=== PATIENT | male | born 1945 | race Caucasian/White ===

== ENCOUNTER → 2016-09-17 | Outpatient (CLI) | payer OTHER, BC ==
[~2016-09-17] MED LIST: LIDOCAINE 1% 30 ML SDV ONE; NA BICARBONATE 50 MEQ/50 ML VIAL ONE
--- NOTE | 2016-09-17 15:02 | US ---
Ultrasound-Guided right lower neck soft tissue Biopsy History: Right lower neck, upper back posterior soft tissue metabolically active mass measuring 3.1 x 1.6 x 0.9 cm. 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 Witnessed Consent: Witnessed informed consent was obtained after the risks, benefits, and alternativ es of ultrasound guided right lower neck upper back posterior mass biopsy were explained to the patie nt and all questions were answered. Procedure: Utilizing ultrasound guidance and sterile technique the right upper back was prepped with ChloraPrep solution. Lidocaine with bicarbonate was used as local anesthesia. A 18-gauge coaxial need le was passed with ultrasound guidance into the right upper back/lower neck posterior subcutaneous 3. 1 x 1.6 cm mass 4 times. Cytology was present and stated sufficient cells were located in specimen. Postprocedure imaging demonstrates no evidence of hematoma. Patient tolerated the procedure well with out immediate complications. Discharge instructions were given. EBL: NONE Impression: 1. Successful ultrasound guided biopsy of 3.1 cm lower neck/upper back posterior mass. 2. Please see pathology report which is pending. PQRS Cross-Cutting Measure: Tobacco use: no.
== END ==
LOC: FIMAGING 12:29
PROVIDERS: ATTEND Internal Medicine Hematology & Oncology
PROC: 0JB53ZX Excision of Left Neck Subcutaneous Tissue and Fascia, Percutaneous Approach, Diagnostic (ICD-10-PCS; principal; 2016-09-17)
DX: C79.89 Secondary malignant neoplasm of other specified sites (principal); Z85.828 Personal history of other malignant neoplasm of skin; Z85.118 Personal history of other malignant neoplasm of bronchus and lung

== ENCOUNTER 2016-12-01 10:45 | Emergency (ER) | payer OTHER, BC ==
[2016-12-01] MEDS ORDERED: NS 1,000 ML IV ONE (11:38)
--- NOTE | 2016-12-01 12:13 | EDPHY ---
H & P Time Seen by Provider: 12/01/16 12:13 HPI/ROS: CHIEF COMPLAINT: Altered mental status HISTORY OF PRESENT ILLNESS: History from paramedics as well as the patient. He has an insulin pump and a kidney transplant. He had radiation therapy for his squamous cell cancer on his skin last treatment was 5 days ago and he has been feeling a little bit ill and not eating or drinking normally over the past couple of days. Glucose was 50 and his insulin pump was off on arrival At time of my evaluation the patient is alert and normally conversant has no medical complaints. 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 PAST MEDICAL HISTORY: Includes kidney transplant, squamous cell skin cancer, diabetes, Clostridium difficile, reflux, blind in the right eye. Social history: General Appearance: Alert and conversant, cooperative. Eyes: Blind in the right eye. ENT, Mouth: Normal mucous membranes. Respiratory: Normal respiratory effort, breath sounds equal, lungs are clear to auscultation. Cardiovascular: Regular rate and rhythm. Gastrointestinal: Abdomen is soft and non tender. Neurological: Alert and oriented x3. Normally conversant. Face symmetric, normal movement and sensation in all extremities. Skin: Multiple areas of skin abrasions and squamous cell cancer but no areas of cellulitis. No erythema or lymphangitis or fluctuance. Musculoskeletal: Patient has amputations of all toes on the right foot and multiple toes in the left foot. No evidence of cellulitis. Psychiatric: Not agitated. Emergency Department course/MDM: 1230: Mental health hold vacated at this time is the whole documents grave disability secondary to hypoglycemia which the patient longer has. 1306: Patient ate in the emergency department and glucose was rechecked. I think it is likely that his hypoglycemia was due to decreased oral intake. Right now he has a normal mental status and wants to be discharged. Patient was seen by case management for social situation. Apparently we are able to arrange for 24 hour home care starting this afternoon which I think is a reasonable plan. Repeat glucose 157. Smoking Status: Former smoker Constitutional: Initial Vital Signs Temperature (C) 35.5 C L 12/01/16 10:57 Heart Rate 80 12/01/16 10:57 Respiratory Rate 16 12/01/16 10:57 Blood Pressure 176/59 H 12/01/16 10:57 O2 Sat (%) 90 L 12/01/16 10:57 O2 Delivery Mode Room Air Allergies/Adverse Reactions: Cephalosporins Allergy (Severe, Verified 08/06/16 12:23) Cleve Pravin Syndrome Penicillins Allergy (Intermediate, Verified 08/06/16 12:23) Hives Home Medications: Medication Instructions Recorded Esomeprazole Magnesium 02/29/16 GABAPENTIN 02/29/16 Metoprolol Tartrate 02/29/16 Oxycodone HCl 02/29/16 Prednisone 02/29/16 Sensipar 02/29/16 Tacrolimus 02/29/16 CALCITRIOL 08/06/16 Herbals/Supplements -Info Only 08/06/16 Insulin Pump, Patient Own 08/06/16 Nortriptyline HCl 08/06/16 Sodium Bicarbonate 08/06/16 Medical Decision Making Differential Diagnosis: Differential diagnosis considered for altered mental status including but not limited to hypoglycemia, infectious process, electrolyte abnormality, head injury and intoxicants. - Data Points Laboratory Results: Laboratory Results 12/01/16 11:25 12/01/16 13:15 12/01/16 12/01/16 12/01/16 13:15 11:25 11:25 WBC 3.57 10^3/uL L 10^3/uL (3.80-9.50) RBC 4.76 10^6/uL 10^6/uL (4.40-6.38) Hgb 14.8 g/dL g/dL (13.7-17.5) POC Hgb Hct 44.4 % % (40.0-51.0) POC Hct MCV 93.3 fL fL (81.5-99.8) MCH 31.1 pg pg (27.9-34.1) MCHC 33.3 g/dL g/dL (32.4-36.7) RDW 14.6 % % (11.5-15.2) Plt Count 182 10^3/uL 10^3/uL (150-400) MPV 10.3 fL fL (8.7-11.7) Neut % (Auto) 77.8 % H % (39.3-74.2) Lymph % (Auto) 9.0 % L % (15.0-45.0) Clark % (Auto) 12.3 % % (4.5-13.0) Eos % (Auto) 0.0 % L % (0.6-7.6) Baso % (Auto) 0.3 % % (0.3-1.7) Nucleat RBC Rel Count 0.0 % % (0.0-0.2) Absolute Neuts (auto) 2.78 10^3/uL 10^3/uL (1.70-6.50) Absolute Lymphs (auto) 0.32 10^3/uL L 10^3/uL (1.00-3.00) Absolute Monos (auto) 0.44 10^3/uL 10^3/uL (0.30-0.80) Absolute Eos (auto) 0.00 10^3/uL L 10^3/uL (0.03-0.40) Absolute Basos (auto) 0.01 10^3/uL L 10^3/uL (0.02-0.10) Absolute Nucleated RBC 0.00 10^3/uL 10^3/uL (0-0.01) Immature Gran % 0.6 % % (0.0-1.1) Immature Gran # 0.02 10^3/uL 10^3/uL (0.00-0.10) POC Sodium Sodium 137 mEq/L mEq/L (134-144) POC Potassium Potassium 4.4 mEq/L mEq/L (3.5-5.2) POC Chloride Chloride 103 mEq/L mEq/L (97-110) Carbon Dioxide 21 mEq/l L mEq/l (22-31) Anion Gap 13 mEq/L mEq/L (8-16) POC BUN BUN 34 mg/dL H mg/dL (7-23) Creatinine 0.8 mg/dL mg/dL (0.7-1.3) POC Creatinine Estimated GFR > 60 Glucose 157 mg/dL H D mg/dL 66 mg/dL L mg/dL (70-100) (70-100) POC Glucose Calcium 8.4 mg/dL L mg/dL (8.5-10.4) 12/01/16 11:25 WBC RBC Hgb POC Hgb 15.6 gm/dL gm/dL (14.5-17.3) Hct POC Hct 46 % % (42.8-50.6) MCV MCH MCHC RDW Plt Count MPV Neut % (Auto) Lymph % (Auto) Clark % (Auto) Eos % (Auto) Baso % (Auto) Nucleat RBC Rel Count Absolute Neuts (auto) Absolute Lymphs (auto) Absolute Monos (auto) Absolute Eos (auto) Absolute Basos (auto) Absolute Nucleated RBC Immature Gran % Immature Gran # POC Sodium 138 mEq/L mEq/L (134-144) Sodium POC Potassium 4.0 mEq/L mEq/L (3.3-5.0) Potassium POC Chloride 102 mEq/L mEq/L (96-108) Chloride Carbon Dioxide Anion Gap POC BUN 35 mg/dL H mg/dL (7-23) BUN Creatinine POC Creatinine 0.8 mg/dL mg/dL (0.8-1.5) Estimated GFR Glucose POC Glucose 69 mg/dL L mg/dL (70-100) Calcium Medications Given: Discontinued Medications Sodium Chloride (Ns) 1,000 mls @ 0 mls/hr IV ONCE ONE PRN Reason: Wide Open Stop: 12/01/16 11:39 Last Admin: 12/01/16 11:38 Dose: 1,000 mls Point of Care Test Results: 12/01/16 11:25 POC Sodium 138 POC Potassium 4.0 POC Chloride 102 POC BUN 35 H POC Creatinine 0.8 POC Glucose 69 L Departure - Departure Disposition: Home, Routine, Self-Care Clinical Impression: Hypoglycemia Condition: Good Instructions: Hypoglycemia in a Person with Diabetes (ED) Additional Instructions: You have an appointment tomorrow 12/01/16 at 1p.m. with RENETTA Macias at Dr. Vera's office ([phone]). You have been set up with HomeCare RN visits through [facility] ([phone]), they will most likely arrange their first at home visit on Thursday12/03/16. They will be in contact to schedule their visit. [facility] (your current home care agency) is planning on increasing their caregiving services to 24/7 care at home until you and your are able to move into a living situation that provides more care and assistance (such as [facility], etc.). Referrals: Long Vera MD [Primary Care Provider] - As per Instructions Raman Cosby MD [Medical Doctor] - As per Instructions Inna No PA [Physician Final Touch Up Painter] - As per Instructions
[2016-12-01 12:26] LABS: % IMMATURE GRANULYOCYTES 0.6 % (0.0-1.1); ABSOLUTE IMMATURE GRANULOCYTES 0.02 10^3/uL (0.00-0.10); ADD DIFF? NO; ADD MORPH? NO; ADD SCAN? NO; ATYPICAL LYMPHOCYTE FLAG 40 (0-99); FRAGMENT RBC FLAG 0 (0-99); HEMATOCRIT 44.4 % (40.0-51.0); HEMOGLOBIN 14.8 g/dL (13.7-17.5); LEFT SHIFT FLG 0 (0-99); LIPEMIA HEMOLYSIS FLAG 80 (0-99); MEAN CELL HEMOGLOBIN 31.1 pg (27.9-34.1); MEAN CELL HEMOGLOBIN CONCENTR. 33.3 g/dL (32.4-36.7); MEAN CELL VOLUME 93.3 fL (81.5-99.8); MEAN PLATELET VOLUME 10.3 fL (8.7-11.7); PLATELET CLUMPS FLAG 0 (0-99); PLATELET COUNT 182 10^3/uL (150-400); RED BLOOD CELL COUNT 4.76 10^6/uL (4.40-6.38); RED CELL DISTRIBUTION WIDTH 14.6 % (11.5-15.2)
[2016-12-01 12:31] LABS: ANION GAP 13 mEq/L (8-16); CALCIUM 8.4 mg/dL (8.5-10.4); CARBON DIOXIDE 21 mEq/l (22-31); CHLORIDE 103 mEq/L (97-110); CREATININE 0.8 mg/dL (0.7-1.3); GLOMERULAR FILTRATION RATE > 60; GLUCOSE 66 mg/dL (70-100); POTASSIUM 4.4 mEq/L (3.5-5.2); SODIUM 137 mEq/L (134-144)
[2016-12-01 13:50] LABS: GLUCOSE 157 mg/dL (70-100)
[2016-12-01 14:43] VITALS: BP 106/61; PULSE 72; RESP 18; TEMP 97.7; O2SAT 97
== END 2016-12-01 14:30 | disposition home or self-care (01) ==
LOC: EDUNIT#
DX: E11.649 Type 2 diabetes mellitus with hypoglycemia without coma (principal); Z79.4 Long term (current) use of insulin; Z87.891 Personal history of nicotine dependence; Z85.828 Personal history of other malignant neoplasm of skin
CPT/HCPCS: 82947-QW

== ENCOUNTER 2017-05-10 18:26 | Inpatient (IN) | payer OTHER, BC ==
--- NOTE | 2017-05-10 18:35 | EDPHY ---
H & P HPI/ROS: CHIEF COMPLAINT: HISTORY OF PRESENT ILLNESS: The patient is a 71 y/o male arriving via EMS who complains of weakness and rib pain secondary to a fall at home this morning. The patient is not a good historian. The history was obtained from his daughter, on the phone. She tells me that this morning he fell off his stationary bike and was unable to get up. The daughter made a routine call, and learned about her father's fall. Home health aides were subsequently called to the home. At that time he appeared to have normal mentation, with a blood glucose level of 187. Later in the day an aide returned to check on the patient. At that time the aide noted that the patient seemed weaker than usual and reportedly had a fever. The aide also noted that the patient seemed to be hallucinating while sleeping, which is consistent with prior episodes of a low blood glucose level--however, his blood sugar was not low. It was at that point that the aide called an ambulance. The patient believes that his daughter was the one who called the ambulance. Since the fall he has felt pain in his left ribs. He denies shortness of breath. He denies headache, neck pain, new numbness, new weakness, and confusion. The patient himself tells somewhat different story. He states that he was going outside to cut wood when he fell, landing on his buttocks. REVIEW OF SYSTEMS: A ten point review of systems was performed and is negative with the exception of the items mentioned in the HPI. Past medical history: Diabetes, insulin pump Squamous cell skin cancer, being treated with radiation therapy Loss of vision in right eye due to diabetes C. diff Renal transplant Past surgical history: Kidney transplant 10 years ago Social history: with advanced Alzheimer's at bedside Lives in [place] Daughter's boyfriend at bedside Daughter on phone, she is in [place] Retired from [employer] General Appearance: Alert. Vital signs reviewed. Blood pressure 125/72, initial room air pulse ox 90%. Head: Normocephalic atraumatic. Eyes: Od cloudy, no conjunctival injection, no discharge. Anicteric. Extraocular movements intact. ENT, Mouth: Mucous membranes are moist, no oropharyngeal erythema or edema. Neck: No lymphadenopathy, supple. Nontender to palpation over the cervical spine in the midline. Respiratory: Lungs are clear to auscultation; no wheezes, rales, or rhonchi. Cardiovascular: Regular rate and rhythm; no murmur, rub, or gallop. Gastrointestinal: Abdomen is soft and nontender, no masses or organomegaly, bowel sounds normal. Skin: Lateral left back abrasion, skin tear on lateral and medial left elbow. Skin is fragile. Multiple bruises. Back: Left posterior lower rib cage tenderness. No crepitus. Otherwise nontender to palpation over the thoracolumbar spine. No CVAT. Extremities: No lower extremity edema, no calf tenderness or swelling. Neurological: Alert and oriented. Moving all four extremities easily and equally. 4+ over 5 strength with testing of major motor groups of bilateral upper and lower extremities. Tongue midline. Facial expressions symmetric. Sensation intact to light touch over all 4 extremities. Psychiatric: Normal affect. - Personal History Tetanus Vaccine Date: 2008 - Medical/Surgical History Hx Asthma: No Hx Chronic Respiratory Disease: No Hx Diabetes: Yes Hx Cardiac Disease: No Hx Renal Disease: Yes Hx Cirrhosis: No Hx Alcoholism: No Hx HIV/AIDS: No Hx Splenectomy or Spleen Trauma: No Other PMH: kidney transplant SKIN CA EYE SURGERIES ORTHO SURG. APPY TONSILECTOMY, DIABETES TYPE 1, NEUROPATHY, insulin pump. chronic pain, HX OF CDIFF FROM 10/2014 - Social History Smoking Status: Former smoker Constitutional: Initial Vital Signs Temperature (C) 37 C 05/10/17 18:34 Heart Rate 87 05/10/17 18:34 Respiratory Rate 16 05/10/17 18:34 Blood Pressure 125/72 H 05/10/17 18:34 O2 Sat (%) 90 L 05/10/17 18:34 O2 Delivery Mode Room Air Allergies/Adverse Reactions: Cephalosporins Allergy (Severe, Verified 08/06/16 12:23) Cleve Pravin Syndrome Penicillins Allergy (Intermediate, Verified 08/06/16 12:23) Hives Home Medications: Medication Instructions Recorded Oxycodone HCl 02/29/16 Calcitriol [Calcitriol (*)] 0.25 mcg PO DAILY 05/10/17 Cinacalcet HCl [Sensipar] 30 mg PO 05/10/17 Esomeprazole Magnesium [Nexium] 20 mg PO 05/10/17 Gabapentin [Neurontin 300 MG (*)] 300 mg PO BID 05/10/17 Herbals/Supplements -Info Only 1 ea PO DAILY 05/10/17 Insulin Pump, Patient Own 1 ea MISC AD 05/10/17 Metoprolol Tartrate [Lopressor 25 12.5 mg PO BID 05/10/17 mg (*)] Nortriptyline HCl [Pamelor 10 mg 10 mg PO HS 05/10/17 (*)] Sodium Bicarbonate [Na Bicarb] 650 mg PO BID 05/10/17 Tacrolimus Anhydrous [Prograf 0.5 0.5 mg PO 05/10/17 MG (*)] predniSONE 5 mg PO 05/10/17 Medical Decision Making - Diagnostics Imaging Results: Imaging Impressions Chest X-Ray 05/10/17 18:58 Impression: 1. Multiple bilateral rib fractures. Most of these appear chronic and similar to prior chest CT. Possible acute or subacute fractures posterolateral left 7th and 8th ribs. No evidence for pneumothorax. 2. Scarlike density right suprahilar region, likely residual from treated carcinoma. Head CT 05/10/17 19:14 Impression: No evidence for acute intracranial abnormality. Stable chronic findings, as above. Results called and discussed with Eun Brantley MD on May 10, 2017 at 2006 hours. Imaging: Discussed imaging studies w/ machine brush maker Radiologist, I viewed and interpreted images myself ED Course/Re-evaluation: The patient is a 71 y/o male who presents with left rib tenderness and skin tears and abrasions to his left arm and back secondary to a fall this morning. He tells me that he was going outside to chop wood and fell; but his daughter reports that he fell off of his stationary bike this morning. By her report his thinking is usually clear. His home health aide also notes that his mentation is similar to prior episodes of low blood glucose levels. Plan on chest x-ray, head CT, labs, IV, 1L IV NS. 2009: Spoke with Dr. Parada,radiologist. He notes the patient has a fracture of left ribs [address] without atrophy, no acute findings--no intracranial hemorrhage or obvious stroke. I do not find focal neurologic deficits on my exam. White blood cell count is elevated with a left shift, I have not found a source of infection. Electrolytes are within normal limits. 2039: Spoke with hospitalist service, Dr.Wael Hicks accepts admission of patient. Patient has not been able to provide a urine sample. 2044: Consulted with Dr. Ho, trauma surgeon, he agrees to follow patient during admission. Differential Diagnosis: Altered mental status including but not limited to hypoglycemia, infectious process, electrolyte abnormality, head injury and intoxicants. - Data Points Laboratory Results: Laboratory Results 05/10/17 19:30 05/10/17 19:30 05/10/17 05/10/17 19:30 19:30 WBC 11.82 10^3/uL H 10^3/uL (3.80-9.50) RBC 4.43 10^6/uL 10^6/uL (4.40-6.38) Hgb 13.8 g/dL g/dL (13.7-17.5) Hct 41.8 % % (40.0-51.0) MCV 94.4 fL fL (81.5-99.8) MCH 31.2 pg pg (27.9-34.1) MCHC 33.0 g/dL g/dL (32.4-36.7) RDW 15.2 % % (11.5-15.2) Plt Count 233 10^3/uL 10^3/uL (150-400) MPV 10.2 fL fL (8.7-11.7) Neut % (Auto) 87.6 % H % (39.3-74.2) Lymph % (Auto) 4.7 % L % (15.0-45.0) [place] % (Auto) 7.1 % % (4.5-13.0) Eos % (Auto) 0.0 % L % (0.6-7.6) Baso % (Auto) 0.2 % L % (0.3-1.7) Nucleat RBC Rel Count 0.0 % % (0.0-0.2) Absolute Neuts (auto) 10.35 10^3/uL H 10^3/uL (1.70-6.50) Absolute Lymphs (auto) 0.56 10^3/uL L 10^3/uL (1.00-3.00) Absolute Monos (auto) 0.84 10^3/uL H 10^3/uL (0.30-0.80) Absolute Eos (auto) 0.00 10^3/uL L 10^3/uL (0.03-0.40) Absolute Basos (auto) 0.02 10^3/uL 10^3/uL (0.02-0.10) Absolute Nucleated RBC 0.00 10^3/uL 10^3/uL (0-0.01) Immature Gran % 0.4 % % (0.0-1.1) Immature Gran # 0.05 10^3/uL 10^3/uL (0.00-0.10) Sodium 135 mEq/L mEq/L (134-144) Potassium 5.2 mEq/L mEq/L (3.5-5.2) Chloride 98 mEq/L mEq/L (97-110) Carbon Dioxide 28 mEq/l mEq/l (22-31) Anion Gap 9 mEq/L mEq/L (8-16) BUN 34 mg/dL H mg/dL (7-23) Creatinine 0.9 mg/dL mg/dL (0.7-1.3) Estimated GFR > 60 Glucose 238 mg/dL H mg/dL (70-100) Calcium 8.5 mg/dL mg/dL (8.5-10.4) Medications Given: Miscellaneous Information (Patch Removal) 1 ea TD [id number] JAKE Stop: 11/06/17 20:59 Last Admin: 05/10/17 21:00 Dose: 1 ea Discontinued Medications Acetaminophen (Tylenol) 650 mg PO EDNOW ONE Stop: 05/10/17 20:56 Last Admin: 05/10/17 20:59 Dose: 650 mg Sodium Chloride (Ns) 1,000 mls @ 0 mls/hr IV EDNOW ONE; Wide Open PRN Reason: Protocol Stop: 05/10/17 20:30 Last Admin: 05/10/17 20:50 Dose: 1,000 mls Lidocaine (Lidoderm 5%) 1 ea TD EDNOW ONE Stop: 05/10/17 20:51 Last Admin: 05/10/17 21:00 Dose: 1 ea Tetracaine/Epinephrine/Lidocaine (Let Gel Topical) 2 ea TP EDNOW ONE Stop: 05/10/17 20:07 Last Admin: 05/10/17 20:10 Dose: 2 ea Departure - Departure Disposition: [facility] Inpatient Acute Clinical Impression: Fall Qualifiers: Encounter type: initial encounter Qualified Code(s): W19.XXXA - Unspecified fall, initial encounter Rib fractures Qualifiers: Encounter type: initial encounter Rib fracture type: multiple ribs Fracture type: closed Laterality: left Qualified Code(s): S22.42XA - Multiple fractures of ribs, left side, initial encounter for closed fracture Altered mental status Qualifiers: Altered mental status type: unspecified Qualified Code(s): R41.82 - Altered mental status, unspecified Condition: Fair Report Scribed for: Eun Brantley Report Scribed by: Alda Emmanuel Date of Report: 05/10/17 Time of Report: 19:07 Physician Review and Approval Statement: 05/10/17 18:35 Portions of this note were transcribed by the medical technologist generalist. I, Dr. Eun Brantley, personally performed the history, physical exam, and medical decision- making; and confirmed the accuracy of the information in the transcribed note.
[2017-05-10 19:37] LABS: % IMMATURE GRANULYOCYTES 0.4 % (0.0-1.1); ABSOLUTE IMMATURE GRANULOCYTES 0.05 10^3/uL (0.00-0.10); ADD DIFF? NO; ADD MORPH? NO; ADD SCAN? NO; ATYPICAL LYMPHOCYTE FLAG 0 (0-99); FRAGMENT RBC FLAG 0 (0-99); HEMATOCRIT 41.8 % (40.0-51.0); HEMOGLOBIN 13.8 g/dL (13.7-17.5); LEFT SHIFT FLG 0 (0-99); LIPEMIA HEMOLYSIS FLAG 80 (0-99); MEAN CELL HEMOGLOBIN 31.2 pg (27.9-34.1); MEAN CELL VOLUME 94.4 fL (81.5-99.8); MEAN PLATELET VOLUME 10.2 fL (8.7-11.7); PLATELET CLUMPS FLAG 0 (0-99); PLATELET COUNT 233 10^3/uL (150-400); RED BLOOD CELL COUNT 4.43 10^6/uL (4.40-6.38); RED CELL DISTRIBUTION WIDTH 15.2 % (11.5-15.2)
[2017-05-10 19:48] LABS: ANION GAP 9 mEq/L (8-16); CALCIUM 8.5 mg/dL (8.5-10.4); CARBON DIOXIDE 28 mEq/l (22-31); CHLORIDE 98 mEq/L (97-110); CREATININE 0.9 mg/dL (0.7-1.3); GLOMERULAR FILTRATION RATE > 60; GLUCOSE 238 mg/dL (70-100); POTASSIUM 5.2 mEq/L (3.5-5.2); SODIUM 135 mEq/L (134-144)
[2017-05-10] MEDS ORDERED: LET GEL TOPICAL 1 EA SYR TP ONE (20:06)
[2017-05-10] MEDS ORDERED: NS 1,000 ML IV ONE (20:29)
[2017-05-10] MEDS ORDERED: ACETAMINOPHEN 500 MG TAB PO ONE (20:50)
[2017-05-10] MEDS ORDERED: LIDOCAINE 5% 1 EA PATCH TD ONE (20:50)
[2017-05-10] MEDS ORDERED: ACETAMINOPHEN 325 MG TAB ONE (20:54)
[2017-05-10] MEDS ORDERED: ACETAMINOPHEN 325 MG TAB PO ONE (20:55)
[2017-05-10] MEDS ORDERED: PATCH REMOVAL 1 EA PATCH TD SCH (21:00)
[2017-05-10] MEDS ORDERED: CYCLOBENZAPRINE 10 MG TAB PO PRN (21:30)
[2017-05-10] MEDS ORDERED: HYDROmorphONE/DILAUDID 1 MG/ML SYR IVP PRN (21:32)
[2017-05-10] MEDS ORDERED: ACETAMINOPHEN 325 MG TAB PO PRN (21:43)
[2017-05-10] MEDS ORDERED: ONDANSETRON DISINTEGRATING 4 MG TAB PO PRN (21:43)
[2017-05-10] MEDS ORDERED: ONDANSETRON 4 MG/2 ML VIAL IVP PRN (21:43)
[2017-05-10] MEDS: LIDOCAINE 5% 1 EA PATCH TD SCH (21:44)
[2017-05-10] MEDS ORDERED: NS 1,000 ML IV SCH (21:45)
[2017-05-10] MEDS ORDERED: NON-FORMULARY NEW DRUG (Insulin Pump, Patient Own 1 EA) MISC SCH (22:00)
--- NOTE | 2017-05-10 22:22 | GHP ---
[f rep st] HISTORY AND PHYSICAL DATE OF ADMISSION: 05/10/2017 CHIEF COMPLAINT: Fall. HISTORY OF PRESENT ILLNESS: This is a 71-year-old male, with a history of type 1 diabetes, and end- stage renal disease with a transplant. Apparently, this morning he fell. He has been giving differ ent stories due to some [id number] confusion, but he apparently got caught up in his walker an d fell on his side. He has probably 2 acute rib fractures currently. On further questioning, he do es remember falling yesterday as well. He does admit to feeling weak and unsteady. He thinks he mi ght have some balance problems. He has not had any fevers or chills. No diarrhea. He has been eat ing normally. He denies any focal weakness. No headache. He does have some chest pain due to his rib fractures. No cough. REVIEW OF SYSTEMS: A 10-point review of systems was obtained and was negative. PAST MEDICAL HISTORY: 1. 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 2. Right eye blindness, as well as end-stage renal disease, status post transplant. 3. Status post transplant. 4. Squamous cell carcinoma, status post radiation to his head, but also to his lung. 5. Borderline diabetic with cellulitis with several transmetatarsal amputation bilaterally. 6. Chronic pain. 7. History of Clostridium difficile. 8. GERD. MEDICATIONS: We are still tracking them down. SOCIAL HISTORY: Lives by himself but has caretakers. His daughter and daughter's boyfriend are gerald y involved. FAMILY HISTORY: Both parents are . PHYSICAL EXAMINATION: VITAL SIGNS: Afebrile, blood pressure is 125/72, heart rate 87, oxygen satur ation is 90% on room air. GENERAL: The patient is well developed, in no apparent distress. HEENT: Right eye corneal opacity. NECK: Supple. No thyromegaly. LUNGS: Good effort. Clear to auscul tation bilaterally. CARDIOVASCULAR: Regular rate and rhythm. No murmurs, gallops. ABDOMEN: Posi tive bowel sounds. Soft, nontender, nondistended. No hepatosplenomegaly. EXTREMITIES: No clubbin g, cyanosis, or edema. Right transmetatarsal amputation and left multiple toe amputations. NEUROLO GIC: He is alert and answering most questions appropriately. He has 5/5 strength in all 4 extremit ies. PSYCH: Normal mood and affect. LABORATORY DATA: White blood cell count elevated at 11, hemoglobin 13. Sodium 135, potassium 5.2, BUN 34, creatinine 0.8, glucose is 238. Head CT does not show any acute abnormalities. Chest x-ray shows possible acute rib fractures of 7th and 8th ribs. ASSESSMENT: This is a 71-year-old male presenting with falls and possible early encephalopathy. PLAN: 1. Falls with rib fractures. Trauma Surgery will see the patient. 2. Ggeneralized weakness with possible balance problems. The patient is not exhibiting any systemi c signs of infection other than a slightly elevated white blood cell count. We will check a UA and blood cultures. If infectious workup is negative, and patient continues to have these abnormalities , would consider MRI of the brain tomorrow. 3. Type 1 diabetes. We will continue his home regimen or equivalent since he is on insulin pump. 4. End-stage renal disease, status post transplant. We will continue antirejection medications. 5. Remote history of squamous cell carcinoma. /[id number]/MODL
--- NOTE | 2017-05-10 22:58 | GCON ---
[f rep st] CONSULTATION TRAUMA CONSULTATION HISTORY: The patient is a 71-year-old patient who is mildly confused. This morning apparently he was going into his backyard either to an exercise bike or to chop wood when he fell in the patio. He states he does not know why he came in to the ER. He feels that other people wanted him to come in and get checked out. He very much would like to go home. He is complaining of left low lateral back pain. He was seen in the ER, was found to have on x-ray new fractures or what were thought to be fractures of left ribs 7 and 8. 2 years ago he fractured ribs in 22 places, and a chest x-ray confirms multiple old fractures. Chest x-ray also shows potential scar in his right latrice, and the question was raised whether that was a treated cancer or not. SOCIAL HISTORY: He does not smoke. He has approximately 1 drink a week. ALLERGIES: He is allergic to penicillins as manifested by hives. 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 PAST SURGICAL HISTORY: Multiple surgeries: They have included an appendectomy , a left femoral rodding, a renal transplant (approximately 10 years ago). 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 Most recent radiation treatment was apparently within the last week. He has had bilateral cataract extractions with lens placement. He had a left shoulder surgery, and he is unclear as to why. He thinks it might have been due to an infection. He has had a tonsillectomy and an appendectomy. REVIEW OF SYSTEMS: There is no history of rheumatic fever, tuberculosis, hepatitis, or transfusions. 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 He does use an insulin pump. He has been diabetic since the age of 10. He does wear glasses for visual correction. He thinks he may have high blood pressure, but he is unsure. He has dental crowns. MEDICATIONS: Include Myfortic 360 mg b.i.d., Prograf extended release 0.5 mg q.a.m., prednisone 7.5 mg every 10 a.m., tacrolimus 0.5 mg every 10:30 in the morning. His other medications include gabapentin 300 mg twice a day, metoprolol 12.5 mg twice a day, Sensipar 30 mg daily, calcitriol 0.25 mcg Thursday through Thursday. He is on nortriptyline 40 mg q.h.s. and sodium bicarbonate 650 mg twice a day. He is on Nexium 40 mg a day. He is on insulin pump, which has a basal rate of 0.2 units/hour overnight and from 8 a.m. to 9 p.m. his basal rate is 0.4 units/hour. He may bolus himself 3-6 units as needed depending upon his carbohydrate dose. LABORATORY DATA: A white count of 11.8, hematocrit of 42, platelet count 233, 000. Potassium is 5.2, sodium is 138, BUN is 34, creatinine is 0.9. Glucose is 238. IMAGING DATA: CT of his head showed no acute findings, but does show chronic small vessel ischemic disease. Chest x-ray report has previously been described. Rib fractures as mentioned above. PHYSICAL EXAMINATION: GENERAL: He is pleasant, but confused. Apparently, this is not his usual state. Remains unclear as to why he fell. NEUROLOGIC: He is moving all extremities. He does not appear to have any focal lateralizing neurologic findings. He is oriented, and his GCS is 15. HEENT: His skull shows an area of dry necrosis on his high right parietal region. This is an area which has been treated with radiation. He has normal dental occlusion. There is no Ham sign or raccoon eyes. NECK: His neck is nontender. There are no carotid bruits. Thyroid is not enlarged. BACK: Shows multiple seborrheic keratoses. He is tender medial to the posterior axillary line at approximately the level of the 9th and 10th ribs. His back is otherwise nontender and stable to AP and lateral compression except low lateral on the left. LUNGS: Clear to auscultation. CARDIAC: Shows S1, S2 to be normal. He is in normal sinus rhythm. ABDOMEN: Soft. EXTREMITIES: Lower extremities have multiple crusting lesions. He does have a right transmetatarsal amputation and a left amputation of the digits 2 through 5. IMPRESSION: On the whole, this patient does not wish to be in the hospital. We admitted him for pain control and to watch and preserve his pulmonary function. The bigger question is to why he is confused why did he fall. He will be admitted to the hospitalist service (Dr. Meng Hicks). Trauma surgery will follow with Medicine. /[id number]/MODL MTDD
[2017-05-10] MEDS: ACETAMINOPHEN 325 MG TAB PO SCH (23:09)
[2017-05-11] MEDS ORDERED: D10W 250 ML PRN HYPOGLYCEMIA IV (00:31)
[2017-05-11] MEDS ORDERED: D50W 25 GM/50 ML SYR IVP PRN (00:31)
[2017-05-11] MEDS ORDERED: INSULIN PUMP, PATIENT OWN 1 EA MISC SCH (00:45)
[2017-05-11 04:59] LABS: % IMMATURE GRANULYOCYTES 0.5 % (0.0-1.1); ABSOLUTE IMMATURE GRANULOCYTES 0.05 10^3/uL (0.00-0.10); ADD DIFF? NO; ADD MORPH? NO; ADD SCAN? NO; ATYPICAL LYMPHOCYTE FLAG 0 (0-99); FRAGMENT RBC FLAG 0 (0-99); HEMATOCRIT 40.6 % (40.0-51.0); HEMOGLOBIN 13.3 g/dL (13.7-17.5); LEFT SHIFT FLG 0 (0-99); LIPEMIA HEMOLYSIS FLAG 80 (0-99); MEAN CELL HEMOGLOBIN CONCENTR. 32.8 g/dL (32.4-36.7); MEAN CELL VOLUME 94.6 fL (81.5-99.8); MEAN PLATELET VOLUME 10.2 fL (8.7-11.7); PLATELET CLUMPS FLAG 0 (0-99); PLATELET COUNT 188 10^3/uL (150-400); RED BLOOD CELL COUNT 4.29 10^6/uL (4.40-6.38); RED CELL DISTRIBUTION WIDTH 14.9 % (11.5-15.2)
[2017-05-11 05:12] LABS: ALANINE AMINOTRANSFERASE 25 IU/L (21-72); ALKALINE PHOSPHATASE 75 IU/L (38-126); ANION GAP 10 mEq/L (8-16); ASPARTATE AMINOTRANSFERASE 20 IU/L (17-59); BILIRUBIN,TOTAL 1.7 mg/dL (0.1-1.4); CARBON DIOXIDE 24 mEq/l (22-31); CHLORIDE 101 mEq/L (97-110); CREATININE 0.8 mg/dL (0.7-1.3); GLOMERULAR FILTRATION RATE > 60; GLUCOSE 299 mg/dL (70-100); POTASSIUM 4.5 mEq/L (3.5-5.2); SODIUM 135 mEq/L (134-144); TOTAL PROTEIN 5.9 g/dL (6.3-8.2)
[2017-05-11] MEDS: ACETAMINOPHEN 325 MG TAB PO SCH ×2 (05:25→12:14)
--- NOTE | 2017-05-11 09:02 | WOCRNPDOC ---
WOCRN Advanced Assessment Note - Skin Integrity Problem, Advanced Assess Sacrum Pressure Injury Dressing Type: Open to Air Site Measurement - Head-to-Toe Length X Width X Depth (cm): 6x3x0 Pressure Injury Stage: Stage 1 Pressure Injury Present on Admit: Yes Skin Integrity Problem Comment: No briefs. Maximum two layers of linens under patient. Wound care will sign off. Please reconsult if wound opens/worsens. Left Head Dressing Type: Open to Air Wound Bed Color: Yellow Wound Bed Constitution: Dried Exudate, Adhered Slough Site Measurement - Head-to-Toe Length X Width X Depth (cm): 2x2x0.3 Skin Integrity Problem Comment: Dried, necrotic with rolled edges and stalled.
[2017-05-11] MEDS ORDERED: TEARS/DEXTRAN 70/HYPROMELLOSE 15 ML OPHT.BTL EACHEYE PRN (10:34)
[2017-05-11] MEDS: ENOXAPARIN 40 MG/0.4 ML SYR SC SCH (10:43)
[2017-05-11] MEDS: LIDOCAINE 5% 1 EA PATCH TD SCH (10:44)
[2017-05-11] MEDS: PATCH REMOVAL 1 EA PATCH TD SCH (10:44)
[2017-05-11 10:49] LABS: COLOR AMBER; LEUKOCYTE ESTERASE,URINE TRACE (NEGATIVE); NITRITE,URINE NEGATIVE (NEGATIVE)
[2017-05-11 10:55] LABS: BACTERIA 3+ /hpf (NONE SEEN); MUCUS 3+ /lpf (NONE-1+); WBC,URINE 25-50 /hpf (0-3)
--- NOTE | 2017-05-11 13:11 | TRAUMAPN ---
- Problem/Surgery Performed (1) Rib fractures Assessment/Plan: 05/11/2017 PAD#1 Assessment: Complains slightly more ( minimally) about rib pain when asked. IS to 2500cc! CXR without PTX. Plan: Continue current plan. Nothing further to add. I have spoken to Dr. Johnson and he is comfortable with Trauma signing off. Qualifiers: Encounter type: subsequent encounter Rib fracture type: multiple ribs Fracture type: closed Laterality: left Fracture healing: F Qualified Code( s): S22.42XA - Multiple fractures of ribs, left side, initial encounter for closed fracture Subjective: notes slight increase in rib pain Objective: Vital Signs Temp Pulse Resp BP Pulse Ox 36.7 C 86 16 144/40 H 97 05/11/17 07:40 05/11/17 07:40 05/11/17 07:40 05/11/17 07:40 05/11/17 07:40 Laboratory Results 05/11/17 04:27 05/11/17 04:27 05/10/17 05/11/17 05/12/17 05:59 05:59 05:59 Intake Total 1850 Balance 1850 Physical Exam - Physical Exam General Appearance: WD/WN, other (Superfically, confusion is less) Neck: full range of motion Respiratory: chest non-tender, lungs clear, normal breath sounds Cardiac/Chest: regular rate, rhythm Neuro/Psych: no motor/sensory deficits, alert, normal mood/affect Time Spent w/Patient (minutes): 15
--- NOTE | 2017-05-11 13:22 | HOSPPROG ---
Hospitalist Progress Note Assessment/Plan: # encephalopathy - seems better today # weakness/falls - PT eval pending; - OT recs SNF vs inpt rehab - possibly d/t UTI - follow while inpatient # UTI - culture sent - empiric levaquin (pcn allergy) pending culture # renal transplant - function is stable - cont tacrolimus, pred and MMF, check tac level # chronic immunosuppression # DM1 - uses own insulin pump, glucs high here - A1c pending - c/b retinopathy, nephropathy # rib fractures - seen by trauma - no intervention needed # hx c. dif - start ppx vanc PO while on levaquin # dispo - inpatient; too weak to be discharged home today Subjective: wants to go home; Objective: Vital Signs Temp Pulse Resp BP Pulse Ox 36.7 C 86 16 144/40 H 97 05/11/17 07:40 05/11/17 07:40 05/11/17 07:40 05/11/17 07:40 05/11/17 07:40 Laboratory Results 05/11/17 04:27 05/11/17 04:27 05/10/17 05/11/17 05/12/17 05:59 05:59 05:59 Intake Total 1850 Balance 1850 chart reviewed imaging reviewed - Physical Exam Constitutional: no apparent distress, appears nourished Cardiovascular: regular rate and rhythym, no murmur, rub, or gallop Respiratory: no respiratory distress, no rales or rhonchi, clear to auscultation Gastrointestinal: normoactive bowel sounds, soft, non-tender abdomen, no palpable masses, other (no pain over pelvic kidney) ICD10 Worksheet Patient Problems: Problems Problem Status Onset Diabetes mellitus type 1 Active Leukocytosis Acute C. difficile diarrhea Acute 10/13/14 Hyperglycemia Acute Fall Acute Rib fractures Acute Altered mental status Acute
[2017-05-11] MEDS ORDERED: ASTAGRAF PO SCH (15:15)
--- NOTE | 2017-05-11 17:43 | ASMTCMCOM ---
CM Note CM Note Notes: 71 year old male admitted for encephalopathy, weakness, falls, rib fxs, UTI. He has a hx of renal transplant, and chronic immunosuppression, DM-1. Therapies are recommending SNF rehab, patient determined to go home. Patient lives with his who has dementia. [id number], Donna, in the room and reports that the couple has a lot of support at home. They have hired [employer] 4hrs/day x 7 and can increase their care. They would also like skilled care and have had [facility] in the past.This Bridal Sales Consultant left a message for [facility] for possible admit. Donna lives close and visits often. Donna said that she could transport the patient home on discharge. Date Signed: 05/11/2017 05:42 PM Electronically Signed By:Sonal Guillory
[2017-05-11] MEDS: GABAPENTIN 300 MG CAP PO SCH (20:28)
[2017-05-11] MEDS: METOPROLOL TARTRATE 25 MG TAB PO SCH (20:28)
[2017-05-11] MEDS: NON-FORMULARY NEW DRUG (Mycophenolate Sodium [Myfortic] 360 MG) PO SCH (20:30)
[2017-05-11] MEDS: SODIUM BICARBONATE 650 MG TAB PO SCH (20:31)
[2017-05-11] MEDS: VANCOMYCIN 125 MG/2.5 ML UDL PO SCH (20:32)
[2017-05-11] MEDS ORDERED: NORTRIPTYLINE HCL 10 MG CAP PO SCH (21:00)
[2017-05-12] MEDS: ACETAMINOPHEN 325 MG TAB PO SCH ×3 (00:44→11:12)
[2017-05-12 03:00] LABS: HEMOGLOBIN A1C 8.9 % (4.0-6.0)
[2017-05-12] MEDS: GABAPENTIN 300 MG CAP PO SCH (08:17)
[2017-05-12] MEDS: METOPROLOL TARTRATE 25 MG TAB PO SCH (08:17)
[2017-05-12] MEDS: LIDOCAINE 5% 1 EA PATCH TD SCH (08:18)
[2017-05-12] MEDS: ENOXAPARIN 40 MG/0.4 ML SYR SC SCH (08:18)
[2017-05-12] MEDS: VANCOMYCIN 125 MG/2.5 ML UDL PO SCH (08:19)
[2017-05-12] MEDS: PATCH REMOVAL 1 EA PATCH TD SCH (08:20)
[2017-05-12] MEDS: SODIUM BICARBONATE 650 MG TAB PO SCH (08:21)
[2017-05-12] MEDS ORDERED: CINACALCET HCL 30 MG TAB PO SCH (09:00)
[2017-05-12] MEDS ORDERED: CALCITRIOL 0.25 MCG CAP PO SCH (09:00)
[2017-05-12] MEDS ORDERED: NON-FORMULARY NEW DRUG (Esomeprazole Mag Trihydrate [Nexium] 40 MG) PO SCH ×2 (09:00)
[2017-05-12] MEDS ORDERED: CHOLECALCIFEROL VIT D3 2,000 UNITS TAB/CAP PO SCH (09:00)
[2017-05-12] MEDS ORDERED: PYRIDOXINE HCL 100 MG TAB PO SCH (09:00)
[2017-05-12] MEDS ORDERED: predniSONE 5 MG TAB PO SCH (10:00)
[2017-05-12] MEDS ORDERED: ASTAGRAF PO SCH ×2 (10:00)
[2017-05-12] MEDS: NON-FORMULARY NEW DRUG (Mycophenolate Sodium [Myfortic] 360 MG) PO SCH (10:04)
[2017-05-12] MEDS ORDERED: PANTOPRAZOLE SODIUM 40 MG TAB PO SCH (11:30)
[2017-05-12 11:58] VITALS: TEMP 97.4
--- NOTE | 2017-05-12 15:09 | PDIAF ---
- Diagnosis Code Status: Full Code - Medication Management Discharge Medications: Medications to Continue on Transfer Astagraf Xl 0.5mg 0.5 mg PO DAILY@05/10/17 [Last Taken 05/09/17] Calcitriol [Calcitriol (*)] 0.25 mcg PO MOTUWETHFR@05/10/17 [Last Taken 05/08] Cholecalciferol Vit D3 [Vitamin D3 2000 units tab (OTC)] 2,000 units PO DAILY [Last Taken 05/10/17] Cinacalcet HCl [Sensipar (*)] 30 mg PO DAILY 05/10/17 [Last Taken 05/10/17] Esomeprazole Mag Trihydrate [Nexium] 40 mg PO DAILY 05/10/17 [Last Taken ] Gabapentin [Neurontin 300 MG (*)] 300 mg PO BID 05/10/17 [Last Taken 05/10/17 09 :00] Insulin Pump, Patient Own 1 ea [facility] AD 05/10/17 [Last Taken 05/10/17] Metoprolol Tartrate [Lopressor 25 mg (*)] 12.5 mg PO BID 05/10/17 [Last Taken ] Mycophenolate Sodium [Myfortic] 360 mg PO BID@05/10/17 [Last Taken 10:00] Nortriptyline HCl [Pamelor 10 mg (*)] 40 mg PO HS 05/10/17 [Last Taken 05/09/17] Pyridoxine HCl [Vitamin B-6 100 mg (*)] 100 mg PO DAILY 05/10/17 [Last Taken 11/21] Sodium Bicarbonate [Na Bicarb] 650 mg PO BID 05/10/17 [Last Taken 05/10/17] Tears/Dextran 70/Hypromellose [Natural Balance Tears (*)] 1 drop EACHEYE Q2 PRN 05/10/17 [Last Taken Unknown] predniSONE 7.5 mg PO DAILY@05/10/17 [Last Taken 05/10/17] Discharge Medications: Refer to the Discharge Home Medication list for PRN reason. - Orders Services needed: Home Care, Registered Nurse, Physical Therapy, Occupational Therapy Home Care Face to Face: I certify that this patient was under my care and that I had the required [id number] encounter meeting the encounter requirements on the discharge day. My findings support the fact that the patient is homebound as defined in CMS Chapter 7 Medicare Benefits Manual 30.1.1, The condition of the patient is such that there exists a normal inability to leave home and consequently, leaving home would require a considerable and taxing effort. Diet Recommendation: ADA 2000 consistent carb Diet Texture: Regular Texture Diet - Labs/Radiology BMP Date: 05/19/17 CBC Date: 05/19/17 - Follow Up Care Current Providers and Referrals: Patient,NotPresent [Unknown] - As per Instructions Raman Cosby MD [Medical Doctor] - follow up in 1 week
[2017-05-12] MEDS ORDERED: INSULIN REGULAR HUMAN 100 UNIT/ML SC ONE (16:01)
[2017-05-12 17:08] VITALS: BP 118/56; PULSE 81; RESP 14; O2SAT 94
--- NOTE | 2017-05-12 21:13 | GDS ---
[f rep st] DISCHARGE SUMMARY ACUTE DIAGNOSES: 1. Acute fall without any determined adverse affect. No cardiac or medical reason found. 2. Generalized weakness secondary to advanced age and multiple medical problems. 3. Status post remote renal transplant, on immunosuppressive therapy of tacrolimus, prednisone, and MMF. 4. Diabetes mellitus type 1 with an insulin pump, which the patient self controls. 5. Chronic pain syndrome. 6. Rib fractures found to be old and healing. No new fracture is seen. 7. Possible urinary tract infection. No growth on urine culture. 8. History of clostridium difficile. The patient given vancomycin orally, while in the hospital on Levaquin. CHRONIC DIAGNOSES: 1. Diabetes mellitus. 2. Renal transportation transplant. CONSULTATIONS: Trauma service. PROCEDURES: None. HOSPITAL COURSE: This is a 71-year-old male with multiple medical problems, who lives at home with his . He fell from his wheelchair, and recalls falling and hitting the ground. He did not lose consciousness, and he did not understand why he fell. His evaluation showed initially they had a n ormal CBC with a slight left shift. His glucose was variously normal and slightly elevated. Urinal ysis suggested that it might be of infectious origin, yet no growth was obtained on culture. A hemo globin A1c was also elevated at 8.9, indicating poor control of his diabetes. During this hospitali zation. We had better control of his diabetes. He seemed to understand his condition, and strongly requested to return home. PT and OT worked closely with the gentleman, and felt he was at his func tional baseline. Though the gentleman is impaired and he lives with his , who has dementia, they managed to funct ion well, according to case management and physical therapy with not only the assistance of each [facility] er, but the assistance of visiting nurses, and PT/OT in the home. They have 4 hours a day of assist sarah. The gentleman has been instructed that his diabetes needs to be in better control. He identifies Dr Yareli Cosby as his primary physician, who we will suggest an early followup. DISCHARGE MEDICATIONS: These are the same as his admission medications without changes. Prednisone 7.5 mg daily, sodium bicarbonate 650 mg twice daily, Pamelor 40 mg h.s., Lopressor 25 mg b.i.d., an d insulin pump managed by the patient himself, Neurontin 300 mg b.i.d., Sensipar 30 mg daily, calcit riol 0.25 mcg Thursday, Thursday, Thursday, , Thursday; vitamin B6 100 mg daily, natural balance tears, mycophenolate 360 mg p.o. b.i.d., vitamin D3 2,000 international units daily, Nexium 40 mg d aily, Astagraf 0.5 mg p.o. daily. PLAN: The gentleman will follow up and see Dr. Eber Cosby within the next week. Matters to be addressed at the first followup: Reassess the gentleman's ability to function in his home environment with the assistance that had been provided. Additionally, I would review his diabe tic management per the fact that his hemoglobin A1c is significantly elevated at 8.9. It is possibl e he falls because of hyperglycemia and mild dehydration, which not only impairs his function at [facility], but also potentially impairs his renal transplant. The gentleman was adamant about not returning to being discharged to a fdc facility or to a rehab facility. TIME: This discharge required 55 minutes, greater than 50% to weight loss counselor and coordinate his care. /[id number]/MODL
--- NOTE | 2017-05-13 09:26 | ASMTCMCOM ---
CM Note CM Note Notes: Pt medically stable for d/c home w [facility] & private pay unskilled care. Per pt dghtr request [employer] transport set up, she knows pt will be billed. Date Signed: 05/13/2017 09:25 AM Electronically Signed By:Yael Yates
== END 2017-05-12 17:20 | disposition home health service (06) | DRG 948 ==
LOC: EDUNIT# → F3N 22:45 → OBSVTOIN 05-11 13:23
PROVIDERS: ADMIT Internal Medicine; ATTEND Internal Medicine Pulmonary Disease
DX: R53.1 Weakness (principal); W19.XXXA Unspecified fall, initial encounter; Y92.018 Other place in single-family (private) house as the place of occurrence of the external cause; Y99.8 Other external cause status; R41.0 Disorientation, unspecified; S22.42XD Multiple fractures of ribs, left side, subsequent encounter for fracture with routine healing; E10.65 Type 1 diabetes mellitus with hyperglycemia; E10.40 Type 1 diabetes mellitus with diabetic neuropathy, unspecified; E10.319 Type 1 diabetes mellitus with unspecified diabetic retinopathy without macular edema; H54.41 Blindness, right eye, normal vision left eye; Z96.41 Presence of insulin pump (external) (internal); Z94.0 Kidney transplant status; Z79.899 Other long term (current) drug therapy; Z79.52 Long term (current) use of systemic steroids; G89.29 Other chronic pain; Z85.828 Personal history of other malignant neoplasm of skin; Z85.118 Personal history of other malignant neoplasm of bronchus and lung; Z89.431 Acquired absence of right foot; Z89.432 Acquired absence of left foot
CPT/HCPCS: 80197-90; 97116-GP; 97161-GP; 97166-GO; 97530-GO; 97530-GP; 97535-GO; G0378; G8978-GP-CI; G8979-GP-CI; G8980-GP-CI; G8987-GO-CK; G8988-GO-CI; J1650; J1815; J1956

== ENCOUNTER 2017-06-15 17:12 | Inpatient (IN) | payer OTHER, BC ==
--- NOTE | 2017-06-15 17:40 | EDPHY ---
H & P Stated Complaint: LTA, fall, L hip pain Time Seen by Provider: 06/15/17 17:40 HPI/ROS: CHIEF COMPLAINT: Left hip pain HISTORY OF PRESENT ILLNESS: The patient presents to the ED after he fell off is exercise bite. The patient has acute left hip pain. The patient has a prior history of a left hip fracture and ORIF 15 years ago. The patient was recently hospitalized in May with a mechanical fall. The patient does have a history of diabetes and has an insulin pump. The patient is also status post renal transplant. The patient complains of 10/10 left hip pain. The patient was noted to have a low blood sugar by EMS of 40. The patient was given oral dextrose prior to arrival. REVIEW OF SYSTEMS: A comprehensive 10 point review of systems is otherwise negative aside from elements mentioned in the history of present illness. Source: Patient Exam Limitations: No limitations - Personal History Tetanus Vaccine Date: 2008 - Medical/Surgical History Hx Asthma: No Hx Chronic Respiratory Disease: No Hx Diabetes: Yes Hx Cardiac Disease: No Hx Renal Disease: Yes Hx Cirrhosis: No Hx Alcoholism: No Hx HIV/AIDS: No Hx Splenectomy or Spleen Trauma: No Other PMH: kidney transplant SKIN CA EYE SURGERIES ORTHO SURG. APPY TONSILECTOMY, DIABETES TYPE 1, NEUROPATHY, insulin pump. chronic pain, HX OF CDIFF FROM 10/2014 - Social History Smoking Status: Former smoker - Physical Exam Exam: General Appearance: Elderly male, mild distress secondary to pain Eyes: Pupils equal and round no pallor or injection, chronic right eye blindness ENT, Mouth: Dry mucous membranes Respiratory: There are no retractions, lungs are clear to auscultation Cardiovascular: Regular rate and rhythm Gastrointestinal: Abdomen is soft and nontender, no masses, bowel sounds normal , insulin pump present Neurological: A&O, normal motor function, normal sensory exam, normal cranial nerves Skin: Small areas of old ecchymosis Musculoskeletal: Tenderness to palpation and with any attempted range of motion noted to the left hip Neuro: GCS 15, sensation intact to light touch lower extremities, 5/5 strength noted bilateral feet Vascular: 2+ dorsalis pedis and posterior tibial pulses Constitutional: Initial Vital Signs Temperature (C) 35.5 C L 06/15/17 17:12 Heart Rate 77 06/15/17 17:12 Respiratory Rate 16 06/15/17 17:12 Blood Pressure 125/85 H 06/15/17 17:12 O2 Sat (%) 86 L 06/15/17 17:12 O2 Delivery Mode Room Air Allergies/Adverse Reactions: Cephalosporins Allergy (Severe, Verified 08/06/16 12:23) Cleve Pravin Syndrome Penicillins Allergy (Intermediate, Verified 08/06/16 12:23) Hives codeine Allergy (Unknown, Verified 05/10/17 22:06) Home Medications: Medication Instructions Recorded Astagraf Xl 0.5mg 0.5 mg PO DAILY@05/10/17 Calcitriol [Calcitriol (*)] 0.25 mcg PO MOTUWETHFR@05/10/17 Cholecalciferol Vit D3 [Vitamin D3 2,000 units PO DAILY 05/10/17 2000 units tab (OTC)] Cinacalcet HCl [Sensipar (*)] 30 mg PO DAILY 05/10/17 Esomeprazole Mag Trihydrate 40 mg PO DAILY 05/10/17 [Nexium] Gabapentin [Neurontin 300 MG (*)] 300 mg PO BID 05/10/17 Insulin Pump, Patient Own 1 ea [facility] AD 05/10/17 Metoprolol Tartrate [Lopressor 25 12.5 mg PO BID 05/10/17 mg (*)] Mycophenolate Sodium [Myfortic] 360 mg PO BID@05/10/17 Nortriptyline HCl [Pamelor 10 mg 40 mg PO HS 05/10/17 (*)] Pyridoxine HCl [Vitamin B-6 100 mg 100 mg PO DAILY 05/10/17 (*)] Sodium Bicarbonate [Na Bicarb] 650 mg PO BID 05/10/17 Tears/Dextran 70/Hypromellose 1 drop EACHEYE Q2 PRN 05/10/17 [Natural Balance Tears (*)] predniSONE 7.5 mg PO DAILY@05/10/17 Medical Decision Making - Diagnostics EKG Interpretation: EKG: Complete interpretation has been separately recorded in the [employer] archive. Summary impression: Sinus rhythm, first-degree AV block, nonspecific ST T wave changes noted Imaging Results: Imaging Impressions Hip X-Ray 06/15/17 17:25 Impression: Acute fracture of the proximal femoral shaft in the region where prior ORIF was performed. Extremity CT 06/15/17 17:44 Impression: 1. Three-dimensional study for preoperative planning for treatment of the fracture of the left femoral shaft. 2. The previously pinned left femoral neck fracture appears well healed. Results called and discussed with Dr. Kyrie Jackson on June 15, 2017 at 1828 hours. ED Course/Re-evaluation: The patient presents to the ED after mechanical fall with left hip pain and deformity. A pelvis x-ray was obtained the and demonstrates a prosthetic left hip fracture. The patient's i-STAT glucose was found to be 47. I ordered additional amp of D50 and oral orange juice. Consultation was made with Dr. Elena from Orthopedic service who will take the patient to the operating room tomorrow. A CT scan of the hip has been ordered per his request. Regarding the patient's hypoglycemia, his insulin pump was disconnected. The patient was also given a the arms to use. The patient will not go to the operating room this evening. Consultation was made with Dr. Elin Ellis from the hospitalist service who will admit the patient this evening. Fingerstick blood glucose was checked at 7:15 p.m. and found to be 134. The patient did receive IV narcotic medications for pain management. Patient was re-evaluated at 7:30 p.m. and is resting comfortably in the room. He continues to be neurovascularly intact. Differential Diagnosis: Differential diagnosis considered includes hip fracture, pelvic fracture, neurovascular injury, arrhythmia, critical anemia, syncope, hypoglycemia, insulin reaction - Data Points Laboratory Results: 06/15/17 17:25 POC Hgb 16.3 gm/dL gm/dL (13.7-17.5) POC Hct 48 % % (40-51) POC Sodium 143 mEq/L mEq/L (134-144) POC Potassium 4.4 mEq/L mEq/L (3.3-5.0) POC Chloride 103 mEq/L mEq/L (97-110) POC BUN 33 mg/dL H mg/dL (7-23) POC Creatinine 0.8 mg/dL mg/dL (0.7-1.3) POC Glucose 47 mg/dL L mg/dL (70-100) Medications Given: Discontinued Medications Dextrose (Dextrose 50% Syringe) 25 gm IVP EDNOW ONE Stop: 06/15/17 17:57 Last Admin: 06/15/17 18:13 Dose: 25 gm Morphine Sulfate (Morphine) 4 mg IVP EDNOW ONE Stop: 06/15/17 18:17 Last Admin: 06/15/17 18:21 Dose: 4 mg Point of Care Test Results: 06/15/17 17:25 POC Sodium 143 POC Potassium 4.4 POC Chloride 103 POC BUN 33 H POC Creatinine 0.8 POC Glucose 47 L Departure - Departure Disposition: [facility] Inpatient Acute Clinical Impression: Diabetes mellitus type 1, Fall, Periprosthetic fracture around internal prosthetic left hip joint, History of kidney transplant Condition: Fair
[2017-06-15] MEDS ORDERED: D50W 25 GM/50 ML SYR IVP ONE (17:56)
--- NOTE | 2017-06-15 18:29 | CPEKG ---
Heart Rate: 80 RR Interval: 750 P-R Interval: 240 QRSD Interval: 108 QT Interval: 420 QTC Interval: 485 P [place]: 74 QRS [place]: -62 T Wave [place]: 84 EKG Severity - ABNORMAL ECG - EKG Impression: SINUS RHYTHM EKG Impression: FIRST DEGREE AV BLOCK EKG Impression: LEFT ANTERIOR FASCICULAR BLOCK EKG Impression: BORDERLINE T ABNORMALITIES, ANT-LAT LEADS EKG Impression: BORDERLINE PROLONGED QT INTERVAL Electronically Signed By: Kyrie Jackson 15-Jun-2017 18:58:38
[2017-06-15 18:48] LABS: % IMMATURE GRANULYOCYTES 0.7 % (0.0-1.1); ABSOLUTE IMMATURE GRANULOCYTES 0.06 10^3/uL (0.00-0.10); ADD DIFF? NO; ADD MORPH? NO; ADD SCAN? NO; ATYPICAL LYMPHOCYTE FLAG 0 (0-99); FRAGMENT RBC FLAG 30 (0-99); HEMATOCRIT 38.7 % (40.0-51.0); HEMOGLOBIN 12.8 g/dL (13.7-17.5); LEFT SHIFT FLG 0 (0-99); LIPEMIA HEMOLYSIS FLAG 80 (0-99); MEAN CELL HEMOGLOBIN 32.3 pg (27.9-34.1); MEAN CELL HEMOGLOBIN CONCENTR. 33.1 g/dL (32.4-36.7); MEAN CELL VOLUME 97.7 fL (81.5-99.8); MEAN PLATELET VOLUME 9.4 fL (8.7-11.7); PLATELET CLUMPS FLAG 0 (0-99); PLATELET COUNT 264 10^3/uL (150-400); RED BLOOD CELL COUNT 3.96 10^6/uL (4.40-6.38); RED CELL DISTRIBUTION WIDTH 15.2 % (11.5-15.2)
[2017-06-15 19:01] LABS: INR 0.99 (0.83-1.16)
[2017-06-15 19:24] LABS: ANION GAP 10 mEq/L (8-16); CALCIUM 8.3 mg/dL (8.5-10.4); CARBON DIOXIDE 24 mEq/l (22-31); CHLORIDE 99 mEq/L (97-110); CREATININE 0.8 mg/dL (0.7-1.3); GLOMERULAR FILTRATION RATE > 60; GLUCOSE 140 mg/dL (70-100); POTASSIUM 4.2 mEq/L (3.5-5.2); SODIUM 133 mEq/L (134-144)
[2017-06-15] MEDS ORDERED: D50W 25 GM/50 ML SYR IVP PRN (19:53)
[2017-06-15] MEDS ORDERED: ONDANSETRON DISINTEGRATING 4 MG TAB PO PRN (19:55)
[2017-06-15] MEDS ORDERED: ONDANSETRON 4 MG/2 ML VIAL IVP PRN (19:55)
[2017-06-15] MEDS ORDERED: ACETAMINOPHEN 325 MG TAB PO PRN (19:55)
[2017-06-15] MEDS ORDERED: TEARS/DEXTRAN 70/HYPROMELLOSE 15 ML OPHT.BTL EACHEYE PRN (19:56)
[2017-06-15] MEDS ORDERED: INSULIN REGULAR HUMAN 100 UNIT in NS 100 ML IV SCH (20:00)
[2017-06-15] MEDS ORDERED: D5W NS 1,000 ML IV SCH (20:00)
[2017-06-15] MEDS: HYDROmorphONE/DILAUDID 1 MG/ML INJ IVP PRN (20:45)
[2017-06-15 21:38] LABS: % SATURATION 8 % (20-55); TOTAL IRON BINDING CAPACITY 536 ug/dL (260-490)
--- NOTE | 2017-06-15 21:41 | GHP ---
[f rep st] HISTORY AND PHYSICAL DATE OF ADMISSION: 06/15/2017 CHIEF COMPLAINT: Left hip pain. HISTORY OF PRESENT ILLNESS: The patient is a 71-year-old male with a history of end-stage renal disease, status post kidney transplant and type 1 diabetes, who presents to the emergency department after a fall onto his left hip. He has had prior surgical pinning of the left femoral neck. He presents today with a fracture of the left femoral shaft which is comminuted, angulated, displaced and extends through the level of multiple screws holding the previous pin in place. He was riding his indoor exercise bike, which he rides for an hour and a half each day. He finished his work out and as he was exiting the bike, he believes his foot got caught in the bicycle and he fell directly onto his left hip. He denied any preceding headache, dizziness, diaphoresis, chest pain, palpitations , or shortness of breath. He is a type 1 diabetic and uses an insulin pump. He believes his basal insulin rate is 0.7 units/hour. He then boluses himself 6 units 3 times a day without checking his blood sugars. He states he checks his blood sugars at most twice a day. He acknowledges sometimes he runs low in the 80s. 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 He is also not sure how to adjust the basal rate on his insulin pump. Upon arrival to the emergency department, his blood sugar was found to be in the 40s. His insulin pump was disconnected in the ED and a repeat blood sugar was 134. He does not believe he had any symptoms with this low blood sugar. In addition, he has a history of kidney transplant and has been compliant with his anti-rejection medications. He reports good urine output. He has had no fevers, chills, nausea, vomiting, or diarrhea. He is followed by Dr. Cosby at [facility]. The patient is admitted to the hospital as he will require surgical repair of his left femur fracture. PAST MEDICAL/SURGICAL HISTORY: 1. Type 1 diabetes. 2. 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 3. End-stage renal disease, status post kidney transplant. 4. Squamous cell carcinoma, status post radiation to his head and lung. 5. History of multiple transmetatarsal amputations bilaterally. 6. Chronic pain. 7. GERD. 8. Appendectomy. 9. Tonsillectomy. 10. Peripheral neuropathy. 11. Clostridium difficile in October of 2014. MEDICATIONS: Please see [facility] for completed outpatient medication list. ALLERGIES: Include cephalosporins, penicillins and codeine. SOCIAL HISTORY: The patient lives independently with his , who has Alzheimer's dementia. They have caretakers. His daughter also provides assistance and she is present at the bedside. He is a former smoker. He denies alcohol or illicit drug use. FAMILY HISTORY: Both parents are . REVIEW OF SYSTEMS: A 10-point review of systems was performed and is negative except as per HPI. OBJECTIVE: VITAL SIGNS: Temperature is 36.3, blood pressure 120/68, heart rate 79, respiratory rate 16. He is 97% on 2 L. GENERAL: The patient is awake, alert, oriented, in no acute distress. HEENT: He has multiple lesions on his head, likely related to his squamous cell carcinoma and radiation treatments. Chronic right eye blindness. Oropharynx is clear. Mucous membranes are dry. NECK: Supple. There is no JVD. HEART: Regular rate and rhythm without murmur. LUNGS: Clear to auscultation bilaterally. ABDOMEN: Soft, nondistended, nontender with normoactive bowel tones. EXTREMITIES: Without cyanosis, clubbing, or edema. He has pain with any attempt of range of motion of his left hip. Extremities otherwise warm and well perfused. Sensation is intact. NEUROLOGIC: Grossly nonfocal. LABORATORY DATA: CBC reveals a white blood cell count of 8.4, hemoglobin of 12.8. INR 0.99. Basic metabolic panel reveals a sodium of 133, potassium 4.2, serum bicarb is normal at 24, anion gap is 10, BUN is elevated at 30, creatinine 0.8, blood sugar on initial I-STAT was 47, repeat blood sugar with the insulin pump turned off is 134. IMAGING STUDIES: 1. Hip x-ray shows an acute fracture of the proximal femoral shaft in the region of his prior ORIF. 2. CT of the left hip and proximal femur again confirms a comminuted angulated displaced fracture of the proximal shaft of the left femur extending through the shaft at the level of multiple screws which hold the pain of the left femoral neck in place. 3. EKG is personally reviewed and interpreted, shows normal sinus rhythm with left anterior fascicular block. There is some slight T-wave flattening in his lateral leads, which is actually a bit improved from his last EKG which showed T -wave inversions. Otherwise no ST-segment or T-wave changes suggestive of acute ischemia. ASSESSMENT/PLAN: The patient is a 71-year-old male with history of type 1 diabetes complicated by retinopathy and nephropathy, who is status post kidney transplant, presents to the emergency department with a left femoral shaft fracture in the region of a prior open reduction and internal fixation. 1. Left femoral shaft fracture. This is comminuted and displaced. He is neurovascularly intact. He will require surgical repair. Dr. Elena from the Orthopedic service has been consulted. He will be made n.p.o. after midnight to go to the operating room tomorrow. 2. Type 1 diabetes. The patient uses an insulin pump. However, I am concerned about his safety with his current regimen as he is blind-bolusing himself multiple times a day without knowing his blood sugar and presented with a blood sugar of 47. This may have contributed to his fall. His pump was disconnected in the ED and repeat BG is 134. He will need to continue on basal insulin to avoid risk of DKA. He thinks his basal rate is 0.7 units/hour, but he is not sure how to work his pump and decrease the basal rate. Therefore, I will place him on an insulin drip at a decreased basal rate of 0.5 units/hour and will provide additional bolus insulin as needed on a q6h basis while he's NPO. In addition, will run D5 normal saline to prevent further hypoglycemia. Check q.1 hour BGs for now and adjust his rate of basal insulin and dextrose as indicated by his blood sugar trend. He will need close followup with his newspaper copy editor to revisit his outpatient insulin regimen. 3. End-stage renal disease status post kidney transplant. Will continue his anti-rejection medications. His family agrees to bring these in from home as they are likely non formulary. 4. Anemia. His hemoglobin has trended down from 14 to 12.8 over the past few months. This appears to be normocytic. We will send iron studies, ferritin along with B12 and folate levels. It is not clear if and when he last had a colonoscopy. We will check Hemoccult stools. If these are positive, he will need an outpatient colonoscopy which is likely indicated, regardless of his Hemoccult results if it has not been done recently. There is no evidence of active bleeding at this time. 5. History of Clostridium difficile in October 2014. There is no evidence of active diarrhea. 6. Gastroesophageal reflux disease. Continue proton pump inhibitor therapy. CODE STATUS: Patient is full code. DEEP VENOUS THROMBOSIS PROPHYLAXIS: SCDs will be placed for now as the patient will have surgery within the next 24 hours. DISPOSITION: Patient admitted to inpatient status. He will require greater than 48 hours hospitalization for ongoing management of acute femur fracture and postop physical therapy, occupational therapy needs. /[id number]/MODL MTDD
[2017-06-15] MEDS: METOPROLOL TARTRATE 25 MG TAB PO SCH (22:03)
[2017-06-15] MEDS: NORTRIPTYLINE HCL 10 MG CAP PO SCH (22:05)
[2017-06-15] MEDS: MYCOPHENOLATE SODIUM 180 MG TAB.DR PO SCH (22:06)
[2017-06-15] MEDS: GABAPENTIN 300 MG CAP PO SCH (22:07)
[2017-06-15] MEDS: INSULIN LISPRO 100 UNIT/ML SC SCH (22:09)
[2017-06-15] MEDS: SODIUM BICARBONATE 650 MG TAB PO SCH (22:11)
--- NOTE | 2017-06-15 22:11 | GCON ---
[f rep st] CONSULTATION EMERGENCY ROOM CONSULT DATE OF CONSULTATION: 06/15/2017 CHIEF COMPLAINT: Left femur fracture. HISTORY OF PRESENT ILLNESS: This is a 71-year-old male who fell today, right on his left hip. He huntley d prior history of ORIF with a DHS 15 years ago in [place]. He is brought to the hospital complaini ng of left hip pain. He denies any other injury. He does have a history of renal transplant, insuli n pump, insulin-dependent diabetic and history of neuropathy. REVIEW OF SYSTEMS: 10-point Review of Systems performed at the time with his family was otherwise ne gative. PAST MEDICAL HISTORY: Significant for diabetes, renal disease, neuropathy, C difficile. SURGICAL HISTORY: Kidney transplant. SOCIAL HISTORY: Former smoker. ALLERGIES: Cephalosporins, penicillins, codeine. FAMILY HISTORY: Noncontributory. PHYSICAL EXAMINATION: GENERAL: He is alert. He is elderly-appearing and does appear in mild distre ss secondary to pain and cachectic. HEENT: Head is normocephalic and appears atraumatic. Eyes are equal and reactive. His mouth shows moist mucous membranes. His face does appear atraumatic. CARDI OVASCULAR: Regular rate and rhythm. GI: Abdomen is soft. NEUROLOGICAL: He has gross normal motor function in the upper extremities. His skin is intact in the upper extremities. He has no tenderne ss to palpation in the upper extremities. His lower extremities, he is laying on the left side. I d id not range his hip given the fracture. He does not have any tenderness of his knee. He had no sen sation in either extremity below the knee. He does have warm feet. Radiology shows a femur fracture, subtroch just below the old DHS. CT scan confirms this and a heale d femoral neck fracture and intertroch fracture that is healed from prior. PLAN: He is being admitted to the hospitalist service of Dr. Ellis. He will be taken care of in t intensive care unit on an insulin drip. We will plan on taking him to the operating room tomorrow when he can be cleared. Will plan on hardware removal and fixation with a trochanteric fixation akvya overton, full-length. I discussed this with him and his family. He elected to proceed with this. We disc ussed risks of further fracture, cardiac issues, heart attack, stroke, , displacement and re-fra cture, hardware failure, nerve injury, continued pain, nonunion, malunion. He elected to proceed. W alfredo obtain informed consent before surgery. /[id number]/MODL
[2017-06-15 22:34] LABS: FOLATE SERUM > 20.00 ng/mL (2.80 - >20.00)
[2017-06-16] MEDS: HYDROmorphONE/DILAUDID 1 MG/ML INJ IVP PRN ×3 (01:15→13:33)
[2017-06-16] MEDS: INSULIN LISPRO 100 UNIT/ML SC SCH ×5 (03:53→23:43)
[2017-06-16] MEDS ORDERED: CHLORHEXIDINE GLUC HIBICLENS 118 ML BTL TP ONE (05:04)
[2017-06-16 06:14] LABS: ANION GAP 8 mEq/L (8-16); CALCIUM 7.9 mg/dL (8.5-10.4); CARBON DIOXIDE 28 mEq/l (22-31); CHLORIDE 100 mEq/L (97-110); CREATININE 0.8 mg/dL (0.7-1.3); GLOMERULAR FILTRATION RATE > 60; GLUCOSE 145 mg/dL (70-100); POTASSIUM 4.6 mEq/L (3.5-5.2); SODIUM 136 mEq/L (134-144)
[2017-06-16] MEDS ORDERED: CINACALCET HCL 30 MG TAB PO SCH (09:00)
--- NOTE | 2017-06-16 09:36 | ASMTCMCOM ---
CM Note CM Note Notes: 71 year old male fell on left hip dismounting from his excercise bike. Admitted for left hip fx, that hip had a previous pinning ORIF. Patient has a HX of DM-1 with insulin pump, right eye blindness, chronic pain, GERD, peripheral neuropathy, multiple transmetatarsal bilateral amputations. Patient to go to surgery. CM to follow for possible discharge needs. Date Signed: 06/16/2017 09:35 AM Electronically Signed By:Sonal Guillory LCSW
--- NOTE | 2017-06-16 09:42 | PDMN ---
Medical Necessity Medical necessity: est los >2 mn for L hip fx s/p fall, admitted to ICU on insulin drip, surgical repair & hardware removal planned; comorbidities DM on insulin pump, ESRD s/p transplant, anemia; per H&P & order 06/15/17
[2017-06-16] MEDS ORDERED: ASTAGRAF PO SCH (10:00)
[2017-06-16] MEDS: predniSONE 5 MG TAB PO SCH (11:14)
[2017-06-16] MEDS: PANTOPRAZOLE SODIUM 40 MG TAB PO SCH (11:15)
[2017-06-16] MEDS: SODIUM BICARBONATE 650 MG TAB PO SCH ×2 (11:15→23:17)
[2017-06-16] MEDS: GABAPENTIN 300 MG CAP PO SCH ×2 (11:15→23:16)
[2017-06-16] MEDS: CALCITRIOL 0.25 MCG CAP PO SCH (11:15)
[2017-06-16] MEDS: MYCOPHENOLATE SODIUM 180 MG TAB.DR PO SCH (11:16)
[2017-06-16] MEDS: METOPROLOL TARTRATE 25 MG TAB PO SCH ×2 (11:21→23:16)
[2017-06-16] MEDS ORDERED: TACROLIMUS ANHYDROUS 0.5 MG CAP PO SCH (11:30)
[2017-06-16] MEDS ORDERED: HYDROCORTISONE 100 MG/2 ML VIAL IVP ONE (11:32)
--- NOTE | 2017-06-16 11:37 | HOSPPROG ---
Hospitalist Progress Note Assessment/Plan: 71 yo M w longstanding DM1, esrd and renal transplant admitted w fall from exercise bike and periprosthetic fracture fall: suspect hypoglycemia is cause denies antecedent CP, LOC follow on tele seen by trauma periprosthetic hip fracture: surgery today preop cardiovascular eval: suspect his daily xercise bike bike activity is > 4 METS, in which case he goes to OR without further workup or intervention ekg w no ischemic changes (interp by me) continue BB proph: lmwh postop dm: dc insulin gtt insulin requirements appear to be about 0.6 units/hr given npo, start lantus 10 units daily, dc insulin gtt and provide lispro ss dispo: inpt Subjective: case d/w dr lopez. on insulin gtt Objective: Vital Signs Temp Pulse Resp BP Pulse Ox 36.7 C 79 11 L 108/46 L 98 06/16/17 08:00 06/16/17 10:00 06/16/17 10:00 06/16/17 10:00 06/16/17 10:00 Laboratory Results 06/15/17 18:40 06/16/17 05:30 06/15/17 06/16/17 06/17/17 05:59 05:59 05:59 Intake Total 858 Balance 858 PT 13.0 SEC (12.0-15.0) 06/15/17 18:40 INR 0.99 (0.83-1.16) 06/15/17 18:40 - Physical Exam Constitutional: no apparent distress, appears nourished Eyes: PERRL Ears, Nose, Mouth, Throat: moist mucous membranes, hearing normal Cardiovascular: regular rate and rhythym, no murmur, rub, or gallop Respiratory: no respiratory distress, no rales or rhonchi Gastrointestinal: normoactive bowel sounds, soft, non-tender abdomen Genitourinary: No perry in urethra Skin: warm, normal color Musculoskeletal: full muscle strength, no muscle tenderness Neurologic: AAOx3 ICD10 Worksheet Patient Problems: Problems Problem Status Onset Diabetes mellitus type 1 Acute Fall Acute History of kidney transplant Acute Periprosthetic fracture around internal prosthetic left hip joint Acute Altered mental status Acute C. difficile diarrhea Acute 10/13/14 Hyperglycemia Acute Leukocytosis Acute Rib fractures Acute
[2017-06-16] MEDS: TACROLIMUS ANHYDROUS 0.5 MG CAP PO SCH (11:42)
[2017-06-16] MEDS ORDERED: INSULIN GLARGINE 100 UNITS/ML SYRINGE SC SCH (11:45)
[2017-06-16] MEDS ORDERED: HYDROmorphONE/DILAUDID 1 MG/ML INJ IVP ONE (12:30)
--- NOTE | 2017-06-16 12:57 | SOAPPROG ---
TEO Progress Note Assessment/Plan: Assessment: left femur periprosthetic fx Plan: OR today for HWR and orif left femur NPO 06/16/17 12:56 Subjective: pain in left thigh controlled Objective: Vital Signs Temp Pulse Resp BP Pulse Ox 36.7 C 79 11 L 128/69 H 99 06/16/17 08:00 06/16/17 12:00 06/16/17 12:00 06/16/17 12:00 06/16/17 12:00 Laboratory Results 06/15/17 18:40 06/16/17 05:30 06/15/17 06/16/17 06/17/17 05:59 05:59 05:59 Intake Total 858 Output Total 800 Balance 858 -800 PT 13.0 SEC (12.0-15.0) 06/15/17 18:40 INR 0.99 (0.83-1.16) 06/15/17 18:40 Physical Exam - Physical Exam General Appearance: thin (left thigh flex), No other ICD10 Worksheet Patient Problems: Problems Problem Status Onset Diabetes mellitus type 1 Acute Fall Acute History of kidney transplant Acute Periprosthetic fracture around internal prosthetic left hip joint Acute Altered mental status Acute C. difficile diarrhea Acute 10/13/14 Hyperglycemia Acute Leukocytosis Acute Rib fractures Acute
[2017-06-16] MEDS ORDERED: NS 1,000 ML IV ONE (14:11)
[2017-06-16 14:12] LABS: HEMOGLOBIN A1C 7.9 % (4.0-6.0)
[2017-06-16] MEDS ORDERED: CLINDAMYCIN 900 MG/DEXTROSE/50 ML BAG IV ONE (14:27)
[2017-06-16] MEDS: CLINDAMYCIN 900 MG/DEXTROSE 50 ML IV ONE ×2 (16:53→18:15)
[2017-06-16] MEDS: ACETAMINOPHEN 500 MG TAB PO SCH ×2 (16:54→23:17)
[2017-06-16] MEDS ORDERED: BUPIVACAINE 0.5% 30 ML SDV ONE (17:13)
--- NOTE | 2017-06-16 17:26 | PDANEPAE ---
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 HTN. LEFT HEART FAILURE. DIASTOLIC HEART FAILURE - Pulmonary History Hx COPD: No Hx Asthma/Reactive Airway Disease: No Hx Recent Upper Respiratory Infection: No Hx Oxygen in Use at Home: No Hx Sleep Apnea: No Sleep Apnea Screening Result - Last Documented: Positive Pulmonary History Comment: SUMEET TRIGGERS NO DX. LEFT LUNG MASS CURRENTLY - Neurologic History Hx Cerebrovascular Accident: Yes Hx Seizures: No Hx Dementia: No Neurologic History Comment: TIA 12/18/11. PERIPHERAL NEUROPATHY. BACK SURGERIES X2 - Endocrine History Hx Diabetes: Yes Endocrine History Comment: INSULIN DEPENDENT. INSULIN PUMP IN PLACE - Renal History Hx Renal Disorders: Yes Renal History Comment: RENAL DISEASE. HX OF KIDNEY TRANSPLANT IN 12/2006. DIALYSIS BEFORE AND AFTER HEMO AND PERITONEAL - Liver History Hx Hepatic Disorders: No - Neurological & Psychiatric Hx Hx Neurological and Psychiatric Disorders: No Neurological / Psychiatric History Comment: ANXIETY. DEPRESSION - Cancer History Hx Cancer: Yes Cancer History Comment: BASAL CELL REMOVED - Congenital Disorder History Hx Congenital Disorders: No - GI History Hx Gastrointestinal Disorders: Yes Gastrointestinal History Comment: GERD. HX OF COLONOSCOPIES - Other Health History Other Health History: NONE - Chronic Pain History Chronic Pain: Yes - Surgical History Prior Surgeries: 06/05/14 I&D OF LEFT FOOT WITH DR GLEASON. 04/16/14 LEFT LITTLE TOE AMPUTATION WITH DR GLEASON. 03/23/13 I&D OF LEFT FOOT. LEFT SHOULDER X2. MULTIPLE EYE SURGERIES. MULTIPLE ORTHO SURGERIES. 12/2006 KIDNEY TRANSPLANT. BACK SURGERY X2. RIGHT TOES AMPUTATED. APPY. TONSILLECTOMY ANE Review of Systems Review of Systems: ANE Patient History - Allergies Allergies/Adverse Reactions: Cephalosporins Allergy (Severe, Verified 08/06/16 12:23) Cleve Pravin Syndrome Penicillins Allergy (Intermediate, Verified 08/06/16 12:23) Hives codeine Allergy (Unknown, Verified 05/10/17 22:06) - Home Medications Home Medications: Calcitriol [Calcitriol (*)] 0.25 mcg PO MOTUWETHFR@05/10/17 [Last Taken 05/08] Cholecalciferol Vit D3 [Vitamin D3 2000 units tab (OTC)] 2,000 units PO DAILY [Last Taken 05/10/17] Cinacalcet HCl [Sensipar (*)] 30 mg PO DAILY 05/10/17 [Last Taken 05/10/17] Esomeprazole Mag Trihydrate [Nexium] 40 mg PO DAILY 05/10/17 [Last Taken ] Gabapentin [Neurontin 300 MG (*)] 300 mg PO BID 05/10/17 [Last Taken 05/10/17 09 :00] Insulin Pump, Patient Own 1 ea MISC AD 05/10/17 [Last Taken 05/10/17] Metoprolol Tartrate [Lopressor 25 mg (*)] 12.5 mg PO BID 05/10/17 [Last Taken ] Mycophenolate Sodium [Myfortic] 360 mg PO BID@05/10/17 [Last Taken 10:00] Nortriptyline HCl [Pamelor 10 mg (*)] 40 mg PO HS 05/10/17 [Last Taken 05/09/17] Pyridoxine HCl [Vitamin B-6 100 mg (*)] 100 mg PO DAILY 05/10/17 [Last Taken 11/21] Sodium Bicarbonate [Na Bicarb] 650 mg PO BID 05/10/17 [Last Taken 05/10/17] Tears/Dextran 70/Hypromellose [Natural Balance Tears (*)] 1 drop EACHEYE Q2 PRN 05/10/17 [Last Taken Unknown] predniSONE 7.5 mg PO DAILY@10 05/10/17 [Last Taken 05/10/17] Tacrolimus 0.5 mg PO DAILY 06/16/17 [Last Taken Unknown] - NPO status NPO Since - Liquids (Date): 06/16/17 NPO Since - Liquids (Time): 00:00 NPO Since - Solids (Date): 06/15/17 NPO Since - Solids (Time): 22:00 - Smoking Hx Smoking Status: Former smoker - Family Anes Hx Family Hx Anesthesia Complications: NONE ANE Labs/Vital Signs - Labs Result Diagrams: 06/15/17 18:40 06/16/17 05:30 - Vital Signs Blood Pressure: 129/70 Heart Rate: 87 Respiratory Rate: 14 O2 Sat (%): 96 Height: 117.8 cm Weight: 56.5 kg ANE Physical Exam - Airway Mallampati Score: Class 2 - ASA Status ASA Status: III ANE Anesthesia Plan Anesthesia Plan: general endotracheal anesthesia
[2017-06-16] MEDS ORDERED: fentaNYL 100 MCG/2 ML INJ ONE (17:56)
[2017-06-16] MEDS ORDERED: MIDAZOLAM 2 MG/2 ML VIAL ONE (17:56)
[2017-06-16] MEDS ORDERED: PROPOFOL 200 MG/20 ML VIAL ONE (17:56)
[2017-06-16] MEDS ORDERED: PHENYLEPHRINE HCL 100 MCG/ML SYR ONE (18:14)
[2017-06-16] MEDS ORDERED: epHEDrine SULFATE 10 MG/ML SYR ONE (18:14)
--- NOTE | 2017-06-16 21:12 | POSTOPPROG ---
Post Op Note Date of Operation: 06/16/17 Surgeon: Yvon Elena Glass Ribbon Machine Operator Assistant: Brian Anesthesiologist: Navin Anesthesia: GET(General Endotracheal) Pre-op Diagnosis: Left femur fx Post-op Diagnosis: same Indication: above Procedure: HWR, orif LLE Inf/Abcess present in the surg proc area at time of surgery?: No EBL: 100-500
[2017-06-16] MEDS ORDERED: fentaNYL 100 MCG/2 ML INJ IVP PRN (21:16)
[2017-06-16] MEDS ORDERED: NS 500 ML IV PRN (21:16)
[2017-06-16] MEDS ORDERED: PROMETHAZINE HCL 25 MG/ML INJ IVP PRN (21:16)
[2017-06-16] MEDS ORDERED: NALOXONE HCL 0.4 MG/ML INJ IVP PRN (21:16)
--- NOTE | 2017-06-16 21:17 | POSTANESTH ---
Post Anesthetic Evaluation Cardiovascular Status: Similar to Pre-Op Cond Respiratory Status: Similar to Pre-op Cond. Level of Consciousness/Mental Status: Can Participate in Eval Pain Control: Adequate, Prn Tx Ordered Nausea/Vomiting Control: Adequate, Prn Tx Ordered Complications Possibly Related to Anesthesia: None Noted
[2017-06-16] MEDS: NORTRIPTYLINE HCL 10 MG CAP PO SCH (23:16)
[2017-06-16] MEDS: MYCOPHENOLIC ACID 360 MG PO SCH (23:22)
[2017-06-17] MEDS: INSULIN LISPRO 100 UNIT/ML SC SCH ×3 (01:52→18:12)
[2017-06-17] MEDS: ACETAMINOPHEN 500 MG TAB PO SCH ×3 (05:34→21:08)
--- NOTE | 2017-06-17 06:51 | GOP ---
[f rep st] OPERATIVE REPORT DATE OF OPERATION: 06/16/2017 SURGEON: Yvon Elena MD PREOPERATIVE DIAGNOSIS: Left femoral periprosthetic fracture. POSTOPERATIVE DIAGNOSIS: Left femoral periprosthetic fracture. PROCEDURE PERFORMED: 1. Left femur, removal of hardware of DHS plate and screws. 2. Left open reduction internal fixation of left femur fracture with trochanteric nail. FINDINGS: SPECIMENS: None. ESTIMATED BLOOD LOSS: 150 mL INDICATIONS: This is a 71-year-old male, who fell and broke just below an old DHS that had been put 15 years ago. He was admitted to hospital, cleared for surgery and counseled on risks and benefits o f operative intervention. We discussed risks of need for proximal femoral replacement if all this fa ils, difficulty removing hardware, nonunion, malunion, other fractures, continued pain, wound complic ations especially given his diabetes, nerve injury and he elected proceed. Informed consent was obta ined, all questions answered. DESCRIPTION OF PROCEDURE: Patient was taken to the operative suite. His bony prominences were padde d. He was positioned on the fracture table. The pressure table was used for visually obtaining redu ction. Checked this fluoroscopically. He was sterilely prepped and draped in the usual fashion. Ti me-out was performed. Right side, site and location was agreed upon by all members of the team. He was given 600 of clinda. His incision was made over his incision for the DHS and this was extended, went into the fascia and then to the sub vastus approach down to this and removed old bone off the DH S that had ingrown. I then removed the 4 cortical screws and then I removed the bowl inside the lag screw of the DHS. I spent a significant amount of time trying to remove this. I used osteotomes to loosen this and free this from the bone as well as stacking osteotomes to apply pressure to this and to remove it laterally. It became obvious to me that the DHS barrel was stuck in the DHS. I, theref ore, was able to manually rotate the plate after getting this somewhat loosened up over his skin and unscrew the entire construct. This was inspected and the lag screw in fact cold weld into the plate with rust and corrosion. I was able to open reduce the fracture and hold this with clamps. I then got an entry point for the trochanteric nail through separate incision and then did the entry reamer for this. Placed a ball-ti pped guidewire down the leg and measured this. A 420 x 12 nail was selected. I then reamed up with the entire reamers and then reamed all the way up to a 13.5 reamer. I then placed the nail down. Th is did seat well. I got the blade below the old hole for the DHS and placed a 95 mm blade after dril ling the guide pin and drilling this. It seemed to hold the construct. I removed the handles. I th en did perfect circles and placed 2 distal locking screws. I then took final images of the construct and this was stable. It was washed out and irrigated, closed with #1 Vicryl, 2-0 Vicryl, 3-0 Monocr yl and Dermabond. He was taken to PACU in stable condition. IMPLANTS: Synthes trochanteric nail and distal locking screws and 95 mm blade. DRAINS: None. CONDITION: Stable. /[id number]/MODL
[2017-06-17] MEDS ORDERED: INSULIN GLARGINE 100 UNITS/ML SYRINGE SC SCH ×2 (08:01→08:08)
[2017-06-17] MEDS ORDERED: D50W 25 GM/50 ML SYR IVP PRN ×2 (08:02→08:34)
--- NOTE | 2017-06-17 08:17 | HOSPPROG ---
Hospitalist Progress Note Assessment/Plan: 71 yo M w longstanding DM1, esrd and renal transplant admitted w fall from exercise bike and periprosthetic fracture fall: suspect hypoglycemia is cause, presented to BG in the 40's, seen by trauma. periprosthetic hip fracture: S/P prior hardware removal and ORIF, POD #1. Management per ortho team. Aim to remove perry today and OOB. dm: presenting bg 40's, a1c 7.9. He initially received insulin drip plus D5. He is not compliant with pump and at risk for hypoglycemia. Discussed with his sergeant at arms, Dr. Mccollum. -will dc pump and provide bolus/basal insulin, would allow mild hyperglycemia so as to avoid risk of low bg's S/P renal transplant - cont anti-rejection meds Mild hypotension - NS bolus, hold metoprolol Encephalopathy - likely post-op delirium, avoid sedating meds. proph: lmwh postop, will start tonight at 24 hrs postop dispo: inpt, PT/OT evals today, may need rehab Subjective: PT confused this am, mildly hypotensive. No pain. No CP or SOB. BG's 200's yesterday, 109 this am. Perry in place. Objective: Vital Signs Temp Pulse Resp BP Pulse Ox 37.1 C 90 14 104/57 L 97 06/17/17 04:28 06/17/17 04:28 06/17/17 04:28 06/17/17 04:28 06/17/17 04:28 Laboratory Results 06/15/17 18:40 06/16/17 05:30 06/16/17 06/17/17 06/18/17 05:59 05:59 05:59 Intake Total 858 250 300 Output Total 800 Balance 858 -550 300 PT 13.0 SEC (12.0-15.0) 06/15/17 18:40 INR 0.99 (0.83-1.16) 06/15/17 18:40 - Physical Exam Constitutional: chronically ill appearing Eyes: PERRL Ears, Nose, Mouth, Throat: moist mucous membranes Cardiovascular: regular rate and rhythym Respiratory: no respiratory distress, clear to auscultation Gastrointestinal: normoactive bowel sounds, soft, non-tender abdomen Skin: warm Musculoskeletal: other (LLE dressing c/d/i, 2+ peripheral pulse, multiple TMT amputations) Psychiatric: encephalopathic ICD10 Worksheet Patient Problems: Problems Problem Status Onset Diabetes mellitus type 1 Acute Fall Acute History of kidney transplant Acute Periprosthetic fracture around internal prosthetic left hip joint Acute Altered mental status Acute C. difficile diarrhea Acute 10/13/14 Hyperglycemia Acute Leukocytosis Acute Rib fractures Acute
[2017-06-17] MEDS ORDERED: D10W 250 ML PRN HYPOGLYCEMIA IV (08:30)
[2017-06-17] MEDS ORDERED: NS 500 ML IV ONE (08:35)
[2017-06-17] MEDS: PANTOPRAZOLE SODIUM 40 MG TAB PO SCH (09:47)
[2017-06-17] MEDS: GABAPENTIN 300 MG CAP PO SCH ×2 (09:47→21:04)
[2017-06-17] MEDS: METOPROLOL TARTRATE 25 MG TAB PO SCH ×2 (09:48→20:26)
[2017-06-17] MEDS: INSULIN GLARGINE 100 UNITS/ML SYRINGE SC SCH (09:48)
[2017-06-17] MEDS: CINACALCET HCL 30 MG TAB PO SCH (09:49)
[2017-06-17] MEDS: SODIUM BICARBONATE 650 MG TAB PO SCH ×2 (09:49→21:05)
[2017-06-17] MEDS: predniSONE 5 MG TAB PO SCH (09:50)
[2017-06-17] MEDS: TACROLIMUS ANHYDROUS 0.5 MG CAP PO SCH (09:51)
[2017-06-17] MEDS: HYDROmorphONE/DILAUDID 1 MG/ML INJ IVP PRN (10:19)
[2017-06-17] MEDS: CALCITRIOL 0.25 MCG CAP PO SCH (11:15)
[2017-06-17] MEDS: MYCOPHENOLIC ACID 360 MG PO SCH ×2 (11:16→21:07)
[2017-06-17] MEDS ORDERED: INSULIN LISPRO 100 UNIT/ML SC SCH (12:00)
--- NOTE | 2017-06-17 15:27 | SOAPPROG ---
SOAP Progress Note Assessment/Plan: Assessment: left femur periprosthetic fx s/p HWR and orif on 06/16 Plan: wbat LLE rom as tolerated may shower leave dressing in place PT/OT f/u with me in 7-14 days, he has my card to make appt 06/16/17 12:56 06/17/17 15:26 Subjective: pain in left hip Objective: Vital Signs Temp Pulse Resp BP Pulse Ox 36.7 C 76 14 119/53 L 92 06/17/17 11:21 06/17/17 13:11 06/17/17 13:11 06/17/17 13:11 06/17/17 13:11 Laboratory Results 06/15/17 18:40 06/16/17 05:30 06/16/17 06/17/17 06/18/17 05:59 05:59 05:59 Intake Total 858 250 550 Output Total 800 290 Balance 858 -550 260 PT 13.0 SEC (12.0-15.0) 06/15/17 18:40 INR 0.99 (0.83-1.16) 06/15/17 18:40 dressing dry, able to move toes ICD10 Worksheet Patient Problems: Problems Problem Status Onset Diabetes mellitus type 1 Acute Fall Acute History of kidney transplant Acute Periprosthetic fracture around internal prosthetic left hip joint Acute Altered mental status Acute C. difficile diarrhea Acute 10/13/14 Hyperglycemia Acute Leukocytosis Acute Rib fractures Acute
--- NOTE | 2017-06-17 16:29 | ASMTCMCOM ---
CM Note CM Note Notes: CM met w/ pt for dispo planning. PT is recommending SNF. OT is recommending SNF vs inpatient rehab. Pt would like a referral made to [facility]. Pt would like to stay in the [place] area. Pt reports that he has been to [facility] in the past and not interested in going back. CM made a referral to [facility]. CM to follow. Date Signed: 06/17/2017 04:28 PM Electronically Signed By:MERRITT Bishop
[2017-06-17] MEDS ORDERED: NS 250 ML IV ONE (17:45)
[2017-06-17] MEDS: NORTRIPTYLINE HCL 10 MG CAP PO SCH (20:26)
[2017-06-17] MEDS: ENOXAPARIN 40 MG/0.4 ML SYR SC SCH (21:04)
[2017-06-18] MEDS: ACETAMINOPHEN 500 MG TAB PO SCH ×3 (06:39→21:02)
--- NOTE | 2017-06-18 08:08 | SOAPPROG ---
SOAP Progress Note Assessment/Plan: Assessment: left femur periprosthetic fx s/p HWR and orif on 06/16 Plan: wbat LLE rom as tolerated may shower leave dressing in place PT/OT f/u with me in 7-14 days, he has my card to make appt 06/16/17 12:56 06/17/17 15:26 Subjective: minimal pain Objective: Vital Signs Temp Pulse Resp BP Pulse Ox 36.7 C 77 16 157/50 H 99 06/18/17 03:06 06/18/17 03:06 06/18/17 03:06 06/18/17 03:06 06/18/17 03:06 Laboratory Results 06/15/17 18:40 06/16/17 05:30 06/17/17 06/18/17 06/19/17 05:59 05:59 05:59 Intake Total 250 1300 Output Total 800 1140 Balance -550 160 PT 13.0 SEC (12.0-15.0) 06/15/17 18:40 INR 0.99 (0.83-1.16) 06/15/17 18:40 dressing with slight drainage ICD10 Worksheet Patient Problems: Problems Problem Status Onset Diabetes mellitus type 1 Acute Fall Acute History of kidney transplant Acute Periprosthetic fracture around internal prosthetic left hip joint Acute Altered mental status Acute C. difficile diarrhea Acute 10/13/14 Hyperglycemia Acute Leukocytosis Acute Rib fractures Acute
[2017-06-18] MEDS: predniSONE 5 MG TAB PO SCH (09:09)
[2017-06-18] MEDS: ENOXAPARIN 40 MG/0.4 ML SYR SC SCH (09:10)
[2017-06-18] MEDS: PANTOPRAZOLE SODIUM 40 MG TAB PO SCH (09:10)
[2017-06-18] MEDS: GABAPENTIN 300 MG CAP PO SCH ×2 (09:10→21:03)
[2017-06-18] MEDS: METOPROLOL TARTRATE 25 MG TAB PO SCH ×2 (09:11→21:03)
[2017-06-18] MEDS: INSULIN LISPRO 100 UNIT/ML SC SCH ×3 (09:12→17:29)
[2017-06-18] MEDS: CALCITRIOL 0.25 MCG CAP PO SCH (09:12)
[2017-06-18] MEDS: SODIUM BICARBONATE 650 MG TAB PO SCH ×2 (09:13→21:01)
[2017-06-18] MEDS: MYCOPHENOLIC ACID 360 MG PO SCH ×2 (09:14→21:04)
[2017-06-18] MEDS: TACROLIMUS ANHYDROUS 0.5 MG CAP PO SCH (09:14)
[2017-06-18] MEDS: CINACALCET HCL 30 MG TAB PO SCH (09:15)
[2017-06-18] MEDS: INSULIN GLARGINE 100 UNITS/ML SYRINGE SC SCH (09:21)
--- NOTE | 2017-06-18 11:03 | ASMTCMCOM ---
CM Note CM Note Notes: Spoke w/Harshal at , no male beds available at this time, CM spoke w/pt and sent referral to [facility]. Date Signed: 06/18/2017 11:03 AM Electronically Signed By:Ashley Laurent RN
--- NOTE | 2017-06-18 15:34 | ASMTCMCOM ---
CM Note CM Note Notes: [facility] rehab accepted pt, notified pt and family in room. RN and speech therapist expressed concerns about pt's living situation with . His Magdalene has alzheimers, CM spoke w/her sister Donna, who is caring for her while pt is in hospital and dtr Zo who is flying out tomorrow. Per sister and Zo they have hired private pay company, [employer], to be with 30/03 while pt in rehab. They are working to find a more penitentiary solution to pt and 's living situation, and understand that increased care is needed, ANIKA Ma at [facility] about living situation. Date Signed: 06/18/2017 03:33 PM Electronically Signed By:Ashley Laurent RN
--- NOTE | 2017-06-18 17:30 | HOSPPROG ---
Hospitalist Progress Note Assessment/Plan: 71 yo M w longstanding DM1, esrd and renal transplant admitted w fall from exercise bike and periprosthetic fracture fall: suspect hypoglycemia is cause, presented to BG in the 40's, seen by trauma. periprosthetic hip fracture: S/P prior hardware removal and ORIF, POD #2. Management per ortho team. Plan for 2 weeks pplx Lovenox. dm: presenting bg 40's, a1c 7.9. He initially received insulin drip plus D5. He is not compliant with pump and at risk for hypoglycemia. Discussed with his ear machine operator, Dr. Mccollum. -will dc pump and provide bolus/basal insulin, would allow mild hyperglycemia so as to avoid risk of low bg's S/P renal transplant - cont anti-rejection meds Mild hypotension - improved with NS bolus yesterday, holding metoprolol for SBP <100 Encephalopathy - Improved today, likely post-op delirium, suspect some anesthesia effect, avoid sedating meds. proph: LMWH dispo: inpt, PT/OT evals today, rehab in am Subjective: Pt doing well. No pain. He is OOB, up in chair. Denies CP or SOB. No fevers. Objective: Vital Signs Temp Pulse Resp BP Pulse Ox 36.6 C 74 16 180/97 H 89 L 06/18/17 16:00 06/18/17 16:00 06/18/17 16:00 06/18/17 16:00 06/18/17 16:00 Laboratory Results 06/15/17 18:40 06/16/17 05:30 06/17/17 06/18/17 06/19/17 05:59 05:59 05:59 Intake Total 250 1300 Output Total 800 1140 200 Balance -550 160 -200 PT 13.0 SEC (12.0-15.0) 06/15/17 18:40 INR 0.99 (0.83-1.16) 06/15/17 18:40 - Physical Exam Constitutional: no apparent distress Eyes: PERRL Ears, Nose, Mouth, Throat: moist mucous membranes Cardiovascular: regular rate and rhythym Respiratory: no respiratory distress, clear to auscultation Gastrointestinal: normoactive bowel sounds, soft, non-tender abdomen Skin: warm Musculoskeletal: other (no edema) Neurologic: AAOx3 Psychiatric: interacting appropriately ICD10 Worksheet Patient Problems: Problems Problem Status Onset Diabetes mellitus type 1 Acute Fall Acute History of kidney transplant Acute Periprosthetic fracture around internal prosthetic left hip joint Acute Altered mental status Acute C. difficile diarrhea Acute 10/13/14 Hyperglycemia Acute Leukocytosis Acute Rib fractures Acute
[2017-06-18] MEDS: NORTRIPTYLINE HCL 10 MG CAP PO SCH (21:01)
[2017-06-18 22:35] LABS: GLUCOSE 341 mg/dL (70-100)
[2017-06-19 00:19] VITALS: RESP 16
[2017-06-19] MEDS: ACETAMINOPHEN 500 MG TAB PO SCH ×2 (06:01→14:13)
[2017-06-19] MEDS ORDERED: INSULIN GLARGINE 100 UNITS/ML SYRINGE SC SCH (06:55)
[2017-06-19 07:31] VITALS: BP 126/55; PULSE 79; TEMP 97.9; O2SAT 98
--- NOTE | 2017-06-19 08:14 | PDIAF ---
- Diagnosis Diagnosis: femur fracture, ESRD, renal transplant, type 1 DM Code Status: Full Code - Medication Management Discharge Medications: Medications to Continue on Transfer Calcitriol [Calcitriol (*)] 0.25 mcg PO MOTUWETHFR@05/10/17 [Last Taken 05/08] Cholecalciferol Vit D3 [Vitamin D3 2000 units tab (OTC)] 2,000 units PO DAILY [Last Taken 05/10/17] Cinacalcet HCl [Sensipar (*)] 30 mg PO DAILY 05/10/17 [Last Taken 05/10/17] Esomeprazole Mag Trihydrate [Nexium] 40 mg PO DAILY 05/10/17 [Last Taken ] Gabapentin [Neurontin 300 MG (*)] 300 mg PO BID 05/10/17 [Last Taken 05/10/17 09 :00] Metoprolol Tartrate [Lopressor 25 mg (*)] 12.5 mg PO BID 05/10/17 [Last Taken ] Mycophenolate Sodium [Myfortic] 360 mg PO BID@05/10/17 [Last Taken 10:00] Nortriptyline HCl [Pamelor 10 mg (*)] 40 mg PO HS 05/10/17 [Last Taken 05/09/17] Pyridoxine HCl [Vitamin B-6 100 mg (*)] 100 mg PO DAILY 05/10/17 [Last Taken 11/21] Sodium Bicarbonate [Na Bicarb] 650 mg PO BID 05/10/17 [Last Taken 05/10/17] Tears/Dextran 70/Hypromellose [Natural Balance Tears (*)] 1 drop EACHEYE Q2 PRN 05/10/17 [Last Taken Unknown] predniSONE 7.5 mg PO DAILY@10 05/10/17 [Last Taken 05/10/17] Tacrolimus 0.5 mg PO DAILY 06/16/17 [Last Taken Unknown] Enoxaparin [Lovenox 40 MG (*)] 40 mg SC DAILY syr 06/18/17 [Last Taken Unknown] Acetaminophen [Tylenol ES 500 mg (*)] 1,000 mg PO Q8 PRN #90 tab 06/19/17 [Last Taken Unknown] Insulin Glargine [Lantus 100 UNITS/ML (*)] 10 units SC DAILY #10 ml 06/19/17 [ Last Taken Unknown] Insulin Lispro [humALOG LISPRO 100 units/ml (*)] 3 unit SC TIDMEAL #300 unit [Last Taken Unknown] Discharge Medications: Refer to the Discharge Home Medication list for PRN reason. - Orders Services needed: Registered Nurse, Physical Therapy, Occupational Therapy Oxygen: 2 LPM Diet Recommendation: ADA 2000 consistent carb Wound Care Instructions: routine wound care Additional: BG's AC/HS, adjust insulin per wire basket maker, Dr. Mccollum. His insulin pump was discontinued due to poor compliance, hypoglycemia due to blind bolusing. May need titration of SC injection insulin - Follow Up Care Current Providers and Referrals: Yvon Elena MD [Medical Doctor] - Patient,NotPresent [Unknown] - As per Instructions Julianna Mccollum MD [[facility] Primary Care Provider] -
[2017-06-19] MEDS: CINACALCET HCL 30 MG TAB PO SCH (08:56)
[2017-06-19] MEDS: MYCOPHENOLIC ACID 360 MG PO SCH (08:56)
[2017-06-19] MEDS: CALCITRIOL 0.25 MCG CAP PO SCH (08:56)
[2017-06-19] MEDS: TACROLIMUS ANHYDROUS 0.5 MG CAP PO SCH (08:56)
[2017-06-19] MEDS: PANTOPRAZOLE SODIUM 40 MG TAB PO SCH (08:57)
[2017-06-19] MEDS: ENOXAPARIN 40 MG/0.4 ML SYR SC SCH (08:57)
[2017-06-19] MEDS: SODIUM BICARBONATE 650 MG TAB PO SCH (08:57)
[2017-06-19] MEDS: GABAPENTIN 300 MG CAP PO SCH (08:57)
[2017-06-19] MEDS: METOPROLOL TARTRATE 25 MG TAB PO SCH (08:57)
[2017-06-19] MEDS: INSULIN LISPRO 100 UNIT/ML SC SCH ×2 (08:57→11:40)
[2017-06-19] MEDS: predniSONE 5 MG TAB PO SCH (09:03)
--- NOTE | 2017-06-19 09:16 | GDS ---
[f rep st] DISCHARGE SUMMARY DISCHARGE DIAGNOSES: 1. Periprosthetic hip fracture, status post prior hardware removal and ORIF by Dr. Elena on June 16, 2017. 2. Fall, suspected secondary to hypoglycemia. 3. Type 1 diabetes mellitus, previously managed on insulin pump, which has since been discontinued i n favor of injection insulin due to poor compliance, blind bolusing, and hypoglycemia. 4. Status post renal transplant, on anti-rejection medication. 5. Postoperative encephalopathy, resolved. 6. 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 CONSULTANTS: Dr. Yvon Elena, Orthopedic Surgery. HISTORY: For details, please see the history and physical dated June 15, 2017. In brief, the brianna martinez is a 71-year-old male with history of type 1 diabetes, complicated by retinopathy, with a history of diabetes mellitus, complicated by retinopathy, nephropathy, renal transplant, and prior tarsometa tarsal amputations, who presents to the hospital after a fall in the setting of hypoglycemia. He was found to have a femoral shaft fracture, which encroached upon previous hardware. He was taken to [facility] operating room by Dr. Elena the day after admission for removal of prior hardware and an ORIF. Hi s postop course has been uncomplicated. With respect to his diabetes, his insulin pump was discontin ued on arrival, as he was not sure what his basal rate was, nor did he know how to work his pump to r educe his basal rate. Therefore, he was treated with insulin drip and IV dextrose overnight to maint ain sugars in the 100s. He was then transitioned to basal bolus injectable insulin with Lantus and l ispro, and I recommend continuing this regimen, as the patient has demonstrated poor compliance with his insulin pump, causing hypoglycemia. He frequently boluses his insulin pump without checking his blood sugars. This clearly is putting him in danger, provoking this fall. I discussed the case with his rope maker, Dr. Mccollum, and advised her that he will be discharged on subcutaneous insulin. He will have close followup with her for further insulin management. He was continued on his anti- rejection medications. His creatinine has been normal. He has had good urine output. The patient h as been ambulating with assistance, though will require a residential facility rehab. The patien t may be weightbearing as tolerated with range of motion as tolerated to the left lower extremity. DISPOSITION: The patient is discharged home to a residential facility rehab in stable condition. FOLLOWUP: 1. Dr. Yvon Elena in 1-[address] Julianna Mccollum, Endocrinology, in 1-2 weeks. 3. Primary care. DISCHARGE MEDICATIONS: Please see [employer] for complete updated outpatient medication list. New med ications on discharge include: 1. Lovenox 40 mg subcutaneous daily for 2 weeks, as prescribed by Dr. Elena. 2. Tylenol 1,000 mg p.o. q.8 hours p.r.n. #90 no refills. 3. Insulin glargine 10 units subcutaneous daily. 4. Insulin lispro 3 units subcutaneous q.a.c. Discontinued medications include insulin pump. He will continue all other outpatient medications as previously prescribed including to his antirejection medications, gabapentin, metoprolol, nortriptyli ne, sodium bicarb, chronic prednisone, calcitriol, cinacalcet, and Nexium. /[id number]/MODL
--- NOTE | 2017-06-19 11:42 | ASMTCMCOM ---
CM Note CM Note Notes: D/w , final orders faxed. Transport discussed w/sister in law, CM offered prepaid pricing for [facility] as no guarentee that Medicare will cover cost of stretcher. Sister in law prefers to go ahead with normal [facility] transport and believes it will be covered. warehouse shift supervisor time 2pm, Francesca at [facility] notified and RN to call report. Date Signed: 06/19/2017 11:41 AM Electronically Signed By:Ashley Laurent RN
--- NOTE | 2017-06-19 15:00 | ASDISCHSUM ---
Discharge Information Plan Status:SNF Medically Cleared to Leave: Discharge Date:06/19/2017 02:20 PM CM D/C Disposition:[facility] Facility ADT D/C Disposition:[facility] Facility Projected Discharge Date:06/19/2017 01:00 PM Transportation at D/C:ALS/BLS Discharge Delay Reason: Follow-Up Date:06/19/2017 01:00 PM Discharge Slot: Final Diagnosis: Placement Information Referral Type:*Fpc/SNF Referral ID:[id number] Provider Name:[facility] Address 1:[address] Address 2: City:[place] Selection Factors: State:[place] Patient Contact Information Contact Name:MICKY Relationship:Daughter Address: City:[place] Alternate Phone: State/Zip Code:[place] Email: Financial Information Financial Class: Primary Plan Desc:MEDICARE INPATIENT Primary Plan Number:[id number] Secondary Plan Desc:[facility] Secondary Plan Number:[id number] Assessment Information [facility] CM Progress Note CM Note CM Note Notes: 71 year old male fell on left hip dismounting from his excercise bike. Admitted for left hip fx, that hip had a previous pinning ORIF. Patient has a HX of DM-1 with insulin pump, right eye blindness, chronic pain, GERD, peripheral neuropathy, multiple transmetatarsal bilateral amputations. Patient to go to surgery. CM to follow for possible discharge needs. Date Signed: 06/16/2017 09:35 AM Electronically Signed By:Sonal Guillory LCSW [facility] CM Progress Note CM Note CM Note Notes: CM met w/ pt for dispo planning. PT is recommending SNF. OT is recommending SNF vs inpatient rehab. Pt would like a referral made to [facility]. Pt would like to stay in the [place] area. Pt reports that he has been to [facility] in the past and not interested in going back. CM made a referral to [facility]. CM to follow. Date Signed: 06/17/2017 04:28 PM Electronically Signed By:MERRITT Bishop [facility] ANIKA Progress Note CM Note CM Note Notes: Spoke w/Harshal at , no male beds available at this time, CM spoke w/pt and [facility]. Date Signed: 06/18/2017 11:03 AM Electronically Signed By:Ashley Laurent RN [facility] ANIKA Progress Note CM Note CM Note Notes: [facility], notified pt and family in room. RN and speech therapist expressed concerns about pt's living situation with . His Magdalene has alzheimers, CM spoke w/her sister Donna, who is caring for her while pt is in hospital and dtr Zo who is flying out tomorrow. Per sister and Zo they have hired private pay company, [employer], to be with 30/03 while pt in rehab. They are working to find a more nursing home solution to pt and 's living situation, and understand that increased care is needed, ANIKA notfied Francesca at [facility] about living situation. Date Signed: 06/18/2017 03:33 PM Electronically Signed By:Ashley Laurent RN [facility] Progress Note CM Note CM Note Notes: D/w , final orders faxed. Transport discussed w/sister in law, ANIKA offered prepaid pricing for [facility] as no guarentee that Medicare will cover cost of stretcher. Sister in law prefers to go ahead with normal [facility] transport and believes it will be covered. gas distribution supervisor time 2pm, rFancesca at [facility] notified and RN to call report. Date Signed: 06/19/2017 11:41 AM Electronically Signed By:Ashley Laurent RN Intervention Information Intervention Type:*IM-Signed Date of Service:06/19/2017 11:06 AM Patient Type:Inpatient Staff Member:Aleta Mcleod Hours: Discipline: Severity: Comment:
== END 2017-06-19 14:20 | DRG 481 ==
LOC: EDUNIT# → F2N 20:32 → F3E 06-16 21:56
PROVIDERS: ADMIT Hospitalist; ATTEND Hospitalist
PROC: 0QS706Z Reposition Left Upper Femur with Intramedullary Internal Fixation Device, Open Approach (ICD-10-PCS; principal; 2017-06-16 15:45)
PROC: 0QP704Z Removal of Internal Fixation Device from Left Upper Femur, Open Approach (ICD-10-PCS; principal; 2017-06-16 15:45)
DX: S72.332A Displaced oblique fracture of shaft of left femur, initial encounter for closed fracture (principal); W17.89XA Other fall from one level to another, initial encounter; Y92.39 Other specified sports and athletic area as the place of occurrence of the external cause; Z94.0 Kidney transplant status; E10.40 Type 1 diabetes mellitus with diabetic neuropathy, unspecified; E10.319 Type 1 diabetes mellitus with unspecified diabetic retinopathy without macular edema; H54.61 Unqualified visual loss, right eye, normal vision left eye; D64.9 Anemia, unspecified; K21.9 Gastro-esophageal reflux disease without esophagitis; Z96.41 Presence of insulin pump (external) (internal)
CPT/HCPCS: 82607-90; 82947-QW; 92523-GN; 96374; 97162-GP; 97166-GO; 97530-GP; 97535-GO; C1713; C1769; G0390; G8978-GP-CM; G8979-GP-CK; G8987-GO-CL; G8990-GP-CJ; G9168-GN-CJ; G9169-GN-CI; J1170; J1650; J1815; J2250; J2370; J2704; J3010

== ENCOUNTER 2017-08-23 21:21 | Observation (INO) | payer OTHER, BC ==
--- NOTE | 2017-08-23 21:32 | EDPHY ---
H & P HPI/ROS: CHIEF COMPLAINT: Slurred speech, left arm weakness HISTORY OF PRESENT ILLNESS: The patient is a 72 y/o male with a history of diabetes and a renal transplant complaining of slurred speech and left arm weakness since 16:30, 3 hours ago. This afternoon, his daughter called him and noted that his speech was slurred. On her arrival, he had trouble using his left arm and had slurred speech. His speech is normally clear. He normally uses a wheelchair and is able to transfer. On the way to the ED, he was able to transfer to the car and to his bed with assistance, which is normal for him. His last BGL was 108 at 21:00. Denies use of anticoagulants, history of stroke, recent head/neck injury, headache, chest pain or other pertinent symptoms. REVIEW OF SYSTEMS: Aside from elements discussed in the HPI, a comprehensive 10-point review of systems was reviewed and is negative. Past Medical/Surgical History: PMH: Type 1 diabetes, right eye blindness, squamous cell carcinoma, peripheral neuropathy, C. Diff (October 2014) PSH: Renal transplant, appendectomy, tonsillectomy Social History: Lives in [place], , retired, daughter at bedside Smoking Status: Former smoker Physical Exam: General Appearance: Alert, pleasant Eyes: Pupils equal and round, no conjunctival pallor or injection ENT, Mouth: Mucous membranes moist Neck: Normal inspection Respiratory: Lungs are clear to auscultation Cardiovascular: Regular rate and rhythm Gastrointestinal: Abdomen is soft and non-tender Neurological: Alert, Slurred speech, cranial nerves 2-12 intact, left upper extremity weakness, normal strength in the lower extremities, sensation intact to light touch Skin: Warm and dry, no rash Extremities: Nontender, no pedal edema Psychiatric: Mood and affect normal Constitutional: Initial Vital Signs Temperature (C) 36.7 C 08/23/17 21:36 Heart Rate 80 08/23/17 21:36 Respiratory Rate 18 08/23/17 21:36 Blood Pressure 184/84 H 08/23/17 21:36 O2 Sat (%) 94 08/23/17 21:36 O2 Delivery Mode Room Air Allergies/Adverse Reactions: Cephalosporins Allergy (Severe, Verified 08/06/16 12:23) Cleve Pravin Syndrome Penicillins Allergy (Intermediate, Verified 08/06/16 12:23) Hives codeine Allergy (Unknown, Verified 05/10/17 22:06) Home Medications: Medication Instructions Recorded Calcitriol [Calcitriol (*)] 0.25 mcg PO MOTUWETHFR@05/10/17 Cholecalciferol Vit D3 [Vitamin D3 2,000 units PO DAILY 05/10/17 2000 units tab (OTC)] Cinacalcet HCl [Sensipar (*)] 30 mg PO DAILY 05/10/17 Esomeprazole Mag Trihydrate 40 mg PO DAILY 05/10/17 [Nexium] Gabapentin [Neurontin 300 MG (*)] 300 mg PO BID 05/10/17 Metoprolol Tartrate [Lopressor 25 12.5 mg PO BID 05/10/17 mg (*)] Mycophenolate Sodium [Myfortic] 360 mg PO BID@05/10/17 Nortriptyline HCl [Pamelor 10 mg 40 mg PO HS 05/10/17 (*)] Pyridoxine HCl [Vitamin B-6 100 mg 100 mg PO DAILY 05/10/17 (*)] Sodium Bicarbonate [Na Bicarb] 650 mg PO BID 05/10/17 Tears/Dextran 70/Hypromellose 1 drop EACHEYE Q2 PRN 05/10/17 [Natural Balance Tears (*)] predniSONE 7.5 mg PO DAILY@05/10/17 Tacrolimus 0.5 mg PO DAILY 06/16/17 Clopidogrel Bisulfate [Plavix] 75 mg PO DAILY #30 tablet 08/24/17 Insulin Pump, Patient Own 1 ea [facility] AD 08/24/17 Medical Decision Making - Diagnostics EKG Interpretation: EKG reveals first-degree AV block, rate 75, LVH. Imaging Results: CT brain: Moderate atrophy, no acute hemorrhage or infarct. Imaging: Discussed imaging studies w/ call center representative Radiologist ED Course/Re-evaluation: The patient is a 72 y/o male presenting with slurred speech and left upper extremity weakness, onset 18:30, 3 hours ago. Plan on labs, EKG, and head CT. [facility] will be alerted. 2129: Stroke alert called by myself 2139: Consulted with Dr. Morales, neurologist from [facility], regarding the patient's symptoms. 2143: Spoke with radiologist, CT head negative for hemorrhage or infarct. There is diffuse cerebral atrophy. 2154: The patient was interviewed and examined by Dr. Morales. I then consulted with Dr. Morales and reassessed patient. This patient is not a TPA candidate, I agree. I have also discussed the imaging findings with the patient. He will need to be admitted for observation and further work up for an acute ischemic stroke. Patient and his daughter are comfortable with this plan. 324mg PO Aspirin administered. 2224: Consulted with hospitalist service, Dr. Rabago accepts admission of this patient. Serial neurologic exams x3 without change. Differential Diagnosis: Altered mental status including but not limited to hypoglycemia, infectious process, electrolyte abnormality, head injury and intoxicants. - Data Points Laboratory Results: Laboratory Results 08/23/17 21:50 08/23/17 21:50 Medications Given: Discontinued Medications Aspirin (Aspirin) 324 mg PO EDNOW ONE Stop: 08/23/17 22:01 Last Admin: 08/23/17 22:06 Dose: 324 mg Aspirin (Aspirin) 81 mg PO DAILY JAKE Stop: 02/20/18 08:59 Last Admin: 08/24/17 11:33 Dose: 81 mg Cholecalciferol (Vitamin D) 2,000 units PO DAILY JAKE Stop: 02/20/18 15:29 Last Admin: 08/24/17 18:11 Dose: Not Given Cinacalcet (Sensipar) 30 mg PO DAILY JAKE Stop: 02/20/18 15:29 Last Admin: 08/24/17 18:11 Dose: Not Given Miscellaneous Medication (Mycophenolate Sodium [Myfortic]) 360 mg PO BID@10,22 JAKE Stop: 02/20/18 15:21 Last Admin: 08/24/17 18:10 Dose: Not Given Prednisone (Prednisone) 7.5 mg PO DAILY@10 JAKE Stop: 02/20/18 15:21 Last Admin: 08/24/17 18:10 Dose: Not Given Tacrolimus (Prograf) 0.5 mg PO DAILY JAKE Stop: 02/20/18 15:21 Last Admin: 08/24/17 18:10 Dose: Not Given Departure - Departure Disposition: [facility] Acute Clinical Impression: Acute ischemic stroke Condition: Fair Report Scribed for: Sandy Mclean Report Scribed by: Alda Emmanuel Date of Report: 08/23/17 Time of Report: 21:31 Physician Review and Approval Statement: 12/17/17 21:31 Portions of this note were transcribed by a medical lab assistant. I personally performed a history, physical exam, medical decision making, and confirmed accuracy of information the transcribed note.
[2017-08-23 21:58] LABS: % IMMATURE GRANULYOCYTES 0.5 % (0.0-1.1); ABSOLUTE IMMATURE GRANULOCYTES 0.05 10^3/uL (0.00-0.10); ADD DIFF? NO; ADD MORPH? NO; ADD SCAN? NO; ATYPICAL LYMPHOCYTE FLAG 0 (0-99); FRAGMENT RBC FLAG 0 (0-99); HEMATOCRIT 42.6 % (40.0-51.0); LEFT SHIFT FLG 0 (0-99); LIPEMIA HEMOLYSIS FLAG 80 (0-99); MEAN CELL HEMOGLOBIN 29.4 pg (27.9-34.1); MEAN CELL HEMOGLOBIN CONCENTR. 32.9 g/dL (32.4-36.7); MEAN CELL VOLUME 89.3 fL (81.5-99.8); MEAN PLATELET VOLUME 9.8 fL (8.7-11.7); PLATELET CLUMPS FLAG 10 (0-99); PLATELET COUNT 306 10^3/uL (150-400); RED BLOOD CELL COUNT 4.77 10^6/uL (4.40-6.38)
[2017-08-23] MEDS ORDERED: ASPIRIN 81 MG CHEWABLE TAB PO ONE (22:00)
--- NOTE | 2017-08-23 22:06 | CPEKG ---
Heart Rate: 75 RR Interval: 800 P-R Interval: 236 QRSD Interval: 112 QT Interval: 420 QTC Interval: 470 P [place]: 59 QRS [place]: -62 T Wave [place]: 85 EKG Severity - ABNORMAL ECG - EKG Impression: SINUS RHYTHM EKG Impression: FIRST DEGREE AV BLOCK EKG Impression: LEFT ANTERIOR FASCICULAR BLOCK EKG Impression: PROBABLE LVH WITH SECONDARY REPOL ABNRM Electronically Signed By: Sandy Mclean 23-Aug-2017 23:21:31
[2017-08-23 22:13] LABS: ANION GAP 12 mEq/L (8-16); CALCIUM 8.5 mg/dL (8.5-10.4); CARBON DIOXIDE 29 mEq/l (22-31); CHLORIDE 97 mEq/L (97-110); CREATININE 0.8 mg/dL (0.7-1.3); GLOMERULAR FILTRATION RATE > 60; GLUCOSE 79 mg/dL (70-100); POTASSIUM 4.9 mEq/L (3.5-5.2); SODIUM 138 mEq/L (134-144)
[2017-08-23 22:16] LABS: INR 0.88 (0.83-1.16); PROTIME(PATIENT) 12.2 SEC (12.0-15.0)
[2017-08-23] MEDS ORDERED: ACETAMINOPHEN 325 MG TAB PO PRN (23:05)
[2017-08-23] MEDS ORDERED: ONDANSETRON 4 MG/2 ML VIAL IVP PRN (23:05)
[2017-08-23] MEDS ORDERED: LABETALOL HCL 5 MG/ML 20 ML MDV IVP PRN (23:09)
[2017-08-24] MEDS ORDERED: D50W 25 GM/50 ML SYR IVP PRN (02:37)
[2017-08-24 04:52] LABS: % IMMATURE GRANULYOCYTES 0.4 % (0.0-1.1); ABSOLUTE IMMATURE GRANULOCYTES 0.06 10^3/uL (0.00-0.10); ADD DIFF? NO; ADD MORPH? NO; ADD SCAN? NO; ATYPICAL LYMPHOCYTE FLAG 0 (0-99); FRAGMENT RBC FLAG 0 (0-99); HEMATOCRIT 41.1 % (40.0-51.0); HEMOGLOBIN 13.5 g/dL (13.7-17.5); LEFT SHIFT FLG 0 (0-99); LIPEMIA HEMOLYSIS FLAG 80 (0-99); MEAN CELL HEMOGLOBIN CONCENTR. 32.8 g/dL (32.4-36.7); MEAN CELL VOLUME 88.2 fL (81.5-99.8); MEAN PLATELET VOLUME 9.6 fL (8.7-11.7); PLATELET CLUMPS FLAG 0 (0-99); PLATELET COUNT 244 10^3/uL (150-400); RED BLOOD CELL COUNT 4.66 10^6/uL (4.40-6.38)
[2017-08-24 05:06] LABS: ANION GAP 12 mEq/L (8-16); CALCIUM 8.2 mg/dL (8.5-10.4); CARBON DIOXIDE 27 mEq/l (22-31); CHLORIDE 101 mEq/L (97-110); CHOLESTEROL 159 mg/dL (140-220); CHOLESTEROL/HDL RATIO 1.73 RATIO (1.00-4.97); CREATININE 0.8 mg/dL (0.7-1.3); GLOMERULAR FILTRATION RATE > 60; GLUCOSE 154 mg/dL (70-100); HIGH DENSITY LIPOPROTEIN 92 mg/dL (40-65); LDL/HDL RATIO 0.45 RATIO (1.00-3.64); LOW DENSITY LIPOPROTEIN 41 mg/dL (80-100); MAGNESIUM 1.3 mg/dL (1.6-2.3); NON-HIGH DENSITY LIPOPROTEIN 67 mg/dL (90-129); POTASSIUM 4.2 mEq/L (3.5-5.2); SODIUM 140 mEq/L (134-144); TRIGLYCERIDE 132 mg/dL (40-150); VERY LOW DENSITY LIPOPROTEINS 26 mg/dL (8-25)
--- NOTE | 2017-08-24 06:53 | GHP ---
[f rep st] HISTORY AND PHYSICAL DATE OF ADMISSION: 08/23/2017 DATE OF SERVICE: 08/23/2017. late dictation. SOURCE: Patient able to provide history, appears reliable. His daughter is at bedside, supplements details. CHIEF COMPLAINT: Left arm weakness and slurred speech. HISTORY OF PRESENT ILLNESS: This is a very pleasant 72-year-old gentleman with past medical history significant for type 1 diabetes with complications of retinopathy and right eye blindness, neuropathy, nephropathy, and end-stage renal disease, status post renal transplant; GERD; history of squamous cell carcinoma, status post XRT, who presents to the emergency department today with reported left upper extremity weakness that began at approximately 4:30 this afternoon. Patient's daughter arrived and noticed that the patient had some slurring of his speech and the right facial drooping. The patient also noted that he was having some left arm weakness, numbness, and tingling. He was brought into the emergency department after 3 hours of onset of the symptoms. He denies any headache, changes in vision, lightheadedness, nausea, vomiting, chest pain, palpitations, or other acute complaints. The patient at home does utilize a walker. Has not noted any difficulties with ambulation or new numbness or tingling in the lower extremities. Patient without any previous history of CVA. He does not smoke. In the emergency department, stroke alert was called and patient's initial CT scan was negative for any acute findings. [facility] was consulted, and given patient's timing of onset of symptoms, he was felt not to be an appropriate candidate for tPA. He did receive a full dose of aspirin in the emergency department. At time of my interview on the neuro floor, patient states that his numbness and tingling have improved, and also his weakness. He states that he is now able to lift his left arm off the bed. REVIEW OF SYSTEMS: Negative except as noted above. ALLERGIES: Penicillin, cephalosporin, and codeine. Patient is unclear as to what side effect he has from codeine. HOME MEDICATIONS: As per EMR, reviewed with the daughter. Prednisone 7.5 mg p.o. daily, Natural Tears each eye q.2 p.r.n., tacrolimus 0.5 mg p.o. daily, sodium bicarb 650 mg p.o. b.i.d., vitamin B6 100 mg p.o. daily, nortriptyline 40 mg p.o. q.h.s., Myfortic 360 mg p.o. b.i.d. at 10 and 10, metoprolol tartrate 12.5 mg p.o. b.i.d. Listed on his home medication list is insulin 3 units subcu t.i.d. with meals, however, patient does have a pump in place. He is not able to clarify how it functions or the bolusing needs. Nexium 40 mg p.o. daily, gabapentin 300 mg p.o. b.i.d., Sensipar 30 mg p.o. daily, vitamin D3 2000 units p.o. daily, calcitriol 0.25 mcg p.o. Thursday, Thursday, Thursday, , Thursday, Tylenol 1000 mg p.o. q.8 hours p.r.n. PAST MEDICAL HISTORY: Significant for type 1 diabetes with use of a pump; history of remote falls; right eye blindness; neuropathy, retinopathy, nephropathy related to his type 1 diabetes; squamous cell carcinoma, status post radiation therapy in the head and lung; end-stage renal disease, status post transplant on chronic immunosuppression therapy; GERD; chronic pain; history of C difficile in 2014; history of rib fractures. Zocor. PAST SURGICAL HISTORY: Significant for kidney transplant; metatarsal amputation , multiple, bilateral feet; appendectomy; tonsillectomy; adenoidectomy; left femur, periprosthetic fracture repair; and total hip arthroplasty. FAMILY HISTORY: Brother with type 1 diabetes and father with a history of CVA at advanced age, 86. SOCIAL HISTORY: Patient is , lives with his . Daughter is nearby and is quite supportive, visits regularly. Patient does have a emblem maker at home for him and his , who listed has Alzheimer disease. Patient ambulates with a walker. He does not use any home oxygen. He does drink occasional alcohol. No illicit drugs. Patient states that he never smoked. Chart is noting that patient had quit tobacco. CODE STATUS: Full code. PHYSICAL EXAMINATION: VITAL SIGNS: Upon arrival to the emergency department, blood pressure 184/84, heart rate 80, respiratory rate 18, O2 saturation 94% on room air with a temperature of 36.7. Vitals available at time of interview, blood pressure 162/89, heart rate was 75, respiratory rate 20, O2 saturation was 94% on room air. GENERAL: No acute distress. Pleasant, frail, elderly, chronically ill-appearing gentleman is lying quietly in bed. HEAD: Normocephalic, atraumatic. EYES: Extraocular muscles are intact. Pupil on the left is constricted and minimally reactive to light on the left. Right eye with scarring. ENT: Mucous membranes appear slightly dry. Dentition is intact. No nasal discharge. No pharyngeal erythema or exudates. NECK: Supple. Trachea midline. CV: Regular rate and rhythm. No murmurs, rubs, or gallops appreciated. RESPIRATORY: Diminished inspiratory effort with decreased air movement bibasilarly but otherwise clear. No crackles, rhonchi, or wheezing. NEURO: The patient does continue to have 4/5 compared to 5/5 strength in the right upper extremity from the proximal arm to the hand. On the left, is weakness. He has just a very minimal drift on the left. He is awake, alert, and oriented x3, but overall he is a fair to poor historian. He does ask appropriate question. There is no facial drooping appreciated. Minimal nasal labial fold flattening on the left. No facial drooping with cranial nerve testing. PSYCH: Patient does not appear anxious or agitated and thought process, content, and questions are all appropriate. LABORATORY STUDIES: WBC 10.62, H and H is 14.0 and 42.6, MCV of 89.3, platelet count 306, no bands. Sodium is 138, potassium 4.9, chloride is 97, CO2 is 29, anion gap 12, BUN 31, creatinine 0.8, GFR greater than 60, glucose is 79, calcium 8.5. PT is 12.2, INR is 0.88. EKG reviewed myself shows normal sinus rhythm, first-degree AV block, T-wave inversions in the lateral leads, left anterior fascicular block, probable LVH with secondary repolarization changes. No acute ST elevations. QTc is 470. CT head, image report reviewed myself. No acute intracranial findings. Diffuse cerebral atrophy with periventricular subcortical low attenuation, consistent with chronic microvascular ischemic gliosis. No mass effect or infarct. Extensive atherosclerosis noted. Shrunk and partially calcified right globe again noted. Skull and skull base are unremarkable. Paranasal sinuses clear. Partial fluid opacification of the mastoid air cells. Left greater than right, without definite evidence of osseous destruction is stable. Left frontal scalp defect is noted. ASSESSMENT AND PLAN: Pleasant 72-year-old gentleman who presents with several hours after onset of left upper extremity weakness and slurred speech. 1. Lower extremity weakness and slurred speech, concerning for acute cerebrovascular accident. Initial CT was negative for any acute findings. We will plan for MRI in the morning for further evaluation. Patient has significant risk factors of diabetes, hypertension. Record has noted that patient has a previous history of smoking, but the patient states that he has no significant history of tobacco use. Patient is not a candidate for tPA therapy. Did receive a full dose aspirin and will plan for MRI in the morning, carotids, and echo. PT/OT have been consulted. Full stroke protocol in place. Patient did pass bedside dysphagia screen. Neurology consulted for the morning. 2. Diabetes type 2, reported to be well controlled. Patient has a pump, but has some difficulty clarifying his basal rate and bolus dosing or how his pump is functioning. Repeated blood sugars are acceptable at this time. Patient states that he is able to manage his own pump. We will continue to monitor a.c. , h.s. Accu-Cheks at this time. P.r.n. hypoglycemia protocol in place. I will check an A1c. 5. End-stage renal disease, status post transplant. Resume patient's antirejection medications, as per med rec. 6. Benign essential hypertension. Continue patient's metoprolol. Check a lipid panel. 7. Gastroesophageal reflux disease. Continue PPI per formulary, once med rec is reconciled. 8. Neuropathy. Can resume gabapentin when med rec available. 9. left heel pressure ulcer - present on admission. wound care consulted. patient with HHN and wound care currently. 10. Fluids/Electrolytes/Nutrition. The patient is able to tolerate oral intake. Will encourage oral hydration at this time. A diabetic diet has been ordered. Electrolyte replacement p.r.n. 11.Prophylaxis. SCDs, status post aspirin. Holding anticoagulation at this time pending further evaluation with MRI to minimize any risk of reperfusion bleeding. 12. Code status is full. 13. Disposition: Patient has been admitted to observation on the Neurology floor. Will monitor closely. Multiple consultations as noted above. Patient' s symptoms appear to be improving, but amenable to further evaluation and workup. He would like to discharge home tomorrow if possible, but again, I have encouraged the patient to complete further workup and rehab services, which he states he has PT/OT already available at home. /[id number]/MODL MTDD
[2017-08-24 08:35] VITALS: PULSE 85
[2017-08-24] MEDS ORDERED: ASPIRIN 81 MG CHEWABLE TAB PO SCH (09:00)
--- NOTE | 2017-08-24 09:53 | GCON ---
[f rep st] CONSULTATION NEUROLOGY CONSULTATION REFERRING PHYSICIAN: Precious Rabago MD CHIEF COMPLAINT: Transient neurologic symptoms. HISTORY OF PRESENT ILLNESS: The patient is a very pleasant 72-year-old gentleman with severe past medical problems including previous kidney transplant , diabetes and multiple complications including right eye blindness, peripheral neuropathy. He denies any previous history of stroke, although he has significant risk factors. He was brought in because yesterday around 1430, he began having slurred speech and left arm weakness, which was present for "a few hours" according to the patient and then resolved. He was evaluated under a stroke alert and it was recommended that he was not a tPA candidate. He was started on aspirin and admitted for further evaluation. He has had no further symptoms. Doppler of the carotid artery showed no significant obstructive disease or flow-limiting stenosis. A head CT done in the emergency department yesterday showed expected changes of atrophy and subcortical microvascular changes. There were no acute findings. REVIEW OF SYSTEMS: Ten-point review of systems was done and only pertinent to the HPI. For past medical history, social history, family history, home medications, allergies, please see Dr. Rabago's H and P. PHYSICAL EXAM: VITAL SIGNS: Blood pressure 124/71, temperature 36.6, respiratory rate 17. GENERAL: Patient is awake and alert in no acute distress. HIGHER MENTAL FUNCTION: He answered questions appropriately, but slowly, suggestive of psychomotor slowing. CRANIAL NERVE: Right eye is opacified. No facial weakness or facial sensory loss. On motor exam, the patient did have some trouble with external rotation of left upper extremity, but claimed that was from a chronic shoulder injury and he was limited by pain. Otherwise, no focal weakness. Sensory exam was normal in the proximal extremities to light touch subjectively, no asymmetry. He had distal peripheral neuropathy findings with decreased light touch in the distal regions of the extremities. IMPRESSION AND PLAN: 1. Transient ischemic attack. The patient's symptoms may be consistent with a transient ischemic attack or small lacunar infarct, which has resolved. He certainly has multiple risk factors for small-vessel disease. In addition, I note he had very high systolic pressures upon admission in the 190s. Certainly, this may have been a hypertensive urgency with reversible neurologic symptoms. His carotid ultrasound does not show any significant obstructive abnormalities. I agree with MRI brain and echocardiography going forward, along with continued monitoring on the ECG telemetry. If okay with his starch and prosize mixer, I think being on Plavix 75 mg daily would be prudent for vascular prophylaxis. He was told not to be on aspirin previously due to his underlying kidney disease. This is according to the patient. This event occurred while not on any type of antithrombotic agent. We will follow up on the above and make further recommendations as indicated. Thank you for this consultation. BILLING INFORMATION: Seventy total minutes floor time today, this included review of medical records, imaging, direct counseling with the patient, and coordination of care. /[id number]/MODL MTDD
[2017-08-24 11:25] LABS: HEMOGLOBIN A1C 7.8 % (4.0-6.0)
--- NOTE | 2017-08-24 11:38 | ECHO ---
[email or web address] [address] [address] Main: [phone] Fax: Transthoracic Echocardiogram Name: SILVIA HORTON MR#: [id number] Study Date: 08/24/2017 Study Time: 09:02 AM Date of : 1945 Age: 72 year(s) Height: 180.3 cm (71 in.) Weight: 59.87 kg (132 lb.) BSA: 1.77 m2 Gender: Male Examination: Echo Indication: ischemic stroke Image Quality: Technically Difficult Contrast: Requested by: Precious Rabago BP: / Heart Rate: Rhythm: Normal sinus rhythm Indication: ischemic stroke Procedure Staff Furrier Designer: Lily Shepherd Reading Physician: Yuriy Wallis Requesting Provider: Conclusions: No pericardial effusion. Significant concentric left ventricular hypertrophy without outflow tract gradient. Parasternal views suggest the possibility of mid ventricular outflow obstruction. Regional wall motion abnormalities cannot be assessed. Ejection fraction in excess of 70% with cavity obliteration. No significant valvular abnormalities by Doppler. Measurements: Chambers Valvular Assessment AV/MV Valvular Assessment TV/PV Normal Normal Normal Name Value Range Name Value Range Name Value Range Ao Viridiana (MM): 3.5 cm (2.2 cm-3.7 AV Vmax: 0.89 m/s (1 m/s-1.7 PV Vmax: 1.11 m/s (0.6 m/s-0.9 cm) m/s) m/s) IVSd (2D): 1.2 cm (0.6 cm-1.1 AV maxP mmHg ( - ) PV PGmax: 5 mmHg ( - ) cm) AV meanP mmHg ( - ) LVDd (2D): 3.9 cm (4.2 cm-5.9 LVOT Vmax: 0.76 m/s (0.7 m/s-1.1 cm) m/s) LVDs (2D): 2.9 cm (2.1 cm-4 AMANDA (Vmax): 3.0 cm2 ( - ) cm) AMANDA (VTI): 2.5 cm ( - ) LVPWd (2D): 1.1 cm (0.6 cm-1 MV E Vmax: 0.62 m/s ( - ) cm) MV A Vmax: 1.00 m/s ( - ) LVOTd 2.1 cm 2.1 cm mm MV E/A: 0.62 ( - ) LVEF (2D): 52 (>=54 %) MV meanP mmHg ( - ) MVA (Vmax): 2.3 m/s ( - ) Continued Measurements: Valvular Assessment AV/MV Name Value MV VTI: 21.10 cm Patient: SILVIA HORTON Study Date: 08/24/2017 Page 1 of 2 09:02 AM Findings: Left Ventricle: Very limited acoustic windows. Small LV size with normal systolic function. Cannot rule out wall motion abnormalities. Concentric left ventricular hypertrophy noted. Right Ventricle: RV is not well visualized but appears grossly normal in size and function. Left Atrium: The left atrium is normal in size. Normal appearing atrial septum. Right Atrium: The right atrium is normal in size. Mitral Valve: There is mild thickening of the mitral valve leaflets. Mild mitral valve leaflet calcification is present. No mitral stenosis is present. There is no mitral valve regurgitation. Aortic Valve: The aortic valve is tri-leaflet. Aortic sclerosis is present. There is no aortic valve regurgitation. No aortic valve stenosis is present. Tricuspid Valve: There is no tricuspid valve regurgitation. Grossly normal TV. Pulmonic Valve: Pulmonary valve not visualized. Aorta: Normal size aortic root measuring 3.5 cm. Pericardium: No pericardial effusion. (No Signature Object) Patient: SILVIA HORTON Study Date: 08/24/2017 Page 2 of 2 09:02 AM [id number]
[2017-08-24 12:17] VITALS: RESP 18; O2SAT 92
[2017-08-24] MEDS ORDERED: TEARS/DEXTRAN 70/HYPROMELLOSE 15 ML OPHT.BTL EACHEYE PRN (15:22)
[2017-08-24] MEDS ORDERED: TACROLIMUS ANHYDROUS 0.5 MG CAP PO SCH (15:22)
[2017-08-24] MEDS ORDERED: NON-FORMULARY NEW DRUG (Mycophenolate Sodium [Myfortic] 360 MG) PO SCH (15:22)
[2017-08-24] MEDS ORDERED: predniSONE 5 MG TAB PO SCH (15:22)
[2017-08-24] MEDS ORDERED: CHOLECALCIFEROL VIT D3 2,000 UNITS TAB/CAP PO SCH (15:30)
[2017-08-24] MEDS ORDERED: NON-FORMULARY NEW DRUG (Esomeprazole Mag Trihydrate [Nexium] 40 MG) PO SCH (15:30)
[2017-08-24] MEDS ORDERED: CINACALCET HCL 30 MG TAB PO SCH (15:30)
[2017-08-24] MEDS ORDERED: NON-FORMULARY NEW DRUG (Insulin Pump, Patient Own 1 EA) MISC SCH (15:30)
--- NOTE | 2017-08-24 15:34 | ASMTCMCOM ---
CM Note CM Note Notes: Chart reviewed. Patient admitted via ED for r/o CVA. Patient is current with [facility] for RN, PT and OT. MRI result pending. Good family support. Anticipate home with home health and 24 hour supervision. Date Signed: 08/24/2017 03:33 PM Electronically Signed By:Chloe Rhodes RN
--- NOTE | 2017-08-24 15:51 | HOSPPROG ---
Hospitalist Progress Note Assessment/Plan: 72 yo M w dm1, renal transplant here w tia no stroke add plavix home today Subjective: case d/w dr stroud. no stroke on MRI Objective: Vital Signs Temp Pulse Resp BP Pulse Ox 36.4 C 85 18 124/62 H 92 08/24/17 12:00 08/24/17 12:00 08/24/17 12:00 08/24/17 12:00 08/24/17 12:00 Laboratory Results 08/24/17 04:33 08/24/17 04:33 08/23/17 08/24/17 08/25/17 05:59 05:59 05:59 Intake Total 170 Output Total 450 Balance 170 -450 PT 12.2 SEC (12.0-15.0) 08/23/17 22:00 INR 0.88 (0.83-1.16) 08/23/17 22:00 - Physical Exam Constitutional: no apparent distress, appears nourished Eyes: PERRL, anicteric sclera Ears, Nose, Mouth, Throat: moist mucous membranes, hearing normal Cardiovascular: regular rate and rhythym, no murmur, rub, or gallop Respiratory: no respiratory distress, no rales or rhonchi Gastrointestinal: normoactive bowel sounds, soft, non-tender abdomen Genitourinary: no bladder fullness, No perry in urethra Musculoskeletal: full muscle strength, no muscle tenderness Neurologic: AAOx3 Psychiatric: interacting appropriately, not anxious Lymph, Heme, Immunologic: no cervical LAD ICD10 Worksheet Patient Problems: Problems Problem Status Onset Acute ischemic stroke Acute Altered mental status Acute C. difficile diarrhea Acute 10/13/14 Diabetes mellitus type 1 Acute Fall Acute History of kidney transplant Acute Hyperglycemia Acute Leukocytosis Acute Periprosthetic fracture around internal prosthetic left hip joint Acute Rib fractures Acute
[2017-08-24 16:31] VITALS: BP 115/63; TEMP 97.8
--- NOTE | 2017-08-24 16:55 | PDIAF ---
- Diagnosis Diagnosis: tia - Medication Management Discharge Medications: Medications to Continue on Transfer Calcitriol [Calcitriol (*)] 0.25 mcg PO MOTUWETHFR@05/10/17 [Last Taken 08/21] Cholecalciferol Vit D3 [Vitamin D3 2000 units tab (OTC)] 2,000 units PO DAILY [Last Taken 08/23/17] Cinacalcet HCl [Sensipar (*)] 30 mg PO DAILY 05/10/17 [Last Taken 08/23/17] Esomeprazole Mag Trihydrate [Nexium] 40 mg PO DAILY 05/10/17 [Last Taken ] Gabapentin [Neurontin 300 MG (*)] 300 mg PO BID 05/10/17 [Last Taken 08/23/17 21 :00] Metoprolol Tartrate [Lopressor 25 mg (*)] 12.5 mg PO BID 05/10/17 [Last Taken 21:00] Mycophenolate Sodium [Myfortic] 360 mg PO BID@05/10/17 [Last Taken 22:00] Nortriptyline HCl [Pamelor 10 mg (*)] 40 mg PO HS 05/10/17 [Last Taken 08/23/17] Pyridoxine HCl [Vitamin B-6 100 mg (*)] 100 mg PO DAILY 05/10/17 [Last Taken 11/21] Sodium Bicarbonate [Na Bicarb] 650 mg PO BID 05/10/17 [Last Taken 08/23/17 21:00 ] Tears/Dextran 70/Hypromellose [Natural Balance Tears (*)] 1 drop EACHEYE Q2 PRN 05/10/17 [Last Taken Unknown] predniSONE 7.5 mg PO DAILY@05/10/17 [Last Taken 08/23/17] Tacrolimus 0.5 mg PO DAILY 06/16/17 [Last Taken 08/23/17] Clopidogrel Bisulfate [Plavix] 75 mg PO DAILY #30 tablet 08/24/17 [Last Taken Unknown] Insulin Pump, Patient Own 1 ea MISC AD 08/24/17 [Last Taken Unknown] Discharge Medications: Refer to the Discharge Home Medication list for PRN reason. - Orders Services needed: Home Care, Registered Nurse, Physical Therapy, Occupational Therapy Home Care Face to Face: I certify that this patient was under my care and that I had the required [id number] encounter meeting the encounter requirements on the discharge day. My findings support the fact that the patient is homebound as defined in Home Care Face to Face Continued: CMS Chapter 7 Medicare Benefits Manual 30.1.1 , The condition of the patient is such that there exists a normal inability to leave home and consequently, leaving home would require a considerable and taxing effort. Isolation Type: None - Follow Up Care Current Providers and Referrals: Long Vera MD [Primary Care Provider] - As per Instructions Jonnathan Rios MD [Medical Doctor] - Donnie Mercer MD [Medical Doctor] -
--- NOTE | 2017-08-24 17:00 | WOCRNPDOC ---
WOCRN Advanced Assessment Note - Skin Integrity Problem, Advanced Assess Left Heel Pressure Injury Dressing Type: Gauze Dressing Description: Clean/Dry, Intact Exudate Amount: Minimal Exudate Color: Yellow, Green Exudate Characteristic(s): Cloudy, Purulent Integumentary Issue Intervention: Dressing Changed Kaitlin Wound Tissue: Erythema, Calloused Kaitlin Wound Swelling: None Wound Bed Color: Black, Brown, Red, Yellow Wound Bed Constitution: Granulation Tissue (20%), Smooth Tissue (10%), Adhered Slough (20%), Unstable Eschar (50%) Wound Edges: Not Attached Site Odor: Moderate, Foul, Pungent Site Measurement - Head-to-Toe Length X Width X Depth (cm): 2.8x5.7x0.3 Pressure Injury Stage: Unstageable Pressure Injury Present on Admit: Yes
[2017-08-24] MEDS ORDERED: METOPROLOL TARTRATE 25 MG TAB PO SCH (21:00)
[2017-08-24] MEDS ORDERED: NORTRIPTYLINE HCL 10 MG CAP PO SCH (21:00)
[2017-08-24] MEDS ORDERED: GABAPENTIN 300 MG CAP PO SCH (21:00)
[2017-08-24] MEDS ORDERED: SODIUM BICARBONATE 650 MG TAB PO SCH (21:00)
[2017-08-25] MEDS ORDERED: CALCITRIOL 0.25 MCG CAP PO SCH (09:00)
[2017-08-25] MEDS ORDERED: PYRIDOXINE HCL 100 MG TAB PO SCH (09:00)
[2017-08-25] MEDS ORDERED: PANTOPRAZOLE SODIUM 40 MG TAB PO SCH (09:00)
--- NOTE | 2017-08-25 14:37 | ASDISCHSUM ---
Discharge Information Plan Status:Home with Home Health Medically Cleared to Leave: Discharge Date:08/24/2017 06:02 PM D/C Disposition:Home Health Service ADT D/C Disposition:Home, Routine, Self-Care Projected Discharge Date:08/24/2017 11:00 AM Transportation at D/C:Family Discharge Delay Reason: Follow-Up Date:08/24/2017 11:00 AM Discharge Slot: Final Diagnosis: Placement Information Referral Type:*Home Health Care Services Referral ID:[id number] Provider Name:[facility] Address 1:[address] [place] [address] Phone Number: Address 2: Fax Number: City:[place] Selection Factors: State:[place] Patient Contact Information Contact Name:PADMINIBRIELLE Relationship:Daughter Address: City:[place] Alternate Phone: State/Zip Code:[place] Email: Financial Information Financial Class: Primary Plan Desc:MEDICARE OUTPATIENT Primary Plan Number:[id number] Secondary Plan Desc:[facility] Secondary Plan Number:[id number] Assessment Information [facility] CM Progress Note CM Note CM Note Notes: Chart reviewed. Patient admitted via ED for r/o CVA. Patient is current with [facility] for RN, PT and OT. MRI result pending. Good family support. Anticipate home with home health and 24 hour supervision. Date Signed: 08/24/2017 03:33 PM Electronically Signed By:Chloe Rhodes RN Case Management Discharge Plan Note Case Management Discharge Discharge Order Complete? Answers: Yes Patient to Obtain Answers: Independently Medications Transportation Arranged Answers: Family/Friends Transport will Pick (Date 08/24/2017 12:00 AM & Time) Faxed Final Orders Answers: Yes Family Notified Answers: No Notes: Patient to notify. Discharge Comments Notes: Patient will discharge home today and resume services with Family . All information sent to [facility] via [email or web address] alerted their intake of discharge. Patient in agreement with plan, family to transport home. Date Signed: 08/24/2017 05:05 PM Electronically Signed By:Sonya Keen RN Intervention Information Intervention Type:*FRAGA-Signed Date of Service:08/24/2017 10:58 AM Patient Type:Observation Staff Member:Aleta Mcleod Hours: Discipline: Severity: Comment:
== END 2017-08-24 18:02 | disposition home health service (06) ==
LOC: F3N 23:15
PROVIDERS: ADMIT Family Medicine; ATTEND Internal Medicine
DX: G45.9 Transient cerebral ischemic attack, unspecified (principal); E10.42 Type 1 diabetes mellitus with diabetic polyneuropathy; E10.319 Type 1 diabetes mellitus with unspecified diabetic retinopathy without macular edema; H54.40 Blindness, one eye, unspecified eye; Z96.41 Presence of insulin pump (external) (internal); Z94.0 Kidney transplant status; L89.620 Pressure ulcer of left heel, unstageable; I10 Essential (primary) hypertension; K21.9 Gastro-esophageal reflux disease without esophagitis; Z85.828 Personal history of other malignant neoplasm of skin
CPT/HCPCS: 70450; 70551; 92523; 93005; 93306; 93880; 97162; 97166; G0378; G8978; G8979; G8987; G8988; G9168; G9169; 82947-QW

== ENCOUNTER 2017-10-09 00:45 | Inpatient (IN) | payer OTHER, BC ==
--- NOTE | 2017-10-09 01:06 | EDPHY ---
H & P Stated Complaint: Insulin pump isn't working and BS reads HIGH HPI/ROS: HPI CHIEF COMPLAINT: Blood sugars running high HISTORY OF PRESENT ILLNESS: Patient very pleasant 72-year-old male hard of hearing, history of squamous cell carcinoma, additionally end-stage renal disease, additionally insulin-dependent diabetes and usually uses insulin pump. Patient as well as patient's daughter's boyfriend who is at bedside states that the in some pause not appropriately in plan into his skin for over 24 hr. They forgot to take the infusion cap off of it. So therefore he has not been getting insulin for the past 24 hr. The patient's daughter's boyfriend checked his blood sugar earlier today and was reading very high they did give him an insulin bolus and corrected his home however continue to reach critically high and they decided to bring him to the emergency room for further care. Upon arrival to the emergency room the patient noted be tachycardic and appears really dry on exam with dry mucous membranes. Is not tachypneic otherwise stable. Past Medical History: Hypertension, end-stage renal disease, renal transplant, neuropathy, diabetes, squamous cell carcinoma Past Surgical History: Renal transplant Social History: Lives locally. Has here take his. Denies drugs alcohol tobacco products. Family History: Noncontributory ROS REVIEW OF SYSTEMS: A comprehensive 10 point review of systems is otherwise negative aside from elements mentioned in the history of present illness. Exam Constitutional dry on exam, appears nontoxic but frail, elderly, debilitated, triage nursing summary reviewed, vital signs reviewed, awake/alert. Eyes normal conjunctivae and sclera, EOMI, PERRLA. HENT head exam: Scabs on the top of this, additionally left scalp shows an area of denuded skin possible where his squamous cell carcinoma was, normal inspection, atraumatic, dry mucus membranes, no epistaxis, neck supple/ no meningismus, no raccoon eyes. Respiratory clear to auscultation bilaterally, normal breath sounds, no respiratory distress, no wheezing. Cardiovascular tachycardic, regular rhythm, no murmur, no edema, distal pulses normal. Gastrointestinal soft, non-tender, no rebound, no guarding, normal bowel sounds, no distension, no pulsatile mass. Genitourinary no CVA tenderness. Musculoskeletal no midline vertebral tenderness, full range of motion, no calf swelling, no tenderness of extremities, no meningismus, good pulses, neurovascularly intact. Skin pink, warm, & dry, no rash, skin atraumatic. Neurologic awake, alert and oriented x 3, AAOx3, moves all 4 extremities equally, motor intact, sensory intact, CN II-XII intact, normal cerebellar, normal vision, normal speech. Psychiatric normal mood/affect. Heme/Lymph/Immune no lymphadenopathy. Differential Diagnosis: Includes but is not limited to in a particular order DKA, hyperglycemia, HONK, dehydration, electrolyte disturbance, acidosis Medical Decision Making: Plan for this patient IV established with IV fluid bolus 1 L normal saline, check chemistry panel, rule out DKA, check blood sugar , if in DKA will need ICU admission with insulin drip. Re-evaluate. Re-evaluation: 0249: Patient in DKA. Noted to have a anion gap and a low bicarb. Blood sugar 560. Patient has received 2 L of normal saline here in emergency room. He will be started on insulin drip need to go to the intensive care unit for DKA. Patient is agreeable for this. And updated. Critical Care: Total Critical Care Time Spent Managing this Patient: 65Minutes. This time was spent Exclusively with this patient. This Care was exclusive of procedures. The Organ System/life at risk was endocrine, acidosis This Patient was in Critical Condition because diabetic ketoacidosis, dehydration Spoke with the hospitalist service Dr. Arredondo, who agrees to admit this patient. Source: Patient - Personal History Current Tetanus/Diphtheria Vaccine: Yes Current Tetanus Diphtheria and Acellular Pertussis (TDAP): Yes Tetanus Vaccine Date: 2008 - Medical/Surgical History Hx Asthma: No Hx Chronic Respiratory Disease: No Hx Diabetes: Yes Hx Cardiac Disease: No Hx Renal Disease: Yes Hx Cirrhosis: No Hx Alcoholism: No Hx HIV/AIDS: No Hx Splenectomy or Spleen Trauma: No Other PMH: kidney transplant SKIN CA EYE SURGERIES ORTHO SURG. APPY TONSILECTOMY, DIABETES TYPE 1, NEUROPATHY, insulin pump. chronic pain, HX OF CDIFF FROM 10/2014 - Social History Smoking Status: Former smoker Constitutional: Initial Vital Signs Temperature (C) 36.3 C 10/09/17 00:50 Heart Rate 119 H 10/09/17 00:50 Respiratory Rate 22 H 10/09/17 00:50 Blood Pressure 91/44 L 10/09/17 00:50 O2 Sat (%) 94 10/09/17 00:50 O2 Delivery Mode Room Air Allergies/Adverse Reactions: Cephalosporins Allergy (Severe, Verified 10/09/17 00:55) Cleve Pravin Syndrome Penicillins Allergy (Intermediate, Verified 10/09/17 00:55) Hives codeine Allergy (Unknown, Verified 10/09/17 00:55) Home Medications: Medication Instructions Recorded Calcitriol [Calcitriol (*)] 0.25 mcg PO MOTUWETHFR@05/10/17 Cholecalciferol Vit D3 [Vitamin D3 2,000 units PO DAILY 05/10/17 2000 units tab (OTC)] Cinacalcet HCl [Sensipar (*)] 30 mg PO DAILY 05/10/17 Esomeprazole Mag Trihydrate 40 mg PO DAILY 05/10/17 [Nexium] Gabapentin [Neurontin 300 MG (*)] 300 mg PO BID 05/10/17 Metoprolol Tartrate [Lopressor 25 12.5 mg PO BID 05/10/17 mg (*)] Mycophenolate Sodium [Myfortic] 360 mg PO BID@05/10/17 Nortriptyline HCl [Pamelor 10 mg 40 mg PO HS 05/10/17 (*)] Pyridoxine HCl [Vitamin B-6 100 mg 100 mg PO DAILY 05/10/17 (*)] Sodium Bicarbonate [Na Bicarb] 650 mg PO BID 05/10/17 Tears/Dextran 70/Hypromellose 1 drop EACHEYE Q2 PRN 05/10/17 [Natural Balance Tears (*)] predniSONE 7.5 mg PO DAILY@05/10/17 Tacrolimus 0.5 mg PO DAILY 06/16/17 Clopidogrel Bisulfate [Plavix] 75 mg PO DAILY #30 tablet 08/24/17 Insulin Pump, Patient Own 1 ea [facility] AD 08/24/17 Medical Decision Making - Data Points Laboratory Results: Laboratory Results 10/09/17 01:20 10/09/17 01:20 10/09/17 10/09/17 10/09/17 02:10 01:49 01:20 WBC RBC Hgb Hct MCV MCH MCHC RDW Plt Count MPV Neut % (Auto) Lymph % (Auto) [place] % (Auto) Eos % (Auto) Baso % (Auto) Nucleat RBC Rel Count Absolute Neuts (auto) Absolute Lymphs (auto) Absolute Monos (auto) Absolute Eos (auto) Absolute Basos (auto) Absolute Nucleated RBC Immature Gran % Immature Gran # PT REJ INR REJ APTT REJ Puncture Site RIGHT RADIAL Patient Temperature 37.0 DEGREES DEGREES pCO2 27 mmHg L mmHg (34-38) pO2 162 mmHg H mmHg (65-75) Total CO2 16 mEq/L L mEq/L (23-27) ABG pH 7.37 (7.35-7.45) ABG HCO3 15 mEq/L L mEq/L (22-26) ABG O2 Saturation 99 % H % (92-95) ABG Base Excess -8.3 mEq/L L mEq/L (-2.5-2.5) ABG Lactic Acid 3.3 mmol/L H mmol/L (0.5-1.6) Sodium 136 mEq/L mEq/L (135-145) Potassium 5.6 mEq/L H mEq/L (3.5-5.2) Chloride 95 mEq/L L mEq/L (97-110) Carbon Dioxide 11 mEq/l L mEq/l (22-31) Anion Gap 30 mEq/L H mEq/L (8-16) BUN 53 mg/dL H mg/dL (7-23) Creatinine 1.6 mg/dL H mg/dL (0.7-1.3) Estimated GFR 42 Glucose 563 mg/dL H* mg/dL (70-100) Calcium 9.0 mg/dL mg/dL (8.5-10.4) Total Bilirubin 0.8 mg/dL mg/dL (0.1-1.4) Conjugated Bilirubin 0.5 mg/dL mg/dL (0.0-0.5) Unconjugated Bilirubin 0.3 mg/dL mg/dL (0.0-1.1) AST 23 IU/L IU/L (17-59) ALT 19 IU/L L IU/L (21-72) Alkaline Phosphatase 158 IU/L H IU/L (38-126) Total Protein 6.8 g/dL g/dL (6.3-8.2) Albumin 3.8 g/dL g/dL (3.5-5.0) Lipase 284 IU/L IU/L (23-300) Beta-Hydroxybutyrate 2.90 mmol/L H mmol/L (0.02-0.27) 10/09/17 01:20 WBC 12.49 10^3/uL H 10^3/uL (3.80-9.50) RBC 4.89 10^6/uL 10^6/uL (4.40-6.38) Hgb 13.5 g/dL L g/dL (13.7-17.5) Hct 42.0 % % (40.0-51.0) MCV 85.9 fL fL (81.5-99.8) MCH 27.6 pg L pg (27.9-34.1) MCHC 32.1 g/dL L g/dL (32.4-36.7) RDW 16.4 % H % (11.5-15.2) Plt Count 344 10^3/uL 10^3/uL (150-400) MPV 9.6 fL fL (8.7-11.7) Neut % (Auto) 91.4 % H % (39.3-74.2) Lymph % (Auto) 3.0 % L % (15.0-45.0) Charlotte % (Auto) 4.8 % % (4.5-13.0) Eos % (Auto) 0.0 % L % (0.6-7.6) Baso % (Auto) 0.2 % L % (0.3-1.7) Nucleat RBC Rel Count 0.0 % % (0.0-0.2) Absolute Neuts (auto) 11.42 10^3/uL H 10^3/uL (1.70-6.50) Absolute Lymphs (auto) 0.37 10^3/uL L 10^3/uL (1.00-3.00) Absolute Monos (auto) 0.60 10^3/uL 10^3/uL (0.30-0.80) Absolute Eos (auto) 0.00 10^3/uL L 10^3/uL (0.03-0.40) Absolute Basos (auto) 0.02 10^3/uL 10^3/uL (0.02-0.10) Absolute Nucleated RBC 0.00 10^3/uL 10^3/uL (0-0.01) Immature Gran % 0.6 % % (0.0-1.1) Immature Gran # 0.08 10^3/uL 10^3/uL (0.00-0.10) PT INR APTT Puncture Site Patient Temperature pCO2 pO2 Total CO2 ABG pH ABG HCO3 ABG O2 Saturation ABG Base Excess ABG Lactic Acid Sodium Potassium Chloride Carbon Dioxide Anion Gap BUN Creatinine Estimated GFR Glucose Calcium Total Bilirubin Conjugated Bilirubin Unconjugated Bilirubin AST ALT Alkaline Phosphatase Total Protein Albumin Lipase Beta-Hydroxybutyrate Medications Given: Discontinued Medications Sodium Chloride (Ns) 1,000 mls @ 0 mls/hr IV EDNOW ONE; Wide Open PRN Reason: Protocol Stop: 10/09/17 01:11 Last Admin: 10/09/17 01:22 Dose: 1,000 mls Sodium Chloride (Ns) 1,000 mls @ 0 mls/hr IV ONCE ONE PRN Reason: Wide Open Stop: 10/09/17 01:59 Last Admin: 10/09/17 02:11 Dose: 1,000 mls Departure - Departure Disposition: [facility] Inpatient Acute Clinical Impression: DKA (diabetic ketoacidoses) Qualifiers: Diabetes mellitus type: other specified (including JOCELYNN) Diabetes mellitus complication detail: without coma Qualified Code(s): E13.10 - Other specified diabetes mellitus with ketoacidosis without coma Condition: Fair Referrals: NONE *PRIMARY CARE P,. [Unknown] - As per Instructions
[2017-10-09] MEDS ORDERED: NS 1,000 ML IV ONE ×3 (01:10→03:45)
[2017-10-09 01:29] LABS: PLATELET COUNT 344 10^3/uL (150-400)
[2017-10-09] MEDS ORDERED: INSULIN REGULAR HUMAN 100 UNIT, COSIGN. REQUIRED 1 EA in NS 100 ML IV ONE (02:40)
[2017-10-09] MEDS ORDERED: ACETAMINOPHEN 325 MG TAB PO PRN (02:47)
[2017-10-09] MEDS ORDERED: ONDANSETRON 4 MG/2 ML VIAL IVP PRN (02:47)
[2017-10-09] MEDS ORDERED: ONDANSETRON DISINTEGRATING 4 MG TAB PO PRN (02:47)
--- NOTE | 2017-10-09 03:14 | PDGENHP ---
History and Physical - Chief Complaint Hyperglycemia - History of Present Illness 72 yo M w/ IDDM, hx renal transplant, and TIA presents with hyperglycemia. Patient is an insulin dependent, Type 1 diabetic who uses an insulin pump. Per daughter's boyfriend who frequently cares for the patient, his home health nurse came to replace the pump yesterday. However, the nurse left the cap on the insulin pump so no insulin was administered for >24 hours. The patient is drowsy and only AxOx1 currently, which daughter's BF states happens when his sugar is out of control. Patient himself denies any complaints. History Information - Allergies/Home Medication List Allergies/Adverse Reactions: Cephalosporins Allergy (Severe, Verified 10/09/17 00:55) Cleve Pravin Syndrome Penicillins Allergy (Intermediate, Verified 10/09/17 00:55) Hives codeine Allergy (Unknown, Verified 10/09/17 00:55) Home Medications: Calcitriol [Calcitriol (*)] 0.25 mcg PO MOTUWETHFR@05/10/17 [Last Taken 08/21] Cholecalciferol Vit D3 [Vitamin D3 2000 units tab (OTC)] 2,000 units PO DAILY [Last Taken 08/23/17] Cinacalcet HCl [Sensipar (*)] 30 mg PO DAILY 05/10/17 [Last Taken 08/23/17] Esomeprazole Mag Trihydrate [Nexium] 40 mg PO DAILY 05/10/17 [Last Taken ] Gabapentin [Neurontin 300 MG (*)] 300 mg PO BID 05/10/17 [Last Taken 08/23/17 21 :00] Metoprolol Tartrate [Lopressor 25 mg (*)] 12.5 mg PO BID 05/10/17 [Last Taken 21:00] Mycophenolate Sodium [Myfortic] 360 mg PO BID@05/10/17 [Last Taken 22:00] Nortriptyline HCl [Pamelor 10 mg (*)] 40 mg PO HS 05/10/17 [Last Taken 08/23/17] Pyridoxine HCl [Vitamin B-6 100 mg (*)] 100 mg PO DAILY 05/10/17 [Last Taken 11/21] Sodium Bicarbonate [Na Bicarb] 650 mg PO BID 05/10/17 [Last Taken 08/23/17 21:00 ] Tears/Dextran 70/Hypromellose [Natural Balance Tears (*)] 1 drop EACHEYE Q2 PRN 05/10/17 [Last Taken Unknown] predniSONE 7.5 mg PO DAILY@10 05/10/17 [Last Taken 08/23/17] Tacrolimus 0.5 mg PO DAILY 06/16/17 [Last Taken 08/23/17] Insulin Pump, Patient Own 1 ea [facility]ISC AD 08/24/17 [Last Taken Unknown] I have personally reviewed and updated: family history, medical history - Past Medical History diabetes type 1, TIA - Surgical History Additional surgical history: Renal transplant - Family History Positive for: cancer - Social History Smoking Status: Former smoker Review of Systems Review of Systems: ROS: 10pt was reviewed & negative except for what was stated in HPI & below Physical Exam Physical Exam: Temp Pulse Resp BP Pulse Ox 36.3 C 120 H 18 102/62 94 10/09/17 00:50 10/09/17 02:12 10/09/17 02:12 10/09/17 02:12 10/09/17 02:12 Constitutional: chronically ill appearing, uncomfortable Ears, Nose, Mouth, Throat: poor dentition, dry mucous membranes Cardiovascular: systolic murmur, tachycardia Respiratory: no respiratory distress, clear to auscultation Gastrointestinal: normoactive bowel sounds, soft, non-tender abdomen Neurologic: sensation intact bilaterally, other (A&Ox1, slurred speech) Psychiatric: encephalopathic, other ([place]) Lab Data & Imaging Review 10/09/17 01:20 10/09/17 01:20 WBC 12.49 10^3/uL (3.80-9.50) H 10/09/17 01:20 RBC 4.89 10^6/uL (4.40-6.38) 10/09/17 01:20 Hgb 13.5 g/dL (13.7-17.5) L 10/09/17 01:20 Hct 42.0 % (40.0-51.0) 10/09/17 01:20 MCV 85.9 fL (81.5-99.8) 10/09/17 01:20 MCH 27.6 pg (27.9-34.1) L 10/09/17 01:20 MCHC 32.1 g/dL (32.4-36.7) L 10/09/17 01:20 RDW 16.4 % (11.5-15.2) H 10/09/17 01:20 Plt Count 344 10^3/uL (150-400) 10/09/17 01:20 MPV 9.6 fL (8.7-11.7) 10/09/17 01:20 Neut % (Auto) 91.4 % (39.3-74.2) H 10/09/17 01:20 Lymph % (Auto) 3.0 % (15.0-45.0) L 10/09/17 01:20 [place] % (Auto) 4.8 % (4.5-13.0) 10/09/17 01:20 Eos % (Auto) 0.0 % (0.6-7.6) L 10/09/17 01:20 Baso % (Auto) 0.2 % (0.3-1.7) L 10/09/17 01:20 Nucleat RBC Rel Count 0.0 % (0.0-0.2) 10/09/17 01:20 Absolute Neuts (auto) 11.42 10^3/uL (1.70-6.50) H 10/09/17 01:20 Absolute Lymphs (auto) 0.37 10^3/uL (1.00-3.00) L 10/09/17 01:20 Absolute Monos (auto) 0.60 10^3/uL (0.30-0.80) 10/09/17 01:20 Absolute Eos (auto) 0.00 10^3/uL (0.03-0.40) L 10/09/17 01:20 Absolute Basos (auto) 0.02 10^3/uL (0.02-0.10) 10/09/17 01:20 Absolute Nucleated RBC 0.00 10^3/uL (0-0.01) 10/09/17 01:20 Immature Gran % 0.6 % (0.0-1.1) 10/09/17 01:20 Immature Gran # 0.08 10^3/uL (0.00-0.10) 10/09/17 01:20 PT REJ 10/09/17 02:10 INR REJ 10/09/17 02:10 APTT REJ 10/09/17 02:10 Puncture Site RIGHT RADIAL 10/09/17 01:49 Patient Temperature 37.0 DEGREES 10/09/17 01:49 pCO2 27 mmHg (34-38) L 10/09/17 01:49 pO2 162 mmHg (65-75) H 10/09/17 01:49 Total CO2 16 mEq/L (23-27) L 10/09/17 01:49 ABG pH 7.37 (7.35-7.45) 10/09/17 01:49 ABG HCO3 15 mEq/L (22-26) L 10/09/17 01:49 ABG O2 Saturation 99 % (92-95) H 10/09/17 01:49 ABG Base Excess -8.3 mEq/L (-2.5-2.5) L 10/09/17 01:49 ABG Lactic Acid 3.3 mmol/L (0.5-1.6) H 10/09/17 01:49 Sodium 136 mEq/L (135-145) 10/09/17 01:20 Potassium 5.6 mEq/L (3.5-5.2) H 10/09/17 01:20 Chloride 95 mEq/L (97-110) L 10/09/17 01:20 Carbon Dioxide 11 mEq/l (22-31) L 10/09/17 01:20 Anion Gap 30 mEq/L (8-16) H 10/09/17 01:20 BUN 53 mg/dL (7-23) H 10/09/17 01:20 Creatinine 1.6 mg/dL (0.7-1.3) H 10/09/17 01:20 Estimated GFR 42 10/09/17 01:20 Glucose 563 mg/dL (70-100) H* 10/09/17 01:20 Calcium 9.0 mg/dL (8.5-10.4) 10/09/17 01:20 Total Bilirubin 0.8 mg/dL (0.1-1.4) 10/09/17 01:20 Conjugated Bilirubin 0.5 mg/dL (0.0-0.5) 10/09/17 01:20 Unconjugated Bilirubin 0.3 mg/dL (0.0-1.1) 10/09/17 01:20 AST 23 IU/L (17-59) 10/09/17 01:20 ALT 19 IU/L (21-72) L 10/09/17 01:20 Alkaline Phosphatase 158 IU/L (38-126) H 10/09/17 01:20 Total Protein 6.8 g/dL (6.3-8.2) 10/09/17 01:20 Albumin 3.8 g/dL (3.5-5.0) 10/09/17 01:20 Lipase 284 IU/L (23-300) 10/09/17 01:20 Beta-Hydroxybutyrate 2.90 mmol/L (0.02-0.27) H 10/09/17 01:20 Assessment & Plan Assessment: 72 yo M w/ DM1, hx renal transplant and TIA presents with DKA 2/2 lack of insulin. Plan: 1. T1DM c/b acute DKA - As a result of improperly placed insulin pump by home health nurse. Per report, patient was without insulin for >24 hours. Patient deneis any ROS c/w infection or other acute process. Admission labs notable for BG of 530, CO2 of 11, and AG of 30. - Admit to ICU for DKA protocol - Continue aggressive hydration 2. BISI - Creatinine 1.6 on admission from normal baseline. I suspect pre-renal azotemia in setting of osmotic diuresis from above. - Aggressive IVF, monitor BMP 3. Hx renal transplant - Continue home IS regimen (tacrolimus, prednisone, Myfortic) 4. Hx TIA - On Plavix Diet - NPO while on insulin gtt Ppx - SQH Code - Full Dispo - Admit to ICU under observation status
[2017-10-09] MEDS: HEPARIN 5,000 UNIT/0.5 ML SYR SC SCH ×3 (06:01→20:45)
[2017-10-09 06:24] LABS: PLATELET COUNT 213 10^3/uL (150-400)
[2017-10-09] MEDS ORDERED: D5W 1,000 ML IV SCH (08:00)
[2017-10-09 08:10] LABS: PLATELET COUNT 297 10^3/uL (150-400)
[2017-10-09] MEDS ORDERED: D50W 25 GM/50 ML SYR IVP ONE (10:33)
[2017-10-09] MEDS ORDERED: INSULIN REGULAR HUMAN 100 UNIT/ML UNIT SC PRN (11:09)
[2017-10-09] MEDS ORDERED: D50W 25 GM/50 ML SYR IVP PRN ×2 (11:09→14:47)
[2017-10-09] MEDS ORDERED: INSULIN REGULAR HUMAN 100 UNIT in NS 100 ML IV SCH (11:09)
[2017-10-09] MEDS: NS 1,000 ML IV SCH (11:44)
--- NOTE | 2017-10-09 11:56 | WOCRNPDOC ---
CHARI Advanced Assessment Note - Skin Integrity Problem, Advanced Assess Left Lateral Heel Dressing Type: Open to Air Exudate Amount: None Kaitlin Wound Tissue: Intact, Dry, Calloused Kaitlin Wound Swelling: None Wound Bed Color: Black Wound Bed Constitution: Stable Eschar Site Odor: None Site Measurement - Head-to-Toe Length X Width X Depth (cm): 2.5cmx3.1cmx eschar Skin Integrity Problem Comment: Dry, eschar-filled wound noted to patient's left lateral heel. Uncertain of etiology, could be a combination of diabetic wound and pressure injury. Periwound skin is intact w/ no erythema. Because eschar is dry and stable, and given patient's multiple toe amputations on this extremity, current goal will be to keep wound as dry and stable as possible. Off -loading heel boots applied by nursing, and this is an appropriate intervention to continue. emergency department technician Chloe present to visualize wounds. Left First Toe Diabetic Ulcer Dressing Type: Open to Air Exudate Amount: None Exudate Characteristic(s): None Kaitlin Wound Tissue: Intact, Dry Kaitlin Wound Swelling: None Wound Bed Color: Black, Brown Wound Bed Constitution: Stable Eschar Site Odor: None Site Measurement - Head-to-Toe Length X Width X Depth (cm): 0.5cmx0.4cmx eschar Skin Integrity Problem Comment: Dry stable eschar noted, no periwound erythema or swelling. No fluctuance when palpated. Periwound skin is intact, dry and flaky. Will have nursing paint w/ Povidone/Iodine BID. Right Medial Heel Dressing Type: Open to Air Exudate Amount: None Exudate Characteristic(s): None Kaitlin Wound Tissue: Intact, Dry, Calloused Kaitlin Wound Swelling: None Wound Bed Color: Black Wound Bed Constitution: Stable Eschar Site Odor: None Site Measurement - Head-to-Toe Length X Width X Depth (cm): 0.5cmx0.6cmx eschar Skin Integrity Problem Comment: Dry, stable, eschar-filled wound on patient's R medial, etiology likely DFU. may have component of pressure injury as well, though less likely on this medial aspect of the heel. Periwound skin intact and blanching, w/ dry callous throughout. Will have nursing paint w/ Povidone/ Iodine BID to keep wound dry and stable. Left Forehead Dressing Type: Open to Air Exudate Amount: None Exudate Characteristic(s): None Kaitlin Wound Tissue: Thin, Dry, Scarred Kaitlin Wound Swelling: None Wound Bed Color: Yellow Wound Bed Constitution: Adhered Slough (dried) Wound Edges: Punched Out, Well Defined Site Measurement - Head-to-Toe Length X Width X Depth (cm): 1.4cmx1.5cmx 0.1cm Skin Integrity Problem Comment: Wound on L forehead s/p removal of skin carcinoma. Wound dry, dessicated, w/ slough throughout. Periwound skin is scarred, otherwise intact w/ no erythema or swelling. Will have nursing apply dressing to confer some moisture to help autolytically debride slough.
--- NOTE | 2017-10-09 12:14 | ASMTCMCOM ---
CM Note CM Note Notes: Patient admitted for DKA after his insulin pump failed. He is a Type 1 Diabetic and has a history of R kidney transplant. He is accompanied by his Sister in law Donna who has brought his anti-rejection medications to the hospital. Pharmacy is working on reconciling his home meds. PT/OT/DRAFTER STRUCTURAL have been ordered and evals are pending. Patient has orders to transfer to the floor. CM will follow for discharge needs. Date Signed: 10/09/2017 12:13 PM Electronically Signed By:Sun Ch RN
[2017-10-09] MEDS ORDERED: predniSONE 5 MG TAB PO SCH (12:15)
[2017-10-09] MEDS ORDERED: PROTOCOL POTASSIUM 1 DOSE MISC PRN (12:15)
[2017-10-09] MEDS ORDERED: PROTOCOL MAGNESIUM 1 DOSE IV PRN (12:15)
[2017-10-09] MEDS ORDERED: NON-FORMULARY NEW DRUG (Insulin Pump, Patient Own 1 EA) MISC SCH (12:15)
[2017-10-09] MEDS ORDERED: TACROLIMUS ANHYDROUS 0.5 MG CAP PO SCH (12:30)
[2017-10-09] MEDS ORDERED: MAGNESIUM SULF 2 GM/WATER 50 ML IV ONE (12:30)
[2017-10-09] MEDS: PANTOPRAZOLE SODIUM 40 MG TAB PO SCH (12:59)
[2017-10-09] MEDS: MYCOPHENOLATE SODIUM 180 MG TAB.DR PO SCH ×2 (13:16→20:48)
[2017-10-09] MEDS: TACROLIMUS ANHYDROUS 0.5 MG CAP PO SCH (13:24)
--- NOTE | 2017-10-09 13:25 | HOSPPROG ---
Hospitalist Progress Note Assessment/Plan: New patient encounter 72 yo M w/ DM1, hx renal transplant and TIA presents with DKA 2/2 lack of insulin. Plan: 1. T1DM c/b acute DKA - As a result of improperly placed insulin pump by home health nurse. Per report, patient was without insulin for >24 hours. Patient deneis any ROS c/w infection or other acute process. Admission labs notable for BG of 530, CO2 of 11, and AG of 30. - labs look better - Still looks dry on exam - ok to stop DKA protocol - Restart home insulin pump - additional IVF - start diet 2. BISI - Creatinine 1.6 on admission from normal baseline. Due to pre-renal etiology, resolved with IVF 3. Hx renal transplant - Continue home IS regimen (tacrolimus, prednisone, Myfortic) 4. Hx TIA - On Plavix Ppx - SQH Code - Full Dispo - Ok to transfer out of the ICU Subjective: Still looks dry. AG and bicarb much better. Objective: Vital Signs Temp Pulse Resp BP Pulse Ox 36.1 C 68 13 93/41 L 94 10/09/17 05:00 10/09/17 09:00 10/09/17 09:00 10/09/17 09:00 10/09/17 09:00 Laboratory Results 10/09/17 08:00 10/09/17 11:21 10/08/17 10/09/17 10/10/17 05:59 05:59 05:59 Intake Total 2203.3 2435.2 Output Total 450 Balance 2203.3 1985.2 PT REJ 10/09/17 02:10 INR REJ 10/09/17 02:10 - Physical Exam Constitutional: no apparent distress Eyes: PERRL Ears, Nose, Mouth, Throat: dry mucous membranes Cardiovascular: regular rate and rhythym, No edema Respiratory: no respiratory distress, no rales or rhonchi Gastrointestinal: normoactive bowel sounds, soft, non-tender abdomen Skin: warm Musculoskeletal: generalized weakness Psychiatric: not anxious Lymph, Heme, Immunologic: No petechiae ICD10 Worksheet Patient Problems: Problems Problem Status Onset DKA (diabetic ketoacidoses) Acute Acute ischemic stroke Acute Altered mental status Acute C. difficile diarrhea Acute 10/13/14 Diabetes mellitus type 1 Acute Fall Acute History of kidney transplant Acute Hyperglycemia Acute Leukocytosis Acute Periprosthetic fracture around internal prosthetic left hip joint Acute Rib fractures Acute
--- NOTE | 2017-10-09 14:00 | ASMTCMCOM ---
CM Note CM Note Notes: Call from Erica with [facility] - patient is currently open to them with home nursing and PT. We will need to alert [facility] upon patient's discharge. Date Signed: 10/09/2017 01:59 PM Electronically Signed By:Sun Ch RN
[2017-10-09] MEDS ORDERED: POTASSIUM Cl (KCl) 100 ML IV SCH (14:15)
[2017-10-09] MEDS: CLOPIDOGREL BISULFATE 75 MG TAB PO SCH (14:58)
[2017-10-09] MEDS ORDERED: POTASSIUM CITRATE 10 MEQ TAB PO SCH (15:00)
[2017-10-09] MEDS ORDERED: POTASSIUM CL 10 MEQ TAB PO ONE (16:00)
[2017-10-09] MEDS: INSULIN REGULAR, HUMAN 100 UNIT/1 ML VIAL STANDARD SC SCH ×2 (17:39→20:46)
[2017-10-09] MEDS: GABAPENTIN 300 MG CAP PO SCH (20:46)
[2017-10-09] MEDS: SODIUM BICARBONATE 650 MG TAB PO SCH (20:47)
[2017-10-09] MEDS: METOPROLOL TARTRATE 25 MG TAB PO SCH (20:47)
[2017-10-09] MEDS: NORTRIPTYLINE HCL 10 MG CAP PO SCH (20:48)
[2017-10-09] MEDS ORDERED: NON-FORMULARY NEW DRUG (Mycophenolate Sodium [Myfortic] 360 MG) PO SCH (22:00)
[2017-10-10] MEDS: HEPARIN 5,000 UNIT/0.5 ML SYR SC SCH ×3 (06:32→21:47)
[2017-10-10] MEDS ORDERED: TACROLIMUS ANHYDROUS 0.5 MG CAP PO SCH (09:00)
[2017-10-10] MEDS ORDERED: NON-FORMULARY NEW DRUG (Esomeprazole Mag Trihydrate [Nexium] 40 MG) PO SCH (09:00)
[2017-10-10] MEDS ORDERED: Herbals/Supplements -Info Only PO SCH (09:00)
[2017-10-10] MEDS: NS 1,000 ML IV SCH (09:01)
--- NOTE | 2017-10-10 09:59 | PDMN ---
Medical Necessity Medical necessity: C/M review: est. > 2 MN LOS for eval and TX of acute diabetic ketoacidosis, acute kidney injury, hypoglycemia, malfunctioning insulin pump, persistent volume deficit, requiring transfer from ICU to med/ surg, ongoing IV fluids, blood glucose monitoring, insulin sliding scale, acute PT/OT/ST comorbid type 1 diabetes, lack of insulin due to improperly placed insulin pump by home health nurse prior to this admission, history of renal transplant on chronic Prograf, TIA per 10/25/2017 Hospitalist progress note.
[2017-10-10] MEDS: CHOLECALCIFEROL VIT D3 1,000 UNITS TAB PO SCH (11:25)
[2017-10-10] MEDS: predniSONE 5 MG TAB PO SCH (11:26)
[2017-10-10] MEDS: GABAPENTIN 300 MG CAP PO SCH ×2 (11:26→21:42)
[2017-10-10] MEDS: METOPROLOL TARTRATE 25 MG TAB PO SCH ×2 (11:27→21:43)
[2017-10-10] MEDS: SODIUM BICARBONATE 650 MG TAB PO SCH ×2 (11:27→21:43)
[2017-10-10] MEDS: PANTOPRAZOLE SODIUM 40 MG TAB PO SCH (11:27)
[2017-10-10] MEDS: CLOPIDOGREL BISULFATE 75 MG TAB PO SCH (11:27)
[2017-10-10] MEDS: OMEGA-3 FATTY ACIDS 1,000 MG CAP PO SCH (11:28)
[2017-10-10] MEDS: TACROLIMUS ANHYDROUS 0.5 MG CAP PO SCH (11:29)
[2017-10-10] MEDS: MYCOPHENOLATE SODIUM 360 MG PO SCH ×2 (11:29→22:41)
[2017-10-10] MEDS: PYRIDOXINE HCL 100 MG TAB PO SCH (11:30)
[2017-10-10] MEDS: INSULIN REGULAR, HUMAN 100 UNIT/1 ML VIAL STANDARD SC SCH ×4 (11:32→22:40)
[2017-10-10] MEDS: CINACALCET HCL 30 MG TAB PO SCH (11:48)
--- NOTE | 2017-10-10 14:44 | ASMTCMCOM ---
CM Note CM Note Notes: In pt's room w/, RN and pt's daughter discussing poc. Pt lives at home w/ who has dementia, they have caregivers 20 hrs a day, with a 4hr gap between 12:30-4:30. Pt is current with [facility]. DC Plan: Home care/ [facility] (RN/PT/OT) Date Signed: 10/10/2017 02:44 PM Electronically Signed By:Ashley Laurent RN
[2017-10-10] MEDS ORDERED: NS 1,000 ML IV SCH (15:15)
--- NOTE | 2017-10-10 15:19 | HOSPPROG ---
Hospitalist Progress Note Assessment/Plan: 72 yo M w/ DM1, hx renal transplant and TIA presents with DKA 2/2 lack of insulin. Labile Glucose Currently not on basal insulin Looks dry A/P: 1. T1DM, DKA -DKA has resoved -now with labile glucose 2. BISI - Creatinine 1.6 on admission from normal baseline. Due to pre-renal etiology, resolved with IVF -Still with Dehydration 3. Hx renal transplant - Continue home IS regimen (tacrolimus, prednisone, Myfortic) 4. Hx TIA - On Plavix 5. Hyperkalemia, mild 6. Delirium, likely sunsetting Ppx - SQH Code - Full Plan: -Start Lantus low dose, cont ISS -Cont IVF today -recheck labs in a.m. -likely d/c tomorrow Subjective: less confused, tolerating orals. Labile BG Objective: Vital Signs Temp Pulse Resp BP Pulse Ox 36.5 C 93 14 123/87 H 93 10/10/17 08:00 10/10/17 11:27 10/10/17 08:00 10/10/17 11:27 10/10/17 08:00 Laboratory Results 10/10/17 12:00 10/09/17 10/10/17 10/11/17 05:59 05:59 05:59 Intake Total 1125 Output Total 700 400 Balance 425 -400 PT REJ 10/09/17 02:10 INR REJ 10/09/17 02:10 - Physical Exam Constitutional: no apparent distress Eyes: PERRL Ears, Nose, Mouth, Throat: moist mucous membranes, dry mucous membranes Cardiovascular: regular rate and rhythym Respiratory: no respiratory distress Gastrointestinal: normoactive bowel sounds Genitourinary: no bladder fullness Skin: warm Neurologic: AAOx3 Psychiatric: interacting appropriately, not anxious, not encephalopathic, thought process linear ICD10 Worksheet Patient Problems: Problems Problem Status Onset DKA (diabetic ketoacidoses) Acute Acute ischemic stroke Acute Altered mental status Acute C. difficile diarrhea Acute 10/13/14 Diabetes mellitus type 1 Acute Fall Acute History of kidney transplant Acute Hyperglycemia Acute Leukocytosis Acute Periprosthetic fracture around internal prosthetic left hip joint Acute Rib fractures Acute
[2017-10-10] MEDS: INSULIN GLARGINE 100 UNITS/ML UNIT SC SCH (16:11)
[2017-10-10] MEDS: NORTRIPTYLINE HCL 10 MG CAP PO SCH (21:43)
[2017-10-11] MEDS: HEPARIN 5,000 UNIT/0.5 ML SYR SC SCH (05:07)
[2017-10-11] MEDS: NS 1,000 ML IV SCH (06:33)
[2017-10-11] MEDS: INSULIN REGULAR, HUMAN 100 UNIT/1 ML VIAL STANDARD SC SCH ×2 (07:38→12:00)
[2017-10-11 07:52] VITALS: PULSE 71; RESP 14; TEMP 98.7; O2SAT 92
[2017-10-11] MEDS: OMEGA-3 FATTY ACIDS 1,000 MG CAP PO SCH (10:20)
[2017-10-11] MEDS: SODIUM BICARBONATE 650 MG TAB PO SCH (10:20)
[2017-10-11] MEDS: CINACALCET HCL 30 MG TAB PO SCH (10:20)
[2017-10-11] MEDS: CHOLECALCIFEROL VIT D3 1,000 UNITS TAB PO SCH (10:21)
[2017-10-11] MEDS: PANTOPRAZOLE SODIUM 40 MG TAB PO SCH (10:21)
[2017-10-11] MEDS: CLOPIDOGREL BISULFATE 75 MG TAB PO SCH (10:21)
[2017-10-11] MEDS: METOPROLOL TARTRATE 25 MG TAB PO SCH (10:22)
[2017-10-11] MEDS: GABAPENTIN 300 MG CAP PO SCH (10:28)
[2017-10-11] MEDS: PYRIDOXINE HCL 100 MG TAB PO SCH (10:29)
[2017-10-11 10:35] VITALS: BP 168/103
[2017-10-11] MEDS: predniSONE 5 MG TAB PO SCH (10:35)
[2017-10-11] MEDS: TACROLIMUS ANHYDROUS 0.5 MG CAP PO SCH (10:37)
[2017-10-11] MEDS: MYCOPHENOLATE SODIUM 360 MG PO SCH (10:46)
[2017-10-11] MEDS ORDERED: MYCOPHENOLATE SODIUM 360 MG PO SCH (11:00)
[2017-10-11] MEDS: INSULIN GLARGINE 100 UNITS/ML UNIT SC SCH (11:46)
[2017-10-11] MEDS ORDERED: MAGNESIUM SULF 1 GM/DEXTROSE 100 ML IV ONE (12:21)
--- NOTE | 2017-10-11 14:38 | PDIAF ---
- Diagnosis Diagnosis: dka Code Status: Full Code - Medication Management Discharge Medications: Medications to Continue on Transfer Calcitriol [Calcitriol (*)] 0.25 mcg PO MOTUWETHFR@05/10/17 [Last Taken 08/21] Cinacalcet HCl [Sensipar (*)] 30 mg PO DAILY 05/10/17 [Last Taken 08/23/17] Esomeprazole Mag Trihydrate [Nexium] 40 mg PO DAILY 05/10/17 [Last Taken ] Gabapentin [Neurontin 300 MG (*)] 300 mg PO BID 05/10/17 [Last Taken 08/23/17 21 :00] Metoprolol Tartrate [Lopressor 25 mg (*)] 12.5 mg PO BID 05/10/17 [Last Taken 21:00] Mycophenolate Sodium [Myfortic] 360 mg PO BID@05/10/17 [Last Taken ] Nortriptyline HCl [Pamelor 10 mg (*)] 40 mg PO HS 05/10/17 [Last Taken 08/23/17] Pyridoxine HCl [Vitamin B-6 100 mg (*)] 100 mg PO DAILY 05/10/17 [Last Taken 11/21] Sodium Bicarbonate [Na Bicarb] 1,300 mg PO BID 05/10/17 [Last Taken 08/23/17 21: 00] predniSONE 7.5 mg PO DAILY@05/10/17 [Last Taken 10/07/17] Tacrolimus 0.5 mg PO DAILY 06/16/17 [Last Taken 10/07/17] Clopidogrel Bisulfate [Plavix] 75 mg PO DAILY #30 tablet 08/24/17 [Last Taken Unknown] Insulin Pump, Patient Own 1 ea MISC AD 08/24/17 [Last Taken Unknown] Cholecalciferol Vit D3 [Vitamin D3 (*)] 1,000 units PO DAILY 10/09/17 [Last Taken Unknown] Herbals/Supplements -Info Only 1 ea PO DAILY 10/09/17 [Last Taken Unknown] [place]-3 Fatty Acids [Fish Oil 1000 mg (*)] 1,000 mg PO DAILY 10/09/17 [Last Taken Unknown] oxyCODONE IR [Oxycodone Ir (*)] 5 mg PO DAILY PRN 10/09/17 [Last Taken Unknown] Discharge Medications: Refer to the Discharge Home Medication list for PRN reason. - Orders Services needed: Home Care, Registered Nurse, Master Tentering Machine Off Bearer, Physical Therapy, Occupational Therapy Home Care Face to Face: I certify that this patient was under my care and that I had the required [id number] encounter meeting the encounter requirements on the discharge day. My findings support the fact that the patient is homebound as defined in Home Care Face to Face Continued: CMS Chapter 7 Medicare Benefits Manual 30.1.1 , The condition of the patient is such that there exists a normal inability to leave home and consequently, leaving home would require a considerable and taxing effort. Isolation Type: None Diet Recommendation: ADA 1800 consistent carb Diet Texture: Regular Texture Diet - Follow Up Care Current Providers and Referrals: NONE *PRIMARY CARE P,. [Unknown] - As per Instructions
--- NOTE | 2017-10-11 14:42 | PDDCSUM ---
Discharge Summary Discharge Summary: This is a 72 yo M w/ DM1, hx renal transplant and TIA who was admitted with DKA due to malfunctioning insulin pump. He was admitted into the ICU. Once medically improved and DKA resolved he was kept one more night for delirium and dehydration. He was provided additional IVF and is now back to baseline. Insulin pump has been repaired and family will be helping him manage it. No medication changes were made. He will f/u with his PCP in one week DDx: 1. T1DM, DKA 2. BISI - Creatinine 1.6 on admission from normal baseline. Due to pre-renal etiology, resolved with IVF 3. Hx renal transplant - Continue home IS regimen (tacrolimus, prednisone, Myfortic) 4. Hx TIA - On Plavix 5. Hyperkalemia, mild, resolved 6. Delirium, likely sunsetting Exam: VSS NAD AAOX3 MMM RRR CTAB S/NT/ND NO LE EDEMA MEDS: SEE MED REC F/U: PER ABOVE TOTAL TIME SPENT ON DISCHARGE IS 45 MINS
--- NOTE | 2017-10-11 15:24 | ASDISCHSUM ---
Discharge Information Plan Status:Home with Home Health Medically Cleared to Leave: Discharge Date:10/11/2017 03:10 PM CM D/C Disposition:Home Health Service ADT D/C Disposition:[id number] Projected Discharge Date:10/11/2017 11:00 AM Transportation at D/C:Family Discharge Delay Reason: Follow-Up Date:10/11/2017 11:00 AM Discharge Slot: Final Diagnosis: Placement Information Referral Type:*Home Health Care Services Referral ID:[id number] Provider Name:[facility] Address 1:[address] [address] Address 2: City:[place] Selection Factors: State:[place] Patient Contact Information Contact Name:MICKY Relationship:Daughter Address: City:[place] Alternate Phone: State/Zip Code:[place] Email: Financial Information Financial Class: Primary Plan Desc:MEDICARE INPATIENT Primary Plan Number:[id number] Secondary Plan Desc:[facility] Secondary Plan Number:[id number] Assessment Information [facility] CM Progress Note CM Note CM Note Notes: Patient admitted for DKA after his insulin pump failed. He is a Type 1 Diabetic and has a history of R kidney transplant. He is accompanied by his Sister in law Donna who has brought his anti-rejection medications to the hospital. Pharmacy is working on reconciling his home meds. PT/OT/GROUNDS AND NURSERY SPECIALIST have been ordered and evals are pending. Patient has orders to transfer to the floor. CM will follow for discharge needs. Date Signed: 10/09/2017 12:13 PM Electronically Signed By:Sun Ch RN [facility] CM Progress Note CM Note CM Note Notes: Call from Erica with [facility] - patient is currently open to them with home nursing and PT. We will need to alert [facility] upon patient's discharge. Date Signed: 10/09/2017 01:59 PM Electronically Signed By:Sun Ch RN [facility] CM Progress Note CM Note CM Note Notes: In pt's room w/JUAN MANUEL DUNCAN and pt's daughter discussing poc. Pt lives at home w/ who has dementia, they have caregivers 20 hrs a day, with a 4hr gap between 12:30-4:30. Pt is current with [facility]. DC Plan: Home care/ [facility] (RN/PT/OT) Date Signed: 10/10/2017 02:44 PM Electronically Signed By:Ashley Laurent RN Case Management Discharge Plan Note Case Management Discharge Discharge Order Complete? Answers: Yes Patient to Obtain Answers: Independently Medications Transportation Arranged Answers: Family/Friends Faxed Final Orders Answers: Yes Family Notified Answers: Yes Discharge Comments Notes: Patient discharging home. He had 20 hrs/day of caregiving and will be seen by [facility] RN/PT/OT/TRAVELING AUDITOR. His daughter Zo will schedule his f/u with his reinforcing bar setter. Date Signed: 10/11/2017 02:43 PM Electronically Signed By:Sun Ch RN Intervention Information Intervention Type:*Incorrect Registration Date of Service:10/09/2017 05:23 PM Patient Type:Observation Staff Member:JUAN MANUEL Maldonado, Mojgan Hours: Discipline: Severity: Comment:
[2017-10-12] MEDS ORDERED: CALCITRIOL 0.25 MCG CAP PO SCH (09:00)
== END 2017-10-11 15:10 | disposition home health service (06) | DRG 638 ==
LOC: INTOOBSV 02:47 → F2N 04:05 → F3E 16:47 → OBSVTOIN 17:26
PROVIDERS: ADMIT Student in an Organized Health Care Education/Training Program; ATTEND Student in an Organized Health Care Education/Training Program
DX: E10.10 Type 1 diabetes mellitus with ketoacidosis without coma (principal); T85.694A Other mechanical complication of insulin pump, initial encounter; N17.9 Acute kidney failure, unspecified; L97.909 Non-pressure chronic ulcer of unspecified part of unspecified lower leg with unspecified severity; Z94.0 Kidney transplant status; E86.0 Dehydration; E87.5 Hyperkalemia; E10.621 Type 1 diabetes mellitus with foot ulcer; E10.649 Type 1 diabetes mellitus with hypoglycemia without coma; Z86.73 Personal history of transient ischemic attack (TIA), and cerebral infarction without residual deficits; Z87.891 Personal history of nicotine dependence
CPT/HCPCS: 82947-QW; 97116-GP; 97163-GP; 97165-GO; 97530-GP; G8978-GP-CM; G8979-GP-CJ; G8987-GO-CK; G8988-GO-CJ; J1815; J3475; J7512

== ENCOUNTER 2017-10-20 06:28 | Emergency (ER) | payer OTHER, BC ==
[2017-10-20 06:43] VITALS: PULSE 81; RESP 16
--- NOTE | 2017-10-20 07:08 | EDPHY ---
H & P Stated Complaint: MECH FALL, LAC TO L ARM Time Seen by Provider: 10/20/17 06:57 HPI/ROS: CHIEF COMPLAINT: Mechanical fall, skin tear left arm HISTORY OF PRESENT ILLNESS: Patient presents to the ED after he sustained a mechanical fall out of his bed last night resulting in a skin tear to his left arm. The patient has a history of diabetes and did not check his blood sugar last night. He is on insulin. Apparently the patient's blood sugar was 50 when paramedics arrived. He did receive oral glucose prior to arrival. The patient denies any complaints of headache, neck pain, back pain, chest pain or shortness of breath. The patient has had no recent infectious symptoms of fever , cough or congestion. REVIEW OF SYSTEMS: A comprehensive 10 point review of systems is otherwise negative aside from elements mentioned in the history of present illness. Source: Patient, Family Exam Limitations: No limitations - Personal History Current Tetanus Diphtheria and Acellular Pertussis (TDAP): Yes Tetanus Vaccine Date: 2008 - Medical/Surgical History Hx Asthma: No Hx Chronic Respiratory Disease: No Hx Diabetes: Yes Hx Cardiac Disease: No Hx Renal Disease: Yes Hx Cirrhosis: No Hx Alcoholism: No Hx HIV/AIDS: No Hx Splenectomy or Spleen Trauma: No Other PMH: kidney transplant SKIN CA EYE SURGERIES ORTHO SURG. APPY TONSILECTOMY, DIABETES TYPE 1, NEUROPATHY, insulin pump. chronic pain, HX OF CDIFF FROM 10/2014 - Family History Significant Family History: No pertinent family hx - Social History Smoking Status: Former smoker - Physical Exam Exam: General Appearance: Elderly male, no acute distress Head: Atraumatic, multiple areas of chronic skin excoriations Eyes: Monocular blindness ENT, Mouth: No hemotympanum, no oral trauma Neck: Nontender, trachea midline Respiratory: No chest wall tender, subcutaneous air, lungs clear bilaterally Cardiovascular: Regular rate and rhythm Abdomen: Abdomen is soft and nontender, pelvis stable Skin: Skin tear noted to the left upper extremity, multiple areas of old ecchymosis Back: No midline T/L/S pain Extremities: Mild tenderness to palpation left arm Neurological: A&Ox3, normal motor function, normal sensory exam Constitutional: Initial Vital Signs Temperature (C) 36.4 C 10/20/17 06:41 Heart Rate 81 10/20/17 06:41 Respiratory Rate 16 10/20/17 06:41 Blood Pressure 165/79 H 10/20/17 06:41 O2 Sat (%) 94 10/20/17 06:41 O2 Delivery Mode Room Air Allergies/Adverse Reactions: Cephalosporins Allergy (Severe, Verified 10/09/17 00:55) Cleve Pravin Syndrome Penicillins Allergy (Intermediate, Verified 10/09/17 00:55) Hives codeine Allergy (Unknown, Verified 10/09/17 00:55) Home Medications: Medication Instructions Recorded Calcitriol [Calcitriol (*)] 0.25 mcg PO MOTUWETHFR@05/10/17 Cinacalcet HCl [Sensipar (*)] 30 mg PO DAILY 05/10/17 Esomeprazole Mag Trihydrate 40 mg PO DAILY 05/10/17 [Nexium] Gabapentin [Neurontin 300 MG (*)] 300 mg PO BID 05/10/17 Metoprolol Tartrate [Lopressor 25 12.5 mg PO BID 05/10/17 mg (*)] Mycophenolate Sodium [Myfortic] 360 mg PO BID@05/10/17 Nortriptyline HCl [Pamelor 10 mg 40 mg PO HS 05/10/17 (*)] Pyridoxine HCl [Vitamin B-6 100 mg 100 mg PO DAILY 05/10/17 (*)] Sodium Bicarbonate [Na Bicarb] 1,300 mg PO BID 05/10/17 predniSONE 7.5 mg PO DAILY@05/10/17 Tacrolimus 0.5 mg PO DAILY 06/16/17 Clopidogrel Bisulfate [Plavix] 75 mg PO DAILY #30 tablet 08/24/17 Insulin Pump, Patient Own 1 ea MISC AD 08/24/17 Cholecalciferol Vit D3 [Vitamin D3 1,000 units PO DAILY 10/09/17 (*)] Herbals/Supplements -Info Only 1 ea PO DAILY 10/09/17 [place]-3 Fatty Acids [Fish Oil 1000 1,000 mg PO DAILY 10/09/17 mg (*)] oxyCODONE IR [Oxycodone Ir (*)] 5 mg PO DAILY PRN 10/09/17 Medical Decision Making - Diagnostics Imaging Results: Left forearm x-ray: Images reviewed by myself, no acute fracture appreciated. ED Course/Re-evaluation: The patient presents to the ED after experiencing a mechanical fall as results of hypoglycemia and insulin reaction. The patient's skin tears were cleaned and repaired in the emergency department. He did receive glucose prior to arrival. His fingerstick was rechecked at 7:20 am and found to be normal. The patient ambulated in the emergency department. He has no additional complaints. He will be discharged home with customary aftercare instructions and return precautions. Differential Diagnosis: Differential diagnosis considered includes insulin reaction, forearm fracture, laceration, skin tear Departure - Departure Disposition: Home, Routine, Self-Care Clinical Impression: Fall, Skin tear of left upper arm without complication, Insulin reaction Condition: Good Instructions: Skin Tear (ED) Additional Instructions: 1. Please keep a close eye on your blood sugars today. 2. Please return to the emergency department for any recurrent low blood sugar , new complaints of pain or other concerns. Referrals: NONE *PRIMARY CARE P,. [Primary Care Provider] - As per Instructions
[2017-10-20 07:59] VITALS: BP 148/76; TEMP 98.1; O2SAT 97
== END 2017-10-20 07:58 | disposition home or self-care (01) ==
LOC: EDUNIT#
DX: S41.112A Laceration without foreign body of left upper arm, initial encounter (principal); T38.3X5A Adverse effect of insulin and oral hypoglycemic [antidiabetic] drugs, initial encounter; E10.9 Type 1 diabetes mellitus without complications; Z87.891 Personal history of nicotine dependence; W06.XXXA Fall from bed, initial encounter

== ENCOUNTER 2017-11-06 14:14 | Emergency (ER) | payer OTHER, BC ==
[2017-11-06] MEDS ORDERED: NS 1,000 ML IV ONE (14:51)
[2017-11-06 14:57] LABS: PLATELET COUNT 417 10^3/uL (150-400)
--- NOTE | 2017-11-06 15:01 | EDPHY ---
HPI/HX/ROS/PE/MDM Narrative: CHIEF COMPLAINT: Hyperglycemia, malaise HPI: The patient is a 72 y/o male with a history of diabetes, renal transplant, and TIA complaining of hyperglycemia and malaise. He was admitted here one month ago with DKA after his insulin pump was inactive for 24 hours. He was generally feeling poor today with nausea and measured his BGL at 400. He then administered 10 units of insulin. He thinks he missed a dose of insulin this morning. Upon arriving here his BGL was 247. He denies chest pain, dyspnea, fever, cough, abdominal pain, urinary symptoms, recent illness, recent trauma. He does have baseline chronic back pain that is present today. REVIEW OF SYSTEMS: Aside from elements discussed in the HPI, a comprehensive 10-point review of systems was reviewed and is negative. PMH: Insulin-dependent diabetes, dialysis 10 years ago prior to kidney transplant, TIA Prior medical records reviewed including admission 10/09/17 for DKA. SOCIAL HISTORY: Lives at home with who has Alzheimer's and 24-hour care provider. PHYSICAL EXAM: General:Patient is alert, in no acute distress. ENT:Eyes are normal to inspection. Chronic deformity of right eye. ENT inspection normal. Neck: Normal inspection. Full range of motion. Respiratory:No respiratory distress. Breath sounds normal bilaterally. Cardiovascular: Regular rate and rhythm. Strong peripheral pulses. Normal cap refill. Abdomen:The abdomen is nontender to palpation. There are no peritoneal signs. Back: Normal to inspection. No tenderness to palpation. Skin: Normal color. No rash. Warm and dry. Extremities: Normal appearance. Full range of motion. Neuro: Oriented x3. Normal motor function. Normal sensory function. ED Course: This is a 72 y/o male with insulin-dependent diabetes who presents with a several-hour history of malaise and hyperglycemia. BGL upon arrival here is 247. Exam is benign. Plan for IV, labs, UA, chest x-ray, and flu swab. Chest x-ray: airways disease UA indicates UTI. Flu swab negative. 100mg PO Macrobid and 1L IV NS ordered. 1700: Repeat BGL is 207. He is tolerating PO fluids here, but is complaining of nausea. His caregiver is now at bedside and is willing to take him home. Discussed admission with the patient and he has opted to go home with nausea medication. Script for Zofran and Macrobid given. Standard UTI care and follow up instructions discussed. He and his caregiver are comfortable with this plan. MDM: This patient presents with hyperglycemia and mild vomiting, which appears to be likely due to active UTI and the fact that he admits to forgetting to take a few doses of insulin recently. He was treated with IVNS and antiemetics in the ED only, and his BGL responded well. He is able to tolerate fluid by mouth and is hemodynamically stable. We will treat him with antiobiotics for UTI. I do not see signs of severe DKA or sepsis. The patient would prefer to be discharged home. The patient is relatively high risk for return to the ED, but is comfortable with plan to try outpatient treatment. - Data Points Imaging Results: Imaging Impressions Chest X-Ray 11/06/17 15:02 Impression: 1. Suspect airways disease. 2. See above report for additional findings. Imaging: I viewed and interpreted images myself Laboratory Results: Laboratory Results 11/06/17 14:00 11/06/17 14:00 11/06/17 11/06/17 11/06/17 16:57 16:00 15:25 WBC RBC Hgb Hct MCV MCH MCHC RDW Plt Count MPV Neut % (Auto) Lymph % (Auto) [place] % (Auto) Eos % (Auto) Baso % (Auto) Nucleat RBC Rel Count Absolute Neuts (auto) Absolute Lymphs (auto) Absolute Monos (auto) Absolute Eos (auto) Absolute Basos (auto) Absolute Nucleated RBC Immature Gran % Immature Gran # Sodium Potassium Chloride Carbon Dioxide Anion Gap BUN Creatinine Estimated GFR Glucose POC Glucose 209 mg/dL H mg/dL (70-100) Calcium Troponin I Beta-Hydroxybutyrate Urine Color YELLOW Urine Appearance HAZY Urine pH 5.0 (5.0-7.5) Ur Specific [place] 1.021 (1.002-1.030) Urine Protein NEGATIVE (NEGATIVE) Urine Ketones 1+ H (NEGATIVE) Urine Blood NEGATIVE (NEGATIVE) Urine Nitrate NEGATIVE (NEGATIVE) Urine Bilirubin NEGATIVE (NEGATIVE) Urine Urobilinogen NEGATIVE EU EU (0.2-1.0) Ur Leukocyte Esterase NEGATIVE (NEGATIVE) Urine RBC 1-3 /hpf /hpf (0-3) Urine WBC 25-50 /hpf H /hpf (0-3) Ur Epithelial Cells NONE SEEN /lpf /lpf (NONE-1+) Urine Bacteria 1+ /hpf H /hpf (NONE SEEN) Urine Mucus TRACE /lpf /lpf (NONE-1+) Urine Glucose 3+ H (NEGATIVE) Nasal Influenza A PCR NEGATIVE FOR FLU A (NEGATIVE) Nasal Influenza B PCR NEGATIVE FOR FLU B (NEGATIVE) 11/06/17 11/06/17 11/06/17 14:50 14:00 14:00 WBC RBC Hgb Hct MCV MCH MCHC RDW Plt Count MPV Neut % (Auto) Lymph % (Auto) [place] % (Auto) Eos % (Auto) Baso % (Auto) Nucleat RBC Rel Count Absolute Neuts (auto) Absolute Lymphs (auto) Absolute Monos (auto) Absolute Eos (auto) Absolute Basos (auto) Absolute Nucleated RBC Immature Gran % Immature Gran # Sodium Potassium Chloride Carbon Dioxide Anion Gap BUN Creatinine Estimated GFR Glucose POC Glucose 274 mg/dL H mg/dL (70-100) Calcium Troponin I < 0.012 ng/mL ng/mL (0.000-0.034) Beta-Hydroxybutyrate 1.50 mmol/L H mmol/L (0.02-0.27) Urine Color Urine Appearance Urine pH Ur Specific [place] Urine Protein Urine Ketones Urine Blood Urine Nitrate Urine Bilirubin Urine Urobilinogen Ur Leukocyte Esterase Urine RBC Urine WBC Ur Epithelial Cells Urine Bacteria Urine Mucus Urine Glucose Nasal Influenza A PCR Nasal Influenza B PCR 11/06/17 11/06/17 14:00 14:00 WBC 13.77 10^3/uL H 10^3/uL (3.80-9.50) RBC 5.13 10^6/uL 10^6/uL (4.40-6.38) Hgb 14.5 g/dL g/dL (13.7-17.5) Hct 45.0 % % (40.0-51.0) MCV 87.7 fL fL (81.5-99.8) MCH 28.3 pg pg (27.9-34.1) MCHC 32.2 g/dL L g/dL (32.4-36.7) RDW 18.5 % H % (11.5-15.2) Plt Count 417 10^3/uL H 10^3/uL (150-400) MPV 9.7 fL fL (8.7-11.7) Neut % (Auto) 94.8 % H % (39.3-74.2) Lymph % (Auto) 2.4 % L % (15.0-45.0) [place] % (Auto) 1.5 % L % (4.5-13.0) Eos % (Auto) 0.1 % L % (0.6-7.6) Baso % (Auto) 0.3 % % (0.3-1.7) Nucleat RBC Rel Count 0.0 % % (0.0-0.2) Absolute Neuts (auto) 13.05 10^3/uL H 10^3/uL (1.70-6.50) Absolute Lymphs (auto) 0.33 10^3/uL L 10^3/uL (1.00-3.00) Absolute Monos (auto) 0.21 10^3/uL L 10^3/uL (0.30-0.80) Absolute Eos (auto) 0.01 10^3/uL L 10^3/uL (0.03-0.40) Absolute Basos (auto) 0.04 10^3/uL 10^3/uL (0.02-0.10) Absolute Nucleated RBC 0.00 10^3/uL 10^3/uL (0-0.01) Immature Gran % 0.9 % % (0.0-1.1) Immature Gran # 0.13 10^3/uL H 10^3/uL (0.00-0.10) Sodium 137 mEq/L mEq/L (135-145) Potassium 4.9 mEq/L mEq/L (3.5-5.2) Chloride 96 mEq/L L mEq/L (97-110) Carbon Dioxide 24 mEq/l mEq/l (22-31) Anion Gap 17 mEq/L H mEq/L (8-16) BUN 30 mg/dL H mg/dL (7-23) Creatinine 0.8 mg/dL mg/dL (0.7-1.3) Estimated GFR > 60 Glucose 382 mg/dL H mg/dL (70-100) POC Glucose Calcium 8.6 mg/dL mg/dL (8.5-10.4) Troponin I Beta-Hydroxybutyrate Urine Color Urine Appearance Urine pH Ur Specific [place] Urine Protein Urine Ketones Urine Blood Urine Nitrate Urine Bilirubin Urine Urobilinogen Ur Leukocyte Esterase Urine RBC Urine WBC Ur Epithelial Cells Urine Bacteria Urine Mucus Urine Glucose Nasal Influenza A PCR Nasal Influenza B PCR Medications Given: Discontinued Medications Sodium Chloride (Ns) 1,000 mls @ 0 mls/hr IV ONCE ONE; Wide Open PRN Reason: Protocol Stop: 11/06/17 14:52 Last Admin: 11/06/17 15:01 Dose: 1,000 mls Nitrofurantoin Macrocrystals (Macrobid) 100 mg PO EDNOW ONE PRN Reason: Protocol Stop: 11/06/17 16:26 Last Admin: 11/06/17 16:58 Dose: 100 mg Ondansetron HCl (Zofran) 4 mg IVP EDNOW ONE Stop: 11/06/17 17:04 Last Admin: 11/06/17 17:07 Dose: 4 mg Point of Care Test Results: 11/06/17 11/06/17 14:50 16:57 POC Glucose 274 H 209 H General Time Seen by Provider: 11/06/17 14:46 Initial Vital Signs: Initial Vital Signs Temperature (C) 36.3 C 11/06/17 14:24 Heart Rate 78 11/06/17 14:24 Respiratory Rate 18 11/06/17 14:24 Blood Pressure 138/63 H 11/06/17 14:24 O2 Sat (%) 96 11/06/17 14:24 O2 Delivery Mode Room Air Allergies/Adverse Reactions: Cephalosporins Allergy (Severe, Verified 10/09/17 00:55) Cleve Pravin Syndrome Penicillins Allergy (Intermediate, Verified 10/09/17 00:55) Hives codeine Allergy (Unknown, Verified 10/09/17 00:55) Home Medications: Medication Instructions Recorded Calcitriol [Calcitriol (*)] 0.25 mcg PO MOTUWETHFR@05/10/17 Cinacalcet HCl [Sensipar (*)] 30 mg PO DAILY 05/10/17 Esomeprazole Mag Trihydrate 40 mg PO DAILY 05/10/17 [Nexium] Gabapentin [Neurontin 300 MG (*)] 300 mg PO BID 05/10/17 Metoprolol Tartrate [Lopressor 25 12.5 mg PO BID 05/10/17 mg (*)] Mycophenolate Sodium [Myfortic] 360 mg PO BID@05/10/17 Nortriptyline HCl [Pamelor 10 mg 40 mg PO HS 05/10/17 (*)] Pyridoxine HCl [Vitamin B-6 100 mg 100 mg PO DAILY 05/10/17 (*)] Sodium Bicarbonate [Na Bicarb] 1,300 mg PO BID 05/10/17 predniSONE 7.5 mg PO DAILY@10 05/10/17 Tacrolimus 0.5 mg PO DAILY 06/16/17 Clopidogrel Bisulfate [Plavix] 75 mg PO DAILY #30 tablet 08/24/17 Insulin Pump, Patient Own 1 ea MISC AD 08/24/17 Cholecalciferol Vit D3 [Vitamin D3 1,000 units PO DAILY 10/09/17 (*)] Herbals/Supplements -Info Only 1 ea PO DAILY 10/09/17 [place]-3 Fatty Acids [Fish Oil 1000 1,000 mg PO DAILY 10/09/17 mg (*)] oxyCODONE IR [Oxycodone Ir (*)] 5 mg PO DAILY PRN 10/09/17 Nitrofurantoin Monohyd/M-Cryst 100 mg PO BID #20 cap 11/06/17 [Nitrofurantoin [place]-Macrocrystal] Ondansetron Odt [Zofran Odt] 4 mg PO Q4PRN PRN #10 tab 11/06/17 Departure - Departure Disposition: Home, Routine, Self-Care Clinical Impression: Hyperglycemia, UTI (urinary tract infection) Condition: Good Instructions: Nitrofurantoin Combination (By mouth), Urinary Tract Infection in Women (ED), Diabetic Hyperglycemia (ED) Additional Instructions: 1. Take Macrobid as prescribed for UTI. Be sure to complete the entire prescription. 2. Use Tylenol and ibuprofen as directed on the packaging as needed for pain or fever over the next few days. 3. Take Zofran as prescribed as needed for nausea and vomiting. 4. Follow up with your primary care provider next week for any unimproved symptoms. 5. Check your BGL regularly. 6. Return to the ED for any worsening of condition. Referrals: Natividad Moon MD [Medical Doctor] - As per Instructions Prescriptions: Nitrofurantoin Monohyd/M-Cryst [Nitrofurantoin [place]-Macrocrystal] 100 mg PO BID #20 cap Ondansetron Odt [Zofran Odt] 4 mg PO Q4PRN PRN #10 tab PRN Reason: Nausea Report Scribed for: Shiva Barboza Report Scribed by: Joana Galvan Date of Report: 11/06/17 Time of Report: 15:33 Physician Review and Approval Statement: Portions of this note were transcribed by an ED scribe. I personally performed the history, physical exam, and medical decision making; and confirm the accuracy of the information in the transcribed note.
[2017-11-06] MEDS ORDERED: NITROFURANTOIN MACROBID 100 MG CAP PO ONE (16:25)
[2017-11-06 17:01] VITALS: BP 142/73; PULSE 71; RESP 20; TEMP 97.7; O2SAT 94
[2017-11-06] MEDS ORDERED: ONDANSETRON 4 MG/2 ML VIAL IVP ONE (17:03)
== END 2017-11-06 17:35 | disposition home or self-care (01) ==
LOC: EDUNIT#
DX: E11.65 Type 2 diabetes mellitus with hyperglycemia (principal); N39.0 Urinary tract infection, site not specified; E86.9 Volume depletion, unspecified; Z79.4 Long term (current) use of insulin
CPT/HCPCS: 71046; 96361; 96374; 99284; J2405

== ENCOUNTER 2017-12-10 14:43 | Inpatient (IN) | payer OTHER, BC ==
--- NOTE | 2017-12-10 14:54 | EDPHY ---
H & P Time Seen by Provider: 12/10/17 14:51 HPI/ROS: CHIEF COMPLAINT: Altered mental status, fever, renal transplant HISTORY OF PRESENT ILLNESS: The patient is brought in by paramedics with a history of fever and altered mental status. The patient has a history of end- stage renal disease and is on dialysis. The patient is also on Plavix chronically. The patient reportedly fell and struck his head earlier today. The patient is somewhat of a unreliable historian. He states that he feels "fine." The patient does acknowledge the he reportedly fell however has no specific recollection of that event. The patient denies any complaints of acute headache, cough, vomiting or diarrhea. REVIEW OF SYSTEMS: A comprehensive 10 point review of systems is otherwise negative aside from elements mentioned in the history of present illness. Source: Patient Exam Limitations: No limitations - Personal History Tetanus Vaccine Date: 2008 - Medical/Surgical History Hx Asthma: No Hx Chronic Respiratory Disease: No Hx Diabetes: Yes Hx Cardiac Disease: No Hx Renal Disease: Yes Hx Cirrhosis: No Hx Alcoholism: No Hx HIV/AIDS: No Hx Splenectomy or Spleen Trauma: No Other PMH: kidney transplant SKIN CA EYE SURGERIES ORTHO SURG. APPY TONSILECTOMY, DIABETES TYPE 1, NEUROPATHY, insulin pump. chronic pain, HX OF CDIFF FROM 10/2014 - Social History Smoking Status: Former smoker - Physical Exam Exam: General Appearance: Deconditioned elderly male Head: Atraumatic Eyes: Blindness ENT, Mouth: No hemotympanum, no oral trauma Neck: Nontender, trachea midline Respiratory: Rales bilateral lower lobes Cardiovascular: Tachycardic Abdomen: Abdomen is soft and nontender, pelvis stable Skin: Multiple areas of skin excoriation and old ecchymoses Back: No midline T/L/S pain Extremities: Nontender, full range of motion Neurological: Alert and oriented x2, 5/5 strength all 4 extremities Constitutional: Initial Vital Signs Temperature (C) 38.4 C H 12/10/17 14:49 Heart Rate 110 H 12/10/17 14:49 Respiratory Rate 20 12/10/17 14:49 Blood Pressure 87/75 L 12/10/17 14:49 O2 Sat (%) 90 L 12/10/17 14:49 O2 Delivery Mode Nasal Cannula O2 (L/minute) 2 Allergies/Adverse Reactions: Cephalosporins Allergy (Severe, Verified 10/09/17 00:55) Cleve Pravin Syndrome Penicillins Allergy (Intermediate, Verified 10/09/17 00:55) Hives codeine Allergy (Unknown, Verified 10/09/17 00:55) Home Medications: Medication Instructions Recorded Calcitriol [Calcitriol (*)] 0.25 mcg PO MOTUWETHFR 12/10/17 Carboxymethylcellulose 0.5% 1 drops EACHEYE DAILY PRN 12/10/17 [Refresh Plus Drops 0.5%] Cholecalciferol Vit D3 [Vitamin D3 2,000 units PO DAILY 12/10/17 2000 units tab (OTC)] Cinacalcet HCl [Sensipar (*)] 30 mg PO DAILY 12/10/17 Clopidogrel Bisulfate [Plavix] 75 mg PO DAILY 12/10/17 Esomeprazole Magnesium [Nexium] 40 mg PO DAILY 12/10/17 Gabapentin [Neurontin 300 MG (*)] 300 mg PO BID 12/10/17 Insulin Lispro [Humalog] 3 - 5 unit SQ AC 12/10/17 Insulin Pump, Patient Own 1 [facility] [facility] [place] 12/10/17 Metoprolol Tartrate [Lopressor 25 12.5 mg PO BID 12/10/17 mg (*)] Multivitamins [Multivitamin (*)] 1 each PO DAILY 12/10/17 Mycophenolate Sodium [Myfortic] 360 mg PO BID 12/10/17 Nortriptyline HCl [Pamelor 10 mg 40 mg PO HS 12/10/17 (*)] Ondansetron Odt [Zofran Odt 4 mg 4 mg PO Q4 PRN 12/10/17 (*)] Oxycodone HCl 5 - 10 mg PO Q4 PRN 12/10/17 Pyridoxine HCl [Vitamin B-6 100 mg 100 mg PO DAILY 12/10/17 (*)] Sodium Bicarbonate [Na Bicarb 650 650 mg PO BID 12/10/17 MG (RX)] Tacrolimus 0.5 mg PO DAILY 12/10/17 predniSONE [Prednisone] 7.5 mg PO DAILY 12/10/17 Medical Decision Making - Diagnostics EKG Interpretation: EKG: Complete interpretation has been separately recorded in the [facility] archive. Summary impression: Sinus rhythm, rate 101 Imaging Results: Imaging Impressions Head CT 12/10/17 14:52 Impression: Stable noncontrast CT examination of the brain. Results called to Dr. Jeremie Benedict at 3:50 PM at the time of the interpretation. ED Course/Re-evaluation: The patient presents to the ED with fever, weakness and a history of falling. The patient has a history of diabetes and has an insulin pump. The patient also has a history a renal transplant. The patient has had a history of a urinary tract infection and sepsis in the past. He was hospitalized for this condition according to his caregiver earlier this year. The patient does take Plavix. The patient was taken for a noncontrast head CT scan given his history of fall and altered mental status. There is no evidence of intracranial hemorrhage. I reviewed the patient's past medical records. Blood cultures x2 are obtained. The patient's initial venous lactate is normal at 1.3. The patient will require admission to the hospital. Consultation was made with Dr. Alexis Johnson from the hospitalist service who will admit the patient. The patient did receive IV fluid rehydration in the emergency department. His blood pressure is currently 120/60 with a heart rate of 99. Update at 4:45pm: Awaiting urinalysis. 5:30 p.m.: Urinalysis demonstrates no obvious infection. Micro pending. Urine culture pending. The patient had been started empirically on Levaquin and vancomycin by hospitalist. Differential Diagnosis: Differential diagnosis considered includes intracranial hemorrhage, sepsis, pneumonia, dehydration, metabolic abnormality - Data Points Laboratory Results: Laboratory Results 12/10/17 14:55 12/10/17 14:55 12/10/17 12/10/17 12/10/17 15:01 14:55 14:55 WBC 13.17 10^3/uL H 10^3/uL (3.80-9.50) RBC 3.88 10^6/uL L 10^6/uL (4.40-6.38) Hgb 11.2 g/dL L g/dL (13.7-17.5) POC Hgb 12.2 gm/dL L gm/dL (13.7-17.5) Hct 34.3 % L % (40.0-51.0) POC Hct 36 % L % (40-51) MCV 88.4 fL fL (81.5-99.8) MCH 28.9 pg pg (27.9-34.1) MCHC 32.7 g/dL g/dL (32.4-36.7) RDW 16.9 % H % (11.5-15.2) Plt Count 302 10^3/uL 10^3/uL (150-400) MPV 9.1 fL fL (8.7-11.7) Neut % (Auto) 86.6 % H % (39.3-74.2) Lymph % (Auto) 5.0 % L % (15.0-45.0) Cabell % (Auto) 7.8 % % (4.5-13.0) Eos % (Auto) 0.0 % L % (0.6-7.6) Baso % (Auto) 0.2 % L % (0.3-1.7) Nucleat RBC Rel Count 0.0 % % (0.0-0.2) Absolute Neuts (auto) 11.40 10^3/uL H 10^3/uL (1.70-6.50) Absolute Lymphs (auto) 0.66 10^3/uL L 10^3/uL (1.00-3.00) Absolute Monos (auto) 1.03 10^3/uL H 10^3/uL (0.30-0.80) Absolute Eos (auto) 0.00 10^3/uL L 10^3/uL (0.03-0.40) Absolute Basos (auto) 0.03 10^3/uL 10^3/uL (0.02-0.10) Absolute Nucleated RBC 0.00 10^3/uL 10^3/uL (0-0.01) Immature Gran % 0.4 % % (0.0-1.1) Immature Gran # 0.05 10^3/uL 10^3/uL (0.00-0.10) VBG Lactic Acid POC Sodium 138 mEq/L mEq/L (135-145) Sodium 137 mEq/L mEq/L (135-145) POC Potassium 4.1 mEq/L mEq/L (3.3-5.0) Potassium 4.3 mEq/L mEq/L (3.5-5.2) POC Chloride 101 mEq/L mEq/L (97-110) Chloride 103 mEq/L mEq/L (97-110) Carbon Dioxide 28 mEq/l mEq/l (22-31) Anion Gap 6 mEq/L L mEq/L (8-16) POC BUN 34 mg/dL H mg/dL (7-23) BUN 36 mg/dL H mg/dL (7-23) Creatinine 0.9 mg/dL mg/dL (0.7-1.3) POC Creatinine 1.0 mg/dL mg/dL (0.7-1.3) Estimated GFR > 60 Glucose 79 mg/dL mg/dL (70-100) POC Glucose 85 mg/dL mg/dL (70-100) Calcium 7.6 mg/dL L mg/dL (8.5-10.4) 12/10/17 14:55 WBC RBC Hgb POC Hgb Hct POC Hct MCV MCH MCHC RDW Plt Count MPV Neut % (Auto) Lymph % (Auto) Cabell % (Auto) Eos % (Auto) Baso % (Auto) Nucleat RBC Rel Count Absolute Neuts (auto) Absolute Lymphs (auto) Absolute Monos (auto) Absolute Eos (auto) Absolute Basos (auto) Absolute Nucleated RBC Immature Gran % Immature Gran # VBG Lactic Acid 1.3 mmol/L mmol/L (0.7-2.1) POC Sodium Sodium POC Potassium Potassium POC Chloride Chloride Carbon Dioxide Anion Gap POC BUN BUN Creatinine POC Creatinine Estimated GFR Glucose POC Glucose Calcium Medications Given: Discontinued Medications Sodium Chloride (Ns) 1,000 mls @ 0 mls/hr IV ONCE ONE PRN Reason: Wide Open Stop: 12/10/17 15:06 Last Admin: 12/10/17 15:06 Dose: 1,000 mls Point of Care Test Results: 12/10/17 15:01 POC Sodium 138 POC Potassium 4.1 POC Chloride 101 POC BUN 34 H POC Creatinine 1.0 POC Glucose 85 Departure - Departure Disposition: [facility] Inpatient Acute Clinical Impression: Leukocytosis, Fall, Altered mental status, Fever Condition: Good
[2017-12-10] MEDS ORDERED: NS 1,000 ML IV ONE (15:05)
[2017-12-10 15:11] LABS: PLATELET COUNT 302 10^3/uL (150-400)
[2017-12-10] MEDS ORDERED: ACETAMINOPHEN 325 MG TAB PO PRN (15:27)
[2017-12-10] MEDS ORDERED: ONDANSETRON DISINTEGRATING 4 MG TAB PO PRN (15:27)
[2017-12-10] MEDS ORDERED: ONDANSETRON 4 MG/2 ML VIAL IVP PRN (15:27)
[2017-12-10] MEDS ORDERED: D50W 25 GM/50 ML SYR IVP PRN (15:50)
--- NOTE | 2017-12-10 16:03 | CPEKG ---
Heart Rate: 101 RR Interval: 594 P-R Interval: 123 QRSD Interval: 114 QT Interval: 360 QTC Interval: 467 P Fairbank: 261 QRS Fairbank: -67 T Wave Fairbank: 96 EKG Severity - ABNORMAL ECG - EKG Impression: SINUS OR ECTOPIC ATRIAL TACHYCARDIA EKG Impression: LAD, CONSIDER LEFT ANTERIOR FASCICULAR BLOCK Electronically Signed By: Diana Marrufo 10-Dec-2017 23:05:46
[2017-12-10] MEDS ORDERED: CARBOXYMETHYLCELLULOSE 0.5% 0.4 ML DROPERETTE EACHEYE PRN (17:01)
--- NOTE | 2017-12-10 17:49 | GHP ---
[f rep st] HISTORY AND PHYSICAL DATE OF ADMISSION: 12/10/2017 CHIEF COMPLAINT: Fall, confusion, fever. HISTORY OF PRESENT ILLNESS: This is a 72-year-old man with a history of a renal transplant, on immun osuppressants, who presents after a fall last night. He has home health care. Apparently, they foun d him on the floor next to his bed. It is unclear if he really remembers the incident at this point. Apparently, his daughter was called, who was in [place], came up to his house and assisted him getti ng back into bed. He had some cuts on his arms. She noted that he seemed slightly confused. Today, his [id number] came over and noted him to have some garbled speech as well as much more confused than normally. She tells me that he is normally quite sharp though when I am seeing him, he is somew hat confused on recent and past events. He does tell me that he has had a cough recently. He says h e did not hit his head when he fell out of bed, though his daughter felt that he did. He has no new joint pain. He has had no nausea, vomiting, diarrhea. He is typically incontinent. He is not compl aining of any other urinary symptoms, though. He has multiple skin excoriations as well as a left he el ulcer, he tells me that these are not hurting or any different than they have been. He has had mu ltiple urinary tract infections as well as staph aureus bacteremia. He has never had a fluoroquinolo ne resistant gram-negative. He has had Enterococcus in his urine, however. PAST MEDICAL/SURGICAL HISTORY: 1. History of renal transplant, on immunosuppressants. 2. TIA, on Plavix. 3. 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 He uses an insulin pump. His basal rate varies throughout the day, it is between 0.2 and 0.4 units/hour wit h approximately 8 units total per day, in addition to boluses. 4. He received hemodialysis prior to his renal transplant. 5. History of an AV fistula. 6. Squamous cell carcinoma, status post XRT as well as resection. 7. History of Clostridium difficile. 8. History of Staphylococcus aureus bacteremia. MEDICATIONS: Please see medication reconciliation. ALLERGIES: Cephalosporin, penicillin and codeine. FAMILY HISTORY: He has cancer in his family. SOCIAL HISTORY: He quit smoking. He has caregivers. He lives at home with his . REVIEW OF SYSTEMS: 10-point review of systems is conducted and is negative except per HPI. PHYSICAL EXAM: VITAL SIGNS: Initial blood pressure on presentation was 87/75, currently 141/97, hea rt rate is 110, respiration rate 20, saturating at 90% on room air. Temperature, T-max is 38.4. GEN ERAL: The patient is a pleasant man, he is somewhat confused, lying on his side in bed. HEENT: A l arge ulcer on his head, which was where his squamous cell cancer was removed; it is not tender, there is no surrounding erythema. It is not especially pustulant. CARDIOVASCULAR: A regular rate and rh ythm. He has a 1/6 systolic murmur. PULMONARY: He is breathing comfortably. He is in no respirator y distress. His lungs are clear to auscultation bilaterally. ABDOMEN: An insulin pump in place. H e has normal bowel sounds. He has a nontender non peritoneal abdominal exam. SKIN: Multiple areas of excoriation and skin tears as well as bruising. There is no significant blanching or erythema. G U: No Peralta in place. NEUROLOGIC: He is alert and oriented x 2-3. He answers questions inappropri ately sometimes. He is moving all extremities. He has a nonfocal neurologic exam with no facial chelsy op or cranial nerve changes. PSYCHIATRIC: A normal mood and affect. LABS: White count is 13.1, hemoglobin is 11. Lactate 1.3. Basic metabolic panel shows a creatinine of 0.9 with a BUN of 36, calcium 7.6. DATA: 1. I discussed with Dr. Jackson, will admit to med/surg. 2. I reviewed his head CT scan, which shows stable atrophy with nothing acute. 3. I personally viewed and interpreted his EKG. This shows sinus rhythm. He has a 1st degree AV bl ock. No ST changes or T-wave inversions. Largely unchanged from his prior. 4. Chest x-ray, which I personally viewed and interpreted, shows mild haziness in the left lobe whic h could be atelectasis versus an infiltrate. Radiologist review is pending at this time. IMPRESSION AND PLAN: 1. Fever: No clear infective source at this time. Chest x-ray may be consistent with mild left low er lobe infiltrate. Blood cultures have been drawn. Urinalysis is pending. I think, given the over all clinical picture with encephalopathy, fever, immunosuppression, it is reasonable to empirically t reat him with antibiotics. Will cover him with vancomycin to cover any gram positives as well as ent erococcus, as well as Levaquin. Follow blood cultures, and taper if a more clear source of infection is found. 2. Encephalopathy: Suspect due to the above. Head CT is negative. He does not have a focal appear ance, I do not think this is consistent with a stroke. Time of onset would have likely been last nig ht, regardless. We will follow this with treatment of suspected infection. 3. Systemic inflammatory response syndrome with leukocytosis, fever, no clear source at this point. He was initially hypotensive, which has resolved and he is actually slightly hypertensive now. We w ill follow closely. 4. History of renal transplant: Continue his prednisone, mycophenolate, tacrolimus. 5. Diabetes mellitus type 1: He uses an insulin pump at home. I think he is too confused to do thi s at this point. Will provide him with sliding scale insulin, hold long-acting now. 6. History of Clostridium difficile infection: We will not start him at this point on prophylactic vancomycin. Consider this if he will need long-term antibiotics. 7. Code status: He was full code on his last hospitalization; I have continued this. 8. Venous thromboembolism risk is moderate to high. Will give him Lovenox. /[id number]/MODL
[2017-12-10] MEDS ORDERED: oxyCODONE IR 5 MG TAB PO PRN (17:57)
[2017-12-10] MEDS: CALCITRIOL 0.25 MCG CAP PO SCH (18:29)
[2017-12-10] MEDS: INSULIN LISPRO 100 UNIT/ML SC SCH (18:30)
[2017-12-10] MEDS ORDERED: VANCOMYCIN HCL/NORMAL SALINE 250 ML IV SCH (19:00)
[2017-12-10] MEDS: GABAPENTIN 300 MG CAP PO SCH (20:09)
[2017-12-10] MEDS: NORTRIPTYLINE HCL 10 MG CAP PO SCH (20:09)
[2017-12-10] MEDS: SODIUM BICARBONATE 650 MG TAB PO SCH (20:09)
[2017-12-10] MEDS ORDERED: MYCOPHENOLATE SODIUM 180 MG TAB.DR PO SCH (21:00)
--- NOTE | 2017-12-11 08:18 | WOCRNPDOC ---
CHARI Advanced Assessment Note - Skin Integrity Problem, Advanced Assess Left Forehead Unknown Dressing Type: Open to Air Exudate Characteristic(s): Dried Kaitlin Wound Tissue: Thin, Scarred Kaitlin Wound Swelling: None Wound Bed Color: Yellow Wound Bed Constitution: Adhered Slough (dried) Wound Edges: Well Defined Site Odor: None Site Measurement - Head-to-Toe Length X Width X Depth (cm): 1.4cmx1.5cmx0.2cm Skin Integrity Problem Comment: Wound on L forehead, s/p carcinoma removal a few months ago, presently dried, 100% dry, adhered slough. Scar tissue throughout periwound skin, no erythema or swelling. Will have nursing apply Therahoney gel to soften and loosen slough. Left Lateral Heel Dressing Type: Open to Air Exudate Amount: None Kaitlin Wound Tissue: Dry, Calloused Kaitlin Wound Swelling: None Wound Bed Color: Black Wound Bed Constitution: Stable Eschar (100%) Site Odor: None Site Measurement - Head-to-Toe Length X Width X Depth (cm): 3cmx4.5cmx eschar Pressure Injury Stage: Unstageable Pressure Injury Present on Admit: Yes Skin Integrity Problem Comment: Dry, eschar-filled wound noted to patient's L lateral heel, most likely a combination of pressure injury and DFU. Patient is well-known to WC from previous hospitalization. Periwound skin intact, calloused and dry. eschar is stable, non-fluctuant. Goal is to keep it dry and stable, and to prevent any injury or infection. Will have nursing paint eschar BID w/ Povidone/Iodine swab, float heels continuously. Right Medial Heel Dressing Type: Open to Air Exudate Amount: None Kaitlin Wound Tissue: Intact, Calloused Kaitlin Wound Swelling: None Wound Bed Color: Black Wound Bed Constitution: Stable Eschar Wound Edges: Well Defined Site Odor: None Site Measurement - Head-to-Toe Length X Width X Depth (cm): 0.5cmx0.6cmx eschar Pressure Injury Stage: Unstageable Pressure Injury Present on Admit: Yes Skin Integrity Problem Comment: Circular, discrete area of dry, stable eschar noted to R medial heel, likely a combination of pressure injury and DFU. Callous periwound, no swelling, erythema, or fluctuance. Will have nursing paint w/ Povidone/Iodine BID to keep site dry, stable, and free from infection. Float heels continuously. Left First Toe Diabetic Ulcer Dressing Type: Open to Air Exudate Amount: None Kaitlin Wound Tissue: Scaly, Xerotic Kaitlin Wound Swelling: None Wound Bed Color: Black Wound Bed Constitution: Stable Eschar Wound Edges: Well Defined Site Odor: None Site Measurement - Head-to-Toe Length X Width X Depth (cm): 0.5cmx0.4cmx eschar Skin Integrity Problem Comment: Circular, discrete wound on L great toe, 100% dry, stable eschar. No erythema, swelling, or fluctuance periwound. Will have nursing paint w/ Povidone/Iodine BID to keep tissues stable. Patient has long- standing PAD, so debridment of the wounds on his lower extremities is not recommended. No papable DP pulse. Goal is to keep wounds dry, free from infection.
[2017-12-11] MEDS ORDERED: MYCOPHENOLATE 360 MG PO SCH (09:00)
[2017-12-11] MEDS: INSULIN LISPRO 100 UNIT/ML SC SCH ×3 (09:13→19:00)
[2017-12-11] MEDS: ENOXAPARIN 40 MG/0.4 ML SYR SC SCH (10:05)
[2017-12-11] MEDS: TACROLIMUS ANHYDROUS 0.5 MG CAP PO SCH (10:05)
[2017-12-11] MEDS: CINACALCET HCL 30 MG TAB PO SCH (10:06)
[2017-12-11] MEDS: PANTOPRAZOLE SODIUM 40 MG TAB PO SCH (10:07)
[2017-12-11] MEDS: CLOPIDOGREL BISULFATE 75 MG TAB PO SCH (10:07)
[2017-12-11] MEDS: GABAPENTIN 300 MG CAP PO SCH ×2 (10:07→20:10)
[2017-12-11] MEDS: SODIUM BICARBONATE 650 MG TAB PO SCH ×2 (10:08→20:11)
[2017-12-11] MEDS: predniSONE 5 MG TAB PO SCH (10:08)
[2017-12-11] MEDS: CHOLECALCIFEROL VIT D3 2,000 UNITS TAB/CAP PO SCH (10:08)
[2017-12-11] MEDS: MULTIVITAMINS 1 EACH TAB PO SCH (10:08)
[2017-12-11] MEDS: PYRIDOXINE HCL 100 MG TAB PO SCH (10:09)
[2017-12-11 10:11] LABS: PLATELET COUNT 264 10^3/uL (150-400)
--- NOTE | 2017-12-11 10:39 | ASMTCMCOM ---
CM Note CM Note Notes: Pt. is a 72-year-old man admitted after a fall next to his bed, confusion, and a fever. Hx. diabetes w/ DKA during admission to [facility] in Oct 2017. Hx. renal transplant, TIA, Cdiff, and staph infection. Hx. UTIs per dtr. PT, OT, and TAG MACHINE OPERATOR ordered to assist with d/c planning. Pt lives w/ his Magdalene who has dementia. Pt. and his have 24-hour caregivers per daughter Zo . Zo states now parents have two private duty nursing services - [facility] agency does the weekends and overnights and [facility] does the daytimes. [facility] open for skilled care - RN and CERTIFIED REGISTERED NURSE PRACTITIONER currently. Zo will talk to Pt. about whether PT and or OT should be added to homecare d/c plan. Zo very pleasant to work with on the phone and knowledgable about her parents' needs. Zo not pleased with care at [facility] and states Pt. developed a heel ulcer there that Pt. is still dealing with. Zo very interested in keeping her father at home w/ the [facility] home[facility] agency and private duty 24-hour care. Family to have a care conference for her mother's dementia care soon. 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 Zo is in [place] at this moment, but still has some teaching obligations in [place] until August 2018. Zo completing her PhD in [employer] Literature. Luis Angel spoke w/ Allyson at [facility] who wants Pt. back and is open to new services should they be needed. Plan: Homecare resumption with [facility] - at least RN and CERTIFIED REGISTERED NURSE PRACTITIONER. Also Private-duty 24-hour care with two agencies. Date Signed: 12/11/2017 10:38 AM Electronically Signed By:Iesha Lewis LCSW
[2017-12-11] MEDS: MYCOPHENOLATE 360 MG PO SCH ×2 (11:35→20:12)
--- NOTE | 2017-12-11 16:26 | HOSPPROG ---
Hospitalist Progress Note Assessment/Plan: 72y male with c/o fever. First encounter,chart reviewed. D/W Dr lucia #Fever -cont workup -none since admission #Bacteremia -k Pneu -consult ID -? source, urine vs PNA #Hx renal transplant -cont meds #Encephalopathy -likely at baseline #Hx of cdiff -consider prophylactic vanco -defer to ID recs #SIRS -resolved #DM -cont insulin #Hx TIA -cont plavix #Dispo -unclear, conts to need hospital care -will go home with 24hour care when he is ready - D/W CM Subjective: Feels well. No pain. Wants to go home. Objective: Vital Signs Temp Pulse Resp BP Pulse Ox 36.4 C 100 16 108/52 L 92 12/11/17 10:25 12/11/17 10:25 12/11/17 10:25 12/11/17 11:03 12/11/17 10:25 Laboratory Results 12/11/17 09:59 12/11/17 09:59 12/10/17 12/11/17 12/12/17 05:59 05:59 05:59 Intake Total 1000 Output Total 200 100 Balance 800 -100 - Physical Exam Constitutional: appears nourished, not in pain, chronically ill appearing Eyes: anicteric sclera, No PERRL, No EOMI Ears, Nose, Mouth, Throat: moist mucous membranes, hearing normal, ears appear normal Cardiovascular: No JVD, No tachycardia, No edema Respiratory: no respiratory distress, no rales or rhonchi, reduced air movement Gastrointestinal: No tenderness, No ascites, No guarding Skin: warm, no rashes or abrasions, No mottled Musculoskeletal: normal joint ROM, no joint effusions, generalized weakness Neurologic: No AAOx3 Psychiatric: not anxious, poor insight, poor judgement, poor memory, No thought process linear ICD10 Worksheet Patient Problems: Problems Problem Status Onset Diabetes mellitus type 1 Acute Leukocytosis Acute C. difficile diarrhea Acute 10/13/14 Fall Acute Rib fractures Acute Altered mental status Acute Periprosthetic fracture around internal prosthetic left hip joint Acute History of kidney transplant Acute Acute ischemic stroke Acute DKA (diabetic ketoacidoses) Acute Fever Acute
--- NOTE | 2017-12-11 17:19 | PDMN ---
Medical Necessity Medical necessity: change to IP; los>2mn for fever, bacteremia with unknown source, urine vs PNA; requires continued w/u, ID consult, IV abx; comorbid encephalopathy, DM, hx renal transplant, c diff, TIA; per order and progress note 12/11/17
[2017-12-11] MEDS: CALCITRIOL 0.25 MCG CAP PO SCH (17:56)
--- NOTE | 2017-12-11 18:29 | GCON ---
[f rep st] CONSULTATION INFECTIOUS DISEASE CONSULTATION DATE OF CONSULTATION: 12/11/2017 REQUESTING PROVIDER: Leslie Reyes NP REASON FOR CONSULTATION: Gram-negative emily bacteremia. HISTORY OF PRESENT ILLNESS: Patient is a 72-year-old male with a past medical history of renal trans plantation, on chronic immunosuppressive therapy, who I am asked to see in consultation for Klebsiell a bacteremia. The patient was apparently found down on the floor at his home where he has 24-hour ca regivers. He does not recall much of the circumstances related to this event. He describes feeling fatigued and unwell for approximately 1 week. He believes he may have had some fever and chills. He does not recall any dysuria, urgency, or frequency. The patient does have a history of prior urinar y tract infection, as well as significant problems with lower extremity ulcerations and osteomyelitis previously, one of which was associated with MSSA bacteremia. At the time of presentation, patient was noted to have a leukocytosis and blood cultures were obtained. Blood cultures are now showing 1 of 2 sets with growth of Klebsiella pneumoniae. Urinalysis was also obtained and showed 5-10 white b lood cells with 1-3 red blood cells and 1+ bacteria. Urine culture currently is growing a lactose-fe rmenting gram-negative emily. Patient has been started empirically on levofloxacin and feels significa ntly improved today. Given the above findings, I am now asked to assist in his ongoing management. PAST MEDICAL HISTORY: Renal transplantation, type 1 diabetes, squamous cell carcinoma of the scalp, history of C difficile colitis in 2015, MSSA bacteremia in 2015, osteomyelitis of the foot due to JHONATHAN A. PAST SURGICAL HISTORY: Multiple digital amputations of the feet, renal transplantation, prior AV fis adeola, resection of squamous cell carcinoma of the scalp. CURRENT MEDICATIONS: Levofloxacin 750 mg IV daily, calcitriol 0.25 mcg p.o. 5 times per week, vitami n D 2000 units p.o. daily, Sensipar 30 mg p.o. daily, Plavix 75 mg p.o. daily, Lovenox 40 mg subcu da jessica, Neurontin 300 mg p.o. twice daily, Humalog insulin with meals, multivitamin p.o. daily, Pamelor 40 mg p.o. at bedtime, Protonix 40 mg p.o. daily, prednisone 7.5 mg p.o. daily, vitamin B6 at 100 mg p.o. daily, Prograf 0.5 mg p.o. daily. ALLERGIES: Penicillin causes hives, cephalosporins associated with Lopez-Pravin syndrome and thro at closure. SOCIAL HISTORY: Patient does not smoke, drink alcohol, or use drugs. He lives at home with 24-hour caregivers. FAMILY HISTORY: Noncontributory. REVIEW OF SYSTEMS: Outside that on the HPI, remainder of 10-system review is unremarkable other than patient has multiple skin tears and ecchymoses, as well as chronic ulceration of the left heel. PHYSICAL EXAMINATION: VITAL SIGNS: Temperature maximum 38.4, temperature current 36.9, heart rate 9 2, respiratory rate 14, blood pressure 118/58, oxygen saturation 91% on room air. GENERAL: Patient is chronically ill appearing, in no acute distress. He appears nontoxic. 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 There is a quarter sized to 50 cent piece sized ulceration at site of prior squamous cell cancer excision over the left side of the skull with fibrinous slough throughout ; there is no surrounding cellulitis. There are no conjunctival petechiae. The oropharynx shows dry mucous membranes. There is no thrush. There is no nasal discharge. NECK: Supple without palpable lymphadenopathy or thyromegaly. CHEST: Clear to auscultation bilaterally without adventitious soun ds. Respiratory effort is normal. CARDIOVASCULAR: Regular rate and rhythm without murmurs, gallops , or rubs. ABDOMEN: Soft, nontender, nondistended. There is no palpable organomegaly. Bowel sound s are present. BACK: There is no CVA tenderness bilaterally. MUSCULOSKELETAL: There is a large bl ack eschar over the left heel with some malodor present; there is no surrounding erythema. Multiple digits have been amputated; the right lateral foot has hypertrophied callus but no surrounding erythe ma. SKIN: There are multiple ecchymoses and scattered skin tears. There are no stigmata of endocar ditis. NEUROLOGIC: Patient is alert and interacts appropriately with examiner. Muscle bulk is decr eased throughout. Sensation is decreased in the feet. LYMPHATICS: No cervical or supraclavicular n odes palpable. LABORATORY DATA: White blood cell count 11.4, hematocrit 34.3, platelets 264, neutrophils 86%. Seru m creatinine is 1.0, bilirubin 1.4, AST 86, ALT 26, alkaline phosphatase 64, albumin 2.9. Urinalysis shows 5-10 white blood cells and 1-3 red blood cells. Blood culture show 1 of 2 sets with Klebsiell a pneumoniae, susceptibilities pending; urine culture shows greater than 100,000 lactose-fermenting g tarsha-negative rods. Chest x-ray shows some ill-defined opacity at the left base. IMPRESSION: 1. Klebsiella pneumoniae bacteremia likely associated with urinary tract infection: Suspect lactose -fermenting gram-negative emily in urine also will represent Klebsiella pneumoniae. Patient is clinica lly improved with levofloxacin. Review of recent microbiologic data shows patient had a Klebsiella i solate in May of 2017, which was quinolone susceptible. Other potential sources for infection would include the left heel ulcer, although based on clinical findings, think this is unlikely. 2. Left heel eschar: Has been followed chronically by Dr. Rios. Will require ongoing followup for this over time. Clinic notes have been reviewed which show similar findings to what is seen current ly. RECOMMENDATIONS: 1. Agree with continued levofloxacin 750 mg IV daily. 2. Await susceptibility profile on Klebsiella pneumoniae isolate. 3. Follow clinical response to antibiotic therapy with adjustment accordingly as susceptibility is a vailable. Thank you for this consultation. /[id number]/MODL
[2017-12-11] MEDS: NORTRIPTYLINE HCL 10 MG CAP PO SCH (20:11)
[2017-12-11] MEDS ORDERED: INSULIN LISPRO 100 UNIT/ML SC ONE (20:45)
[2017-12-12] MEDS: MYCOPHENOLATE 360 MG PO SCH (05:00)
[2017-12-12] MEDS: INSULIN LISPRO 100 UNIT/ML SC SCH ×2 (08:15→12:35)
[2017-12-12] MEDS: predniSONE 5 MG TAB PO SCH (08:16)
[2017-12-12] MEDS: ENOXAPARIN 40 MG/0.4 ML SYR SC SCH (08:16)
[2017-12-12] MEDS: CHOLECALCIFEROL VIT D3 2,000 UNITS TAB/CAP PO SCH (08:18)
[2017-12-12] MEDS: MULTIVITAMINS 1 EACH TAB PO SCH (08:18)
[2017-12-12] MEDS: PYRIDOXINE HCL 100 MG TAB PO SCH (08:19)
[2017-12-12] MEDS: CINACALCET HCL 30 MG TAB PO SCH (08:19)
[2017-12-12] MEDS: CLOPIDOGREL BISULFATE 75 MG TAB PO SCH (08:19)
[2017-12-12] MEDS: PANTOPRAZOLE SODIUM 40 MG TAB PO SCH (08:19)
[2017-12-12] MEDS: TACROLIMUS ANHYDROUS 0.5 MG CAP PO SCH (08:19)
[2017-12-12] MEDS: GABAPENTIN 300 MG CAP PO SCH (08:19)
[2017-12-12] MEDS: SODIUM BICARBONATE 650 MG TAB PO SCH (08:19)
[2017-12-12 11:35] VITALS: BP 114/63
--- NOTE | 2017-12-12 14:45 | PDIAF ---
- Diagnosis Diagnosis: bacteremia Code Status: Full Code - Medication Management Discharge Medications: Medications to Continue on Transfer Calcitriol [Calcitriol (*)] 0.25 mcg PO MOTUWETHFR 12/10/17 [Last Taken 12/09/17 ] Carboxymethylcellulose 0.5% [Refresh Plus Drops 0.5%] 1 drops EACHEYE DAILY PRN 12/10/17 [Last Taken Unknown] Cholecalciferol Vit D3 [Vitamin D3 2000 units tab (OTC)] 2,000 units PO DAILY [Last Taken 12/09/17] Cinacalcet HCl [Sensipar (*)] 30 mg PO DAILY 12/10/17 [Last Taken 12/09/17] Clopidogrel Bisulfate [Plavix] 75 mg PO DAILY 12/10/17 [Last Taken 12/09/17] Esomeprazole Magnesium [Nexium] 40 mg PO DAILY 12/10/17 [Last Taken 12/09/17] Gabapentin [Neurontin 300 MG (*)] 300 mg PO BID 12/10/17 [Last Taken 12/09/17] Insulin Lispro [Humalog] 3 - 5 unit SQ AC 12/10/17 [Last Taken Unknown] Insulin Pump, Patient Own 1 ea MISC AD 12/10/17 [Last Taken Unknown] Metoprolol Tartrate [Lopressor 25 mg (*)] 12.5 mg PO BID 12/10/17 [Last Taken ] Multivitamins [Multivitamin (*)] 1 each PO DAILY 12/10/17 [Last Taken 12/09/17] Mycophenolate Sodium [Myfortic] 360 mg PO BID 12/10/17 [Last Taken 12/09/17] Nortriptyline HCl [Pamelor 10 mg (*)] 40 mg PO HS 12/10/17 [Last Taken 12/09/17] Ondansetron Odt [Zofran Odt 4 mg (*)] 4 mg PO Q4 PRN 12/10/17 [Last Taken Unknown] Oxycodone HCl 5 - 10 mg PO Q4 PRN 12/10/17 [Last Taken Unknown] Pyridoxine HCl [Vitamin B-6 100 mg (*)] 100 mg PO DAILY 12/10/17 [Last Taken 12/23] Sodium Bicarbonate [Na Bicarb] 650 mg PO BID 12/10/17 [Last Taken 12/09/17] Tacrolimus 0.5 mg PO DAILY 12/10/17 [Last Taken 12/09/17] predniSONE [Prednisone] 7.5 mg PO DAILY 12/10/17 [Last Taken 12/09/17] Acetaminophen [Tylenol 325mg (*)] 650 mg PO Q4HRS PRN tab 12/12/17 [Last Taken Unknown] levOFLOXACIN [levAQUIN (*)] 750 mg PO DAILY #14 tab 12/12/17 [Last Taken Unknown ] Discharge Medications: Refer to the Discharge Home Medication list for PRN reason. PICC Care - Routine: N/A - Orders Services needed: Home Care, Registered Nurse, Master Heel Scorer, Physical Therapy Home Care Face to Face: I certify that this patient was under my care and that I had the required [id number] encounter meeting the encounter requirements on the discharge day. My findings support the fact that the patient is homebound as defined in Home Care Face to Face Continued: CMS Chapter 7 Medicare Benefits Manual 30.1.1 , The condition of the patient is such that there exists a normal inability to leave home and consequently, leaving home would require a considerable and taxing effort. Isolation Type: None Diet Texture: Regular Texture Diet, Thin Liquids, Meds Whole w/Liquids - Follow Up Care Current Providers and Referrals: Patient,NotPresent [Unknown] - As per Instructions
--- NOTE | 2017-12-12 16:09 | ASDISCHSUM ---
Discharge Information Plan Status:Home with Home Health Medically Cleared to Leave: Discharge Date:12/12/2017 03:51 PM CM D/C Disposition:Home Health Service ADT D/C Disposition:Home Health Service Projected Discharge Date:12/12/2017 11:00 AM Transportation at D/C:Family Discharge Delay Reason: Follow-Up Date:12/12/2017 11:00 AM Discharge Slot: Final Diagnosis: Placement Information Referral Type:*Home Health Care Services Referral ID:[id number] Provider Name:[facility] Address 1:[address] [address] Address 2: City:[place] Selection Factors: State:[place] Patient Contact Information Contact Name:MICKY Relationship:Daughter Address: City:[place] Alternate Phone: State/Zip Code:[place] Email: Financial Information Financial Class:Medicare Primary Plan Desc:MEDICARE OUTPATIENT Primary Plan Number:[id number] Secondary Plan Desc:[employer] [facility] Secondary Plan Number:[id number] Assessment Information LACE LACE Length of stay for Answers: 1 day current admission Acuity / Level of Answers: Yes Care: Did the patient have an inpatient admission? Comorbidities - select Answers: Diabetes (uncontrolled or all that apply controlled) History of falls Mild liver or renal disease # of Emergency department Answers: 1-2 visits in the last 6 months Score: 11 Date Signed: 12/12/2017 03:27 PM Electronically Signed By:Iesha [place] LCSW [facility] CM Progress Note CM Note CM Note Notes: Pt. is a 72-year-old man admitted after a fall next to his bed, confusion, and a fever. Hx. diabetes w/ DKA during admission to [facility] in Oct 2017. Hx. renal transplant, TIA, Cdiff, and staph infection. Hx. UTIs per dtr. PT, OT, and ACTIVITY DIRECTOR ordered to assist with d/c planning. Pt lives w/ his Magdalene who has dementia. Pt. and his have 24-hour caregivers per daughter Zo . Zo states now parents have two private duty nursing services - [facility] agency does the weekends and overnights and [facility] does the daytimes. [facility] open for skilled care - RN and CORPORATE LEGAL INTERN currently. Zo will talk to Pt. about whether PT and or OT should be added to homecare d/c plan. Zo very pleasant to work with on the phone and knowledgable about her parents' needs. Zo not pleased with care at [facility] and states Pt. developed a heel ulcer there that Pt. is still dealing with. Zo very interested in keeping her father at home w/ the [facility]led homecare agency and private duty 24-hour care. Family to have a care conference for her mother's dementia care soon. 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 Zo completing her PhD in [employer]. Luis Angel [facility] and is open to new services should they be needed. Plan: Homecare resumption with [facility] - at least RN and CORPORATE LEGAL INTERN. Also Private-duty 24-hour care with two agencies. Date Signed: 12/11/2017 10:38 AM Electronically Signed By:Iesha [place] LCSW Case Management Discharge Plan Note Case Management Discharge Discharge Order Complete? Answers: Yes Patient to Obtain Answers: via [facility] Transportation Arranged Answers: Family/Friends Faxed Final Orders Answers: Yes Agency/Facility Transfer Answers: Yes Report Printed & Faxed to Receiving Agency Family Notified Answers: Yes Discharge Comments Notes: Pt. to d/c today with the resumption of [facility] - RN, PT, CORPORATE LEGAL INTERNYareli Plasencia called daughter Zo who will call to resume 24-hour private duty caregivers. She will spend the night with her parents silvia. Sent d/c paperwork via [employer] and spoke with on-call staff at [facility] who will resume care. Confirmed Zo's phone number w/ [facility] for them to call Carrie. [facility] picking up Pt. at d/c. Date Signed: 12/12/2017 03:24 PM Electronically Signed By:Iesha [place] LCSW Intervention Information Intervention Type:*Occurence 72 Date of Service:12/10/2017 03:27 PM Patient Type:Inpatient Staff Member:JUAN MANUEL Hinojosa, Tessa Hours:0.25 Discipline: Severity:1 (0-1 Hours) Comment:[facility] 72 for 12/10/2017 15:27 to 12/11/2017 15:11 as patient dischrged 12/12/2017 14:43 (< 2 MN LOS after patient admission status changed from observation to inpatient) .
--- NOTE | 2017-12-12 16:12 | GDS ---
[f rep st] DISCHARGE SUMMARY DISCHARGE DIAGNOSIS: Gram-negative emily bacteremia. CONSULTATIONS: Infectious Disease, Dr. Frank. STUDIES AND PROCEDURES: 1. Blood cultures. 2. Urine culture. PHYSICAL EXAM: GENERAL: The patient is alert. VITAL SIGNS: Afebrile at 36.4, pulse 97, respirator y rate is 20, blood pressure is 114/63, saturating 94% on room air. I have seen and evaluated the ce rivera on the day of discharge. HOSPITAL COURSE: The patient is a 72-year-old male, who presented to the emergency room with complai nts of fever and confusion. He was evaluated and diagnosed with: 1. Klebsiella pneumoniae bacteremia, likely secondary to urinary source. The patient has been treat ed with Levaquin during this hospitalization and responded well. He did receive a consultation from Infectious Disease. He will continue oral Levaquin in the outpatient setting, with repeat blood cult ures pending at the time of disposition. His symptoms have completely resolved. He is afebrile and has no signs of acute encephalopathy or confusion. 2. Fever. Again, this has resolved. Secondary to the patient's bacteremia. 3. History of renal transplant. His home medications have been continued with no signs of potential complication. 4. History of Clostridium difficile. He has no signs of this prior to disposition, but will need to be monitored closely in the outpatient setting for reoccurrence, given his antibiotic therapy. 5. Diabetes mellitus. He will continue his previously prescribed home insulin pump. 6. Left heel eschar. Again, the patient is followed in the outpatient setting by Dr. Rios. This a ppears to be stable. 7. Disposition. The patient will be discharged home with 24-hour care that has already been arrange d for him. I have discussed with the patient's daughter regarding his disposition who is in agreemen t with this plan. I have also reviewed the patient's disposition with Infectious Disease and Case Alexa meyers. Everyone is comfortable with the disposition. DISCHARGE MEDICATIONS: Please refer to EMR form. I have provided the patient a prescription for Lev aquin 750 mg daily, #14, and I have not adjusted his previously prescribed home medications to the be st of my knowledge. I spent greater than 35 minutes in the care, coordination, and management of this patient's dispositi on. /[id number]/MODL
--- NOTE | 2017-12-12 17:04 | PCMIDPN ---
Assessment/Plan: Assessment/Plan: 1. Klebsiella bacteremia with likely urinary source: - sensitivities reviewed, levaquin sensitive YOLANDE <=1 -currently on levaquin - creatinine 1.0 - given renal tspl patient, recommend repeating blood cx to ensure clears -plan for 14 days therapy 2. Renal tspl Meds levaquin 750mg daily- 12/10/17 Subjective: afebrile. wants to go home. feeling much better. denies sob, abd pain or diarrhea. Objective: Vital Signs Temp Pulse Resp BP Pulse Ox 36.4 C 97 20 114/63 94 12/12/17 11:32 12/12/17 11:32 12/12/17 11:32 12/12/17 11:32 12/12/17 11:32 Microbiology 12/10/17 17:10 Urine Culture - Final Unspecified Klebsiella Pneumoniae Ssp Pneu Laboratory Results 12/11/17 09:59 12/11/17 09:59 12/11/17 12/12/17 12/13/17 05:59 05:59 05:59 Intake Total 1000 1200 Output Total 200 400 Balance 800 800 - Physical Exam General Appearance: alert, no apparent distress Respiratory: lungs clear Cardiac/Chest: regular rate, rhythm Extremities: No swelling Abdomen: normal bowel sounds, non-tender, soft, No distended Skin: No erythema ICD10 Worksheet Patient Problems: Problems Problem Status Onset Acute ischemic stroke Acute Altered mental status Acute C. difficile diarrhea Acute 10/13/14 DKA (diabetic ketoacidoses) Acute Diabetes mellitus type 1 Acute Fall Acute Fever Acute History of kidney transplant Acute Leukocytosis Acute Periprosthetic fracture around internal prosthetic left hip joint Acute Rib fractures Acute
== END 2017-12-12 15:51 | disposition home health service (06) | DRG 871 ==
LOC: EDUNIT# → INTOOBSV 15:27 → UNDOADMOB 15:27 → OBSVTOIN 15:27 → F3E 17:40 → OBSVTOIN 12-11 15:11 → F3E 12-11 15:11 → UNDODISIN 12-12 15:51
PROVIDERS: ADMIT Student in an Organized Health Care Education/Training Program; ATTEND Student in an Organized Health Care Education/Training Program
DX: R78.81 Bacteremia (principal); B96.1 Klebsiella pneumoniae [K. pneumoniae] as the cause of diseases classified elsewhere; E10.22 Type 1 diabetes mellitus with diabetic chronic kidney disease; N18.6 End stage renal disease; E10.319 Type 1 diabetes mellitus with unspecified diabetic retinopathy without macular edema; H35.00 Unspecified background retinopathy; E10.40 Type 1 diabetes mellitus with diabetic neuropathy, unspecified; G62.9 Polyneuropathy, unspecified; E10.621 Type 1 diabetes mellitus with foot ulcer; L97.529 Non-pressure chronic ulcer of other part of left foot with unspecified severity; G89.29 Other chronic pain; Z94.0 Kidney transplant status; Z99.2 Dependence on renal dialysis; Z79.4 Long term (current) use of insulin; Z96.41 Presence of insulin pump (external) (internal); Z89.429 Acquired absence of other toe(s), unspecified side; Z92.3 Personal history of irradiation; Z87.440 Personal history of urinary (tract) infections; Z91.81 History of falling
CPT/HCPCS: 82947-QW; 92610-GN; 97116-GP; 97162-GP; 97166-GO; 97535-GO; G0378; G8978-GP-CL; G8979-GP-CJ; G8987-GO-CL; G8988-GO-CK; G8996-GN-CI; G8997-GN-CH; J1650; J1815; J1956; J3370; J7512

== ENCOUNTER 2018-03-04 10:45 | Emergency (ER) | payer OTHER, BC ==
--- NOTE | 2018-03-04 10:59 | EDPHY ---
H & P Stated Complaint: fall hit head on plavix Time Seen by Provider: 03/04/18 10:59 - Personal History Current Tetanus Diphtheria and Acellular Pertussis (TDAP): Yes Tetanus Vaccine Date: 2008 - Medical/Surgical History Hx Asthma: No Hx Chronic Respiratory Disease: No Hx Diabetes: Yes Hx Cardiac Disease: No Hx Renal Disease: Yes Hx Cirrhosis: No Hx Alcoholism: No Hx HIV/AIDS: No Hx Splenectomy or Spleen Trauma: No Other PMH: kidney transplant SKIN CA EYE SURGERIES ORTHO SURG. APPY TONSILECTOMY, DIABETES TYPE 1, NEUROPATHY, insulin pump. chronic pain, HX OF CDIFF FROM 10/2014 - Social History Smoking Status: Former smoker Constitutional: Initial Vital Signs Temperature (C) 36.4 C 03/04/18 10:54 Heart Rate 84 03/04/18 10:54 Respiratory Rate 18 03/04/18 10:54 Blood Pressure 117/52 L 03/04/18 10:54 O2 Sat (%) 93 03/04/18 10:54 O2 Delivery Mode Room Air Allergies/Adverse Reactions: Cephalosporins Allergy (Severe, Verified 03/04/18 10:46) Cleve Pravin Syndrome Penicillins Allergy (Intermediate, Verified 03/04/18 10:46) Hives codeine Allergy (Unknown, Verified 03/04/18 10:46) Home Medications: Medication Instructions Recorded Calcitriol [Calcitriol (*)] 0.25 mcg PO MOTUWETHFR 12/10/17 Carboxymethylcellulose 0.5% 1 drops EACHEYE DAILY PRN 12/10/17 [Refresh Plus Drops 0.5%] Cholecalciferol Vit D3 [Vitamin D3 2,000 units PO DAILY 12/10/17 2000 units tab (OTC)] Cinacalcet HCl [Sensipar (*)] 30 mg PO DAILY 12/10/17 Clopidogrel Bisulfate [Plavix] 75 mg PO DAILY 12/10/17 Esomeprazole Magnesium [Nexium] 40 mg PO DAILY 12/10/17 Gabapentin [Neurontin 300 MG (*)] 300 mg PO BID 12/10/17 Insulin Lispro [Humalog] 3 - 5 unit SQ AC 12/10/17 Insulin Pump, Patient Own 1 ea MISC AD 12/10/17 Metoprolol Tartrate [Lopressor 25 12.5 mg PO BID 12/10/17 mg (*)] Multivitamins [Multivitamin (*)] 1 each PO DAILY 12/10/17 Mycophenolate Sodium [Myfortic] 360 mg PO BID 12/10/17 Nortriptyline HCl [Pamelor 10 mg 40 mg PO HS 12/10/17 (*)] Ondansetron Odt [Zofran Odt 4 mg 4 mg PO Q4 PRN 12/10/17 (*)] Oxycodone HCl 5 - 10 mg PO Q4 PRN 12/10/17 Pyridoxine HCl [Vitamin B-6 100 mg 100 mg PO DAILY 12/10/17 (*)] Sodium Bicarbonate [Na Bicarb] 650 mg PO BID 12/10/17 Tacrolimus 0.5 mg PO DAILY 12/10/17 predniSONE [Prednisone] 7.5 mg PO DAILY 12/10/17 Acetaminophen [Tylenol 325mg (*)] 650 mg PO Q4HRS PRN tab 12/12/17 levOFLOXACIN [levAQUIN (*)] 750 mg PO DAILY #14 tab 12/12/17 Medical Decision Making - Diagnostics Imaging Results: Imaging Impressions Head CT 03/04/18 11:00 Impression: 1. Stable moderate atrophy. 2. No hemorrhage, mass effect, or definite acute peripheral infarct. 3. Stable moderate nonspecific hypodensities in the white matter of bilateral cerebral hemispheres. Differential diagnosis includes microvascular ischemic disease, post-infectious/post-inflammatory sequela, atypical demyelinating disease, or migraine-related sequela. Small white matter lacunar infarcts may also have this appearance. 4. Stable fluid inferior left mastoid air cells. 5. Calcifications associated with shrunken right orbital globe. If symptoms worsen, additional imaging may be necessary. Findings discussed with Valeriy Mustafa MD at 11:39 hour, 03/04/2018. Imaging: Discussed imaging studies w/ order desk caller Radiologist, I viewed and interpreted images myself ED Course/Re-evaluation: CHIEF COMPLAINT: Fell, hit head, on Plavix HISTORY OF PRESENT ILLNESS: The patient is an anticoagulated (Plavix) 72 y/o male with a history of type 1 diabetes and a kidney transplant complaining of falling and hitting his head. The patient has had multiple unwitnessed falls per his melon packer. Today the patient reported that he fell again, but there is no acute wound. Denies headache, numbness, paresthesias, chest pain, shortness of breath, abdominal pain, fever. He also has a diabetic ulcer on his left heel, for which he has an appointment with Dr. Rios, general surgeon. REVIEW OF SYSTEMS: A 10 point review of systems was performed and is negative with the exception of the elements mentioned in the history of present illness. PHYSICAL EXAM: HR, BP, O2 Sat, RR. Temp noted General Appearance: Alert, well hydrated, appropriate, and non-toxic appearing. Head: Atraumatic without scalp tenderness or obvious injury Eyes: Pupils equal, round, reactive to light and accommodation, EOMI, no trauma , no injection. Ears: Clear bilaterally, no perforation, normal landmarks Nose: Atraumatic, no rhinorrhea, clear. Throat: There is no erythema or exudates, no lesions, normal tonsils, mucus membranes moist. Neck: Supple, nontender, no lymphadenopathy. Respiratory: No retractions, no distress, no wheezes, and no accessory muscle use. Lungs are clear to auscultation bilaterally. Cardiovascular: Regular rate and rhythm, no murmurs, rubs, or gallops. Bilateral carotid, radial, dorsalis pedis, and posterior tibial pulses intact. Good capillary refill all extremities. Gastrointestinal: Abdomen is soft, nontender, non-distended, no masses, no rebound, no guarding, no peritoneal signs. Musculoskeletal: Dried gangrene, black and necrotic decubitus ulcer to heel of left foot. Bilateral upper arm fistula. Normal active ROM of all extremities, atraumatic. Neurological: Alert, appropriate, and interactive. Nonfocal neuro. Skin: No rashes, good turgor, no nodules on palpation. Past medical history: Type 1 diabetes, skin cancer, neuropathy, chronic pain, C. diff (10/2014) Past surgical history: Kidney transplant, eye surgeries, appendectomy, tonsillectomy, ortho surgeries Family history: Denies Social history: Caretakers at bedside, lives in [place], , retired DIAGNOSTICS/PROCEDURES/CRITICAL CARE TIME: Head CT: No acute findings. DIFFERENTIAL DIAGNOSIS: The differential diagnosis for the patient's head injury included but was not limited to concussion, skull fracture, intra-parenchymal contusion, subarachnoid , subdural and epidural hematoma. MEDICAL DECISION MAKING: The patient is an anticoagulated (Plavix) 72 y/o male with a history of type 1 diabetes and a kidney transplant presenting with multiple falls and hitting his head. On exam there are no acute wounds to the patient's head. Head CT ordered. He does have a dried gangrene, black and necrotic decubitus ulcer to heel of left foot. This will need debridement, for which he has an appointment with Dr. Rios, general surgeon. 1140: Spoke with Dr. Grossman, radiologist, who reports that the patient has no acute findings on the head CT. 1144: Reassessed patient and discussed imaging findings. I have advised him to keep his appointment with Dr. Rios for the ulcer debridement. Return precautions provided; patient is comfortable with this plan. Departure - Departure Disposition: Home, Routine, Self-Care Clinical Impression: Frequent falls Diabetic ulcer of heel Qualifiers: Diabetes mellitus type: type 1 Laterality: left Non-pressure ulcer stage: with other severity Qualified Code(s): E10.621 - Type 1 diabetes mellitus with foot ulcer; L97.428 - Non-pressure chronic ulcer of left heel and midfoot with other specified severity; L97.428 - Non-pressure chronic ulcer of left heel and midfoot with other specified severity; L97.428 - Non-pressure chronic ulcer of left heel and midfoot with other specified severity; L97.428 - Non-pressure chronic ulcer of left heel and midfoot with other specified severity Head injury Qualifiers: Encounter type: initial encounter Qualified Code(s): S09.90XA - Unspecified injury of head, initial encounter Condition: Good Instructions: Fall Prevention for Older Adults (ED), Diabetic Foot Ulcers (ED) , Head Injury (ED) Additional Instructions: 1. Follow up with Dr. Rios, general surgeon, or the wound clinic for debridement of the diabetic ulcer. 2. Follow-up with your primary doctor within 72 hours for unimproved symptoms. 3. Return to the Emergency Department for severe headache, vomiting, vision changes, confusion, fever or other concerns. Referrals: Long Vera MD [Primary Care Provider] - As per Instructions [facility] [Clinic] - As per Instructions Jonnathan Rios MD [Medical Doctor] - As per Instructions Report Scribed for: Valeriy Mustafa Report Scribed by: Alda Emmanuel Date of Report: 03/04/18 Time of Report: 11:00
[2018-03-04 12:37] VITALS: BP 128/68
--- NOTE | 2018-03-04 17:41 | ASDISCHSUM ---
Discharge Information Plan Status:Home with Home Health Medically Cleared to Leave: Discharge Date:03/04/2018 12:37 PM CM D/C Disposition: ADT D/C Disposition:Home, Routine, Self-Care Projected Discharge Date:03/04/2018 01:00 PM Transportation at D/C: Discharge Delay Reason: Follow-Up Date:03/04/2018 01:00 PM Discharge Slot: Final Diagnosis: Placement Information Patient Contact Information Contact Name:PADMINIETAYLBARRON Relationship:Daughter Address: City:[place] Alternate Phone: State/Zip Code:[place] Email: Financial Information Financial Class:Medicare Primary Plan Desc:MEDICARE OUTPATIENT Primary Plan Number:[id number] Secondary Plan Desc:[employer] [employer] Secondary Plan Number:[id number] Assessment Information Intervention Information
--- NOTE | 2018-03-04 17:48 | ASMTCMCOM ---
CM Note CM Note Notes: CM received call from donnell at [facility] in [place] . Patient is current with services and Donnell would like ER report for continuity of care. i have reviewed cahrt and sent ER report to [facility] via [employer] Date Signed: 03/04/2018 05:47 PM Electronically Signed By:Ankita Montes RN
== END 2018-03-04 12:37 | disposition home or self-care (01) ==
DX: S09.90XA Unspecified injury of head, initial encounter (principal); E10.621 Type 1 diabetes mellitus with foot ulcer; L97.428 Non-pressure chronic ulcer of left heel and midfoot with other specified severity; E10.9 Type 1 diabetes mellitus without complications; Z85.828 Personal history of other malignant neoplasm of skin; Z87.891 Personal history of nicotine dependence; W01.198A Fall on same level from slipping, tripping and stumbling with subsequent striking against other object, initial encounter

== ENCOUNTER 2018-03-13 10:54 | Inpatient (IN) | payer OTHER, BC ==
--- NOTE | 2018-03-13 11:19 | EDPHY ---
H & P Stated Complaint: Weaker,seems more tired,?confusion;recent head inj Time Seen by Provider: 03/13/18 11:07 HPI/ROS: CHIEF COMPLAINT: Increasing weakness, confusion, poor appetite HISTORY OF PRESENT ILLNESS: The patient presents to the ED with increasing weakness, confusion and poor appetite. The patient has a history of a foot ulcer, kidney transplant, metastatic squamous cell carcinoma. The patient was treated for presumptive urinary tract infection approximately 2 weeks ago. His daughter believes he finished Levaquin on Thursday. The patient was seen by his surgeon who felt that the patient's ft ulcer was stable. The patient did have a urinalysis performed this morning which demonstrates ongoing pyuria. There has been no history of a cough. The patient has had decreased oral intake. REVIEW OF SYSTEMS: A comprehensive 10 point review of systems is otherwise negative aside from elements mentioned in the history of present illness. Source: Patient Exam Limitations: No limitations - Personal History Current Tetanus Diphtheria and Acellular Pertussis (TDAP): Yes Tetanus Vaccine Date: 2008 - Medical/Surgical History Hx Asthma: No Hx Chronic Respiratory Disease: No Hx Diabetes: Yes Hx Cardiac Disease: No Hx Renal Disease: Yes Hx Cirrhosis: No Hx Alcoholism: No Hx HIV/AIDS: No Hx Splenectomy or Spleen Trauma: No Other PMH: kidney transplant SKIN CA EYE SURGERIES ORTHO SURG. APPY TONSILECTOMY, DIABETES TYPE 1, NEUROPATHY, insulin pump. chronic pain, HX OF CDIFF FROM 10/2014 - Social History Smoking Status: Former smoker - Physical Exam Exam: General Appearance: Elderly male, frail, dehydrated Eyes: Pupils equal and round no pallor or injection ENT, Mouth: Mucous membranes moist Respiratory: There are no retractions, lungs are clear to auscultation Cardiovascular: Regular rate and rhythm Gastrointestinal: Abdomen is soft and nontender, no masses, bowel sounds normal Neurological: 5/5 strength noted all 4 extremities Skin: Ft ulcer without evidence of infection, postoperative changes noted to the scalp also without evidence of infection Musculoskeletal: Neck is supple nontender Extremities: symmetrical, full range of motion Constitutional: Initial Vital Signs Temperature (C) 36.5 C 03/13/18 10:59 Heart Rate 68 03/13/18 10:59 Respiratory Rate 16 03/13/18 10:59 Blood Pressure 92/68 L 03/13/18 10:59 O2 Sat (%) 95 03/13/18 10:59 O2 Delivery Mode Room Air Allergies/Adverse Reactions: Cephalosporins Allergy (Severe, Verified 03/13/18 10:58) Cleve Pravin Syndrome Penicillins Allergy (Intermediate, Verified 03/13/18 10:58) Hives codeine Allergy (Unknown, Verified 03/13/18 10:58) Home Medications: Medication Instructions Recorded Calcitriol [Calcitriol (*)] 0.25 mcg PO MOTUWETHFR@09 12/10/17 Carboxymethylcellulose 0.5% 1 drops EACHEYE DAILY PRN 12/10/17 [Refresh Plus Drops 0.5%] Cholecalciferol Vit D3 [Vitamin D3 2,000 units PO DAILY 12/10/17 2000 units tab (OTC)] Cinacalcet HCl [Sensipar (*)] 30 mg PO DAILY 12/10/17 Clopidogrel Bisulfate [Plavix] 75 mg PO DAILY 12/10/17 Esomeprazole Magnesium [Nexium] 40 mg PO DAILY 12/10/17 Gabapentin [Neurontin 300 MG (*)] 300 mg PO BID 12/10/17 Insulin Lispro [Humalog] 4 unit SQ AC 12/10/17 Insulin Pump, Patient Own 1 ea MISC AD 12/10/17 Metoprolol Tartrate [Lopressor 25 12.5 mg PO BID 12/10/17 mg (*)] Mycophenolate Sodium [Myfortic] 360 mg PO BID 12/10/17 Nortriptyline HCl [Pamelor 10 mg 40 mg PO HS 12/10/17 (*)] Ondansetron Odt [Zofran Odt 4 mg 4 mg PO Q4 PRN 12/10/17 (*)] Oxycodone HCl 5 - 10 mg PO Q4 PRN 12/10/17 Pyridoxine HCl [Vitamin B-6 100 mg 100 mg PO DAILY 12/10/17 (*)] Sodium Bicarbonate [Na Bicarb] 650 mg PO BID 12/10/17 Tacrolimus 0.5 mg PO DAILY 12/10/17 predniSONE [Prednisone] 7.5 mg PO DAILY 12/10/17 Acetaminophen [Tylenol 325mg (*)] 650 mg PO Q4HRS PRN tab 12/12/17 Medical Decision Making - Diagnostics Imaging Results: Head CT without contrast: Images reviewed by myself and discussed with radiologist, negative for acute changes or hemorrhage. ED Course/Re-evaluation: Reviewed laboratory studies from yesterday which demonstrated a normal white blood cell count, stable creatinine and no significant metabolic derangement. The patient does have ongoing pyuria noted on her urinalysis today. He presents to the ED with deconditioning likely in the setting of a urinary tract infection. A urine culture has been sent. The patient is started on IV Levaquin given his cephalosporin allergy. Clinically he is dehydrated and I feel should be rehydrated this evening. The patient will be admitted for observation status. Consultation is made with the hospitalist service. The patient will be admitted by Dr. Wheeler. Differential Diagnosis: Differential diagnosis considered includes dehydration, metabolic abnormality, urinary tract infection - Data Points Laboratory Results: Laboratory Results 03/13/18 12:10 03/13/18 12:10 03/13/18 03/13/18 12:10 12:10 WBC 10.06 10^3/uL H 10^3/uL (3.80-9.50) RBC 4.49 10^6/uL 10^6/uL (4.40-6.38) Hgb 12.0 g/dL L g/dL (13.7-17.5) Hct 37.6 % L % (40.0-51.0) MCV 83.7 fL fL (81.5-99.8) MCH 26.7 pg L pg (27.9-34.1) MCHC 31.9 g/dL L g/dL (32.4-36.7) RDW 17.3 % H % (11.5-15.2) Plt Count 402 10^3/uL H 10^3/uL (150-400) MPV 9.4 fL fL (8.7-11.7) Neut % (Auto) 84.2 % H % (39.3-74.2) Lymph % (Auto) 8.3 % L % (15.0-45.0) Oliver % (Auto) 6.6 % % (4.5-13.0) Eos % (Auto) 0.3 % L % (0.6-7.6) Baso % (Auto) 0.3 % % (0.3-1.7) Nucleat RBC Rel Count 0.0 % % (0.0-0.2) Absolute Neuts (auto) 8.47 10^3/uL H 10^3/uL (1.70-6.50) Absolute Lymphs (auto) 0.84 10^3/uL L 10^3/uL (1.00-3.00) Absolute Monos (auto) 0.66 10^3/uL 10^3/uL (0.30-0.80) Absolute Eos (auto) 0.03 10^3/uL 10^3/uL (0.03-0.40) Absolute Basos (auto) 0.03 10^3/uL 10^3/uL (0.02-0.10) Absolute Nucleated RBC 0.00 10^3/uL 10^3/uL (0-0.01) Immature Gran % 0.3 % % (0.0-1.1) Immature Gran # 0.03 10^3/uL 10^3/uL (0.00-0.10) Sodium 134 mEq/L L mEq/L (135-145) Potassium 4.2 mEq/L mEq/L (3.3-5.0) Chloride 101 mEq/L mEq/L (97-110) Carbon Dioxide 26 mEq/l mEq/l (22-31) Anion Gap 7 mEq/L L mEq/L (8-16) BUN 29 mg/dL H mg/dL (7-23) Creatinine 0.8 mg/dL mg/dL (0.7-1.3) Estimated GFR > 60 Glucose 141 mg/dL H mg/dL (70-100) Calcium 9.9 mg/dL mg/dL (8.5-10.4) Medications Given: Levofloxacin/Dextrose (Levaquin 500 Mg (Premix)) 100 mls @ 100 mls/hr IV EDNOW ONE PRN Reason: Protocol Stop: 03/13/18 13:24 Last Admin: 03/13/18 12:35 Dose: 100 mls Departure - Departure Disposition: [facility] Clinical Impression: Dehydration, History of kidney transplant, Urinary tract infection Condition: Fair
[2018-03-13] MEDS ORDERED: levOFLOXACIN 500 MG/DEXTROSE 100 ML IV ONE (12:25)
[2018-03-13 12:28] LABS: PLATELET COUNT 402 10^3/uL (150-400)
[2018-03-13] MEDS ORDERED: ACETAMINOPHEN 325 MG TAB PO PRN ×2 (13:46→13:49)
[2018-03-13] MEDS ORDERED: PROMETHAZINE HCL 25 MG/ML INJ IVP PRN (13:46)
[2018-03-13] MEDS ORDERED: CARBOXYMETHYLCELLULOSE 0.5% 0.4 ML DROPERETTE EACHEYE PRN (13:49)
[2018-03-13] MEDS ORDERED: NON-FORMULARY NEW DRUG (Insulin Pump, Patient Own 1 EA) MISC SCH (14:00)
[2018-03-13] MEDS ORDERED: oxyCODONE IR 5 MG TAB PO PRN (15:16)
--- NOTE | 2018-03-13 15:41 | ASMTCMCOM ---
CM Note CM Note Notes: Pt presented to the Emergency Department for increasing weakness, confusion, poor appetite. Pt has a history of a foot ulcer, kidney transplant, metastatic squamous cell carcinoma. Pt admitted for further evaluation and treatment of dehydration, and a urinary tract infection. The pt has had multiple visits to [facility] this year. The pt lives alone. His dghtr in [place] is listed as his emergency contact. Discharge needs remain unclear at this time. CM will continue to follow. Current Discharge Plan: To be determined Date Signed: 03/13/2018 03:40 PM Electronically Signed By:Koki Bergeron RN
[2018-03-13] MEDS: INSULIN LISPRO 100 UNIT/ML SC SCH (15:45)
--- NOTE | 2018-03-13 16:28 | GHP ---
[f rep st] HISTORY AND PHYSICAL DATE OF ADMISSION: 03/13/2018 Patient's specialists include Dr. Cosby with Nephrology, Dr. Anna Mccollum of endocrinology, Dr. Yolie moralez of Oncology. CHIEF COMPLAINT: Altered mental status. HISTORY OF PRESENT ILLNESS: Mr. Telles is a pleasant 72-year-old gentleman with a past medical histo ry of end-stage renal disease, status post renal transplant and diabetes mellitus type 1, currently m anaged with an insulin pump, who was brought to the [facility] Emergency Room by his daughter after she noted him to be more confused at home. She had been out of town on a trip and upo n returning noted the changes. She states prior to her departure he had been doing well at home. Th e patient was recently admitted to the hospital in December of this year after having a Klebsiella urina ry tract infection along with Klebsiella bacteremia. The patient's daughter states she did have an o utpatient consultation with Dr. Evangelista Frank, and there was some consideration being given to daily supp ressive antibiotic therapy. The current plan of action was to follow moving forward to see if he wer e to have recurrent urinary tract infections. The patient's daughter brought in a urinalysis to the lab. Full results are currently pending, but it is showing 50 to 180 white blood cell count per high -power field. The patient was given a dose of Levaquin in the emergency room. This was based upon p rior culture and sensitivities. The patient is being admitted for further evaluation and treatment. He is not complaining of any back pain, fevers, or chills. PAST MEDICAL HISTORY: 1. History of TIA, currently on Plavix, followed by Dr. Estuardo Villalpando. 2. End-stage renal disease, status post renal transplant in 2007. 3. Diabetes mellitus type 1, managed with insulin pump, complicated by retinopathy, nephropathy, and neuropathy. 4. Metastatic squamous cell carcinoma, status post radiation treatment as well as resection. 5. History of C difficile colitis. 6. History of methicillin sensitive Staph aureus bacteremia. PAST SURGICAL HISTORY: 1. Appendectomy. 2. Tonsillectomy. 3. Renal transplant. 4. Left upper extremity AV fistula. MEDICATIONS: Current outpatient medications include calcitriol 0.25 mcg daily, Sensipar 30 mg daily, Plavix 75 mg daily, Nexium 40 mg daily, gabapentin 300 mg twice a day. Humalog insulin pump, metopr olol 12.5 mg twice a day, Myfortic 360 mg twice a day, nortriptyline 40 mg nightly, oxycodone 5 mg ev bety 4 hours as needed, sodium bicarbonate 650 mg twice a day, prednisone 7.5 mg daily, and tacrolimus 0.5 mg daily. ALLERGIES: 1. Cephalosporin which causes Lopez-Pravin syndrome. 2. Penicillin. 3. Codeine. FAMILY HISTORY: Mother and father are both . His mother just recently approximatel y 1 to 2 years ago from "old age" in her 90s. His father from leukemia. SOCIAL HISTORY: The patient is currently . He lives with his . He has 2 children, 1 son and 1 daughter. His daughter is his power of employee benefits attorney. He is a former smoker but quit. He is orig inally from [place]. Code status was readdressed during this admission. The patient is a full code status as he has been in the previous admissions. REVIEW OF SYSTEMS: CONSTITUTIONAL: No complaints of any fevers or chills. ENT: No recent upper re spiratory illnesses. CARDIOVASCULAR: No complaints of any chest pains, palpitations, or syncopal ep isodes. RESPIRATORY: No complaints of shortness of breath or productive cough. : No reports of any difficulty with urination or bloody urine. GI: No nausea, vomiting, diarrhea, or constipation. No focal abdominal pain. No suprapubic tenderness. NEUROLOGIC: No complaints of any headaches or focal weakness. HEMATOLOGIC: No history of any deep vein thrombosis or pulmonary embolism. PSYCHIAT JOHN: There is no history of depression or anxiety, but patient is currently on a tricyclic antidepre ssant. ENDOCRINE: Positive for diabetes mellitus type 1, currently managed by insulin drip by Dr. Anna mills. SKIN: Chronic left heel eschar, managed by Dr. Kar Rios. 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 Dr. Hercules is following t he patient in the outpatient setting. MUSCULOSKELETAL: No focal joint pains. PHYSICAL EXAMINATION: VITAL SIGNS: Temperature 35.8. Blood pressure 124/55. Heart rate 79. Respi rations 14. Saturating 98% on room air. GENERAL: The patient appears fatigued but comfortable. He is arousable and conversant but does seem somewhat confused. He is able to tell me his first name. He states it is 2019. He was able to tell me that we were in [place], [place], in the hospital. H EENT: Extraocular movements appear intact. No scleral icterus noted. He does have clotting of his right eye. NECK: Supple. No thyroid enlargement appreciated. CHEST: Clear on auscultation with n ormal respiratory effort. HEART: Soft heart sounds regular. No murmurs appreciated. ABDOMEN: Sof t, nontender, nondistended. No suprapubic tenderness noted. Normal bowel sounds. : No Peralta cat heter in place. EXTREMITIES: No significant edema. NEUROLOGIC: Cranial nerves 2 through 12 appear grossly intact with 4/5 strength in all extremities. LABS: White blood cell count is 10, hemoglobin 12, platelets 402. Sodium 134, potassium 4.2, chlori de 101, bicarb 26, BUN 29, creatinine 0.8, glucose 141. IMAGING: CT scan of the head shows stable moderate atrophy, no hemorrhage or mass effects or definit e acute peripheral infarct. There is stable extensive nonspecific hypodensities in the white matter of bilateral cerebral hemispheres. ASSESSMENT/PLAN: 1. Encephalopathy. No acute changes noted on CT scan of the head, presuming possible delirium secon cira to infectious process. Continue to monitor closely with treatment of underlying infection. 2. Urinary tract infection suspected, based upon urinalysis provided today. Continue with current L evaquin that has been started by the emergency room. Blood cultures have been ordered. Await cultur e and sensitivities. Monitor closely over the coming days with the current antibiotic therapy. 3. History of transient ischemic attack. Continue with current Plavix. 4. End-stage renal disease, status post transplant. Continue with current anti-rejection medication s. The patient is followed in the outpatient setting by Dr. Cosby. 5. Diabetes mellitus type 1. The patient's daughter is well versed in managing the insulin pump. I recommend that we continue the insulin pump at the current settings, presuming no hypoglycemia devel ops. I think it is okay for her, as well, to exchange the insulin cartridge and will write an order for nursing stating this. 6. Deep venous thrombosis prophylaxis. Lovenox. 7. Disposition: The patient is a full code status. I would anticipate him being able to return reva k home once more stable. We will involve Physical Therapy and Occupational Therapy and Speech Therap y in his care. I will admit him under observation status. /[id number]/MODL
[2018-03-13] MEDS ORDERED: MYCOPHENOLATE SODIUM 180 MG TAB.DR PO SCH (21:00)
[2018-03-13] MEDS: NORTRIPTYLINE HCL 10 MG CAP PO SCH (21:24)
[2018-03-13] MEDS: SODIUM BICARBONATE 650 MG TAB PO SCH (21:24)
[2018-03-13] MEDS: METOPROLOL TARTRATE 25 MG TAB PO SCH (21:25)
[2018-03-13] MEDS: GABAPENTIN 300 MG CAP PO SCH (21:25)
[2018-03-13] MEDS: MYCOPHENOLATE 360 MG PO SCH (21:28)
[2018-03-14] MEDS: NS 1,000 ML IV SCH ×2 (00:59→14:49)
[2018-03-14 05:17] LABS: PLATELET COUNT 395 10^3/uL (150-400)
[2018-03-14] MEDS: INSULIN LISPRO 100 UNIT/ML SC SCH ×3 (07:44→19:17)
[2018-03-14] MEDS ORDERED: TACROLIMUS ANHYDROUS 0.5 MG CAP PO SCH (09:00)
[2018-03-14] MEDS ORDERED: CINACALCET HCL 30 MG TAB PO SCH (09:00)
[2018-03-14] MEDS ORDERED: levOFLOXACIN 500 MG/DEXTROSE 100 ML IV SCH (09:00)
[2018-03-14] MEDS: ENOXAPARIN 40 MG/0.4 ML SYR SC SCH (10:05)
[2018-03-14] MEDS: CINACALCET HCL 30 MG TAB PO SCH (10:15)
[2018-03-14] MEDS: MYCOPHENOLATE 360 MG PO SCH ×2 (10:17→22:25)
[2018-03-14] MEDS: TACROLIMUS ANHYDROUS 0.5 MG CAP PO SCH (10:18)
[2018-03-14] MEDS: CHOLECALCIFEROL VIT D3 2,000 UNITS TAB/CAP PO SCH (10:19)
[2018-03-14] MEDS: CLOPIDOGREL BISULFATE 75 MG TAB PO SCH (10:19)
[2018-03-14] MEDS: GABAPENTIN 300 MG CAP PO SCH ×2 (10:19→22:09)
[2018-03-14] MEDS: SODIUM BICARBONATE 650 MG TAB PO SCH ×2 (10:21→22:09)
[2018-03-14] MEDS: predniSONE 5 MG TAB PO SCH (10:21)
[2018-03-14] MEDS: PYRIDOXINE HCL 100 MG TAB PO SCH (10:21)
[2018-03-14] MEDS: METOPROLOL TARTRATE 25 MG TAB PO SCH ×2 (10:22→22:10)
[2018-03-14] MEDS: PANTOPRAZOLE SODIUM 40 MG TAB PO SCH (10:23)
[2018-03-14] MEDS ORDERED: D50W 25 GM/50 ML SYR IVP PRN ×2 (11:00→11:02)
[2018-03-14] MEDS ORDERED: INSULIN PUMP, PATIENT OWN 1 EA MISC SCH ×2 (11:00→11:15)
--- NOTE | 2018-03-14 14:59 | ASMTCMCOM ---
CM Note CM Note Notes: Spoke to patient's daughter, Pranay [phone]. She reports that [facility] is involved w/skilled and 24hr care for her parents. She would like Family to continue working with them on patient's discharge. Date Signed: 03/14/2018 02:59 PM Electronically Signed By:Sonal Guillory LCSW
[2018-03-14] MEDS: POLYETHYLENE GLYCOL 3350 17 GM PKT PO SCH (16:46)
--- NOTE | 2018-03-14 17:16 | HOSPPROG ---
Hospitalist Progress Note Assessment/Plan: Subjective Follow-up on encephalopathy and urinary tract infection. Patient's daughter was present at the bedside today and states that her father does look much better today. He still seems somewhat confused but less so as compared to yesterday. She states that he was complaining of some fever and chills over the past week. We discussed that the culture has shown Staph aureus however the final identification and sensitivities are still pending. We discussed that considering his current allergies and that he does appear to overall have been made improvement over the past 24 hr we will continue with current Levaquin for now pending further consultation with ID. Objective Vitals as detailed below Exam General-patient appears comfortable sitting in a chair at the bedside he is resting comfortably but arousable and conversant he is unable to recall the year again today. Heart-regular no murmurs are noted Lungs-clear on auscultation with normal respiratory effort Abdomen-soft nontender no suprapubic tenderness and no tenderness appreciated in the area of his renal transplant -no Peralta catheter in place Extremities-no significant edema Labs as detailed below Assessment and plan Encephalopathy-suspecting secondary to underlying infection. He does seem better today per his daughter. Continue to monitor with treatment of underlying infection. Urinary tract infection-urine culture is showing Staph aureus. Final culture and sensitivities are still pending. Overall he seems to have made improvement in the past 24 hr with the current Levaquin. Will continue with this for now pending final sensitivities. The patient's daughter and I discussed consultation with Infectious Disease as he has consult with Dr. Frank in the past. Hyponatremia-slightly lower today with IV fluids. Clinically he does look dry. Recheck tomorrow. If further decline check urine sodium and osmolality to assess for the possibility of SIADH. History of TIA-continue Plavix. End-stage renal disease status post renal transplant-creatinine stable at 0.8. Continue current immunosuppressive regimen. Diabetes mellitus type 1-patient is currently managed with insulin pump. Glucose readings have improved throughout the day today. Continue to monitor with current settings. Hemoglobin A1c has been ordered as well. DVT prophylaxis-Lovenox Disposition-patient is full code status. He seems to have good support at his home where he lives with his . Will recommend PT and OT at this time see how he does in the coming days. Objective: Vital Signs Temp Pulse Resp BP Pulse Ox 36.2 C 66 18 121/55 H 97 03/14/18 16:00 03/14/18 16:00 03/14/18 16:00 03/14/18 16:00 03/14/18 16:00 ICD10 Worksheet Patient Problems: Problems Problem Status Onset Dehydration Acute History of kidney transplant Acute Urinary tract infection Acute Acute ischemic stroke Acute Altered mental status Acute C. difficile diarrhea Acute 10/13/14 DKA (diabetic ketoacidoses) Acute Diabetes mellitus type 1 Acute Fall Acute Fever Acute Leukocytosis Acute Periprosthetic fracture around internal prosthetic left hip joint Acute Rib fractures Acute
--- NOTE | 2018-03-14 17:42 | PDMN ---
Medical Necessity Medical necessity: Change to IP, as of 03/14/18, per MD & MCG M-300; los >2 mn for ongoing management of UTI w/encephalopathy; requiring ID consult, IV abx, IVFs & therapies; hx TIA on AC, ESRD, diabetes, metastatic squamous cell carcinoma; per progress note & order 03/14/18
[2018-03-14] MEDS: VANCOMYCIN 750 MG in D5W 150 ML IV SCH (18:36)
[2018-03-14] MEDS: SENNOSIDES 1 TAB PO SCH (22:09)
[2018-03-14] MEDS: NORTRIPTYLINE HCL 10 MG CAP PO SCH (22:09)
[2018-03-15] MEDS: VANCOMYCIN 750 MG in D5W 150 ML IV SCH ×2 (08:27→21:29)
[2018-03-15] MEDS: ENOXAPARIN 40 MG/0.4 ML SYR SC SCH (08:27)
[2018-03-15] MEDS: INSULIN LISPRO 100 UNIT/ML SC SCH ×3 (08:28→18:27)
[2018-03-15] MEDS: GABAPENTIN 300 MG CAP PO SCH ×2 (08:28→21:31)
[2018-03-15] MEDS: SODIUM BICARBONATE 650 MG TAB PO SCH ×2 (08:28→21:32)
[2018-03-15] MEDS: predniSONE 5 MG TAB PO SCH (08:28)
[2018-03-15] MEDS: TACROLIMUS ANHYDROUS 0.5 MG CAP PO SCH ×2 (08:28→08:32)
[2018-03-15] MEDS: CLOPIDOGREL BISULFATE 75 MG TAB PO SCH (08:28)
[2018-03-15] MEDS: PANTOPRAZOLE SODIUM 40 MG TAB PO SCH (08:30)
[2018-03-15] MEDS: PYRIDOXINE HCL 100 MG TAB PO SCH (08:30)
[2018-03-15] MEDS: CALCITRIOL 0.25 MCG CAP PO SCH (08:31)
[2018-03-15] MEDS: CHOLECALCIFEROL VIT D3 2,000 UNITS TAB/CAP PO SCH (08:31)
[2018-03-15] MEDS: MYCOPHENOLATE 360 MG PO SCH ×2 (08:33→21:34)
[2018-03-15] MEDS: CINACALCET HCL 30 MG TAB PO SCH (08:35)
[2018-03-15] MEDS: METOPROLOL TARTRATE 25 MG TAB PO SCH ×2 (08:35→21:32)
[2018-03-15] MEDS: POLYETHYLENE GLYCOL 3350 17 GM PKT PO SCH (09:39)
--- NOTE | 2018-03-15 13:51 | PCMIDPN ---
Assessment/Plan: Assessment/Plan: * Complicated UTI due to MRSA: Clinical presentation and lab findings consistent with complicated UTI due to MRSA. Patient has now been started on vancomycin. Will continue vancomycin with goal of transitioning to oral antibiotic therapy once improved unless blood cultures also show growth of MRSA. Will adjust to 1 g IV daily. Follow renal function carefully post renal transplantation with use of vancomycin. Side effects of vancomycin including potential for nephrotoxicity discussed with patient and daughter today. * Necrotic heel ulcer: Will need ongoing debridement and has continued follow- up with Dr. Rios. Doubt this is etiology for patient's presentation. Time spent, greater than 35 min, which greater than half was spent in education/ counseling/coordination of care with patient and family regarding complicated UTI due to MRSA and discussion of epidemiology/transmission of MRSA. 03/15/18 13:48 03/15/18 13:50 03/15/18 13:52 Subjective: Patient admitted with several days of confusion. This was associated with low- grade temperature. Some nausea but no vomiting or diarrhea. No urinary symptoms. Patient initially treated with empiric levofloxacin which has now been transition to vancomycin based on growth of MRSA in urine culture. Objective: Vital Signs Temp Pulse Resp BP Pulse Ox 36.6 C 73 12 117/34 L 97 03/15/18 11:23 03/15/18 11:23 03/15/18 11:23 03/15/18 11:23 03/15/18 11:23 03/14/18 03/15/18 03/16/18 05:59 05:59 05:59 Intake Total 100 Output Total 100 425 Balance 0 -425 Vancomycin # 1 Urine culture greater than 100,000 MRSA Blood cultures x2 no growth - Physical Exam General Appearance: no apparent distress, non-toxic, other (Fatigued appearance) EENT: dry mucous membranes, No thrush, No conjunctival petechiae Respiratory: lungs clear, No respiratory distress Cardiac/Chest: regular rate, rhythm Extremities: inflammation (Left heel with necrotic decubitus ulcer with foul odor) Abdomen: non-tender, No distended Skin: No embolic lesions ICD10 Worksheet Patient Problems: Problems Problem Status Onset Dehydration Acute History of kidney transplant Acute Urinary tract infection Acute Acute ischemic stroke Acute Altered mental status Acute C. difficile diarrhea Acute 10/13/14 DKA (diabetic ketoacidoses) Acute Diabetes mellitus type 1 Acute Fall Acute Fever Acute Leukocytosis Acute Periprosthetic fracture around internal prosthetic left hip joint Acute Rib fractures Acute
--- NOTE | 2018-03-15 15:20 | WOCRNPDOC ---
CHARI Advanced Assessment Note - Skin Integrity Problem, Advanced Assess Left Heel Pressure Injury Dressing Type: Allevyn Life Dressing Description: Intact, Saturated Exudate Amount: Moderate Exudate Color: Reddish/Yellow Exudate Characteristic(s): Purulent, Serosanguinous Integumentary Issue Intervention: Dressing Removed Kaitlin Wound Tissue: Blanching, Macerated (3 o'clock) Wound Bed Constitution: Granulation Tissue (40%), Adhered Slough (60%) Wound Edges: Attached Site Odor: Very Strong, Foul Site Measurement - Head-to-Toe Length X Width X Depth (cm): 5x7.5x0.5 Pressure Injury Stage: Unstageable Pressure Injury Present on Admit: Yes Skin Integrity Problem Comment: Dressing removed to heel to reveal a very moist wound bed. Very strong odor noticable prior to dressing removal. Slough is well adhered and soft, does not appear painful when probing with a q-tip. Moistened gauze with ns left on wound and wrapped with Kerlix. Discussed with Jodie SINGH and Nanci JACKSON orders to start 1/4 strength Dakin's wet to dry dressing BID. Wound care will round again on this wound on Thursday. Tiera RAZO in room for care. Right Proximal Thumb Dressing Type: Non-Bordered Foam Dressing Description: Intact, Shadowed Exudate Amount: Minimal Exudate Color: Yellow Exudate Characteristic(s): Serous Integumentary Issue Intervention: Visualized Under Dressing Kaitlin Wound Tissue: Blanching, Erythema Kaitlin Wound Swelling: None Wound Bed Color: [place], Yellow Wound Bed Constitution: Granulation Tissue (20%), Adhered Slough (80%), Draining Serous Blister Wound Edges: Epithelizing Site Odor: None Site Measurement - Head-to-Toe Length X Width X Depth (cm): 1x1x0.2 Skin Integrity Problem Comment: Full thickness wound on patient's right thumb. Patient states this was a blister that developed approximately one week ago. Patient says it is painful. Cleansed with NS. Will write orders for wound gel and a cover dressing. Wound care will not be rounding on this wound again. Tiera RAZO in room for care. Right Posterior Upper Back Pressure Injury Dressing Type: Band Aid Dressing Description: Intact, Shadowed Exudate Amount: Moderate Exudate Color: Yellow Exudate Characteristic(s): Purulent Integumentary Issue Intervention: Dressing Removed Kaitlin Wound Tissue: Blanching, Erythema Kaitlin Wound Swelling: None Wound Bed Color: Red, Yellow Wound Bed Constitution: Granulation Tissue (10%), Adhered Slough (90%) Wound Edges: Epithelizing Site Odor: None Site Measurement - Head-to-Toe Length X Width X Depth (cm): 1.2x1.2x0.2 Pressure Injury Stage: Stage 3 Pressure Injury Present on Admit: Yes Skin Integrity Problem Comment: Band-aid removed with moderate amount of purulent drainage noted on the dressing. Wound cleansed with NS. Wound does not appear infected. Will write orders for wound gel and Allevyn and institute pressure injury prevention measures. Will round again this week. Tiera XENIAON in room for care. Left Posterior Upper Back Pressure Injury Dressing Type: Open to Air Exudate Amount: None Kaitlin Wound Tissue: Blanching, Erythema, Painful/Tender Kaitlin Wound Swelling: None Wound Bed Color: Yellow Wound Bed Constitution: Adhered Slough Wound Edges: Scarred Site Measurement - Head-to-Toe Length X Width X Depth (cm): 0.5x0.5x0 Pressure Injury Stage: Unstageable Pressure Injury Present on Admit: Yes Skin Integrity Problem Comment: Reddened area that is painful for the patient. Prior pressure injury that was at one point larger as evidenced by scar tissue and unknown prior stage. Wound care will round again this week. Tiera CWON in room for care. Right Lateral Foot Dressing Type: Open to Air Exudate Amount: None Kaitlin Wound Tissue: Blanching Kaitlin Wound Swelling: None Wound Bed Color: Yellow Wound Bed Constitution: Adhered Slough Site Measurement - Head-to-Toe Length X Width X Depth (cm): 3.3x2x raised Skin Integrity Problem Comment: Area of what appears to be dried slough that is hard and raised. Wound care will not be rounding on this wound. Please reconsult PRN. Right Medial Heel Pressure Injury Dressing Type: Open to Air Exudate Amount: None Kaitlin Wound Tissue: Scaly, Dry Kaitlin Wound Swelling: None Wound Bed Color: Black, Brown Wound Bed Constitution: Stable Eschar (100%) Wound Edges: Attached Site Odor: None Site Measurement - Head-to-Toe Length X Width X Depth (cm): 0.8x0.8x eschar Pressure Injury Stage: Unstageable Pressure Injury Present on Admit: Yes Skin Integrity Problem Comment: Small area of stable eschar. Pressure injury of unknown stage. Wound is healing well. Will begin offloading measures with heel boots. Will not round on this wound. Please reconsult PRN. Left Anterior Frontal Head Dressing Type: Open to Air Exudate Amount: None Kaitlin Wound Tissue: Erythema Kaitlin Wound Swelling: None Wound Bed Constitution: Adhered Slough (100%) Site Odor: None Site Measurement - Head-to-Toe Length X Width X Depth (cm): 2.5x2.3x0.4 Skin Integrity Problem Comment: Wound is 100% dried slough. Patient states this wound has been present for quite some time and is from his cancer. Wound care will not round on this wound, please re-consult PRN. Tiera RAZO in room for care and is familiar with these chronic, long standing wounds from previous admissions. Patient noncompliant with dressing changes at home, will leave open to air. Medial Frontal Head Dressing Type: Open to Air Kaitlin Wound Tissue: Erythema Kaitlin Wound Swelling: None Wound Bed Color: Black Wound Bed Constitution: Stable Eschar Site Odor: None Site Measurement - Head-to-Toe Length X Width X Depth (cm): 1.5x1.5x raised Skin Integrity Problem Comment: Patient states this wound has been present for quite some time and is from his cancer. Wound care will not round on this wound , please re-consult PRN. Tiera RAZO in room for care.
--- NOTE | 2018-03-15 16:54 | HOSPPROG ---
Hospitalist Progress Note Assessment/Plan: Subjective Follow-up on encephalopathy and urinary tract infection. Patient again appears more alert and less confused today as compared to days prior. No complaints of any abdominal discomfort. I did review his case with the patient's daughter who was present in the hospital today. She had stated that the patient did have prior elevation of his creatinine with vancomycin in the past. I talked with the patient's primary joy loader Dr. Raman Cosby to make him aware of the patient's admission to the hospital and current status. Patient's nurse did talk to me today as well stating that they had difficulty in drawing blood for routine labs. We discussed obtaining a PICC line once his blood cultures have cleared. Objective Vital signs as detailed below Exam General-patient appears comfortable sitting upright in his bed having breakfast he is awake alert conversant no acute distress Heart-regular rate and rhythm no murmurs noted Lungs clear to auscultation with normal respiratory effort Abdomen soft nontender no suprapubic tenderness noted -no Peralta catheter in place Extremities no significant pitting edema Labs unable to be obtained today Assessment and plan Encephalopathy-suspecting secondary to underlying infection. He does seem to have gradual improvement by each day. Continue with speech therapy. The urinary tract infection-urine culture is showing methicillin-resistant Staph aureus. Antibiotic therapy was adjusted from Levaquin to vancomycin yesterday evening. I appreciate Dr. Frank assistance on the case as well. Await final blood culture results. If negative blood cultures and consider PICC line placement to assist with blood draws. Hyponatremia-this decreased slightly with IV fluids. He did look dry clinically initially when he 1st came in. Since his oral intake is improving today I will hold off on IV fluids for now. History of TIA-continue Plavix End-stage renal disease status post renal transplant-his renal transplant was approximately 10 years ago. His creatinine has been stable at 0.8. I have continued his outpatient immunosuppressive regimen. Diabetes mellitus type 1-currently managed with insulin pump I have ordered the order set for insulin pump to be used during this hospitalization. DVT prophylaxis-Lovenox Disposition patient is full code status he does seem to have good support at home where he lives with his and his daughter is quite involved in this care. Continue work with PT and OT. Objective: Vital Signs Temp Pulse Resp BP Pulse Ox 36.5 C 76 12 108/41 L 99 03/15/18 15:19 03/15/18 15:19 03/15/18 15:19 03/15/18 15:19 03/15/18 15:19 Laboratory Results 03/15/18 13:55 03/15/18 13:55 03/14/18 03/15/18 03/16/18 05:59 05:59 05:59 Intake Total 100 Output Total 100 425 Balance 0 -425 ICD10 Worksheet Patient Problems: Problems Problem Status Onset Dehydration Acute History of kidney transplant Acute Urinary tract infection Acute Acute ischemic stroke Acute Altered mental status Acute C. difficile diarrhea Acute 10/13/14 DKA (diabetic ketoacidoses) Acute Diabetes mellitus type 1 Acute Fall Acute Fever Acute Leukocytosis Acute Periprosthetic fracture around internal prosthetic left hip joint Acute Rib fractures Acute
[2018-03-15] MEDS: NS 1,000 ML IV SCH (17:25)
[2018-03-15] MEDS: NORTRIPTYLINE HCL 10 MG CAP PO SCH (21:31)
[2018-03-15] MEDS: SENNOSIDES 1 TAB PO SCH (21:32)
[2018-03-15] MEDS: SODIUM HYPOCHLORITE (DAKINS 1/4 STR) 473 ML BTL TP SCH (21:35)
[2018-03-16 05:28] LABS: PLATELET COUNT 404 10^3/uL (150-400)
[2018-03-16] MEDS: PYRIDOXINE HCL 100 MG TAB PO SCH (08:12)
[2018-03-16] MEDS: GABAPENTIN 300 MG CAP PO SCH (08:13)
[2018-03-16] MEDS: SODIUM BICARBONATE 650 MG TAB PO SCH (08:13)
[2018-03-16] MEDS: CALCITRIOL 0.25 MCG CAP PO SCH (08:13)
[2018-03-16] MEDS: predniSONE 5 MG TAB PO SCH (08:14)
[2018-03-16] MEDS: CLOPIDOGREL BISULFATE 75 MG TAB PO SCH (08:15)
[2018-03-16] MEDS: CHOLECALCIFEROL VIT D3 2,000 UNITS TAB/CAP PO SCH (08:17)
[2018-03-16] MEDS: CINACALCET HCL 30 MG TAB PO SCH (08:18)
[2018-03-16] MEDS: MYCOPHENOLATE 360 MG PO SCH (08:19)
[2018-03-16] MEDS: ENOXAPARIN 40 MG/0.4 ML SYR SC SCH (08:21)
[2018-03-16] MEDS: METOPROLOL TARTRATE 25 MG TAB PO SCH (08:23)
[2018-03-16] MEDS: POLYETHYLENE GLYCOL 3350 17 GM PKT PO SCH (08:24)
[2018-03-16] MEDS: INSULIN LISPRO 100 UNIT/ML SC SCH ×2 (08:31→12:57)
[2018-03-16] MEDS: PANTOPRAZOLE SODIUM 40 MG TAB PO SCH (08:32)
[2018-03-16] MEDS ORDERED: DOXYCYCLINE HYCLATE 100 MG CAP/TAB PO SCH (09:30)
[2018-03-16] MEDS: VANCOMYCIN 750 MG in D5W 150 ML IV SCH (09:36)
--- NOTE | 2018-03-16 09:40 | PCMIDPN ---
Assessment/Plan: Assessment/Plan: * Complicated UTI due to MRSA: Continued clinical improvement. No ongoing urinary symptoms. Patient's daughter notes that he has returned to his usual baseline. Given clinical improvement, will transition vancomycin to oral doxycycline to complete 10 total days of therapy. Favor this approach given rapid improvement and avoid potential nephrotoxicity post renal transplantation with ongoing vancomycin use. Discussed with patient side effects of doxycycline including risk of photosensitivity, esophagitis and need to avoid concomitant calcium intake. Will arrange for follow-up in my office after hospital discharge for continuing care. * Necrotic heel ulcer: Appears improved today with some residual necrotic slough posteriorly. Continue local wound care. 03/16/18 09:38 Subjective: Patient feels markedly improved. Patient's daughter notes that he has returned to usual baseline mental status. No other specific complaints other than he is eager to return home. Objective: Vital Signs Temp Pulse Resp BP Pulse Ox 36.3 C 78 18 143/47 H 92 03/16/18 07:46 03/16/18 08:23 03/16/18 07:46 03/16/18 08:23 03/16/18 07:46 Laboratory Results 03/16/18 05:10 03/16/18 05:10 03/15/18 03/16/18 03/17/18 05:59 05:59 05:59 Intake Total 100 1100 Output Total 100 876 Balance 0 224 Vancomycin # 2 Blood cultures x2 no growth Urine culture greater than 100,000 MRSA susceptible to tetracyclines - Physical Exam General Appearance: alert, no apparent distress EENT: other (Stable chronic wound from skin cancer over scalp), No conjunctival petechiae Respiratory: lungs clear, No respiratory distress Cardiac/Chest: regular rate, rhythm Extremities: inflammation (Left heel with decreased amount of necrotic eschar although present posteriorly with some foul odor; no surrounding cellulitis) Abdomen: non-tender, No distended Neuro/Psych: alert, No confused ICD10 Worksheet Patient Problems: Problems Problem Status Onset Dehydration Acute History of kidney transplant Acute Urinary tract infection Acute Acute ischemic stroke Acute Altered mental status Acute C. difficile diarrhea Acute 10/13/14 DKA (diabetic ketoacidoses) Acute Diabetes mellitus type 1 Acute Fall Acute Fever Acute Leukocytosis Acute Periprosthetic fracture around internal prosthetic left hip joint Acute Rib fractures Acute
[2018-03-16] MEDS: SODIUM HYPOCHLORITE (DAKINS 1/4 STR) 473 ML BTL TP SCH (10:15)
--- NOTE | 2018-03-16 10:40 | ASMTCMCOM ---
CM Note CM Note Notes: CM met w/ pt and Zo daughter for dispo planning. PT is recommending home w/ resumption of care w/ [facility] and private duty caregivers through [facility] during the day and [facility] during the evenings. OT is recommending SNF. Zo is interested in possibly having pt go to [facility]. Zo reports that [facility] would be her first choice. Pt has been to [facility] and [facility] before and had a negative experience. Referral and non triggering [facility] sent to [facility]. CM to follow. Plan: TBD Date Signed: 03/16/2018 10:40 AM Electronically Signed By:MERRITT Bishop
--- NOTE | 2018-03-16 14:20 | HOSPPROG ---
Hospitalist Progress Note Assessment/Plan: 72 yo M with hx of DM1, ESRD s/p renal tx presenting with AMS in the setting of complicated UTI # acute encephalopathy-suspecting secondary to underlying infection. Remains somnolent but when aroused he is appropriate and oriented, suspect this is not far from his usual baseline # MRSA UTI: complicated UTI, has been on vanco with plan to transition to doxycycline given his rapid improvement and concerns for renal toxicity on vanco , will complete total 10 day course # hyponatremia: pseudohyponatremia due to hyperglycemia # DM1: continued on insulin pump, sugars have been a bit elevated here and will recommend he continue to f/u for adjustment of his DM mgmt # hx of ESRD d/p renal tx: approximately 10 years ago, creatinine stable here, continued on immune suppressants # DVT ppx: LMWH # dispo: will dc home with home care as prior to admit Subjective: no significant overnight events, patient currently feeling a bit better, he remains quite weak Objective: Vital Signs Temp Pulse Resp BP Pulse Ox 36.4 C 90 18 131/53 H 95 03/16/18 12:00 03/16/18 12:00 03/16/18 12:00 03/16/18 12:00 03/16/18 12:00 Laboratory Results 03/16/18 05:10 03/16/18 05:10 03/15/18 03/16/18 03/17/18 05:59 05:59 05:59 Intake Total 100 1100 Output Total 100 876 Balance 0 224 somnolent arousable cataracts mmm rrr no mrg dec at bases, normal wob soft nt nd scattered wounds/scabs oriented but somnolent ICD10 Worksheet Patient Problems: Problems Problem Status Onset Dehydration Acute History of kidney transplant Acute Urinary tract infection Acute Acute ischemic stroke Acute Altered mental status Acute C. difficile diarrhea Acute 10/13/14 DKA (diabetic ketoacidoses) Acute Diabetes mellitus type 1 Acute Fall Acute Fever Acute Leukocytosis Acute Periprosthetic fracture around internal prosthetic left hip joint Acute Rib fractures Acute
--- NOTE | 2018-03-16 14:30 | ASMTDCNOTE ---
Case Management Discharge Discharge Order Complete? Answers: Yes Patient to Obtain Answers: via [facility] Transportation Arranged Answers: Family/Friends EMTALA Complete Answers: No Case Management Transport Answers: No Form Complete Faxed Final Orders Answers: Yes Agency/Facility Transfer Answers: Yes Report Printed & Faxed to Receiving Agency Family Notified Answers: Yes Discharge Comments Notes: CM spoke to Dr. Valerio regarding d/c POC. Pt is being discharged today. Pt has been denied at [facility]. Zo is good w/ having pt home w/ skilled HC and private duty caregivers. DC orders sent to [facility]. CM available for changes. Plan: Family ; PT, OT, RN, SW and 24hr private duty caregivers Date Signed: 03/16/2018 02:29 PM Electronically Signed By:MERRITT Bishop
--- NOTE | 2018-03-16 14:45 | PDDCSUM ---
Discharge Summary Discharge Summary: Dates of service 03/13-03/16/18 Consultations: infectious disease Procedures performed: head CT Hospital course by problem: 72 yo M with hx of DM1, ESRD s/p renal tx presenting with AMS in the setting of complicated UTI # acute encephalopathy-suspecting secondary to underlying infection. Remains somnolent but when aroused he is appropriate and oriented, this is near his usual baseline # MRSA UTI: complicated UTI, has been on vanco with plan to transition to doxycycline given his rapid improvement and concerns for renal toxicity on vanco , will complete total 10 day course # hyponatremia: pseudohyponatremia due to hyperglycemia # DM1: continued on insulin pump, sugars have been a bit elevated here and will recommend he continue to f/u for adjustment of his DM mgmt # hx of ESRD d/p renal tx: approximately 10 years ago, creatinine stable here, continued on immune suppressants dc home with home health > 35 min spent in dc more than half in coordination of care
--- NOTE | 2018-03-16 14:52 | ASDISCHSUM ---
Discharge Information Plan Status:Home with Home Health Medically Cleared to Leave:03/16/2018 Discharge Date:03/16/2018 CM D/C Disposition:[facility] D/C Disposition:[id number] Projected Discharge Date:03/16/2018 11:00 AM Transportation at D/C: Discharge Delay Reason: Follow-Up Date:03/16/2018 11:00 AM Discharge Slot: Final Diagnosis:UTI, Dehydration Placement Information Referral Type:*Home Health Care Services [id number] Provider Name:[facility] Address 1:[address] [address] Address 2: City:[place] Selection Factors: State:[place] Referral Type:*Detention/SNF Referral ID:[id number] Provider Name: Address 1: Phone Number: Address 2: Fax Number: City: Selection Factors: State: Patient Contact Information Contact Name:MICKY Relationship:Daughter Address: City:[place] Alternate Phone: State/Zip Code:[place] Email: Financial Information Financial Class:Medicare Primary Plan Desc:MEDICARE INPATIENT Primary Plan Number:[id number] Secondary Plan Desc:[employer]AN Secondary Plan Number:[id number] Assessment Information LACE LACE Length of stay for Answers: 3 days current admission Acuity / Level of Answers: Yes Care: Did the patient have an inpatient admission? Comorbidities - select Answers: Diabetes (uncontrolled or all that apply controlled) Moderate or severe liver or renal disease Other Notes: Cdiff, recent head inju ry # of Emergency department Answers: 9-12 visits in the last 6 months Score: 17 Date Signed: 03/16/2018 02:49 PM Electronically Signed By:MERRITT Bishop [facility] Progress Note CM Note CM Note Notes: Pt presented to the Emergency Department for increasing weakness, confusion, poor appetite. Pt has a history of a foot ulcer, kidney transplant, metastatic squamous cell carcinoma. Pt admitted for further evaluation and treatment of dehydration, and a urinary tract infection. The pt has had multiple visits to [facility] this year. The pt lives alone. His dghtr in [place] is listed as his emergency contact. Discharge needs remain unclear at this time. CM will continue to follow. Current Discharge Plan: To be determined Date Signed: 03/13/2018 03:40 PM Electronically Signed By:Koki Bergeron RN [facility] Progress Note CM Note CM Note Notes: Spoke to patient's daughter, Zo[facility] [phone]. She reports that [facility] is involved w/skilled and 24hr care for her parents. She would like Family to continue working with them on patient's discharge. Date Signed: 03/14/2018 02:59 PM Electronically Signed By:Sonal Guillory LCSW [facility] Progress Note CM Note CM Note Notes: CM met w/ pt and Zo daughter for dispo planning. PT is recommending home w/ resumption of care w/ [facility] and private duty caregivers through [facility] during the day and [facility] during the evenings. OT is recommending SNF. Zo is interested in possibly having pt go to [facility]. Zo reports that [facility] would be her first choice. Pt has been to [facility] and [facility] before and had a negative experience. Referral and non triggering PASRR sent to [facility]. CM to follow. Plan: TBD Date Signed: 03/16/2018 10:40 AM Electronically Signed By:MERRITT Bishop Case Management Discharge Plan Note Case Management Discharge Discharge Order Complete? Answers: Yes Patient to Obtain Answers: via Family Medications Transportation Arranged Answers: Family/Friends EMTALA Complete Answers: No Case Management Transport Answers: No Form Complete Faxed Final Orders Answers: Yes Agency/Facility Transfer Answers: Yes Report Printed & Faxed to Receiving Agency Family Notified Answers: Yes Discharge Comments Notes: CM spoke to Dr. Valerio regarding d/c POC. Pt is being discharged today. Pt has been denied at [facility]. Zo is good w/ having pt home w/ skilled HC and private duty caregivers. DC orders sent to Family . CM available for changes. Plan: Family ; PT, OT, RN, SW and 24hr private duty caregivers Date Signed: 03/16/2018 02:29 PM Electronically Signed By:MERRITT Bishop Intervention Information
[2018-03-16 16:24] VITALS: BP 123/50
--- NOTE | 2018-03-17 10:54 | PDIAF ---
- Diagnosis Code Status: Full Code - Medication Management Discharge Medications: Medications to Continue on Transfer Calcitriol [Calcitriol (*)] 0.25 mcg PO MOTUWETHFR@09 12/10/17 [Last Taken 03/12] Carboxymethylcellulose 0.5% [Refresh Plus Drops 0.5%] 1 drops EACHEYE DAILY PRN 12/10/17 [Last Taken Unknown] Cholecalciferol Vit D3 [Vitamin D3 2000 units tab (OTC)] 2,000 units PO DAILY [Last Taken 03/13/18] Cinacalcet HCl [Sensipar (*)] 30 mg PO DAILY 12/10/17 [Last Taken 03/13/18] Clopidogrel Bisulfate [Plavix] 75 mg PO DAILY 12/10/17 [Last Taken 03/13/18] Esomeprazole Magnesium [Nexium] 40 mg PO DAILY 12/10/17 [Last Taken 03/13/18] Gabapentin [Neurontin 300 MG (*)] 300 mg PO BID 12/10/17 [Last Taken 03/13/18 09 :00] Insulin Lispro [Humalog] 4 unit SQ AC 12/10/17 [Last Taken Unknown] Insulin Pump, Patient Own 1 ea MISC AD 12/10/17 [Last Taken Unknown] Metoprolol Tartrate [Lopressor 25 mg (*)] 12.5 mg PO BID 12/10/17 [Last Taken 09:00] Mycophenolate Sodium [Myfortic] 360 mg PO BID 12/10/17 [Last Taken 03/13/18 09: 00] Nortriptyline HCl [Pamelor 10 mg (*)] 40 mg PO HS 12/10/17 [Last Taken 03/12/18] Ondansetron Odt [Zofran Odt 4 mg (*)] 4 mg PO Q4 PRN 12/10/17 [Last Taken Unknown] Oxycodone HCl 5 - 10 mg PO Q4 PRN 12/10/17 [Last Taken Unknown] Pyridoxine HCl [Vitamin B-6 100 mg (*)] 100 mg PO DAILY 12/10/17 [Last Taken 03/24] Sodium Bicarbonate [Na Bicarb] 650 mg PO BID 12/10/17 [Last Taken 03/13/18 09:00 ] Tacrolimus 0.5 mg PO DAILY 12/10/17 [Last Taken 03/13/18] predniSONE [Prednisone] 7.5 mg PO DAILY 12/10/17 [Last Taken 03/13/18] Acetaminophen [Tylenol 325mg (*)] 650 mg PO Q4HRS PRN tab 12/12/17 [Last Taken Unknown] Doxycycline Hyclate [Vibramycin 100 MG (*)] 100 mg PO BID #16 capsule 03/16/18 [ Last Taken Unknown] Polyethylene Glycol 3350 [Miralax 17 gm (*)] 17 gm PO DAILY pkt 03/16/18 [Last Taken Unknown] Sennosides [Senokot] 2 tab PO HS tab 03/16/18 [Last Taken Unknown] Discharge Medications: Refer to the Discharge Home Medication list for PRN reason. - Orders Services needed: Home Care, Registered Nurse, Certified Diesel Power Shovel Operator, Physical Therapy, Occupational Therapy, Speech Language Pathologist Home Care Face to Face: I certify that this patient was under my care and that I had the required [id number] encounter meeting the encounter requirements on the discharge day. My findings support the fact that the patient is homebound as defined in Home Care Face to Face Continued: CMS Chapter 7 Medicare Benefits Manual 30.1.1 , The condition of the patient is such that there exists a normal inability to leave home and consequently, leaving home would require a considerable and taxing effort. Isolation Type: Contact Isolation Diet Recommendation: no restrictions on diet Additional Instructions: Wound care orders For blister at base of thumb on right hand, change Q2D and PRN 1. Cleanse wound with NS. 2. Apply skin prep to periwound 3. Apply a small amount of wound gel to wound bed 4. Cover with a small piece of non-bordered foam 5. Secure with netting [place] right heel wound with betadine BID Change dressing to left heel wound BID and prn. 1. Flush wound well with ns and try to clean as aggressively as patient will allow to get off the yellow slough. 2. Skin prep radha wound extensively to 3 cm past wound edges. 3. Soak 4x4 gauze with strength Dakins solution (Sodium Hypoclorite solution that is supplied by pharmacy) and wring out. Lay gauze over all open wounds. Please lay the 4x4 gauze flat on the wound to not cause pressure on the wound. Dont overlap onto intact skin. 4. Cover with dry gauze and secure with Kerlix. 5. Use heel boot if patient is sitting or in bed. Change dressings to left & right upper back every 2 days and prn. 1. Clean with ns and gauze 2. Skin prep radha wound 3. Wound gel to wound bed 4. Cover with Allevyn Life - Follow Up Care Current Providers and Referrals: Long Vera MD [Primary Care Provider] - As per Instructions
== END 2018-03-16 16:44 | disposition home health service (06) | DRG 689 ==
LOC: F3E 13:18 → OBSVTOIN 03-14 16:15
PROVIDERS: ADMIT Internal Medicine; ATTEND Internal Medicine
DX: N39.0 Urinary tract infection, site not specified (principal); G93.41 Metabolic encephalopathy; Z94.0 Kidney transplant status; E87.1 Hypo-osmolality and hyponatremia; L89.113 Pressure ulcer of right upper back, stage 3; E86.0 Dehydration; E10.9 Type 1 diabetes mellitus without complications; B95.61 Methicillin susceptible Staphylococcus aureus infection as the cause of diseases classified elsewhere; L89.620 Pressure ulcer of left heel, unstageable; L89.120 Pressure ulcer of left upper back, unstageable; L89.610 Pressure ulcer of right heel, unstageable; Z85.828 Personal history of other malignant neoplasm of skin; Z86.73 Personal history of transient ischemic attack (TIA), and cerebral infarction without residual deficits; Z96.41 Presence of insulin pump (external) (internal)
CPT/HCPCS: 92523-GN; 96365; 97110-GO; 97161-GP; 97166-GO; 97530-GP; G0378; G8978-GP-CL; G8979-GP-CJ; G8987-GO-CL; G8988-GO-CJ; G9168-GN-CK; G9169-GN-CJ; J1650; J1815; J1956; J2550; J3370; J7512

== ENCOUNTER 2018-05-11 17:29 | Inpatient (IN) | payer OTHER, BC ==
[2018-05-11] MEDS ORDERED: NS 1,900 ML IV ONE (17:51)
--- NOTE | 2018-05-11 17:56 | EDPHY ---
H & P Stated Complaint: uti/not responsive to abx/hyperglycemia/diabetic ulcer to l foot Time Seen by Provider: 05/11/18 17:42 HPI/ROS: CHIEF COMPLAINT: Lethargy, confusion HISTORY OF PRESENT ILLNESS: The patient is a 72-year-old poorly controlled diabetic who's daughter brings him to the emergency department for lethargy and confusion. He has recently battled chronic urinary tract infections. 2 months ago he had a MRSA UTI treated with doxycycline. He began to have symptoms again last week and was initially started on doxycycline but cultures came back 2 days ago positive for enterococcus faecalis and he was switched to oral Levaquin on May 08. The the urine culture reveals sensitivity to this. 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 They noticed a increased discharge and foul smell beginning yesterday at his wound change. The patient was hypotensive here triage. His daughter also reports that his glucose was 400 today. Severity: Severe Modifying factors: None REVIEW OF SYSTEMS: Constitutional: denies: chills, fever, recent illness, recent injury EENTM: denies: blurred vision, double vision, nose congestion Respiratory: denies: cough, shortness of breath Cardiac: denies: chest pain, irregular heart rate, lightheadedness, palpitations Gastrointestinal/Abdominal: denies: abdominal pain, diarrhea, nausea, vomiting, blood streaked stools Genitourinary: denies: dysuria, frequency, hematuria, pain Musculoskeletal: denies: joint pain, muscle pain Skin: denies: lesions, rash, jaundice, bruising Neurological: denies: headache, numbness, paresthesia, tingling, dizziness, weakness Hematologic/Lymphatic: denies: blood clots, easy bleeding, easy bruising Immunologic/allergic: denies: HIV/AIDS, transplant 10 systems reviewed and negative except as noted EXAM: GENERAL: Alert, thin and in no acute distress. HEAD: Atraumatic, normocephalic. Chronic wounds EYES: Pupils equal round and reactive to light, extraocular movements intact, sclera anicteric, conjunctiva are normal. ENT: TMs normal, nares patent, oropharynx clear without exudates. Moist mucous quite dry. NECK: Normal range of motion, supple without lymphadenopathy or JVD. LUNGS: Breath sounds clear to auscultation bilaterally and equal. No wheezes rales or rhonchi. HEART: Regular rate and rhythm without murmurs, rubs or gallops. ABDOMEN: Soft, nontender, normoactive bowel sounds. No guarding, no rebound. No masses appreciated. BACK: No CVA tenderness, no spinal tenderness, step-offs or deformities EXTREMITIES: Multiple toe amputations, multiple chronic wounds. Normal range of motion, no pitting or edema. No clubbing or cyanosis. NEUROLOGICAL: Cranial nerves II through XII grossly intact. Normal speech, normal gait. 5/5 strength, normal movement in all extremities, normal sensation , normal reflexes PSYCH: Normal mood, normal affect. SKIN: Chronic wound left heel that is foul smelling and has whitish discharge. Flaky skin Source: Patient Exam Limitations: No limitations - Personal History Current Tetanus Diphtheria and Acellular Pertussis (TDAP): Yes Tetanus Vaccine Date: 2008 - Medical/Surgical History Hx Asthma: No Hx Chronic Respiratory Disease: No Hx Diabetes: Yes Hx Cardiac Disease: No Hx Renal Disease: Yes Hx Cirrhosis: No Hx Alcoholism: No Hx HIV/AIDS: No Hx Splenectomy or Spleen Trauma: No Other PMH: kidney transplant SKIN CA EYE SURGERIES ORTHO SURG. femur fract. jun 2018 APPY TONSILECTOMY, DIABETES TYPE 1, NEUROPATHY, insulin pump. chronic pain, HX OF CDIFF FROM 10/2014, chronic wound right heel, multiple foot partial amputations - Family History Significant Family History: No pertinent family hx - Social History Smoking Status: Former smoker Alcohol Use: Sober Drug Use: None Constitutional: Initial Vital Signs Temperature (C) 36.5 C 05/11/18 17:36 Heart Rate 79 05/11/18 17:36 Respiratory Rate 18 05/11/18 17:36 Blood Pressure 85/55 L 05/11/18 17:36 O2 Sat (%) 96 05/11/18 17:36 O2 Delivery Mode Room Air Allergies/Adverse Reactions: Cephalosporins Allergy (Severe, Verified 05/11/18 21:51) Cleve Pravin Syndrome Penicillins Allergy (Intermediate, Verified 05/11/18 21:51) Hives codeine Allergy (Unknown, Verified 05/11/18 21:51) Home Medications: Medication Instructions Recorded Calcitriol [Calcitriol (*)] 0.25 mcg PO MOWEFR 12/10/17 Carboxymethylcellulose 0.5% 1 drops EACHEYE DAILY PRN 12/10/17 [Refresh Plus Drops 0.5%] Cholecalciferol Vit D3 [Vitamin D3 2,000 units PO DAILY 12/10/17 2000 units tab (OTC)] Cinacalcet HCl [Sensipar (*)] 30 mg PO DAILY 12/10/17 Clopidogrel Bisulfate [Plavix] 75 mg PO DAILY 12/10/17 Esomeprazole Magnesium [Nexium] 40 mg PO DAILY 12/10/17 Gabapentin [Neurontin 300 MG (*)] 300 mg PO BID 12/10/17 Insulin Lispro [Humalog] 4 unit SQ AC 12/10/17 Insulin Pump, Patient Own 1 ea MISC AD 12/10/17 Metoprolol Tartrate [Lopressor 25 12.5 mg PO BID 12/10/17 mg (*)] Mycophenolate Sodium [Myfortic] 360 mg PO BID 12/10/17 Nortriptyline HCl [Pamelor 10 mg 40 mg PO HS 12/10/17 (*)] Ondansetron Odt [Zofran Odt 4 mg 4 mg PO Q4 PRN 12/10/17 (*)] Oxycodone HCl 5 - 10 mg PO Q4 PRN 12/10/17 Pyridoxine HCl [Vitamin B-6 100 mg 100 mg PO DAILY 12/10/17 (*)] Sodium Bicarbonate [Na Bicarb] 325 mg PO BID 12/10/17 Tacrolimus 0.5 mg PO DAILY 12/10/17 predniSONE [Prednisone] 7.5 mg PO DAILY 12/10/17 Acetaminophen [Tylenol 325mg (*)] 650 mg PO Q4HRS PRN tab 12/12/17 Herbals/Supplements -Info Only 1 ea PO DAILY 05/11/18 Polyethylene Glycol 3350 [Miralax 17 gm PO DAILY PRN 05/11/18 17 gm (*)] Sennosides [Senokot] 2 tab PO HS PRN 05/11/18 levOFLOXACIN [levAQUIN (*)] 500 mg PO DAILY 05/11/18 Medical Decision Making ED Course/Re-evaluation: I will initiate a sepsis workup and also check for DKA. The patient clinically is very dehydrated with dry tongue. I spoke with Lynne Rose who is on-call for ID. She recommends discontinuing the Levaquin and starting vancomycin and aztreonam. She states that that Levaquin could be responsible for mental status changes as well. We are rechecking the patient's blood pressure. Diffuse hypotensive will place a central line. Patient's initial blood pressure was low at triage but since then every reading has actually been hypertensive. He is receiving IV fluids for clinical dehydration and will admit for altered mental status and likely sepsis. His lactic acid is not significantly elevated. 7:00 p.m. I discussed the case with Dr. Mao who will admit to the medical service. Differential Diagnosis: Partial list of the Differential diagnosis considered include but were not limited to; sepsis, wound infection, urinary tract infection medication reaction, dehydration, electrolyte abnormality and although unlikely based on the history and physical exam, I also considered hemorrhage, CVA. Critical Care Time: Critical care time spent by me, Dr. Ashby exclusive with this patient was 35 minutes, exclusive of the PA time exclusive of procedures. The organ system that was at risk was cardiovascular and I gave IV fluids, medication, consultation and admission to prevent worsening of the patient's condition - Data Points Laboratory Results: Laboratory Results 05/11/18 18:15 05/11/18 18:15 05/11/18 05/11/18 05/11/18 18:55 18:15 18:15 WBC 10.53 10^3/uL H 10^3/uL (3.80-9.50) RBC 4.06 10^6/uL L 10^6/uL (4.40-6.38) Hgb 10.5 g/dL L g/dL (13.7-17.5) Hct 33.4 % L % (40.0-51.0) MCV 82.3 fL fL (81.5-99.8) MCH 25.9 pg L pg (27.9-34.1) MCHC 31.4 g/dL L g/dL (32.4-36.7) RDW 17.4 % H % (11.5-15.2) Plt Count 371 10^3/uL 10^3/uL (150-400) MPV 9.4 fL fL (8.7-11.7) Neut % (Auto) 86.9 % H % (39.3-74.2) Lymph % (Auto) 6.5 % L % (15.0-45.0) Comal % (Auto) 5.8 % % (4.5-13.0) Eos % (Auto) 0.1 % L % (0.6-7.6) Baso % (Auto) 0.1 % L % (0.3-1.7) Nucleat RBC Rel Count 0.0 % % (0.0-0.2) Absolute Neuts (auto) 9.16 10^3/uL H 10^3/uL (1.70-6.50) Absolute Lymphs (auto) 0.68 10^3/uL L 10^3/uL (1.00-3.00) Absolute Monos (auto) 0.61 10^3/uL 10^3/uL (0.30-0.80) Absolute Eos (auto) 0.01 10^3/uL L 10^3/uL (0.03-0.40) Absolute Basos (auto) 0.01 10^3/uL L 10^3/uL (0.02-0.10) Absolute Nucleated RBC 0.00 10^3/uL 10^3/uL (0-0.01) Immature Gran % 0.6 % % (0.0-1.1) Immature Gran # 0.06 10^3/uL 10^3/uL (0.00-0.10) PT 13.4 SEC SEC (12.0-15.0) INR 1.00 (0.83-1.16) APTT 29.8 SEC SEC (23.0-38.0) Puncture Site Patient Temperature VBG pH VBG HCO3 VBG Total CO2 VBG O2 Saturation VBG Base Excess VBG Lactic Acid Mixed VBG pCO2 Mixed VBG pO2 Sodium Potassium Chloride Carbon Dioxide Anion Gap BUN Creatinine Estimated GFR Glucose Calcium Total Bilirubin Beta-Hydroxybutyrate Urine Color YELLOW Urine Appearance CLEAR Urine pH 6.0 (5.0-7.5) Ur Specific Strang 1.017 (1.002-1.030) Urine Protein NEGATIVE (NEGATIVE) Urine Ketones NEGATIVE (NEGATIVE) Urine Blood NEGATIVE (NEGATIVE) Urine Nitrate NEGATIVE (NEGATIVE) Urine Bilirubin NEGATIVE (NEGATIVE) Urine Urobilinogen NEGATIVE EU EU (0.2-1.0) Ur Leukocyte Esterase TRACE H (NEGATIVE) Urine RBC 1-3 /hpf /hpf (0-3) Urine WBC 15-25 /hpf H /hpf (0-3) Ur Epithelial Cells NONE SEEN /lpf /lpf (NONE-1+) Urine Glucose 2+ H (NEGATIVE) 05/11/18 05/11/18 18:15 18:15 WBC RBC Hgb Hct MCV MCH MCHC RDW Plt Count MPV Neut % (Auto) Lymph % (Auto) Comal % (Auto) Eos % (Auto) Baso % (Auto) Nucleat RBC Rel Count Absolute Neuts (auto) Absolute Lymphs (auto) Absolute Monos (auto) Absolute Eos (auto) Absolute Basos (auto) Absolute Nucleated RBC Immature Gran % Immature Gran # PT INR APTT Puncture Site NONE GIVEN Patient Temperature 37.0 DEGREES DEGREES VBG pH 7.40 (7.31-7.42) VBG HCO3 26 mEQ/L mEQ/L (22-26) VBG Total CO2 27 mEq/L mEq/L (21-27) VBG O2 Saturation 91 % H % (65-75) VBG Base Excess 1.1 mEq/L mEq/L (-2.5-2.5) VBG Lactic Acid 1.5 mmol/L mmol/L (0.7-2.1) Mixed VBG pCO2 42 mmHg mmHg (40-44) Mixed VBG pO2 67 mmHG H mmHG (35-40) Sodium 132 mEq/L L mEq/L (135-145) Potassium 5.1 mEq/L H mEq/L (3.3-5.0) Chloride 97 mEq/L mEq/L (97-110) Carbon Dioxide 25 mEq/l mEq/l (22-31) Anion Gap 10 mEq/L mEq/L (8-16) BUN 36 mg/dL H mg/dL (7-23) Creatinine 0.9 mg/dL mg/dL (0.7-1.3) Estimated GFR > 60 Glucose 284 mg/dL H mg/dL (70-100) Calcium 8.3 mg/dL L mg/dL (8.5-10.4) Total Bilirubin 0.5 mg/dL mg/dL (0.1-1.4) Beta-Hydroxybutyrate 0.54 mmol/L H mmol/L (0.02-0.27) Urine Color Urine Appearance Urine pH Ur Specific Strang Urine Protein Urine Ketones Urine Blood Urine Nitrate Urine Bilirubin Urine Urobilinogen Ur Leukocyte Esterase Urine RBC Urine WBC Ur Epithelial Cells Urine Glucose Microbiology Results: MICROBIOLOGY 05/11/18 17:50 Foot - Anaerobic Tube/Swab Gram Stain - Final Medications Given: Discontinued Medications Sodium Chloride (Ns) 1,900 mls @ 3,800 mls/hr 30 ml/kg infuse over 30 min ( 1900 ml) IV EDNOW ONE PRN Reason: Protocol Stop: 05/11/18 18:20 Last Admin: 05/11/18 18:19 Dose: 1,900 mls Aztreonam 1 gm/ Sodium (Chloride) 60 mls @ 60 mls/hr IV ONCE ONE PRN Reason: Protocol Stop: 05/11/18 18:58 Last Admin: 05/11/18 19:41 Dose: 60 mls Vancomycin/Sodium Chloride (Vancomycin 1 Gm (Premix)) 250 mls @ 250 mls/hr IV EDNOW ONE PRN Reason: Protocol Stop: 05/11/18 18:58 Last Admin: 05/11/18 18:30 Dose: 250 mls Departure - Departure Disposition: [facility] Inpatient Acute Clinical Impression: Generalized weakness, Wound infection Sepsis Qualifiers: Sepsis type: sepsis due to unspecified organism Qualified Code(s): A41.9 - Sepsis, unspecified organism Condition: Fair
[2018-05-11] MEDS ORDERED: AZTREONAM 1 GM in NS 50 ML IV ONE (17:59)
[2018-05-11] MEDS ORDERED: VANCOMYCIN HCL/NORMAL SALINE 250 ML IV ONE (17:59)
[2018-05-11 18:31] LABS: PLATELET COUNT 371 10^3/uL (150-400)
[2018-05-11 18:37] LABS: PROTIME(PATIENT) 13.4 SEC (12.0-15.0)
[2018-05-11] MEDS ORDERED: oxyCODONE IR 5 MG TAB PO PRN (21:56)
[2018-05-11] MEDS ORDERED: SENNOSIDES 1 TAB PO PRN (21:56)
[2018-05-11] MEDS ORDERED: ONDANSETRON DISINTEGRATING 4 MG TAB PO PRN (21:56)
[2018-05-11] MEDS ORDERED: POLYETHYLENE GLYCOL 3350 17 GM PKT PO PRN (21:56)
[2018-05-11] MEDS ORDERED: CARBOXYMETHYLCELLULOSE 0.5% 0.4 ML DROPERETTE EACHEYE PRN (21:56)
[2018-05-11] MEDS ORDERED: ACETAMINOPHEN 325 MG TAB PO PRN (21:56)
--- NOTE | 2018-05-11 22:10 | GHP ---
DATE OF ADMISSION: 05/11/2018 CHIEF COMPLAINT: Shaking chills and confusion. HISTORY OF PRESENT ILLNESS: This is a 72-year-old male with history of multiple medical problems, mckay moreno admitted to the hospital, 03/13/2018, for altered mental status thought to be due to delirium from an infectious process. He presents today with recurrent confusion and chills. The patient was brou ght in by his daughter who tells me that he has had shaking chills all day. He has been very confuse d. His blood sugars have been in the 400s. He has been compliant with his home medications but his sugars have been high. The patient was recently started on levofloxacin for enterococcal urinary tract infection, diagnosed on culture on May 08. The patient has also been noted to have some draining from his left jocelyn l wound that has been more malodorous than usual. The wound has been present for about a year, and laurel mark sees Dr. Ramirez at the wound clinic for this. During the time of this dictation, I am unable to access his chart in [facility] or write orders. Hist ory was obtained via ER and patient report. PAST MEDICAL HISTORY: 1. TIA. 2. End-stage renal disease, status post renal transplant, 2007. 3. Type 1 diabetes, with insulin pump, with retinopathy, nephropathy, and neuropathy. 4. Metastatic squamous cell carcinoma, status post radiation treatment and resection. 5. History of C diff colitis. 6. History of MRSA bacteremia. PAST SURGICAL HISTORY: Appendectomy, tonsillectomy, renal transplant, left upper extremity AV fistul a. HOME MEDICATIONS: Unobtainable at the time of this dictation. ALLERGIES: Cephalosporin which caused Lopez-Pravin syndrome, penicillin, and codeine. SOCIAL HISTORY: He is and lives with his . He is a former smoker. FAMILY HISTORY: Mother and father are . REVIEW OF SYSTEMS: Comprehensive 10-point review of systems was done and is negative, except for as mentioned in the HPI. PHYSICAL EXAM: VITAL SIGNS: Blood pressure 155/93, pulse 73, respiratory rate 16, O2 saturation was in the mid 90s on room air. Temperature 36.4. GENERAL: Ill appearing. HEENT: Head normocephalic , atraumatic. Mouth with moist mucous membranes. NECK: Supple. No lymphadenopathy. CARDIOVASCULA R: S1, S2. No JVD. No lower extremity edema. PULMONARY: Lungs are clear. No wheezes, rales, or rhonchi. ABDOMEN: Soft, nontender, nondistended. No guarding or rebound tenderness. Normoactive b owel sounds. EXTREMITIES: No clubbing or cyanosis. There are multiple amputated digits from both f eet. NEURO: Cranial nerves 2-12 grossly intact. Moves all extremities. SKIN: Ulcerative lesions on scalp. There is a weeping open ulcer, left heel. DIAGNOSTICS: WBC is 10.5, hemoglobin 10.5, hematocrit 33.4, platelets 371. Sodium 132, potassium 5. 1, chloride 97, CO2 is 25, BUN 36, creatinine 0.9, glucose 284. UA shows trace leukocytes. Urine culture, from 05/08/2018, was reviewed showing enterococcus, sensit law to everything but tetracycline. ASSESSMENT AND PLAN: This is a 72-year-old male with multiple medical problems, as detailed above pr esenting with: 1. Acute encephalopathy with concerns for sepsis: Possible etiologies include enterococcus from a u rinary source versus infected diabetic foot infection. a. Plan: Dr. Ashby discussed the case with Dr. Rose, who is plastic and reconstructive surgeon for Infectious Disease. He recommended starting IV vancomycin and aztreonam, which has been started. We will obtain a sediment ation rate, and x-ray his left foot. We will order a Wound Care consult as well as consult Infectiou s Disease in the morning. 2. History of metastatic squamous cell carcinoma. 3. History of end-stage renal disease, status post transplant. a. Plan: Continue anti-rejection medications. 4. Deep venous thrombosis prophylaxis: The patient will be started on heparin. 5. He requests to be full code status. /[id number]
[2018-05-11] MEDS: MYCOPHENOLATE SODIUM 360 MG PO SCH (23:10)
[2018-05-12 05:09] LABS: PLATELET COUNT 309 10^3/uL (150-400)
[2018-05-12] MEDS ORDERED: AZTREONAM 1 GM in NS 50 ML IV SCH (07:30)
[2018-05-12] MEDS ORDERED: MYCOPHENOLATE SODIUM 180 MG TAB.DR PO SCH (09:00)
[2018-05-12] MEDS ORDERED: Herbals/Supplements -Info Only PO SCH (09:00)
[2018-05-12] MEDS: INSULIN LISPRO 100 UNIT/ML SC SCH ×5 (09:52→18:21)
[2018-05-12] MEDS: VANCOMYCIN 750 MG in D5W 150 ML IV SCH ×2 (09:54→21:26)
[2018-05-12] MEDS: CALCITRIOL 0.25 MCG CAP PO SCH (10:04)
[2018-05-12] MEDS: CHOLECALCIFEROL VIT D3 2,000 UNITS TAB/CAP PO SCH (10:05)
[2018-05-12] MEDS: CINACALCET HCL 30 MG TAB PO SCH (10:06)
[2018-05-12] MEDS: CLOPIDOGREL BISULFATE 75 MG TAB PO SCH (10:07)
[2018-05-12] MEDS: GABAPENTIN 300 MG CAP PO SCH ×2 (10:07→21:25)
[2018-05-12] MEDS: HEPARIN 5,000 UNIT/0.5 ML INJ SC SCH ×2 (10:07→21:25)
[2018-05-12] MEDS: METOPROLOL TARTRATE 25 MG TAB PO SCH ×2 (10:08→21:25)
[2018-05-12] MEDS: MYCOPHENOLATE SODIUM 360 MG PO SCH ×2 (10:17→21:26)
[2018-05-12] MEDS: PANTOPRAZOLE SODIUM 40 MG TAB PO SCH (10:18)
[2018-05-12] MEDS ORDERED: D50W 25 GM/50 ML SYR IVP PRN (10:25)
[2018-05-12] MEDS: SODIUM BICARBONATE 650 MG TAB PO SCH ×2 (10:26→21:25)
[2018-05-12] MEDS: PYRIDOXINE HCL 100 MG TAB PO SCH (10:27)
[2018-05-12] MEDS: predniSONE 5 MG TAB PO SCH (10:27)
[2018-05-12] MEDS: TACROLIMUS ANHYDROUS 0.5 MG CAP PO SCH (10:28)
--- NOTE | 2018-05-12 10:29 | HOSPPROG ---
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 lispro 4 AC 2. lispro ss in addition 3. continue basal on pump 4. met panel daily renal transplant: cr OK continue pred and tacrlimus proph: sc hep dispo: inpt Subjective: CASE D/W DR BLANDON. foot ankle films w no clear calcaneal periosteal reaction (interp by me) Objective: Vital Signs Temp Pulse Resp BP Pulse Ox 36.3 C 77 16 135/50 H 93 05/12/18 08:00 05/12/18 10:08 05/12/18 08:00 05/12/18 10:08 05/12/18 08:00 Laboratory Results 05/12/18 04:13 05/12/18 04:13 05/11/18 05/12/18 05/13/18 05:59 05:59 05:59 Intake Total 1550 Balance 1550 PT 13.4 SEC (12.0-15.0) 05/11/18 18:15 INR 1.00 (0.83-1.16) 05/11/18 18:15 - Physical Exam Constitutional: no apparent distress, appears nourished Eyes: PERRL, anicteric sclera Ears, Nose, Mouth, Throat: moist mucous membranes, hearing normal Cardiovascular: regular rate and rhythym, no murmur, rub, or gallop, No tachycardia Respiratory: no respiratory distress, no rales or rhonchi, clear to auscultation Gastrointestinal: normoactive bowel sounds, soft, non-tender abdomen, other Genitourinary: no bladder fullness, other (no pain or warmth over transplant kidney) Skin: warm, normal color, other (SCC areas on scalp healing) Musculoskeletal: full muscle strength Neurologic: AAOx3 ICD10 Worksheet Patient Problems: Problems Problem Status Onset Generalized weakness Acute Sepsis Acute Wound infection Acute Acute ischemic stroke Acute Altered mental status Acute C. difficile diarrhea Acute 10/13/14 DKA (diabetic ketoacidoses) Acute Dehydration Acute Diabetes mellitus type 1 Acute Fall Acute Fever Acute History of kidney transplant Acute Leukocytosis Acute Periprosthetic fracture around internal prosthetic left hip joint Acute Rib fractures Acute Urinary tract infection Acute
--- NOTE | 2018-05-12 14:23 | WOCRNPDOC ---
CHARI Advanced Assessment Note - Skin Integrity Problem, Advanced Assess Left Heel Dressing Type: Gauze, Joyce Dressing Description: Clean/Dry, Intact Exudate Amount: None Integumentary Issue Intervention: Visualized Under Dressing Kaitlin Wound Tissue: Erythema (mild kaitlin wound. No cellulitis) Wound Bed Constitution: Granulation Tissue (20%), Red/[place] - Non Granular Tissue (10%), Subcutaneous Fat, Mixed Loose & Adhered Slough/Eschar (70%) Site Odor: Slight, Musky, Pungent Site Measurement - Head-to-Toe Length X Width X Depth (cm): 6.2x6.4x0.2 Pressure Injury Stage: Unstageable Pressure Injury Present on Admit: Yes Skin Integrity Problem Comment: Mixed DFU and pressure injury. Patient [facility] Wound would benefit from surgical debridment followed by wound vac placement. At this time strong autolytic antimicrobial is going to be initiated with moist Algidex Ag hydrogel gauze. Discussed plan with outpatient RN Meghana Mendosa who agreed with autolytic debridement plan and potential need for surgical debridement. Alerted Dr. Garcia to wound status and rec's. Wound care will follow this patient. Right Heel Kaitlin Wound Tissue: Blanching, Erythema Skin Integrity Problem Comment: No pressure injury. Patient has large callous/ hyperkeratosis on lateral foot that is long standing and non erythematic kaitlin wound. No concerns. Head Dressing Type: Open to Air Exudate Amount: None Wound Bed Constitution: Adhered Slough Skin Integrity Problem Comment: Old chronic wound where skin cancer was removed several years ago. Dry stable slough. 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 No interventions necessary as many have been tried in the past and have failed. Area is not going to heal. No erythema nor concerns.
--- NOTE | 2018-05-12 14:55 | PDMN ---
Medical Necessity Medical necessity: Pt meets IP criteria per MD; est los >2 mn for eval/tx of acute encephalopathy w/concerns for sepsis possibly r/t enterococcus from urinary source or diabetic foot infection; requiring further workup/monitoring, ID/Wound Care consults & IV abx; hx TIA, ESRD s/p transplant, diabetes & metastatic squamous cell carcinoma
[2018-05-12] MEDS: AZTREONAM 1 GM in NS 50 ML IV SCH ×2 (15:33→22:59)
--- NOTE | 2018-05-12 15:58 | PCMIDPN ---
Assessment/Plan: Assessment/Plan: * Confusion: Unclear if this is related to infection or other etiology. Doubt related to recent receipt of levofloxacin as confusion predated its initiation. Blood cultures and urine cultures are currently pending. Recent urine culture show growth of Enterococcus faecalis. Ankle wound does not show signs of infection although does have exposed bone which will be problematic moving forward; plain film negative for erosive change. Will continue empiric vancomycin and aztreonam (previous allergy to both penicillins and cephalosporins) with modification as culture data available. * Chronic foot wound: No active signs of skin and soft tissue infection. Palpable bone present on exam. Continued wound care by surgical service. Foot wound cultures likely represent colonization rather than being related to active infection. 05/12/18 15:53 05/12/18 16:00 Subjective: Patient well known to me from prior care with history of recurrent UTI and chronic ulceration of left calcaneus. Developed confusion over preceding weekend with concern for urinary tract infection. Urine culture showed evidence of Enterococcus faecalis which was fluoroquinolone susceptible. Patient was started on levofloxacin over the weekend given beta-lactam allergy precluding use of ampicillin. No notable fever. Daughter notes that patient did have episode of chills on day of admission which prompted his admission. [facility] as well as by Dr. Rios. Less confusion today but this has not fully resolved. Daughter notes he has had intermittent garbled speech as well. Has undergone outpatient neurologic evaluation for these symptoms. Blood glucose also noted to be running significantly higher with ranges into the 400s. Objective: Vital Signs Temp Pulse Resp BP Pulse Ox 36.3 C 77 16 135/50 H 93 05/12/18 08:00 05/12/18 10:08 05/12/18 08:00 05/12/18 10:08 05/12/18 08:00 05/11/18 05/12/18 05/13/18 05:59 05:59 05:59 Output Total 400 Balance -400 ESR 55 MM/HR (0-20) H 05/12/18 04:13 Vancomycin # 1 Aztreonam # 1 Blood cultures x2 pending Urine culture pending - Physical Exam General Appearance: alert, no apparent distress, non-toxic EENT: No thrush, No conjunctival petechiae Respiratory: lungs clear, No respiratory distress Cardiac/Chest: regular rate, rhythm Extremities: inflammation (Left heel with chronic ulceration over calcaneal region approximately 50% covered by black eschar; palpable bone present; no purulence or surrounding cellulitis) Abdomen: non-tender, No distended Skin: No embolic lesions Neuro/Psych: confused ICD10 Worksheet Patient Problems: Problems Problem Status Onset Generalized weakness Acute Sepsis Acute Wound infection Acute Acute ischemic stroke Acute Altered mental status Acute C. difficile diarrhea Acute 10/13/14 DKA (diabetic ketoacidoses) Acute Dehydration Acute Diabetes mellitus type 1 Acute Fall Acute Fever Acute History of kidney transplant Acute Leukocytosis Acute Periprosthetic fracture around internal prosthetic left hip joint Acute Rib fractures Acute Urinary tract infection Acute
--- NOTE | 2018-05-12 16:53 | ASMTCMCOM ---
CM Note CM Note Notes: [facility] called today to inform that services are current with them and patient. CM to follow. Plan: TBD Date Signed: 05/12/2018 04:52 PM Electronically Signed By:Iesha Joya
[2018-05-12] MEDS: NORTRIPTYLINE HCL 10 MG CAP PO SCH (21:25)
[2018-05-13] MEDS: AZTREONAM 1 GM in NS 50 ML IV SCH ×2 (06:05→17:52)
[2018-05-13 08:12] LABS: PLATELET COUNT 316 10^3/uL (150-400)
[2018-05-13] MEDS: INSULIN LISPRO 100 UNIT/ML SC SCH ×5 (09:11→17:52)
[2018-05-13] MEDS: HEPARIN 5,000 UNIT/0.5 ML INJ SC SCH ×2 (09:12→20:31)
--- NOTE | 2018-05-13 09:34 | GPN ---
DATE OF PROCEDURE: 05/13/2018 ANESTHESIA: None. PREPROCEDURE DIAGNOSIS: Stage IV pressure ulcer, left heel. POSTPROCEDURE DIAGNOSIS: Stage IV pressure ulcer, left heel. NAME OF PROCEDURE: Debridement skin soft tissue to the level of bone 6 x 6 cm. FINDINGS: Necrotic tissue. Bone appears hard. ESTIMATED BLOOD LOSS: None. INDICATIONS: Fabien Telles is a 72-year-old man with multiple comorbidities including longstanding paige betes mellitus. He has had multiple amputations. He developed a pressure ulcer on his left heel. D ue to his comorbidities, I have been slowly debriding this in the office. He was admitted as an inpa tient and was unable to attend his wound center visit yesterday. DESCRIPTION OF PROCEDURE: Patient was in the room. Verbal consent obtained. Time-out performed. I debrided the necrotic tissue to the level of the calcaneus on the left heel. There are small spots where the calcaneus is palpable. There is some granulation tissue along the edges. Wound dressed radha Fuller. I discussed with Fabien that if this wound does not start to heal, then he may be looki ng at a partial calcanectomy versus a [id number] amputation. I think it is a challenging situati on either way, especially due to his comorbidities. I will continue to follow periodically. /[id number]/MODL
[2018-05-13] MEDS: VANCOMYCIN 750 MG in D5W 150 ML IV SCH (10:06)
[2018-05-13] MEDS: predniSONE 5 MG TAB PO SCH (10:08)
[2018-05-13] MEDS: PYRIDOXINE HCL 100 MG TAB PO SCH (10:10)
[2018-05-13] MEDS: SODIUM BICARBONATE 650 MG TAB PO SCH ×2 (10:10→20:29)
[2018-05-13] MEDS: GABAPENTIN 300 MG CAP PO SCH ×2 (10:11→20:31)
[2018-05-13] MEDS: CHOLECALCIFEROL VIT D3 2,000 UNITS TAB/CAP PO SCH (10:12)
[2018-05-13] MEDS: CLOPIDOGREL BISULFATE 75 MG TAB PO SCH (10:12)
[2018-05-13] MEDS: TACROLIMUS ANHYDROUS 0.5 MG CAP PO SCH (10:12)
[2018-05-13] MEDS: PANTOPRAZOLE SODIUM 40 MG TAB PO SCH (10:13)
[2018-05-13] MEDS: MYCOPHENOLATE SODIUM 360 MG PO SCH ×2 (10:13→20:29)
[2018-05-13] MEDS: CINACALCET HCL 30 MG TAB PO SCH (10:14)
[2018-05-13] MEDS: METOPROLOL TARTRATE 25 MG TAB PO SCH ×2 (10:15→20:31)
[2018-05-13] MEDS ORDERED: VANCOMYCIN 750 MG in D5W 150 ML IV SCH (11:30)
--- NOTE | 2018-05-13 15:29 | PCMIDPN ---
Assessment/Plan: Assessment/Plan: * Confusion: Unclear if this is related to infection or other etiology. No revealing culture data to date. Based on negative blood cultures, will discontinue antibiotic therapy and observe off antibiotics. Suspect multifactorial and patient has experience worsening confusion with recent evaluation by Neurology which also has been reviewed including MRI which showed atrophy and nonspecific white matter change. * Chronic foot wound: Debrided by Dr. Ramirez today. Her operative note is reviewed. Palpable bone is noted at time of debridement and on physical exam yesterday. Would not treat for osteomyelitis based on palpable bone alone. More problematic will be difficulty healing wound with high risk of developing calcaneal osteomyelitis which is a difficult process and ultimately would require surgical management which would be complex and of high morbidity in this circumstance. 05/13/18 15:25 Subjective: Patient feels less confused today. No other specific complaints. Heel wound debrided by Dr. Ramirez earlier today with operative no ping reviewed. Objective: Vital Signs Temp Pulse Resp BP Pulse Ox 36.7 C 82 16 144/65 H 96 05/13/18 07:46 05/13/18 07:46 05/13/18 07:46 05/13/18 07:46 05/13/18 07:46 Laboratory Results 05/13/18 08:04 05/13/18 08:04 05/12/18 05/13/18 05/14/18 05:59 05:59 05:59 Intake Total 1636 Output Total 400 Balance 1236 ESR 55 MM/HR (0-20) H 05/12/18 04:13 Foot culture MRSA Blood cultures no growth Urine culture 1 colony type [id number] colony-forming units - Physical Exam General Appearance: alert, no apparent distress EENT: No conjunctival petechiae Respiratory: lungs clear Cardiac/Chest: regular rate, rhythm Extremities: inflammation (Left foot dressed postoperatively; dressing not removed today) Abdomen: non-tender, No distended Skin: No embolic lesions Neuro/Psych: confused (Less prominent today) ICD10 Worksheet Patient Problems: Problems Problem Status Onset Diabetes mellitus type 1 Acute Leukocytosis Acute C. difficile diarrhea Acute 10/13/14 Fall Acute Rib fractures Acute Altered mental status Acute Periprosthetic fracture around internal prosthetic left hip joint Acute History of kidney transplant Acute Acute ischemic stroke Acute DKA (diabetic ketoacidoses) Acute Fever Acute Dehydration Acute Urinary tract infection Acute Generalized weakness Acute Wound infection Acute Sepsis Acute
--- NOTE | 2018-05-13 17:18 | HOSPPROG ---
Hospitalist Progress Note Assessment/Plan: 72 yo M W longstanding DM 1, renal transplant, retinopathy, LLE wound here w confusion, chills ID: source unclear foot felt OK, although exposed bone an issue for now, conservative wound care strategy sbx dc'd DM: pump set at 0.4 units hour basal- continue this sugar of 50 dc ss basal is 0.6 during day, 0.2 at night renal transplant: cr OK continue pred and tacrlimus proph: sc hep dispo: inpt Subjective: case d/w dr lucia. abx dc'd Objective: Vital Signs Temp Pulse Resp BP Pulse Ox 36.7 C 69 12 134/29 H 96 05/13/18 07:46 05/13/18 15:00 05/13/18 15:00 05/13/18 15:00 05/13/18 15:00 Laboratory Results 05/13/18 08:04 05/13/18 08:04 05/12/18 05/13/18 05/14/18 05:59 05:59 05:59 Intake Total 1636 Output Total 400 Balance 1236 PT 13.4 SEC (12.0-15.0) 05/11/18 18:15 INR 1.00 (0.83-1.16) 05/11/18 18:15 - Physical Exam Constitutional: no apparent distress, appears nourished Eyes: PERRL, anicteric sclera Ears, Nose, Mouth, Throat: moist mucous membranes, hearing normal Cardiovascular: regular rate and rhythym, no murmur, rub, or gallop Respiratory: no respiratory distress, no rales or rhonchi Gastrointestinal: normoactive bowel sounds, soft, non-tender abdomen Genitourinary: no bladder fullness, No perry in urethra Skin: warm, normal color Musculoskeletal: full muscle strength Neurologic: AAOx3 ICD10 Worksheet Patient Problems: Problems Problem Status Onset Generalized weakness Acute Sepsis Acute Wound infection Acute Acute ischemic stroke Acute Altered mental status Acute C. difficile diarrhea Acute 10/13/14 DKA (diabetic ketoacidoses) Acute Dehydration Acute Diabetes mellitus type 1 Acute Fall Acute Fever Acute History of kidney transplant Acute Leukocytosis Acute Periprosthetic fracture around internal prosthetic left hip joint Acute Rib fractures Acute Urinary tract infection Acute
[2018-05-13] MEDS: NORTRIPTYLINE HCL 10 MG CAP PO SCH (20:30)
[2018-05-14] MEDS: CALCITRIOL 0.25 MCG CAP PO SCH (08:24)
[2018-05-14] MEDS: CINACALCET HCL 30 MG TAB PO SCH (08:25)
[2018-05-14] MEDS: CHOLECALCIFEROL VIT D3 2,000 UNITS TAB/CAP PO SCH (08:25)
[2018-05-14] MEDS: CLOPIDOGREL BISULFATE 75 MG TAB PO SCH (08:27)
[2018-05-14] MEDS: GABAPENTIN 300 MG CAP PO SCH ×2 (08:27→20:36)
[2018-05-14] MEDS: HEPARIN 5,000 UNIT/0.5 ML INJ SC SCH ×2 (08:28→20:39)
[2018-05-14] MEDS: INSULIN LISPRO 100 UNIT/ML SC SCH ×3 (08:28→17:47)
[2018-05-14] MEDS: METOPROLOL TARTRATE 25 MG TAB PO SCH ×2 (08:30→20:38)
[2018-05-14] MEDS: MYCOPHENOLATE SODIUM 360 MG PO SCH ×2 (08:31→20:38)
[2018-05-14] MEDS: PANTOPRAZOLE SODIUM 40 MG TAB PO SCH (08:32)
[2018-05-14] MEDS: predniSONE 5 MG TAB PO SCH (08:32)
[2018-05-14] MEDS: PYRIDOXINE HCL 100 MG TAB PO SCH (08:33)
[2018-05-14] MEDS: SODIUM BICARBONATE 650 MG TAB PO SCH ×2 (08:33→20:37)
[2018-05-14] MEDS: TACROLIMUS ANHYDROUS 0.5 MG CAP PO SCH (08:34)
--- NOTE | 2018-05-14 09:36 | WOCRNPDOC ---
WOCRN Advanced Assessment Note - Skin Integrity Problem, Advanced Assess Left Heel Dressing Type: Allevyn Life Dressing Description: Saturated Exudate Amount: Minimal Exudate Characteristic(s): Serosanguinous Integumentary Issue Intervention: Dressing Removed Kaitlin Wound Tissue: Blanching Wound Bed Constitution: Granulation Tissue (30%), Mixed Loose & Adhered Slough/ Eschar (70%) Site Odor: Slight, Musky Site Measurement - Head-to-Toe Length X Width X Depth (cm): 6.2x6.4x0.3 Pressure Injury Stage: Unstageable Pressure Injury Present on Admit: Yes Skin Integrity Problem Comment: Dressing removed and wound cleansed with NS and gauze. Adhered slough appears to be softening and some was removed with dressing. Will continue autolytic debridement with Algidex Ag hydrogel gauze. Wound care will round again next week.
--- NOTE | 2018-05-14 10:36 | SOAPPROG ---
SOAP Progress Note Assessment/Plan: Assessment/Plan: 45-year-old man with chronic stage IV pressure ulcer of left heel. Bedside debridement performed by Dr. Ramirez on 05/13/18. Pain controlled Continue local wound care with algidex and absorptive outer bandage. Will continue intermittent debridement while inpatient S: Feeling well, no pain of left heel. No new complaints O: Well-developed well-nourished elderly man no acute distress, eating breakfast No increased work of breathing No peripheral edema Left heel ulcer with out surrounding erythema. Granulation tissue around the outer edges, with adherent slough in the central aspect of the wound. Palpable bone in several areas. Dressings were applied Objective: Vital Signs Temp Pulse Resp BP Pulse Ox 36.3 C 78 16 106/49 L 90 L 05/14/18 08:33 05/14/18 08:33 05/14/18 08:33 05/14/18 08:33 05/14/18 08:33 Laboratory Results 05/13/18 08:04 05/13/18 08:04 05/13/18 05/14/18 05/15/18 05:59 05:59 05:59 Intake Total 1636 750 Output Total 700 600 Balance 936 150 PT 13.4 SEC (12.0-15.0) 05/11/18 18:15 INR 1.00 (0.83-1.16) 05/11/18 18:15 ICD10 Worksheet Patient Problems: Problems Problem Status Onset Generalized weakness Acute Sepsis Acute Wound infection Acute Acute ischemic stroke Acute Altered mental status Acute C. difficile diarrhea Acute 10/13/14 DKA (diabetic ketoacidoses) Acute Dehydration Acute Diabetes mellitus type 1 Acute Fall Acute Fever Acute History of kidney transplant Acute Leukocytosis Acute Periprosthetic fracture around internal prosthetic left hip joint Acute Rib fractures Acute Urinary tract infection Acute
[2018-05-14 13:20] LABS: PLATELET COUNT 339 10^3/uL (150-400)
--- NOTE | 2018-05-14 13:35 | HOSPPROG ---
Hospitalist Progress Note Assessment/Plan: Assessment/Plan: 72 yo M W longstanding DM 1, renal transplant, retinopathy, LLE wound here w confusion, chills Lower extremity Unstaged Wound - S/p debridement with Dr. Ramirez yesterday, surgery will continue intermittent debridement while inpatient - Continue local wound care with algidex and absorptive outer bandage. - Antibiotics d/c as below per ID, wound culture grew MRSA which is likely colonization per ID Acute Cystitis: - UA on admission with trace LE - Abx d/c yesterday, afebrile since - Continue to monitor off abx per ID, discussed with Dr. Rose, ID, today DM: - pump set at 0.4 units hour basal- continue this - Patient had episode of hypoglycemia yesterday with SSI d/c - basal is 0.6 during day, 0.2 at night renal transplant: cr OK continue pred and tacrlimus proph: sc hep dispo: pending clinical course, possible d/c tomorrow Subjective: Patient reports feeling better this afternoon. Objective: Vital Signs Temp Pulse Resp BP Pulse Ox 36.3 C 78 16 106/49 L 90 L 05/14/18 08:33 05/14/18 08:33 05/14/18 08:33 05/14/18 08:33 05/14/18 08:33 Laboratory Results 05/14/18 13:00 05/13/18 05/14/18 05/15/18 05:59 05:59 05:59 Intake Total 1636 750 Output Total 700 600 Balance 936 150 PT 13.4 SEC (12.0-15.0) 05/11/18 18:15 INR 1.00 (0.83-1.16) 05/11/18 18:15 - Physical Exam Constitutional: no apparent distress Eyes: PERRL Ears, Nose, Mouth, Throat: moist mucous membranes Cardiovascular: regular rate and rhythym Respiratory: no respiratory distress Gastrointestinal: soft, non-tender abdomen Genitourinary: no bladder tenderness Skin: warm, pressure ulcer Musculoskeletal: no muscle tenderness Neurologic: CN II-XII Intact Psychiatric: interacting appropriately ICD10 Worksheet Patient Problems: Problems Problem Status Onset Generalized weakness Acute Sepsis Acute Wound infection Acute Acute ischemic stroke Acute Altered mental status Acute C. difficile diarrhea Acute 10/13/14 DKA (diabetic ketoacidoses) Acute Dehydration Acute Diabetes mellitus type 1 Acute Fall Acute Fever Acute History of kidney transplant Acute Leukocytosis Acute Periprosthetic fracture around internal prosthetic left hip joint Acute Rib fractures Acute Urinary tract infection Acute
--- NOTE | 2018-05-14 14:20 | ASMTCMCOM ---
CM Note CM Note Notes: Pt with hx of diabetes and renal transplant admitted for confusion and weakness. Pt has LLE wound that was debrided yesterday. Pt is current with [facility] for RN/PT/SW. Pt also has 24/7 care through [facility] and another weekend agency through [facility]. Pt will likely DC tomorrow. Date Signed: 05/14/2018 02:20 PM Electronically Signed By:Elsa Gutierrez LCSW
[2018-05-14] MEDS: NORTRIPTYLINE HCL 10 MG CAP PO SCH (20:37)
[2018-05-15 07:34] VITALS: BP 161/63
[2018-05-15] MEDS: HEPARIN 5,000 UNIT/0.5 ML INJ SC SCH (08:13)
[2018-05-15] MEDS: SODIUM BICARBONATE 650 MG TAB PO SCH (08:14)
[2018-05-15] MEDS: INSULIN LISPRO 100 UNIT/ML SC SCH (08:14)
[2018-05-15] MEDS: PANTOPRAZOLE SODIUM 40 MG TAB PO SCH (08:14)
[2018-05-15] MEDS: PYRIDOXINE HCL 100 MG TAB PO SCH (08:14)
[2018-05-15] MEDS: TACROLIMUS ANHYDROUS 0.5 MG CAP PO SCH (08:16)
[2018-05-15] MEDS: CHOLECALCIFEROL VIT D3 2,000 UNITS TAB/CAP PO SCH (08:16)
[2018-05-15] MEDS: METOPROLOL TARTRATE 25 MG TAB PO SCH (08:16)
[2018-05-15] MEDS: GABAPENTIN 300 MG CAP PO SCH (08:16)
[2018-05-15] MEDS: predniSONE 5 MG TAB PO SCH (08:17)
[2018-05-15] MEDS: MYCOPHENOLATE SODIUM 360 MG PO SCH (08:25)
[2018-05-15] MEDS: CINACALCET HCL 30 MG TAB PO SCH (08:26)
[2018-05-15] MEDS: CLOPIDOGREL BISULFATE 75 MG TAB PO SCH (08:51)
--- NOTE | 2018-05-15 10:22 | PDDCSUM ---
Discharge Summary Discharge Summary: Admission Date: 05/12/2018 Discharge Date: 05/15/2018 Consults: Infectious Disease, General Surgery Procedures: Heel Debridement Followup: [facility] Hospital Course Problem List: 72 yo M W longstanding DM 1, renal transplant, retinopathy, LLE wound who presented with confusion found to have UTI Acute Cystitis: - UA on admission with trace LE, urine culture grew Enterococcus - Initially put on Vanc/Aztreonam which were discontinued after 48 hours - Patient has been HD stable, afebrile since d/c of abx, discussed case with Dr. Rose on 05/14 who recommended holding off on further abx Lower extremity Unstaged Wound - S/p debridement with Dr. Ramirez on 05/13 stuart - Continue local wound care with algidex and absorptive outer bandage. - Antibiotics d/c as above per ID, wound culture grew MRSA which is likely colonization per ID - Patient will followup in [facility] DM: - pump set at 0.4 units hour basal- continue this - Patient had episode of hypoglycemia yesterday with SSI d/c - basal is 0.6 during day, 0.2 at night renal transplant: cr OK continue pred and tacrlimus Time Spent on discharge was >35 minutes with >50% of time spent on patient education and counseling
--- NOTE | 2018-05-15 11:23 | PDIAF ---
- Diagnosis Diagnosis: Acute cystitis, Nonhealing LLE wound Code Status: Full Code - Medication Management Discharge Medications: Medications to Continue on Transfer Calcitriol [Calcitriol (*)] 0.25 mcg PO MOWEFR 12/10/17 [Last Taken 05/10/18] Carboxymethylcellulose 0.5% [Refresh Plus Drops 0.5%] 1 drops EACHEYE DAILY PRN 12/10/17 [Last Taken Unknown] Cholecalciferol Vit D3 [Vitamin D3 2000 units tab (OTC)] 2,000 units PO DAILY [Last Taken 05/11/18] Cinacalcet HCl [Sensipar (*)] 30 mg PO DAILY 12/10/17 [Last Taken 05/11/18] Clopidogrel Bisulfate [Plavix] 75 mg PO DAILY 12/10/17 [Last Taken 05/11/18] Esomeprazole Magnesium [Nexium] 40 mg PO DAILY 12/10/17 [Last Taken 05/11/18] Gabapentin [Neurontin 300 MG (*)] 300 mg PO BID 12/10/17 [Last Taken 05/11/18 AM DOSE] Insulin Lispro [Humalog] 4 unit SQ AC 12/10/17 [Last Taken Unknown] Insulin Pump, Patient Own 1 ea MIS AD 12/10/17 [Last Taken Unknown] Metoprolol Tartrate [Lopressor 25 mg (*)] 12.5 mg PO BID 12/10/17 [Last Taken AM DOSE] Mycophenolate Sodium [Myfortic] 360 mg PO BID 12/10/17 [Last Taken 05/11/18 AM DOSE] Nortriptyline HCl [Pamelor 10 mg (*)] 40 mg PO HS 12/10/17 [Last Taken 05/10/18] Ondansetron Odt [Zofran Odt 4 mg (*)] 4 mg PO Q4 PRN 12/10/17 [Last Taken Unknown] Oxycodone HCl 5 - 10 mg PO Q4 PRN 12/10/17 [Last Taken Unknown] Pyridoxine HCl [Vitamin B-6 100 mg (*)] 100 mg PO DAILY 12/10/17 [Last Taken 12/23] Sodium Bicarbonate [Na Bicarb] 325 mg PO BID 12/10/17 [Last Taken 05/11/18 AM DOSE] Tacrolimus 0.5 mg PO DAILY 12/10/17 [Last Taken 05/11/18] predniSONE [Prednisone] 7.5 mg PO DAILY 12/10/17 [Last Taken 05/11/18] Acetaminophen [Tylenol 325mg (*)] 650 mg PO Q4HRS PRN tab 12/12/17 [Last Taken Unknown] Herbals/Supplements -Info Only 1 ea PO DAILY 05/11/18 [Last Taken 05/11/18] Polyethylene Glycol 3350 [Miralax 17 gm (*)] 17 gm PO DAILY PRN 05/11/18 [Last Taken Unknown] Sennosides [Senokot] 2 tab PO HS PRN 05/11/18 [Last Taken Unknown] Discharge Medications: Refer to the Discharge Home Medication list for PRN reason. - Orders Services needed: Registered Nurse, Master Multimedia Educational Specialist, Physical Therapy Isolation Type: Contact Isolation Diet Recommendation: ADA 1800 consistent carb Diet Texture: Regular Texture Diet Wound Care Instructions: Wound care orders for left heel: Change dressings to left heel wound every 2 days and prn. 1. Clean with ns and gauze. 2. Skin prep radha wound. 3. Cut Algidex Ag hydrogel gauze dressing to fit wound bed. 4. Cover with medium or large Allevyn Life or other border foam dressing. Tiera Luna CWON Additional Instructions: Wound care orders for left heel: Change dressings to left heel wound every 2 days and prn. 1. Clean with ns and gauze 2. Skin prep radha wound 3. Cut Algidex Ag hydrogel gauze dressing to fit wound bed 4. Cover with medium or large Allevyn Life or other border foam dressing. Tiera Luna CWON - Follow Up Care Current Providers and Referrals: [facility] [Clinic] - Long Vera MD [Primary Care Provider] - As per Instructions
--- NOTE | 2018-05-15 12:44 | PDIAF ---
- Diagnosis Diagnosis: Acute cystitis, Nonhealing LLE wound Code Status: Full Code - Medication Management Discharge Medications: Medications to Continue on Transfer Calcitriol [Calcitriol (*)] 0.25 mcg PO MOWEFR 12/10/17 [Last Taken 05/10/18] Carboxymethylcellulose 0.5% [Refresh Plus Drops 0.5%] 1 drops EACHEYE DAILY PRN 12/10/17 [Last Taken Unknown] Cholecalciferol Vit D3 [Vitamin D3 2000 units tab (OTC)] 2,000 units PO DAILY [Last Taken 05/11/18] Cinacalcet HCl [Sensipar (*)] 30 mg PO DAILY 12/10/17 [Last Taken 05/11/18] Clopidogrel Bisulfate [Plavix] 75 mg PO DAILY 12/10/17 [Last Taken 05/11/18] Esomeprazole Magnesium [Nexium] 40 mg PO DAILY 12/10/17 [Last Taken 05/11/18] Gabapentin [Neurontin 300 MG (*)] 300 mg PO BID 12/10/17 [Last Taken 05/11/18 AM DOSE] Insulin Lispro [Humalog] 4 unit SQ AC 12/10/17 [Last Taken Unknown] Insulin Pump, Patient Own 1 ea MIS AD 12/10/17 [Last Taken Unknown] Metoprolol Tartrate [Lopressor 25 mg (*)] 12.5 mg PO BID 12/10/17 [Last Taken AM DOSE] Mycophenolate Sodium [Myfortic] 360 mg PO BID 12/10/17 [Last Taken 05/11/18 AM DOSE] Nortriptyline HCl [Pamelor 10 mg (*)] 40 mg PO HS 12/10/17 [Last Taken 05/10/18] Ondansetron Odt [Zofran Odt 4 mg (*)] 4 mg PO Q4 PRN 12/10/17 [Last Taken Unknown] Oxycodone HCl 5 - 10 mg PO Q4 PRN 12/10/17 [Last Taken Unknown] Pyridoxine HCl [Vitamin B-6 100 mg (*)] 100 mg PO DAILY 12/10/17 [Last Taken 12/23] Sodium Bicarbonate [Na Bicarb] 325 mg PO BID 12/10/17 [Last Taken 05/11/18 AM DOSE] Tacrolimus 0.5 mg PO DAILY 12/10/17 [Last Taken 05/11/18] predniSONE [Prednisone] 7.5 mg PO DAILY 12/10/17 [Last Taken 05/11/18] Acetaminophen [Tylenol 325mg (*)] 650 mg PO Q4HRS PRN tab 12/12/17 [Last Taken Unknown] Herbals/Supplements -Info Only 1 ea PO DAILY 05/11/18 [Last Taken 05/11/18] Polyethylene Glycol 3350 [Miralax 17 gm (*)] 17 gm PO DAILY PRN 05/11/18 [Last Taken Unknown] Sennosides [Senokot] 2 tab PO HS PRN 05/11/18 [Last Taken Unknown] Discharge Medications: Refer to the Discharge Home Medication list for PRN reason. - Orders Services needed: Home Care, Registered Nurse, Master Manufacturing Controls Engineer, Physical Therapy Home Care Face to Face: I certify that this patient was under my care and that I had the required [id number] encounter meeting the encounter requirements on the discharge day. My findings support the fact that the patient is homebound as defined in Home Care Face to Face Continued: [facility] Chapter 7 Medicare Benefits Manual 30.1.1 , The condition of the patient is such that there exists a normal inability to leave home and consequently, leaving home would require a considerable and taxing effort. Isolation Type: Contact Isolation Diet Recommendation: ADA 1800 consistent carb Diet Texture: Regular Texture Diet Wound Care Instructions: Wound care orders for left heel: Change dressings to left heel wound every 2 days and prn. 1. Clean with ns and gauze. 2. Skin prep radha wound. 3. Cut Algidex Ag hydrogel gauze dressing to fit wound bed. 4. Cover with medium or large Allevyn Life or other border foam dressing. Tiera Cheryl CWON Additional Instructions: Wound care orders for left heel: Change dressings to left heel wound every 2 days and prn. Start date for dressing change, Wednesday May 16, 2018. 1. Clean with ns and gauze 2. Skin prep radha wound 3. Cut Algidex Ag hydrogel gauze dressing to fit wound bed 4. Cover with medium or large Allevyn Life or other border foam dressing. Tiera Torab CWON *[facility]erral [facility] been [facility] to [facility], if you do not hear from Wound Care clinic by noon on Thursday, please contact them to set up an appointment. If you spike a fever or experience any signs/symptoms of new infection such as fever, chills, rigors, increased confusion, lethargy, please seek emergency medical treatment or call 911. - Follow Up Care Current Providers and Referrals: [facility] [Clinic] - Long Vera MD [Primary Care Provider] - As per Instructions
--- NOTE | 2018-05-15 15:34 | ASMTLACE ---
CHRISTINEE Length of stay for Answers: 3 days current admission Acuity / Level of Answers: Yes Care: Did the patient have an inpatient admission? Comorbidities - select Answers: Cerebrovascular disease all that apply (CVA, TIA, aneurysms, vasc ular dementia) Diabetes (uncontrolled or controlled) History of falls Moderate or severe liver or renal disease Opioid dependence / Chronic pain # of Emergency department Answers: 5-8 visits in the last 6 months Score: 23 Date Signed: 05/15/2018 03:34 PM Electronically Signed By:Koki Bergeron RN
--- NOTE | 2018-05-15 15:46 | ASMTDCNOTE ---
Case Management Discharge Discharge Order Complete? Answers: Yes Patient to Obtain Answers: via Family Medications Transportation Arranged Answers: Family/Friends Transport will Pick (Date 05/15/2018 12:00 AM & Time) EMTALA Complete Answers: No Notes: N/A Case Management Transport Answers: No Notes: N/A Form Complete Faxed Final Orders Answers: Yes Notes: Sent via [employer]; confirmed receipt with Allyson carlos Family Agency/Facility Transfer Answers: Yes Notes: Sent via Report Printed & Faxed to [employer]; confirmed Receiving Agency receipt with Allyson carlos Family Family Notified Answers: Yes Notes: Lilian Pathak at bedside Discharge Comments Notes: Reviewed chart, spoke with Dr. Cm and JUAN MANUEL Crow regarding discharge plan of care, pt's progress. Pt to discharge home with home care and family support today. Met with pt and pt's lilian Pathak to discuss discharge plan. Pt current/open with [facility] (RN, PT, services). [facility], pt also receives 24/7 care from [facility] and has night support from [employer]. Pt's lilian Pathak plans to stay with pt for the next few days to assist. Call placed to Allyson at [facility] . Per Allyson, able to accept/resume services with a start of care for Thursday05/16/18. Discharge orders sent via [employer]; confirmed receipt. Wound care orders/needs discussed with Allyson at [facility]. Update provided to pt and JUAN MANUEL Crow. IM signed. Pt to follow up as directed. CM available for any further issues or concerns. Discharge Plan: Home with [facility], Family Support, Home Care of [facility], [employer] [facility] Date Signed: 05/15/2018 03:45 PM Electronically Signed By:Koki Bergeron RN
--- NOTE | 2018-05-15 15:46 | ASDISCHSUM ---
Discharge Information Plan Status:Home with Home Health Medically Cleared to Leave:05/15/2018 Discharge Date:05/15/2018 01:20 PM CM D/C Disposition:Home Health Service ADT D/C Disposition:[id number] Projected Discharge Date:05/15/2018 11:00 AM Transportation at D/C:Family Discharge Delay Reason: Follow-Up Date:05/15/2018 11:00 AM Discharge Slot:2 - 12:01 pm - 18:00 pm Final Diagnosis:Acute encephalopathy, concerns for sepsis, hx of metastatic squamous cell carcinoma, hx end stage renal disease s/p renal transplant Placement Information Referral Type:*Home Health Care Services Referral ID:[id number] [facility] Address 1:[address] [address] Address 2: City:[place] Selection Factors:Patient/Family Choice; Retur wandy to Facility State:[place] Patient Contact Information Contact Name:MICKY Relationship:Daughter Address:[address] City:[place] Alternate Phone: State/Zip Code:[place] [address] Email: Financial Information Financial Class:Medicare Primary Plan Desc:MEDICARE INPATIENT Primary Plan Number:[id number] Secondary Plan Desc:[employer] FEDERAL PLAN Secondary Plan Number:[id number] Assessment Information LACE LACE Length of stay for Answers: 3 days current admission Acuity / Level of Answers: Yes Care: Did the patient have an inpatient admission? Comorbidities - select Answers: Cerebrovascular disease all that apply (CVA, TIA, aneurysms, vasc ular dementia) Diabetes (uncontrolled or controlled) History of falls Moderate or severe liver or renal disease Opioid dependence / Chronic pain # of Emergency department Answers: 5-8 visits in the last 6 months Score: 23 Date Signed: 05/15/2018 03:34 PM Electronically Signed By:Koki Bergeron RN [facility] CM Progress Note CM Note CM Note Notes: [facility] called today to inform that services are current with them and patient. CM to follow. Plan: TBD Date Signed: 05/12/2018 04:52 PM Electronically Signed By:Iesha Joya [facility] CM Progress Note CM Note CM Note Notes: Pt with hx of diabetes and renal transplant admitted for confusion and weakness. Pt has LLE wound that was debrided yesterday. Pt is current with [facility] for RN/PT/SW. Pt also has 24/7 care through [facility] and another weekend agency through [employer]. Pt will likely DC tomorrow. Date Signed: 05/14/2018 02:20 PM Electronically Signed By:Elsa Gutierrez LCSW Case Management Discharge Plan Note Case Management Discharge Discharge Order Complete? Answers: Yes Patient to Obtain Answers: via Family Medications Transportation Arranged Answers: Family/Friends Transport will Pick (Date 05/15/2018 12:00 AM & Time) HALEIGHALA Complete Answers: No Notes: N/A Case Management Transport Answers: No Notes: N/A Form Complete Faxed Final Orders Answers: Yes Notes: Sent via [employer]; confirmed receipt with Allyson carlos Family Agency/Facility Transfer Answers: Yes Notes: Sent via Report Printed & Faxed to [employer]; confirmed Receiving Agency receipt with Allyson Filiberto carlos Family Family Notified Answers: Yes Notes: Lilian Pathak at bedside Discharge Comments Notes: Reviewed chart, spoke with Dr. Cm and Tristin RN regarding discharge plan of care, pt's progress. Pt to discharge home with home care and family support today. Met with pt and pt's lilian Pathak to discuss discharge plan. Pt current/open with [facility] (RN, PT, services). Per [facility], pt also receives 24/ care from [facility] and has night support from [employer]. Pt's lilian Pathak plans to stay with pt for the next few days to assist. Call placed to Allyson at [facility] . Per Allyson, able to accept/resume services with a start of care for Thursday05/16/18. Discharge orders sent via [employer]; confirmed receipt. Wound care orders/needs discussed with Allyson at [facility]. Update provided to pt and JUAN MANUEL Crow. IM signed. Pt to follow up as directed. CM available for any further issues or concerns. Discharge Plan: Home with [facility], Family Support, Home Care [facility], [employer] [facility] Date Signed: 05/15/2018 03:45 PM Electronically Signed By:Koki Bergeron RN Intervention Information Intervention Type:No Admission Order Date of Service:05/11/2018 09:25 AM Patient Type:Observation Staff Member:JUAN MANUEL Garcia Courtney Hours: Discipline: Severity: Comment: Intervention Type:*IM-Signed Date of Service:05/14/2018 03:14 PM Patient Type:Inpatient Staff Member:Aleta Mcleod Hours: Discipline: Severity: Comment: Intervention Type:*IM-Signed Date of Service:05/15/2018 03:26 PM Patient Type:Inpatient Staff Member:JUAN MANUEL Bergeron Taylor Hours: Discipline: Severity: Comment:
--- NOTE | 2018-05-20 18:55 | PQFORM ---
PHYSICIAN QUERY FORM Needs Your Response This query form is being sent to you to assure this patient record is coded properly. Please respond to the question below: TERRITORY REPRESENTATIVE QUESTION: Dear Dr. Ramirez, For coding purposes (there is a different code choice for excisional versus non excisional debridement)- please clarify if the debridement done on 13 May 2018 was: Excisional Yes___~ Non Excisional ___~ Other Thank You Mallory Corona, AUTO BODY WORKER [facility]/Coding Dept. [phone] INSTRUCTIONS FOR RESPONSE: Answer question by clicking on the "Edit Document" button. Move cursor to area below the stars. When complete, hit "Save." Click on the "Sign" button, then click "Sign" again. Type in your PIN and hit "Enter." MTDD
== END 2018-05-15 13:20 | disposition home health service (06) | DRG 579 ==
LOC: F1N 20:28 → OBSVTOIN 05-12 10:13
PROVIDERS: ADMIT Family Medicine; ATTEND Family Medicine
PROC: 0JDR0ZZ Extraction of Left Foot Subcutaneous Tissue and Fascia, Open Approach (ICD-10-PCS; principal; 2018-05-13)
DX: L89.624 Pressure ulcer of left heel, stage 4 (principal); E10.621 Type 1 diabetes mellitus with foot ulcer; Z94.0 Kidney transplant status; N30.00 Acute cystitis without hematuria; E10.319 Type 1 diabetes mellitus with unspecified diabetic retinopathy without macular edema; B95.2 Enterococcus as the cause of diseases classified elsewhere; E86.0 Dehydration; Z96.41 Presence of insulin pump (external) (internal)
CPT/HCPCS: 96365; 96366; 97162-GP; 97166-GO; 97530-GO; 97530-GP; G8978-GP-CL; G8979-GP-CK; G8987-GO-CL; G8988-GO-CJ; J1644; J1815; J3370; J7512

== ENCOUNTER 2018-05-29 19:17 | Inpatient (IN) | payer OTHER, BC ==
[2018-05-29] MEDS ORDERED: KETAMINE 200 MG/20 ML VIAL IVP ONE (20:10)
[2018-05-29 20:17] LABS: PLATELET COUNT 367 10^3/uL (150-400)
[2018-05-29] MEDS ORDERED: ONDANSETRON 4 MG/2 ML VIAL ONE (20:18)
[2018-05-29 20:25] LABS: INR 1.09 (0.83-1.16); PROTIME(PATIENT) 14.3 SEC (12.0-15.0)
[2018-05-29] MEDS ORDERED: VANCOMYCIN HCL/NORMAL SALINE 250 ML IV ONE (20:39)
[2018-05-29] MEDS ORDERED: ONDANSETRON DISINTEGRATING 4 MG TAB PO PRN (20:46)
[2018-05-29] MEDS ORDERED: PROMETHAZINE HCL 25 MG/ML INJ IVP PRN (20:46)
[2018-05-29] MEDS ORDERED: ONDANSETRON 4 MG/2 ML VIAL IVP PRN (20:46)
[2018-05-29] MEDS ORDERED: ACETAMINOPHEN 325 MG TAB PO PRN (20:46)
[2018-05-29] MEDS ORDERED: PROMETHAZINE HCL 25 MG TAB PO PRN (20:46)
[2018-05-29] MEDS ORDERED: IOPAMIDOL (ISOVUE-300) 100 ML BTL ONE (20:49)
[2018-05-29] MEDS ORDERED: NS 1,000 ML IV SCH (21:00)
[2018-05-29] MEDS ORDERED: D50W 25 GM/50 ML SYR IVP PRN (22:11)
--- NOTE | 2018-05-29 22:12 | CPEKG ---
Test Reason : OPEN Blood Pressure : / mmHG Vent. Rate : 137 BPM Atrial Rate : 140 BPM P-R Int : 105 ms QRS Dur : 104 ms QT Int : 307 ms P-R-T Axes : -76 -87 021 degrees QTc Int : 464 ms Sinus or ectopic atrial tachycardia LAD, consider LAFB or inferior infarct Probable anteroseptal infarct, recent Confirmed by Eun Brantley ([id number]) on 05/29/2018 10:12:04 PM Referred By: Confirmed By:Eun Brantley
--- NOTE | 2018-05-29 22:31 | EDPHY ---
H & P Stated Complaint: AMS, blood sugar 32 - Personal History Tetanus Vaccine Date: 2008 - Medical/Surgical History Hx Asthma: No Hx Chronic Respiratory Disease: No Hx Diabetes: Yes Hx Cardiac Disease: No Hx Renal Disease: Yes Hx Cirrhosis: No Hx Alcoholism: No Hx HIV/AIDS: No Hx Splenectomy or Spleen Trauma: No Other PMH: kidney transplant SKIN CA EYE SURGERIES ORTHO SURG. femur fract. jun 2018 APPY TONSILECTOMY, DIABETES TYPE 1, NEUROPATHY, insulin pump. chronic pain, HX OF CDIFF FROM 10/2014, chronic wound right heel, multiple foot partial amputations - Social History Smoking Status: Former smoker Time Seen by Provider: 05/29/18 19:23 HPI/ROS: CHIEF COMPLAINT: Altered mental status HISTORY OF PRESENT ILLNESS: Mr. Telles is a 72-year-old male with multiple medical problems including end-stage renal disease status post transplant in 2007, type 1 diabetes, metastatic squamous cell carcinoma, MRSA bacteremia/ colonization and C diff colitis. He was admitted to this hospital with urosepsis May 11. He returned home on . He arrives today by ambulance. He and his live in their home with 24 hr help. As reported to me, his mental status has been declining throughout the day. When the 5 o' clock nurse arrived she became concerned about his blood sugar. Paramedics were summoned and found him to have a blood sugar of 32. His insulin pump was discontinued. He received 1 amp of D10 with no improvement. This was followed by an amp of D50 with moderate improvement. He takes opiates and was also given Narcan, again with little to no improvement in his mental status. At the time of his arrival in the emergency department his blood sugar was 180. No other historical information is available. REVIEW OF SYSTEMS: Unable to obtain due to patient's mental status. Past medical history: 1. End-stage renal disease status post renal transplant 2007 2. Type 1 diabetes with insulin pump 3. Metastatic squamous cell carcinoma status post radiation and resection 4. History of C diff colitis 5. History of MRSA bacteremia 6. History of urosepsis 7. 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 Ramirez Past surgical history: 1. Renal transplant 2007 2. Left hip upper extremity AV fistula 3. Tonsillectomy 4. Appendectomy 5. Bilateral toe amputations 6. Left calcaneal debridements Social history: He lives with his who reportedly has Alzheimer's. They have 24 hr care. He is ambulatory with assistance. His daughter is his medical power of staff attorney. He has past history of tobacco use, none currently General Appearance: Vital signs reviewed. Head: Scalp lesions consistent with skin cancer that has been resected and radiated. Eyes: Right cornea is opacified. No OS conjunctival injection, no discharge. Anicteric OS. ENT, Mouth: Mucous membranes are dry, no oropharyngeal erythema or edema. Neck: No lymphadenopathy, supple. No JVD. Respiratory: Lungs with faint crackles the right base. Cardiovascular: Tachycardic and regular. No murmur, rub, or gallop. Gastrointestinal: Abdomen is soft and appears to be mildly diffusely tender without guarding, no masses or organomegaly, bowel sounds present. Skin: Warm and dry, no rashes on exposed skin, normal color. Back: Nontender to palpation over the thoracolumbar spine. No CVAT. Extremities: Neurological: Moving all four extremities spontaneously. (Eun Brantley) Constitutional: Initial Vital Signs Temperature (C) 37.2 C 05/29/18 19:29 Heart Rate 117 H 05/29/18 19:29 Respiratory Rate 20 05/29/18 19:29 Blood Pressure 148/69 H 05/29/18 19:29 O2 Sat (%) 91 L 05/29/18 19:29 O2 Delivery Mode Nasal Cannula O2 (L/minute) 4 Allergies/Adverse Reactions: Cephalosporins Allergy (Severe, Verified 05/29/18 19:28) Cleve Pravin Syndrome Penicillins Allergy (Intermediate, Verified 05/29/18 19:28) Hives codeine Allergy (Unknown, Verified 05/29/18 19:28) Home Medications: Medication Instructions Recorded Calcitriol [Calcitriol (*)] 0.25 mcg PO MOWEFR 12/10/17 Carboxymethylcellulose 0.5% 1 drops EACHEYE DAILY PRN 12/10/17 [Refresh Plus Drops 0.5%] Cholecalciferol Vit D3 [Vitamin D3 2,000 units PO DAILY 12/10/17 2000 units tab (OTC)] Cinacalcet HCl [Sensipar (*)] 30 mg PO DAILY 12/10/17 Clopidogrel Bisulfate [Plavix] 75 mg PO DAILY 12/10/17 Esomeprazole Magnesium [Nexium] 40 mg PO DAILY 12/10/17 Gabapentin [Neurontin 300 MG (*)] 300 mg PO BID 12/10/17 Insulin Lispro [Humalog] 4 unit SQ AC 12/10/17 Insulin Pump, Patient Own 1 ea MISC AD 12/10/17 Metoprolol Tartrate [Lopressor 25 12.5 mg PO BID 12/10/17 mg (*)] Mycophenolate Sodium [Myfortic] 360 mg PO BID 12/10/17 Nortriptyline HCl [Pamelor 10 mg 40 mg PO HS 12/10/17 (*)] Ondansetron Odt [Zofran Odt 4 mg 4 mg PO Q4 PRN 12/10/17 (*)] Oxycodone HCl 5 - 10 mg PO Q4 PRN 12/10/17 Pyridoxine HCl [Vitamin B-6 100 mg 100 mg PO DAILY 12/10/17 (*)] Sodium Bicarbonate [Na Bicarb] 325 mg PO BID 12/10/17 Tacrolimus 0.5 mg PO DAILY 12/10/17 predniSONE [Prednisone] 7.5 mg PO DAILY 12/10/17 Acetaminophen [Tylenol 325mg (*)] 650 mg PO Q4HRS PRN tab 12/12/17 Herbals/Supplements -Info Only 1 ea PO DAILY 05/11/18 Polyethylene Glycol 3350 [Miralax 17 gm PO DAILY PRN 05/11/18 17 gm (*)] Sennosides [Senokot] 2 tab PO HS PRN 05/11/18 Medical Decision Making - Diagnostics Imaging: Discussed imaging studies w/ kitchen work supervisor Radiologist - Diagnostics EKG Interpretation: 12 lead EKG is interpreted in [place] by emergency department physician. (Eun Brantley) Procedures: CENTRAL LINE WITH US GUIDANCE Procedure: Ultrasound guidance. Using the linear probe covered in a sterile sheath, a short axis of the vein was obtained. The vein was completely compressible and was identified as separate from the adjacent non-compressible arterial structure. Under real- time guidance, the introducer needle was observed up to the vein, and then punctured it. Indication: Sepsis. Risks, benefits, alternatives discussed with the patient's family including but not limited to bleeding, infection, vascular injury, and collapsed lung and consent obtained. A timeout was observed. Full maximal sterile barrier technique was used including cap, gown, sterile gloves, large sheet, hand washing and chlorhexidine prep. The area was anesthetized with 1% lidocaine. A 7 Thai triple lumen was placed in the right internal jugular vein using standard Seldinger technique. There were no complications. Blood return low pressure, dark blood. Patient tolerated procedure well. CXR results: Appropriate line placement, and no pneumothorax. Xray was interpreted by myself. Radiologist interpretation is pending. The procedure was performed by myself. INTUBATION Procedure: Rapid sequence intubation. Indication for the procedure was respiratory failure. The patient was preoxygenated with 100% oxygen by face mask. The patient was given the following IV medications: succinylcholine, and ketamine. The patient was orally endotracheally intubated using the glide scope with a 8.0 ETT. In line stabilization was performed during the procedure. Tracheal intubation was confirmed with misting on the tube; breath sounds were auscultated equally bilaterally; appropriate color change with [place] CO2 detector. Chest X-ray shows ETT in good position. The procedure was performed by myself. (Yasmeen Webster) ED Course/Re-evaluation: I assisted Dr. Brantley in the care of this patient. Because of his persistent hypotension, I have placed a central line for presumed sepsis though is that pressors can be given. Because of the patient's respiratory status with low oxygenation despite non-rebreather mask and decreased mental status, I have intubated the patient. During intubation, it became clear that the patient has a GI bleed. OG tube was placed with return of several 100 mL of dark brown fluid. The patient will be admitted to the hospitalist service by Dr. Arredondo. (Yasmeen Webster) 72-year-old male with multiple medical problems who presented with altered mental status and hypoglycemia at home. My initial impression was that this was sepsis rather than hypoglycemia. His blood sugar had normalized and he continued with an altered mental status. He was tachycardic on arrival, normotensive, and hypoxic (requiring oxygen). He did not have fever. I presumed that this was likely urosepsis, as he had been treated for urosepsis earlier this month. However, he is also known to have left lower extremity wound which has been treated with debridement and local wound care. He has a history of MRSA bacteremia. It is thought that his calcaneal wound could involve osteomyelitis. Clearly it is also a potential source of infection He is not currently on antibiotics for this and it is felt that the MRSA that was seen in the wound culture was likely due to colonization. Patient was serially evaluated during his stay in the emergency department. Approximately 1 hr after he arrived he vomited copious amount of partially digested food in a brown fluid. There was no odor suggestive of either blood or feces in the vomitus. Given his altered mental status there is a distinct possibility that he has aspirated. CT scan of his chest was obtained while he was in the emergency department and is suggestive of lingular and left lower lobe infiltrate/aspiration. CT scan of his abdomen was also obtained. It shows no evidence of intra-abdominal abscess or free air. His stomach is dilated and fluid filled. Urinary bladder is dilated. I subsequently learned that he fell at some point earlier in the day and that there was some bleeding from his scalp at that time. It is not clear whether or not his alteration in mental status occurred before or after the fall. After learning of the fall a head CT was ordered to assess for intracranial hemorrhage, as he is on Plavix. This CT was negative for intracranial hemorrhage. Initial lactate was elevated at 2.8, consistent with septic shock. The appropriate fluid bolus was ordered. Hospitalist service will be admitting him to the ICU. Antibiotics were ordered and consultation with Dr. Gonzalez. He is being given vancomycin which will be followed by Al. He has a penicillin allergy. During the course of his emergency department stay became hypotensive and septic shock was declared. Repeat lactate was 2.4. It is clear that he will likely need pressors and central line is being placed. Please see procedure note. His breathing became more more labored, his mental status did not improve , and he was intubated. Please see procedure note. He had a 2nd episode of vomiting--brown fluid. This raises the specter of possible GI bleeding. He was also found to have an elevated troponin at 1.68. EKG shows ST elevation that would be consistent with myocardial infarction. I reviewed the EKG with Dr. Ayaan Cortez and spoke with him on the phone about this patient. He has been critically ill throughout his stay in the emergency department with multiple life-threatening processes that include septic shock, aspiration pneumonia, possible GI bleeding, metabolic encephalopathy, hypoglycemia, and now cardiac ischemia. I feel that he is an extremely poor candidate for cardiac catheterization. Based upon my description of the situation and his review of the EKG, Dr. Cortez is in agreement with this assessment. As per Dr. Gonzalez's note, this patient might have had a DNR status in the past but his daughter, who is currently his medical decision maker, has asked that he receive aggressive care until she can return to [place] tomorrow. He remained encephalopathic throughout his stay in the emergency department. He responded to his name and at various times could provide his name. He was unable to answer any other orientation questions and could only intermittently follow simple commands. I spoke with the patient's daughter at 11:20 p.m.. I informed her that he has been intubated and that he is critically ill and will likely . She is in [place] and will be flying back to [place] tomorrow morning, arriving at 9:45 a.m.. She understands the gravity of the situation. She did see him this morning before she left for [place] and told me that he was doing well at that time. Her telephone number is [phone]. Her name is Zo Telles. She would like to be contacted at any time for significant changes in his condition. (Eun Bratnley) Critical Care Time: I spent a total of 60 minutes of critical care time in obtaining history, performing a physical exam, bedside monitoring of interventions, collecting and interpreting tests and discussion with consultants but not including time spent performing procedures. He was in septic shock. He was at risk of multi-system failure and . (Eun Brantley) - Data Points Laboratory Results: Laboratory Results 05/29/18 19:58 05/29/18 19:58 Microbiology Results: MICROBIOLOGY 05/29/18 20:25 Blood Blood Culture - Preliminary Gram Positive Victorino 05/29/18 20:25 Blood Blood Panel (PCR) - Final No Organism Detected Medications Given: Enoxaparin Sodium (Lovenox) 40 mg SC DAILY JAKE Stop: 11/26/18 08:59 Last Admin: 05/30/18 10:55 Dose: 40 mg Sodium Chloride (Ns) 1,000 mls @ 150 mls/hr IV CONT JAKE Stop: 11/25/18 20:59 Last Admin: 05/30/18 09:00 Dose: 1,000 mls Norepinephrine 16 mg/ Sodium (Chloride) 266 mls @ 0 mls/hr IV CONT JAKE; Per Protocol PRN Reason: Protocol Stop: 11/26/18 07:59 Last Admin: 05/30/18 16:37 Dose: 266 mls Vasopressin 25 unit/ Sodium (Chloride) 251.25 mls @ 24 mls/hr IV CONT JAKE Stop: 11/26/18 09:59 Last Admin: 05/30/18 10:06 Dose: 251.25 mls Vancomycin HCl 1 gm/ Sodium (Chloride) 250 mls @ 250 mls/hr IV Q12H JAKE Stop: 06/29/18 09:59 Last Admin: 05/30/18 10:55 Dose: 250 mls Meropenem 1 gm/ Sodium (Chloride) 120 mls @ 120 mls/hr IV Q12HRS JAKE PRN Reason: Protocol Stop: 06/29/18 10:29 Last Admin: 05/30/18 12:10 Dose: 120 mls Epinephrine HCl 8 mg/ Sodium (Chloride) 258 mls @ 0 mls/hr IV CONT JAKE; Per Protocol PRN Reason: Protocol Stop: 11/26/18 14:14 Last Admin: 05/30/18 14:41 Dose: 258 mls Discontinued Medications Hydrocortisone (Solucortef) 100 mg IVP ONCE ONE Stop: 05/30/18 16:09 Last Admin: 05/30/18 16:38 Dose: 100 mg Vancomycin/Sodium Chloride (Vancomycin 1 Gm (Premix)) 250 mls @ 250 mls/hr IV EDNOW ONE PRN Reason: Protocol Stop: 05/29/18 21:38 Last Admin: 05/29/18 21:31 Dose: 250 mls Levofloxacin/Dextrose (Levaquin 750 Mg (Premix)) 150 mls @ 100 mls/hr IV DAILY JAKE PRN Reason: Protocol Stop: 06/28/18 20:59 Last Admin: 05/30/18 00:04 Dose: 150 mls Norepinephrine 4 mg/ Sodium (Chloride) 504 mls @ 0 mls/hr IV CONT JAKE; Per Protocol PRN Reason: Protocol Stop: 11/25/18 22:59 Last Admin: 05/30/18 01:32 Dose: 504 mls Sodium Chloride (Ns) 1,000 mls @ 0 mls/hr IV ONCE ONE; Wide Open PRN Reason: Protocol Stop: 05/29/18 23:27 Last Admin: 05/29/18 23:10 Dose: 1,000 mls Sodium Chloride (Ns) 1,000 mls @ 0 mls/hr IV ONCE ONE PRN Reason: Wide Open Stop: 05/30/18 05:40 Last Admin: 05/30/18 05:40 Dose: 1,000 mls Sodium Chloride (Ns) 1,000 mls @ 0 mls/hr IV ONCE ONE PRN Reason: Wide Open Stop: 05/30/18 07:35 Last Admin: 05/30/18 08:06 Dose: 1,000 mls Magnesium Sulfate (Magnesium Sulf 2 Gm (Premix)) 50 mls @ 50 mls/hr IV ONCE ONE Stop: 05/30/18 12:40 Last Admin: 05/30/18 13:32 Dose: 50 mls Ketamine HCl (Ketamine) 100 mg IVP EDNOW ONE Stop: 05/29/18 20:11 Last Admin: 05/29/18 23:10 Dose: 100 mg Pantoprazole Sodium (Protonix) 80 mg IVP ONCE ONE Stop: 05/29/18 23:12 Last Admin: 05/29/18 23:30 Dose: 80 mg Phenylephrine HCl (Neosynephrine) 80 mcg IVP EDNOW ONE Stop: 05/29/18 23:50 Last Admin: 05/29/18 23:00 Dose: 80 mcg Succinylcholine Chloride (Quelicin) 100 mg IVP ONCE ONE Stop: 05/29/18 23:27 Last Admin: 05/29/18 23:10 Dose: 100 mg Point of Care Test Results: Chemistry 05/29/18 20:32 POC Sodium 141 mEq/L mEq/L (135-145) POC Potassium 3.9 mEq/L mEq/L (3.3-5.0) POC Chloride 102 mEq/L mEq/L (97-110) POC BUN 31 mg/dL H mg/dL (7-23) POC Creatinine 1.0 mg/dL mg/dL (0.7-1.3) POC Glucose 167 mg/dL H mg/dL (70-100) ISTAT H&H 05/29/18 20:32 POC Hgb 12.2 gm/dL L gm/dL (13.7-17.5) POC Hct 36 % L % (40-51) Departure - Departure Disposition: [facility] Acute Clinical Impression: Septic shock, Acute encephalopathy, Respiratory failure requiring intubation Aspiration pneumonia Qualifiers: Aspiration pneumonia type: due to vomit Laterality: left Lung location: lower lobe of lung Qualified Code(s): J69.0 - Pneumonitis due to inhalation of food and vomit Myocardial infarction Qualifiers: Myocardial infarction type: ST elevation myocardial infarction Involved coronary artery: unspecified coronary artery Qualified Code(s): I21.3 - ST elevation (STEMI) myocardial infarction of unspecified site Condition: Critical
--- NOTE | 2018-05-29 22:59 | GHP ---
DATE OF ADMISSION: 05/29/2018 CHIEF COMPLAINT: Acute encephalopathy. HISTORY OF PRESENT ILLNESS: A 72-year-old male presenting with acute encephalopathy characterized as confusion, disorientation, and somnolence with onset of symptoms on the afternoon of the date of presentation. Per patient's daughter, she visited him at approximately 10 a.m. on the day of presentation, reports that he was mentating at his baseline, interactive, did not appear to have any abnormalities at that time. 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 EMS was called, and the patient's glucose level was found to be 32, he was administered D10, and then D50. His mental status did not particularly improve, and he was administered Narcan, since he does take opiate pain medications at baseline. His mental status was noted to be slightly improved, and he was brought to the emergency department. Upon arrival to the emergency department, he continued to be disoriented and somnolent, and subsequently experienced vomiting, with brown vomitus. After vomiting, the patient's breathing became notably course, tachypneic and he developed hypotension with systolic blood pressures in the 80s. His oxygen requirement increased to 8 L nasal cannula to maintain a sat greater than 90%, as his oxygen saturations had been around 82% on 5 L. REVIEW OF SYSTEMS: Encephalopathy, vomiting, chronic lower extremity wound on the left. All other review of systems otherwise negative per family, otherwise unobtainable from the patient. PAST MEDICAL HISTORY: 1. History of end-stage renal disease with renal transplant in 2007, subsequently on chronic immunosuppression with preserved renal function. 2. Metastatic squamous cell cancer with previous radiation and resection. 3. History of C diff. 4. History of MRSA bacteremia secondary to chronic lower extremity wounds. 5. Diabetes mellitus type 1 with pump, complicated by retinopathy, nephropathy , neuropathy. 6. 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 Mojgan Mohan on 05/26/2018. PAST SURGICAL HISTORY: 1. Appendectomy. 2. Tonsillectomy. 3. Renal transplant. 4. Left AV fistula. 5. Repetitive debridement left calcaneum. 6. Toe amputations bilaterally. HOME MEDICATIONS: Yet to be reconciled. SOCIAL HISTORY: The patient has a smoking history but does not currently smoke , he currently has caretakers. FAMILY HISTORY: Unobtainable from the patient. ALLERGIES: Penicillins, unclear reaction. PHYSICAL EXAM: VITAL SIGNS: Systolic blood pressure initially 148, subsequently 81 on my evaluation, heart rate 117, respiratory rate initially 20 , currently around 40 on exam, SpO2 82% on 5 L nasal cannula, up titrated to 8 L nasal cannula, temperature initially 37.2, 38 degrees on my exam. GENERAL: Toxic appearing, patient with visible tachypnea, chronically-ill appearing. NEURO: The patient follows some 1 step commands, he is otherwise non directable, does not answer verbally to questions. SKIN: Evaluated calcaneal wound, the margins did not have significant erythema but there is black eschar in the wound bed and it is currently unstageable, and there is no erythema over his left upper extremity AV fistula. RESPIRATORY: Visibly tachypneic with labored breathing, rhonchorous breath sounds, sounds like end of life breathing, no expiratory wheezes but rhonchi on inspiration and expiration on auscultation. CARDIAC: Tachycardic, regular rhythm, reduced pulses in bilateral dorsalis pedis. GASTROINTESTINAL: Mildly distended and somewhat firm abdomen, absent bowel sounds, not eliciting tenderness with palpation. DATA: Lactic acid 2.8, creatinine 1.0, serum bicarbonate 28, white blood cell count [id number], glucose 167, hemoglobin 12. IMAGING: Chest x-ray demonstrating atelectasis: Personally interpreted. Outside records: [facility]ound [facility] appointment with Dr. Mojgan Mohan 05/26/2018 reporting stage IV ulceration on the left heel, received palliative debridement , bone/calcaneum visible, risks of antibiotics outweigh potential benefits at that time. ASSESSMENT: 72-year-old male, presenting with septic shock secondary to likely osteomyelitis and bacteremia complicated by acute encephalopathy, non ST- elevation myocardial infarction, acute hypoxic respiratory failure. PLAN: 1. Septic shock: Evidenced by qSOFA score of 3 with hypotension, tachypnea, encephalopathy, clearly toxic appearing with most likely infection being either osteomyelitis or bacteremia with direct evidence of resultant end-organ failure , notably type 2 NSTEMI, respiratory failure, encephalopathy. 2. Discussed with Dr. Eun Brantley in the emergency department, we agreed to place a central line given that the patient will most likely require pressors tonight. 3. Currently receiving the fluid challenge, with repeat lactic acid pending. 4. Broad-spectrum antibiotics with vancomycin first, levofloxacin second, given penicillin allergy. Blood cultures sent. Further investigation for specific source with CT of the chest, abdomen, pelvis, given the likelihood of either aspiration pneumonia after the patient's vomitus or intra-abdominal source given his history of recent urinary tract infection and susceptibility. I discussed the patient's goals of care in detail with his MD TRAN, his daughter , who is currently in [place], [place], and this phone conference was witnessed by his [id number], Donna, the nature of our conversation revealed that the patient has previously provided a Do Not Resuscitate status but the specific intentions in details surrounding this designation were somewhat unclear with the patient's MD TRAN and she believes that it would be within the scope of the patient's goals of care to provide full support tonight until the daughter and son can participate in his care at bedside tomorrow and collaboratively make decisions with the patient's care team. I have shared with the MD TRAN that the patient's situation is critical and he has a high risk of passing away this evening despite aggressive measures, but we will provide aggressive care in the intensive care unit. 5. Acute encephalopathy: Evidenced by global brain dysfunction, characterized as confusion, disorientation, somnolence, all of which are an acute change from the patient's baseline which was witnessed by the patient's daughter at 10 a.m. on the day of presentation, most likely secondary to the toxic effects of infection and metabolic effects of acidosis. 6. Check stat arterial blood gas to ensure the patient is not also hypercapnic. 7. Check noncontrast head CT to ensure no intracranial hemorrhage. 8. The patient's mental status changes are most likely attributable to the conditions noted above as well as directly linked to his septic shock. 9. Metabolic acidosis: Acute, secondary to lactic acid, secondary to septic shock, repeating lactic acid at this time and will continue to check it every 2 hours until cleared. 10. Non ST-elevation myocardial infarction: Type 2, secondary to septic shock with resultant troponin level of 1.68. 11. Monitor on telemetry. 12. Will repeat a troponin level tomorrow if the patient's status is improving to determine whether he requires additional cardiac risk stratification. Following this episode of care. 13. Acute hypoxic respiratory failure: Evidenced by SpO2 of 82% on 5 L nasal cannula. During this exam with visible tachypnea and labored breathing, visible respiratory distress, either secondary to aspiration or septic shock or both. 14. Titrated to 8 L high-flow oxygen. Hold on intubating this patient at this time since his SpO2 has responded but have communicated to the patient's MD TRAN that there is a high likelihood that he will require intubation overnight. 15. As noted above, check arterial blood gas to ensure there is not an element of retention. 16. Hypoglycemia: Acute, secondary to septic shock, glucometer checks q.4 hours overnight. 17. Chronic immunosuppression: Secondary to immunosuppressives after renal transplant in 2007, will be holding medications acutely given his septic shock. 18. Acute atelectasis: Most likely secondary to hypoventilation in the setting of critical illness. 19. Suspected osteomyelitis and likely bacteremia: Most likely secondary to unstageable left heel wound, currently receiving IV antibiotics. Dr. Rios will consult on this patient during this hospitalization. Wound Care has been consulted as well. 20. Pressure injury: Present on admission, left heel unstageable wound secondary to diabetic neuropathy, Wound Care consulted. DIET: N.p.o. PROPHYLAXIS: High risk patient, Lovenox 40. CODE: Full at present, MD TRAN is his daughter, and she will be flying back from [place] early tomorrow morning to join his care team and collaborate on his goals of care. DISPOSITION: Anticipated discharge uncertain at this time, anticipated length of stay is greater than 48 hours for reasonable medical necessity including septic shock, critical illness. TIME SPENT: 100 minutes of total critical care time spent with this patient, at bedside, coordinating care with his MD TRAN as well as emergency department provider Dr. Eun Brantley, Dr. Arredondo, emergency department nurses, intensive care unit nurses, specifically addressing his septic shock outlined above. /[id number]/MODL MTDD
[2018-05-29] MEDS: NOREPINEPHRINE BITARTRATE 4 MG in NS 500 ML IV SCH ×2 (23:00→23:43)
[2018-05-29] MEDS ORDERED: PANTOPRAZOLE SODIUM 40 MG VIAL IVP ONE (23:11)
[2018-05-29] MEDS ORDERED: PANTOPRAZOLE SODIUM 40 MG VIAL ONE (23:14)
[2018-05-29] MEDS ORDERED: PROPOFOL/EMULSION 1,000 MG/100 ML BOTTLE IV ONE (23:18)
[2018-05-29] MEDS ORDERED: NS 1,000 ML IV ONE (23:26)
[2018-05-29] MEDS ORDERED: SUCCINYLCHOLINE CHLORIDE 200 MG/10 ML VIAL IVP ONE (23:26)
[2018-05-29] MEDS ORDERED: PANTOPRAZOLE SODIUM 40 MG VIAL IVP SCH (23:30)
[2018-05-29] MEDS ORDERED: fentaNYL/NACL 100 ML IV SCH (23:30)
[2018-05-29] MEDS ORDERED: PHENYLEPHRINE HCL 100 MCG/ML SYR IVP ONE (23:49)
[2018-05-29] MEDS ORDERED: PHENYLEPHRINE HCL 100 MCG/ML SYR ONE (23:49)
[2018-05-29] MEDS ORDERED: levOFLOXACIN 750 MG/DEXTROSE/150 ML BAG IV ONE (23:55)
[2018-05-30] MEDS ORDERED: SUCCINYLCHOLINE CHLORIDE 200 MG/10 ML SYR IVP ONE (00:37)
[2018-05-30 01:30] LABS: PLATELET COUNT 304 10^3/uL (150-400)
[2018-05-30] MEDS: NOREPINEPHRINE BITARTRATE 4 MG in NS 500 ML IV SCH (01:32)
[2018-05-30] MEDS ORDERED: PROPOFOL/EMULSION 100 ML IV SCH (03:44)
[2018-05-30 04:16] LABS: PLATELET COUNT 289 10^3/uL (150-400)
[2018-05-30] MEDS ORDERED: KETAMINE 200 MG/20 ML VIAL ONE (04:26)
[2018-05-30] MEDS ORDERED: NS 1,000 ML IV ONE ×2 (05:39→07:34)
--- NOTE | 2018-05-30 07:37 | HOSPPROG ---
Hospitalist Progress Note Assessment/Plan: XC: Patient with low MAPs, requiring high dose norepinephrine. Troponin 25 this morning. I discussed with Dr. Cortez from Cardiology who requested a STAT echocardiogram and will re-evaluate this morning. I will continue fluid resuscitation for now. Objective: Vital Signs Temp Pulse Resp BP Pulse Ox 37.1 C 115 H 26 H 94/43 L 100 05/30/18 00:30 05/30/18 06:00 05/30/18 06:00 05/30/18 06:00 05/30/18 06:00 Laboratory Results 05/30/18 04:09 05/30/18 04:09 05/29/18 05/30/18 05/31/18 05:59 05:59 05:59 Intake Total 3100 Output Total 1100 Balance 2000 PT 14.3 SEC (12.0-15.0) 05/29/18 19:58 INR 1.09 (0.83-1.16) 05/29/18 19:58 ICD10 Worksheet Patient Problems: Problems Problem Status Onset Acute ischemic stroke Acute Altered mental status Acute C. difficile diarrhea Acute 10/13/14 DKA (diabetic ketoacidoses) Acute Dehydration Acute Diabetes mellitus type 1 Acute Fall Acute Fever Acute Generalized weakness Acute History of kidney transplant Acute Leukocytosis Acute Periprosthetic fracture around internal prosthetic left hip joint Acute Rib fractures Acute Sepsis Acute Urinary tract infection Acute Wound infection Acute
[2018-05-30] MEDS: NOREPINEPHRINE BITARTRATE 16 MG in NS 250 ML IV SCH ×2 (08:06→16:37)
[2018-05-30] MEDS ORDERED: VANCOMYCIN 1.5 GM in D5W 250 ML IV SCH (09:00)
[2018-05-30] MEDS ORDERED: ENOXAPARIN 40 MG/0.4 ML SYR SC SCH (09:00)
--- NOTE | 2018-05-30 09:22 | PDMN ---
Medical Necessity Medical necessity: [facility] M160 Sepsis and M230 [place]: 72 y/o in septic shock evidenced by qSOFA score of 3 w/ hypotension, tachypnea, encephalopathy, clearly toxic appearing w/ most likely infection being either osteomyelitis or bacteremia w/ direct evidence of resultant end-organ fx, notably type 2 NSTEMI, resp fx, encephalopathy. Aggressive tx underway, IV antibx, IV pressors, IVF, on vent. Anticipated d/c uncertain at this time, anticipated length of stay > 48hrs for reasonable medical necessity including septic shock, critical illness.
[2018-05-30] MEDS ORDERED: VANCOMYCIN 1 GM in NS 250 ML IV SCH (10:00)
[2018-05-30] MEDS ORDERED: VASOPRESSIN 25 UNIT in NS 250 ML IV SCH (10:00)
[2018-05-30] MEDS ORDERED: VASOPRESSIN/DEXTROSE 250 ML IV SCH (10:00)
--- NOTE | 2018-05-30 10:18 | PCMIDPN ---
Assessment/Plan: Assessment/Plan: * Septic shock with prior history of renal transplantation and chronic calcaneal ulceration: Clinical findings and presentation consistent with septic shock. Likely significant element related to aspiration given notable vomiting in emergency department as well as evidence of pneumonia on CT of chest. Other potential etiology is related to skin and soft tissue source with chronic heel wound and exposed bone. History of MRSA on recent cultures as well as enterococcus faecalis. Will treat empirically with vancomycin and meropenem; patient tolerated ertapenem in past with concern of confusion but no notation of allergic findings. Favor this over levofloxacin given frequent healthcare contact and severity of illness recognizing potential for cross- reactivity with penicillin and cephalosporin allergy. Overall prognosis is grave with current need for 2 pressors for blood pressure support as well as mechanical ventilatory support and marked elevation in troponin. Time spent, greater than 35 min, of which greater than half was spent in education/counseling/coordination of care related to septic shock and plan of care. 05/30/18 10:14 Subjective: Patient well known to me from prior care with recent evaluations during hospitalization earlier this month for confusion of unclear etiology without identified infection. Patient now admitted with recurrent confusion and hypoglycemia with significant vomiting with concern for aspiration in emergency department. This has been associated with hypotension now requiring 2 pressors for blood pressure support as well as significant development of leukopenia. Patient with known chronic calcaneal ulceration and exposed bone. History of recurrent UTI and prior episodes of bacteremia from Klebsiella and MSSA. Recent foot cultures showing growth of MRSA. Infectious disease now asked to assist in his ongoing management based on septic shock. Objective: Vital Signs Temp Pulse Resp BP Pulse Ox 37.9 C 116 H 23 H 88/40 L 95 05/30/18 08:00 05/30/18 10:00 05/30/18 10:00 05/30/18 10:00 05/30/18 10:00 Laboratory Results 05/30/18 04:09 05/30/18 04:09 05/29/18 05/30/18 05/31/18 05:59 05:59 05:59 Intake Total 6571.0 Output Total 1260 Balance 5311.0 Vancomycin # 1 Levofloxacin # 1 Blood cultures x2 pending CT chest with left upper lobe and left lower lobe infiltrates - Physical Exam General Appearance: other (Intubated, sedated) EENT: ET Tube, other (Scalp wound with chronic eschar and no active surrounding cellulitis), No scleral icterus, No conjunctival petechiae Respiratory: wheezing, coarse breath sounds Cardiac/Chest: tachycardia Extremities: other (Left calcaneal ulcer with scattered areas of necrosis; exposed bone present; no purulence; no surrounding cellulitis) Abdomen: non-tender, No distended Skin: other (Cool extremities), No embolic lesions ICD10 Worksheet Patient Problems: Problems Problem Status Onset Acute ischemic stroke Acute Altered mental status Acute C. difficile diarrhea Acute 10/13/14 DKA (diabetic ketoacidoses) Acute Dehydration Acute Diabetes mellitus type 1 Acute Fall Acute Fever Acute Generalized weakness Acute History of kidney transplant Acute Leukocytosis Acute Periprosthetic fracture around internal prosthetic left hip joint Acute Rib fractures Acute Sepsis Acute Urinary tract infection Acute Wound infection Acute
[2018-05-30] MEDS ORDERED: MEROPENEM 1 GM in NS 100 ML IV SCH (10:30)
[2018-05-30] MEDS ORDERED: PROTOCOL MAGNESIUM 1 DOSE IV PRN (10:59)
[2018-05-30] MEDS ORDERED: MAGNESIUM SULF 2 GM/WATER 50 ML IV ONE (11:41)
--- NOTE | 2018-05-30 12:29 | ECHO ---
[email or web address] [address] [address] Main: [phone] Fax: [email or web address] Echocardiogram Name: SILVIA HORTON MR#: [id number] Study Date: 05/30/2018 Study Time: 09:24 AM Date of : 1945 Age: 72 year(s) Height: 172.7 cm (68 in.) Weight: 61.24 kg (135 lb.) BSA: 1.73 m2 Gender: Male Examination: Echo Indication: Intubated, Elevated Troponins, Sepsis Image Quality: Contrast: Requested by: Bandar Trejo BP: 90 mmHg/41 mmHg Heart Rate: Rhythm: Sinus tachycardia Indication: Intubated, Elevated Troponins, Sepsis Procedure Staff Charter Representative: Marcelino Cruz RDCS Reading Physician: Jb Field MD Requesting Provider: Conclusions: Normal size left ventricle. The ejection fraction is estimated to be 40-45 %. The mid inferolateral, apical anterior, apical septal, apical inferior, apical lateral and apex Grade 3 diastolic dysfunction (reversible restrictive LV filling pattern). Normal RV function. The left atrium is normal in size. The right atrium is normal in size. Moderate mitral annular calcification. Moderate mitral valve leaflet calcification is present. There is no significant mitral valve regurgitation. Mild aortic cusp calcification is noted. The pulmonary artery pressure is mildly increased. No pericardial effusion. Compared to the previous exam of 08/24/17 there is now left ventricular wall motion abnormalities.. Measurements: Chambers Valvular Assessment AV/MV Valvular Assessment TV/PV Normal Normal Normal Name Value Range Name Value Range Name Value Range Ao Viridiana (MM): 3.7 cm (2.2 cm-3.7 AV Vmax: 1.43 m/s (1 m/s-1.7 TR Vmax: 2.76 mm/s ( - ) cm) m/s) TR PGmax: 30 mmHg ( - ) IVSd (2D): 0.9 cm (0.6 cm-1.1 AV maxP mmHg ( - ) syst. PAP: 35 mmHg ( - ) cm) LVOT Vmax: 1.98 m/s (0.7 m/s-1.1 LVDd (2D): 4.0 cm (4.2 cm-5.9 m/s) cm) MV E Vmax: 1.22 m/s ( - ) LVDs (2D): 3.0 cm (2.1 cm-4 MV A Vmax: 0.44 m/s ( - ) cm) MV E/A: 2.77 ( - ) LVPWd (2D): 1.0 cm (0.6 cm-1 cm) LVEF (2D): 49 (>=54 %) Patient: SILVIA HORTON Study Date: 05/30/2018 Page 1 of 2 09:24 AM EF Range: 40-45 % Continued Measurements: Chambers Valvular Assessment AV/MV Valvular Assessment TV/PV Name Value Name Value Name Value LADs Lon.6 cm MV E' Septal: 0.04 m/s CVP (est.): 5 mmHg LA Area: 16.3 cm2 MV E/E' Septal: 31.30 MV E/E' Lateral: 24.10 Findings: Left Ventricle: Normal size left ventricle. The ejection fraction is estimated to be 40-45 %. The mid inferolateral, apical anterior, apical septal, apical inferior, apical lateral and apex wall segments are akinetic. All remaining scored wall segments are normal. Grade 3 diastolic dysfunction (reversible restrictive LV filling pattern). Right Ventricle: Normal size right ventricle. Normal RV function. Left Atrium: The left atrium is normal in size. Right Atrium: The right atrium is normal in size. Mitral Valve: Mild mitral valve leaflet calcification is present. Moderate mitral annular calcification. Moderate mitral valve leaflet calcification is present. There is no significant mitral valve regurgitation. No mitral stenosis is present. Aortic Valve: The aortic valve is tri-leaflet. Mild aortic cusp calcification is noted. Tricuspid Valve: The tricuspid valve is normal in appearance and function. Trivial tricuspid valve regurgitation. The pulmonary artery pressure is mildly increased. Pulmonic Valve: The pulmonic valve is normal in appearance and function. Aorta: The aorta is normal. Pericardium: No pericardial effusion. Exam Comments: Compared to the previous exam of 08/24/17 there is now left ventricular wall motion abnormalities.. (No Signature Object) Wall Motion Scores Patient: SILVIA HORTON Study Date: 05/30/2018 Page 2 of 2 09:24 AM [id number]
[2018-05-30] MEDS ORDERED: LORazepam 2 MG/ML INJ IVP PRN (14:11)
--- NOTE | 2018-05-30 14:11 | GCON ---
CARDIOLOGY CONSULTATION FOR ELEVATED TROPONIN DATE OF CONSULTATION: 05/30/2018 HISTORY OF PRESENT ILLNESS: Mr. Fabien Telles is a 72-year-old male with multiple past medical problem s, well known to the Infectious Disease service because of a prior hospitalization. The patient did have suspected urosepsis and an episode of confusion of unclear etiology earlier this month. The pat ient was apparently lucid and thinking in a linear fashion per the daughter's report yesterday before she left to go to [place]. Last evening he presented to the hospital with altered level of consciou sness and was poorly responsive. The patient was noted to have intermittent nausea and vomiting as w ell as probable aspiration and ultimately the patient's daughter was contacted because of his DNR sta tus and that was ultimately rescinded by the daughter and the patient's airway was intubated for airw ay protection. He was noted to have an abnormal EKG with evidence of ST elevation in V1 and V2 as we ll as reciprocal changes in the inferolateral leads suspicious for myocardial injury versus ischemia. Because of the patient's critical condition and his severe hypotension and sepsis, it was felt that he would not do well with coronary intervention and because of his DNR status, it was felt that I sh ould not take the patient to the medical laboratory specialist last evening. The daughter felt that it would be most appr opriate to try to keep her father alive until she could return from [place] and get her brother in [facility] out of state as well. The patient received vasopressor support over the course of last evening and was still alive this mor wandy. The morning laboratory studies revealed a troponin of 25, and I was asked to see the patient i n consultation. PAST MEDICAL HISTORY: The patient's past medical history is significant for: 1. End-stage renal disease with renal transplant in 2007 and subsequent on chronic immunosuppression with preserved renal function. 2. Metastatic squamous cell cancer with previous radiation and resection. 3. History of C difficile. 4. History of MRSA bacteremia secondary to chronic lower extremity wounds. 5. Type 1 diabetes with a pump complicated by retinopathy, nephropathy and neuropathy. 6. Chronic left lower extremity calcaneal wound likely with osteomyelitis, recently receiving pallia tive debridement by Dr. Maura Mohan on 05/26/2018. PAST SURGICAL HISTORY: His past surgical history is significant for: 1. Appendectomy. 2. Tonsillectomy. 3. Renal transplant. 4. Left AV fistula. 5. Repetitive debridement of the left calcaneal. 6. Toe amputations bilaterally. MEDICATIONS: The home medications are yet to be reconciled. SOCIAL HISTORY: He has a smoking history, but does not currently smoke. ALLERGIES: He is known to be allergic to penicillin and unclear reaction. OBJECTIVE: GENERAL: At the time of my evaluation the patient is intubated and sedated. He is not o vertly cooperative but did seem to reach for his tube, which was the only purposeful movement that I noticed during his physical examination. He is relatively hypotensive with a blood pressure of 94/54 , heart rate 115, respiratory rate 24, with an oxygen saturation of 90% on 90% FiO2 on the ventilator . His temperature is 37 degrees. NECK: Reveals JVD. HEART: Reveals a normal S1 and S2 with a pos itive systolic murmur consistent with mitral regurgitation. LUNGS: Reveal bilateral rhonchi. ABDOM EN: Not obviously tender. EXTREMITIES: Reveal the prior chronic changes of probable diabetic vascu lopathy and prior amputations as well as the ulceration of the calcaneus. LABORATORY STUDIES: Reveal a white count initially of 14.42 yesterday, now 1.68 on this morning's la bs. The H and H are 12.0 and 38.6 with a platelet count of 367. Coags reveal a PT/INR of 14.3 and 1 .09. Chemistry reveals sodium of 141, potassium of 5, chloride 115, BUN and creatinine of 35 and 1.1 , glucose of 157 and a troponin which has trended from 1.68 yesterday to 25.8 this morning and was mo st recently at 31.2. His urine is negative for ketones, blood, nitrates, or leukocyte esterase, and has a pH of 7.0. The EKG reveals full sinus tachycardia with left anterior fascicular block. Q-waves in the anterior sept al leads with associated ST-segment elevation. There were reciprocal changes with ST-segment depress ion, which is relatively flat and horizontal in 2, 3, AVF, V4, V5 and V6. These changes are consiste nt with ischemia and possible recent anterior infarction. The echocardiogram was interpreted by Dr. Field and I did review those images as well. The patient has a normal left ventricular chamber size w ith depressed left ventricular systolic function. The ejection fraction is 40% to 45%. There are ne w mid inferolateral, apical anterior, apical septal, apical inferior, apical lateral and apical hypok inesis consistent with acute LV dysfunction. There is grade 3 diastolic dysfunction as well with a r eversible restrictive LV filling pattern. The chest x-ray is consistent with an aspiration pneumonit is. A chest CT performed last evening favored aspiration rather than atelectasis and there was moder ately severe bronchomalacia with a left infrahilar lymph node versus a partially thrombosed aneurysma l dilation of the left pulmonary artery. There was extensive coronary calcification consistent with severe coronary artery disease. IMPRESSION AND PLAN: Mr. Fabien Telles appears to have presented with sepsis and hypotension complicat ed by nausea and vomiting as well as an aspiration pneumonitis. The patient subsequently developed t achycardia with pressor support and then developed EKG changes that ultimately were suggestive of juni cardial ischemia. Given the fact that the patient was DNR and heroic measures were not to be enterta ined, we elected not to proceed with cardiac catheterization or invasive treatment of this patient. I believe that because of his acute respiratory failure and now heart failure, that his prognosis is not very good. The daughter has the medical power of deputy county attorney, wants to continue support for now whi le her brother comes in from out of town. He is supposed to arrive later this evening. We are certa inly available for subsequent consultation should his condition improve, and if he is felt to be viab le from his other comorbidities. At present, I would like to avoid invasive or aggressive treatment of his underlying myocardial injury and I am not sure that I do not think he is a candidate for throm bolytic therapy. He could be considered for intravenous heparin and/or rectal aspirin, although I th ink his risk of bleeding is probably quite high. I think his prognosis is poor and that he is unlike ly to survive his current state. /[id number]/MODL
[2018-05-30] MEDS ORDERED: EPINEPHrine 8 MG in NS 250 ML IV SCH (14:15)
[2018-05-30] MEDS ORDERED: PHENYLEPHRINE HCL 50 MG in D5W 250 ML IV SCH (14:30)
--- NOTE | 2018-05-30 15:26 | GCON ---
DATE OF CONSULTATION: 05/30/2018 REASON FOR CONSULTATION: Intensive care unit evaluation of sepsis and respiratory failure. HISTORY: The patient is a 72-year-old gentleman with multiple medical problems. He is admitted with sepsis. The onset of his symptoms was yesterday. He presented to the emergency department hypotensive. Despite previous do not resuscitate orders, he was intubated. He vomited and did likely aspirate. In the ED he received fluids, antibiotics, and norepinephrine for blood pressure support. He was transferred to the intensive care unit for further care. PAST MEDICAL HISTORY: Remarkable for multiple medical problems including Insulin-dependent diabetes, renal transplantation and immunosuppression, peripheral vascular disease, osteomyelitis, history of sepsis secondary to MRSA , history of C diff, etc PHYSICAL EXAMINATION: GENERAL: An elderly gentleman, who is unresponsive on the ventilator. He is being sedated with low-dose propofol and fentanyl. An endotracheal tube and nasogastric tube to suction are in place. HEENT: Remarkable for one open and chronic-appearing wound without significant surrounding erythema on top of his head. He has an abrasion from a fall yesterday, as well. 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 The left pupil is round and appears reactive. Mucous membranes are somewhat dry. NECK: There is no obvious jugular venous distention. CHEST: Clear anteriorly. Breath sounds are diminished at the bases. Some central pulmonary congestion is present. ABDOMEN: Soft. Bowel sounds are diminished. There are no obvious masses. Tenderness is difficult to assess. EXTREMITIES: Remarkable for amputations. There is an area of ulceration on the heel on the right. NEUROLOGIC: Difficult to assess at this point in time. He is sedated, appears comfortable. He will move all extremities weakly to stimulation. He will not look to voice. DATABASE: A CT scan of the chest shows pulmonary infiltrates on the left, possibly consistent with aspiration. Presbyesophagus is present, filled with fluid. CT scan of the abdomen is unremarkable for acute pathology or evidence of abscess or infection. A renal transplant is noted with a dilated collecting system. CT scan of the head is negative for acute findings. Laboratory : Arterial blood gas showed a pH is 7.24, pCO2 47 and PO2 of 85 on 1 of% FiO2 on the ventilator. White blood cell count was 14,000, hematocrit 36. Platelets are normal. PT and PTT are normal. Sodium is 141, potassium 5.0, CO2 17, BUN 35 with a creatinine 1.1. Glucose is 157. Troponin is 31. UA is unremarkable. ASSESSMENT: 1. Acute respiratory failure secondary to sepsis. 2. Sepsis. Etiology is unclear. He is being treated with broad-spectrum antibiotics. A pulmonary source secondary to aspiration is Likely. A skin source is possible as well. He is on broad-spectrum antibiotics and has been seen by Infectious Disease. 3. Do not resuscitate. The patient was intubated, and we are obviously providing pulmonary support. The family may or may not want this. The patient 's daughter is coming back from out of town and will be here later today. It is possible that the family will want more palliative/comfort care as opposed to aggressive support. 4. Hypotension. Secondary to sepsis. The patient is on norepinephrine and vasopressin. He is receiving fluid resuscitation. Prognosis is guarded. 5. History of multiple medical problems including renal transplantation, peripheral vascular disease, osteomyelitis, insulin-dependent diabetes, etc PLAN/RECOMMENDATIONS: Appropriate ventilatory support will be maintained for now in the intensive care unit. Once the patient's daughter has arrived, we will address her wishes for her father at that time. Extubation and going to comfort care are certainly possible and are being recommended by physicians like Evangelista Frank MD, who has known the patient for a long time. In the meantime , intravenous fluids will be continued, pressors as needed to keep MAP greater than or equal to 65, antibiotics, etc., will all be continued. Further plans and recommendations will be made based on his progress over the next 12 to 24 hours. /[id number]/MODL MTDD
[2018-05-30] MEDS ORDERED: HYDROCORTISONE 100 MG/2 ML VIAL IVP ONE (16:08)
--- NOTE | 2018-05-30 16:08 | HOSPPROG ---
Hospitalist Progress Note Assessment/Plan: * Septic shock -continued worsening throughout today -Levophed gtt at max, vasopressin added -may need to add 3rd pressor shortly - epi -empiric IV vanco, IV meropenum -will give IV hydrocortisone x 1 * Acute respiratory failure - intubated * Aspiration pneumonia * Metabolic encephalopathy * Kidney transplant - on chronic immunosuppression -chronic prednisone - stress dose steroids * Acute ND -d/w Dr. Cortez - no intervention given desire for DNR * DM I - with retinopathy, nephropathy, neuropathy * Chronic calcaneal ulcer with possible osteomyelitis * Metastatic squamous cell ca * MRSA colonization Patient's status continues to worsen, reviewed with dtr POA at bedside Brother is flying in from [place], will arrive at 7:00 pm tonight Continue full support with pressors until he arrives, then family plans to extubate and transition to comfort measures Change to DNR as they do not wish for CPR if he declines prior to to that time CC time 1 hour Subjective: Intubated and sedated Objective: Vital Signs Temp Pulse Resp BP Pulse Ox 37.0 C 112 H 23 H 113/43 L 95 05/30/18 12:00 05/30/18 16:00 05/30/18 16:00 05/30/18 16:00 05/30/18 16:00 Laboratory Results 05/30/18 04:09 05/30/18 11:30 05/29/18 05/30/18 05/31/18 05:59 05:59 05:59 Intake Total 6571.0 Output Total 1260 Balance 5311.0 PT 14.3 SEC (12.0-15.0) 05/29/18 19:58 INR 1.09 (0.83-1.16) 05/29/18 19:58 - Physical Exam Constitutional: other (intubated, sedated) Cardiovascular: tachycardia, No edema Respiratory: no respiratory distress, inspiratory crackles, No rhonchi Gastrointestinal: normoactive bowel sounds, soft, non-tender abdomen, no palpable masses Skin: no rashes or abrasions, no fluctuance, no induration Neurologic: No AAOx3 Psychiatric: encephalopathic, No interacting appropriately ICD10 Worksheet Patient Problems: Problems Problem Status Onset Acute ischemic stroke Acute Altered mental status Acute C. difficile diarrhea Acute 10/13/14 DKA (diabetic ketoacidoses) Acute Dehydration Acute Diabetes mellitus type 1 Acute Fall Acute Fever Acute Generalized weakness Acute History of kidney transplant Acute Leukocytosis Acute Periprosthetic fracture around internal prosthetic left hip joint Acute Rib fractures Acute Sepsis Acute Urinary tract infection Acute Wound infection Acute
--- NOTE | 2018-05-30 16:59 | ASMTCMCOM ---
CM Note CM Note Notes: 72yr old male admitted for AMS, Sepsis. He has a Hx of Met CA, End stage renal dis-renal transplant, [id number] pump, Chronic LLE wound, Blind R eye, Toe amputations, Osteomyelitis, Former smoker. Daughter is his MPOA. Son coming from [place]. DNR patient on supportive care until son arrives then they will extubate and move to comfort measures. Date Signed: 05/30/2018 04:58 PM Electronically Signed By:Sonal Guillory LCSW
[2018-05-30 18:19] VITALS: BP 93/43
[2018-05-30] MEDS ORDERED: FAMOTIDINE 20 MG/NACL 50 ML IV SCH (21:00)
[2018-05-30] MEDS ORDERED: HYDROCORTISONE 100 MG/2 ML VIAL IVP SCH (22:00)
--- NOTE | 2018-05-31 09:15 | GDS ---
SUMMARY. DATE OF : May 30, 2018 DIAGNOSES: 1. Septic shock. 2. Acute respiratory failure. 3. Aspiration pneumonia. 4. Metabolic encephalopathy. 5. End-stage renal disease, status post kidney transplant on chronic immunosuppression. 6. Acute myocardial infarction. 7. Diabetes type 1 with retinopathy, nephropathy and neuropathy. 8. Chronic calcaneal ulcer with probable osteomyelitis. 9. Metastatic squamous cell cancer. 10. Methicillin-resistant Staphylococcus aureus colonization. HISTORY: The patient is a 72-year-old male, chronically ill, with multiple hospitalizations for recu rrent infections. He is on chronic immunosuppression from a previous kidney transplant and is a long -standing type 1 diabetic. He presented to the hospital in septic shock. Source is likely an aspira tion pneumonia. He was intubated in the emergency room. He was admitted to ICU. Septic shock was s evere. He was on 3 pressors. Family reviewed his Living Will and he is a DNR and they desired withd jorge of care shortly after admission, once family all gathered. He was extubated and made comfortab le and rapidly thereafter. /[id number]/MODL
== END 2018-05-30 22:00 | disposition expired | DRG 871 ==
LOC: EDUNIT# → F2N 05-30 00:15
PROVIDERS: ADMIT Internal Medicine; ATTEND Internal Medicine
DX: A41.9 Sepsis, unspecified organism (principal); R65.20 Severe sepsis without septic shock; J69.0 Pneumonitis due to inhalation of food and vomit; J96.01 Acute respiratory failure with hypoxia; I21.A1 Myocardial infarction type 2; G93.41 Metabolic encephalopathy; E10.649 Type 1 diabetes mellitus with hypoglycemia without coma; E10.22 Type 1 diabetes mellitus with diabetic chronic kidney disease; N18.6 End stage renal disease; E10.40 Type 1 diabetes mellitus with diabetic neuropathy, unspecified; E10.319 Type 1 diabetes mellitus with unspecified diabetic retinopathy without macular edema; E10.69 Type 1 diabetes mellitus with other specified complication; M86.9 Osteomyelitis, unspecified; L97.409 Non-pressure chronic ulcer of unspecified heel and midfoot with unspecified severity; G89.29 Other chronic pain; E87.2 Acidosis; B95.8 Unspecified staphylococcus as the cause of diseases classified elsewhere; Z79.4 Long term (current) use of insulin; Z96.41 Presence of insulin pump (external) (internal); Z87.891 Personal history of nicotine dependence; Z66 Do not resuscitate; Z92.3 Personal history of irradiation; Z85.828 Personal history of other malignant neoplasm of skin; Z94.0 Kidney transplant status; Z87.440 Personal history of urinary (tract) infections
CPT/HCPCS: 82435-PO; 82565-PO; 82947-PO; 84132-PO; 84295-PO; 84520-PO; 85014-PO; J0171; J0330; J1650; J1720; J1956; J2185; J2370; J2405; J2704; J3010; J3370; J3475; Q9967